=== PATIENT | female | born 1955 | race Caucasian/White ===

== ENCOUNTER → 2020-09-04 12:44 | Outpatient (BNVA) | payer MEDICARE, MEDICAID, SELFPAY | PROVIDERS: PCP Internal Medicine; Referring Provider Internal Medicine; Visit Provider Nurse Practitioner | DX: R10.13 Epigastric pain (principal); K21.9 Gastro-esophageal reflux disease without esophagitis | CPT/HCPCS: 99203; Q3014 ==

== ENCOUNTER 2020-09-17 16:46 | Outpatient (REF) | payer MEDICARE, MEDICAID, SELFPAY ==
--- NOTE | 2020-09-17 | MM_ITS ---
EXAMINATION: MM SCREENING DIGITAL BREAST TOMOSYNTHESIS, BILATERAL CLINICAL INFORMATION: Screening. Asymptomatic. The lifetime risk of breast cancer based on the Tyrer-Cuzick Model is 3%. COMPARISON: Mammography: 05/05/2014, 11/04/2013, 05/06/2013, 06/07/2012 TECHNIQUE: Digital breast tomosynthesis is performed in both the craniocaudal and mediolateral oblique views along with computer-aided detection (CAD). Synthesized 2D images are generated from the tomosynthesis. Additional right MLO view is provided. FINDINGS: There are scattered areas of fibroglandular density (ACR BI-RADS breast composition Category b). There are no significant masses, abnormal calcifications, or other abnormalities. Parenchymal pattern is similar to prior studies. There is no developing density. MM/MM tomosynthesis screening BI IMPRESSION: No significant changes from prior studies. ASSESSMENT: BI-RADS 1: Negative RECOMMENDATION: Routine annual mammography screening. This patient's information was entered into a reminder system with a target due date for their next mammogram.
== END 2020-09-17 16:47 | disposition home or self-care (01) ==
LOC: HO.MAMMO 16:46
PROVIDERS: PCP Internal Medicine; Visit Provider Internal Medicine
DX: Z12.31 Encounter for screening mammogram for malignant neoplasm of breast (principal)
CPT/HCPCS: 77063; 77067

== ENCOUNTER 2020-09-18 08:59 | Outpatient (REF) | payer MEDICARE, MEDICAID, SELFPAY ==
--- NOTE | 2020-09-18 | FL_ITS ---
EXAMINATION: FL SMALL BOWEL SERIES CLINICAL INFORMATION: Epigastric pain COMPARISON: None TECHNIQUE: Following a seam sewer image of the abdomen, contrast was administered orally, and interval abdominal radiographs were performed to assess for contrast progression through the small bowel. Following contrast transit through the small bowel and into the colon, the patient was placed on the fluoroscopy table, and multiple spot images were obtained. FINDINGS: Family Day Care Worker image of the abdomen demonstrates a normal bowel gas pattern. There is normal transit time of contrast material through the small bowel, with contrast present in the colon by 1 hour . Small bowel loops are of normal caliber throughout the abdomen and pelvis. The jejunal and ileal fold patterns are normal, without evidence of abnormal thickening. No fixed regions of luminal narrowing are seen to suggest stricturing. The terminal ileum demonstrates a normal appearance. There are degenerative changes of the lower lumbar spine and hip joints. 8 saved fluoroscopic images FL/FL small bowel follow through IMPRESSION: Normal small bowel series.
--- NOTE | 2020-09-18 09:04 | FL_ITS ---
EXAMINATION: XR FLUOROSCOPY UPPER GI WITH AIR CLINICAL INFORMATION: Epigastric pain COMPARISON: None TECHNIQUE: Upper GI was performed using thin and thick barium and effervescent granules. FINDINGS: There are tertiary contractions seen in the esophagus. There is a small sliding-type hiatal hernia. No gastroesophageal reflux is seen. The stomach and duodenum are normal-appearing. No fold thickening, mass, ulcer or stricture is seen. FLUOROSCOPY TIME: 1.3 minutes DOSE AREA PRODUCT: 12 kruger per centimeter squared. Total dose 48 mg. 48 saved fluoroscopic images. FL/FL upper GI w air IMPRESSION: Tertiary esophageal contractions. Small sliding-type hiatal hernia.
== END 2020-09-18 09:00 | disposition home or self-care (01) ==
LOC: HO.XRAY 08:59
PROVIDERS: PCP Internal Medicine; Visit Provider Nurse Practitioner
DX: R10.13 Epigastric pain (principal)
CPT/HCPCS: 74246; 74248; 74250

== ENCOUNTER → 2020-10-01 14:53 | Outpatient (BNVA) | payer MEDICARE, MEDICAID, SELFPAY | PROVIDERS: PCP Internal Medicine; Referring Provider Internal Medicine; Visit Provider Nurse Practitioner | DX: K21.9 Gastro-esophageal reflux disease without esophagitis (principal); R10.13 Epigastric pain; K29.50 Unspecified chronic gastritis without bleeding; Z79.899 Other long term (current) drug therapy | CPT/HCPCS: Q3014 ==

== ENCOUNTER 2020-12-13 09:50 | Outpatient (REF) | payer MEDICARE, MEDICAID, SELFPAY ==
--- NOTE | 2020-12-13 09:54 | US_ITS ---
EXAMINATION: US ABDOMEN COMPLETE CLINICAL INFORMATION: Epigastric pain. COMPARISON: Ultrasound abdomen 04/13/2009. TECHNIQUE: Real-time imaging of the abdominal viscera. FINDINGS: PANCREAS: Pancreatic head and body are unremarkable. The tail is obscured by gas. ABDOMINAL AORTA: The proximal, mid, and distal segments are normal in caliber. INFERIOR VENA CAVA: Visualized portions are normal. LIVER: The liver is normal in size. The liver contour is normal. There is diffuse increased liver parenchymal echogenicity, consistent with hepatic steatosis. Focal fatty sparing noted near the gallbladder fossa. No focal hepatic lesion. There is no intrahepatic biliary duct dilatation seen. GALLBLADDER: Normal. The gallbladder is physiologically distended without evidence of stones, sludge, polyps, wall thickening or pericholecystic fluid. COMMON BILE DUCT: Normal in caliber measuring 0.5 cm in diameter. RIGHT KIDNEY: Normal. No hydronephrosis. No renal calculi or focal parenchymal lesions. The kidney measures 10.1 cm in maximum dimension. LEFT KIDNEY: Normal. No hydronephrosis. No renal calculi or focal parenchymal lesions. The kidney measures 10.8 cm in maximum dimension. SPLEEN: Normal. The spleen measures 9.8 cm in maximum dimension. FREE FLUID: None. US/US abdomen complete IMPRESSION: Hepatic steatosis. Otherwise unremarkable abdominal ultrasound.
== END 2020-12-13 09:51 | disposition home or self-care (01) ==
LOC: HO.US 09:50
PROVIDERS: PCP Internal Medicine; Visit Provider Nurse Practitioner
DX: R10.13 Epigastric pain (principal)
CPT/HCPCS: 76700

== ENCOUNTER → 2020-12-18 14:12 | Outpatient (BNVA) | payer MEDICARE, MEDICAID, SELFPAY | PROVIDERS: PCP Internal Medicine; Visit Provider Nurse Practitioner ==

== ENCOUNTER → 2020-12-20 08:58 | Outpatient (BNVA) | payer MEDICARE, MEDICAID, SELFPAY | PROVIDERS: PCP Internal Medicine; Visit Provider Nurse Practitioner | DX: Z13.89 Encounter for screening for other disorder (principal) | CPT/HCPCS: Q3014 ==

== ENCOUNTER 2021-02-21 12:41 | Outpatient (REF) | payer MEDICARE, MEDICAID, SELFPAY ==
[2021-02-21 15:33] LABS: MANUAL DIFF FLAG NO
[2021-02-21 15:39] LABS: Basophils Percent Auto 0.3 % (0-2); Eosinophils Absolute Auto 0.1 X10*3/uL (0.0-0.4); Eosinophils Percent Auto 1.1 % (0-4); Hematocrit 40.9 % (37-47); Hemoglobin 13.3 g/dl (12.0-16.0); Imm Gran Abs Auto 0.01 X10*3/uL (0.00-0.03); Imm Gran Pct Auto 0.2 % (0.0-0.4); Lymphocytes Absolute Auto 2.2 X10*3/uL (1.2-4.9); Mean Corpuscular HGB Conc 32.5 g/dl (31.0-35.0); Mean Corpuscular Hemoglobin 28.5 pg (27.0-33.0); Mean Corpuscular Volume 87.6 fL (80-98); Mean Platelet Volume 10.6 fL (9.4-12.3); Monocytes Absolute Auto 0.4 X10*3/uL (0.1-1.2); Monocytes Percent Auto 5.7 % (2-11); Neutrophils Absolute Auto 3.8 X10*3/uL (2.0-8.3); Neutrophils Percent Auto 58.7 % (45-73); Platelet Count 254 X10*3/uL (160-400); Red Blood Count 4.67 X10*6/uL (4.20-5.50); Red Cell Distribution Width 13.4 % (11.0-16.0); White Blood Count 6.5 X10*3/uL (4.8-10.8)
[2021-02-21 16:00] LABS: C Reactive Protein 0.44 mg/dL (< or = 0.50)
[2021-02-21 16:14] LABS: Albumin Level 4.3 g/dL (3.5-5.0); Estimated Glomerular Filt Rate > 60; Phosphorus 3.6 mg/dL (2.7-4.5)
[2021-02-21 16:24] LABS: Vitamin D 25-OH Total 26.3 ng/mL (>30)
[2021-02-21 16:30] LABS: Calcium 10.8 mg/dL (8.4-10.2)
[2021-02-22 12:46] LABS: Calcium (PTHI) 10.7 mg/dL (8.6-10.4); PTHI 55 pg/mL (14-64)
== END 2021-02-21 12:42 | disposition home or self-care (01) ==
LOC: HO.LAB 12:41
PROVIDERS: Nurse Practitioner; PCP Internal Medicine; Visit Provider Internal Medicine
DX: E83.52 Hypercalcemia (principal); E21.3 Hyperparathyroidism, unspecified; E55.9 Vitamin D deficiency, unspecified; R10.13 Epigastric pain
CPT/HCPCS: 36415; 82040; 82306; 82310; 82565; 83970; 84100; 85025; 86140; 99202

== ENCOUNTER 2021-03-05 11:07 | Outpatient (REF) | payer MEDICARE, MEDICAID, SELFPAY ==
[2021-03-06 08:45] LABS: BV Int Neg Control Negative (Negative); BV Int Pos Control Positive (Positive)
== END 2021-03-05 11:08 | disposition home or self-care (01) ==
LOC: HO.LAB 11:07
PROVIDERS: PCP Internal Medicine; Visit Provider Advanced Practice Midwife
DX: N89.8 Other specified noninflammatory disorders of vagina (principal); R32 Unspecified urinary incontinence; N95.2 Postmenopausal atrophic vaginitis
CPT/HCPCS: 87480; 87510; 87660; 99212

== ENCOUNTER 2021-03-12 15:09 | Outpatient (REF) | payer MEDICARE, MEDICAID, SELFPAY | END 2021-03-12 15:10 | disposition home or self-care (01) | LOC: HO.LNP 15:09 | PROVIDERS: Visit Provider Nurse Practitioner | DX: R10.13 Epigastric pain (principal) | CPT/HCPCS: 87338 ==

== ENCOUNTER 2021-03-21 12:32 | Outpatient (REF) | payer MEDICARE, MEDICAID, SELFPAY ==
--- NOTE | ~2021-03-21 | MM_ITS ---
EXAMINATION: BONE DENSITOMETRY CLINICAL INDICATION: Hypercalcemia. COMPARISON: Baseline BD dated 11/04/2013. This is the patient's baseline examination for the forearm radius 33%. TECHNIQUE: Using a [employer] DXA System (software version: 13.1) manufactured by [employer], dual-energy x-ray absorptiometry was performed of the lumbar spine, left hip, and left forearm radius 33%. The images are of good technical quality. Summary results are attached. FINDINGS: AP SPINE L1-L4: Current: BMD 1.050 g/cm2, Z-score -0.1, T-score -1.1, osteopenia, 4.9% decrease from baseline (<5% change is not significant). Baseline: BMD 1.104 g/cm2. LEFT FEMUR, NECK: Current: BMD 0.793 g/cm2, Z-score -0.6, T-score -1.8, osteopenia. Baseline: BMD 0.868 g/cm2. LEFT FEMUR, TOTAL: Current: BMD 1.050 g/cm2, Z-score -0.1, T-score -1.1, osteopenia, 4.9% decrease from baseline (<5% change is not significant). Baseline: BMD 1.104 g/cm2. LEFT FOREARM RADIUS 33%: BMD 0.756 g/cm2, Z-score 0.2, T-score -1.4, osteopenia. IDENTIFIED RISK FACTORS: Hyperparathyroidism. Early menopause, secondary osteoporosis, hysterectomy, bilateral oophorectomy. HISTORY OF FRACTURE: None listed. MEDICATIONS: Vitamin D. MM/XR DEXA appendicular skeleton IMPRESSION: 1. DIAGNOSIS: Osteopenia based on the lowest T-score value of -1.8 in the femoral neck applying World Health Organization criteria. 2. 10-YEAR FRACTURE RISK PREDICTION, FRAX: Major osteoporotic fracture (clinical spine, forearm, hip or shoulder) 5.4%. Hip fracture 0.7%. 3. Treatment Recommendations: NOF guidelines recommend consideration for treatment in postmenopausal women and men age 50 and older presenting with the following: -A hip or vertebral (clinical or morphometric) fracture. -T-score less than or equal to -2.5 at the femoral neck or spine after appropriate evaluation to exclude secondary causes. -Low bone mass at the hip or spine and a 10-year fracture probability by FRAX of greater than or equal to 3% for hip fracture or greater than or equal to 20% for major osteoporotic fracture based on the [place] adapted WHO algorithm. 4. Other Recommendations: All treatment decisions require clinical judgment and consideration of individual patient factors, including patient preferences, comorbidities, previous drug use, risk factors not captured in the FRAX model (e.g. frailty, falls, vitamin D deficiency, increased bone turnover, interval significant decline in bone density) and possible under or overestimation of fracture risk by FRAX. Additional medical evaluation for secondary cause of low bone mineral density may be appropriate. FUTURE SCAN RECOMMENDATION: People with diagnosed cases of osteoporosis or at high risk for fracture should have regular bone mineral density tests. For patients eligible for Medicare, routine testing is allowed once every 2 years. The testing frequency can be increased to one year for patients who have rapidly progressing disease, those who are receiving or discontinuing medical therapy to restore bone mass, or have additional risk factors.
== END 2021-03-21 12:33 | disposition home or self-care (01) ==
LOC: HO.MAMMO 12:32
PROVIDERS: Visit Provider Internal Medicine
DX: Z13.820 Encounter for screening for osteoporosis (principal); M85.80 Other specified disorders of bone density and structure, unspecified site; E83.52 Hypercalcemia; Z78.0 Asymptomatic menopausal state; Z98.890 Other specified postprocedural states; Z79.899 Other long term (current) drug therapy
CPT/HCPCS: 77080; 77081

== ENCOUNTER → 2021-03-22 15:40 | Outpatient (BNVA) | payer MEDICARE, MEDICAID, SELFPAY | PROVIDERS: PCP Internal Medicine; Visit Provider Nurse Practitioner | DX: A04.8 Other specified bacterial intestinal infections (principal); K21.9 Gastro-esophageal reflux disease without esophagitis; R10.13 Epigastric pain; R32 Unspecified urinary incontinence; K29.50 Unspecified chronic gastritis without bleeding; N95.2 Postmenopausal atrophic vaginitis; K59.04 Chronic idiopathic constipation | CPT/HCPCS: 99212 ==

== ENCOUNTER → 2021-05-15 08:54 | Outpatient (BNVA) | payer MEDICARE, SELFPAY | PROVIDERS: Visit Provider Internal Medicine | DX: E21.3 Hyperparathyroidism, unspecified (principal); E55.9 Vitamin D deficiency, unspecified; E83.52 Hypercalcemia | CPT/HCPCS: Q3014 ==

== ENCOUNTER 2021-06-05 10:17 | Outpatient (REF) | payer MEDICARE, SELFPAY ==
--- NOTE | ~2021-06-05 | US_ITS ---
EXAMINATION: US THYROID CLINICAL INFORMATION: Hyperparathyroidism, unspecified COMPARISON: None TECHNIQUE: Linear transducer kruger-scale and color Doppler examination with attention to the region of the thyroid. FINDINGS: SIZE: Measurements of the thyroid lobes and nodules are given in sagittal, anteroposterior and transverse dimensions respectively. Right Thyroid Lobe: 5.1 x 1.9 x 1.6 cm, volume 8.1 mL. Parenchyma: The gland echotexture is heterogeneous. Thyroid vascularity is normal. Left Thyroid Lobe: 4.6 x 1.7 x 1.5 cm, volume 6.1 mL. Parenchyma: The gland echotexture is heterogeneous. Thyroid vascularity is normal. Isthmus: 0.2 cm in maximum AP dimension. Estimated total number of nodules greater than or equal to 1 cm: 1. Data Integrity Analyst nodules are described as follows: 1. Location: Right inferior. Size: 1.0 x 0.5 x 0.6 cm, volume 0.2 mL. Nodule characteristics: Composition: Solid (2). Echogenicity: Isoechoic (1). Shape: Not taller than wide (0). Margins: Smooth (0). Echogenic Foci: None (0). ACR TI-RADS total points: 3 ACR TI-RADS category: 3 2. Location: Right superior/mid. Size: 0.7 x 0.6 x 0.6 cm, volume 0.1 mL. Nodule characteristics: Composition: Solid (2). Echogenicity: Isoechoic (1). Shape: Not taller than wide (0). Margins: Smooth (0). Echogenic Foci: None (0). ACR TI-RADS total points: 3 ACR TI-RADS category: 3 There are multiple colloid cysts seen. The largest fecaloid cysts were measured on the exam and not dictated on the report. NODES: No lymphadenopathy is seen in the tissue surrounding the thyroid gland. US/US thyroid IMPRESSION: Subcentimeter solid thyroid nodules, nonsuspicious. Multiple colloid cysts seen bilaterally. The thyroid gland is heterogeneous and mildly enlarged. ACR TI-RADS RECOMMENDATION REFERENCE: Ultrasound-guided fine-needle aspiration, followup ultrasound, no further follow up. * TR1 (0 point) and TR 2 (2 points): No FNA or follow up * TR3 (3 points): FNA if more than or equal to 2.5 cm in maximum dimension, followup ultrasound in 1, 3 and 5 years if 1.5 to 2.4 cm in maximum dimension. * TR4 (4-6 points): FNA if more than or equal to 1.5 cm in maximum dimension, followup ultrasound in 1, 2, 3 and 5 years if 1 to 1.4 cm in maximum dimension. * TR5 (more than or equal to 7 points): FNA if more than or equal to 1 cm in maximum dimension, followup ultrasound every year for 5 years if 0.5 to 0.9 cm in maximum dimension. * TR3, TR4 or TR5 nodules that are below the size threshold for follow up receive no follow up.
== END 2021-06-05 10:18 | disposition home or self-care (01) ==
LOC: HO.US 10:17
PROVIDERS: PCP Internal Medicine; Visit Provider Internal Medicine
DX: E21.3 Hyperparathyroidism, unspecified (principal)
CPT/HCPCS: 76536

== ENCOUNTER 2021-08-08 10:03 | Outpatient (REF) | payer MEDICARE, SELFPAY ==
--- NOTE | 2021-08-08 10:31 | PM.OP ---
Brief Operative Note Date of Service: 08/08/21 Pre-op diagnosis: Multinodular Thyroid Procedure: The patient presented today for FNA biopsy of the thyroid. US was completed and this revealed a heterogenous appearing gland with multiple subcentimeter cysts. There was 1 right mid pole 1.1 cm spongiform nodule, but no nodules meeting indication for FNA biopsy. I discussed with the Patient that spongiform nodules carry a low risk of malignancy, and FNA biopsy is recommended only when these nodules grow to more than 2-2.5 cm in greatest dimension. Her nodule does not meet indication for FNA biopsy at this time. We will continue with yearly thyroid US surveillance to monitor for any growth or changes in the nodule that would warrant FNA biopsy. I advised her to notify me immediately of any swelling or growth in the thyroid, difficulty swallowing or changes in her voice. She states she will do so. Surgeon: Stormy Rosales, DO Was an Senior Windows Systems Engineer used for this Procedure?: No Estimated blood loss (mL): 0
== END 2021-08-08 10:04 | disposition home or self-care (01) ==
LOC: HO.US 10:03
PROVIDERS: PCP Internal Medicine; Visit Provider Internal Medicine
DX: E04.2 Nontoxic multinodular goiter (principal)
CPT/HCPCS: 76536

== ENCOUNTER → 2021-08-22 10:24 | Outpatient (BNVA) | payer MEDICARE, SELFPAY | PROVIDERS: PCP Internal Medicine; Visit Provider Internal Medicine | CPT/HCPCS: Q3014 ==

== ENCOUNTER 2021-08-26 11:25 | Outpatient (REF) | payer MEDICARE, SELFPAY ==
[2021-08-26 12:55] LABS: Alanine Aminotransferase 24 U/L (0-31); Albumin Level 4.2 g/dL (3.5-5.0); Alkaline Phosphatase 107 U/L (39-117); Anion Gap 11 (12-20); Aspartate Amino Transferase 21 U/L (5-31); Bilirubin Total 1.9 mg/dL (0.0-1.0); Blood Urea Nitrogen 10 mg/dL (9-16); Calcium 10.6 mg/dL (8.4-10.2); Carbon Dioxide 29 mmol/L (22-29); Chloride 107 mmol/L (96-108); Estimated Glomerular Filt Rate > 60; Glucose Random 113 mg/dL (60-115); Phosphorus 3.3 mg/dL (2.7-4.5); Potassium 4.5 mmol/L (3.3-5.1); Sodium 142 mmol/L (135-145)
[2021-08-26 13:14] LABS: Free T4 (Free Thyroxine) 0.83 ng/dL (0.71-1.85); Thyroid Stimulating Hormone 0.58 uIU/mL (0.32-4.0); Vitamin D 25-OH Total 25.1 ng/mL (>30)
[2021-08-27 16:05] LABS: Calcium (PTHI) 10.5 mg/dL (8.6-10.4); PTHI 70 pg/mL (14-64)
== END 2021-08-26 11:26 | disposition home or self-care (01) ==
LOC: HO.LAB 11:25
PROVIDERS: PCP Internal Medicine; Visit Provider Internal Medicine
DX: E55.9 Vitamin D deficiency, unspecified (principal); E04.2 Nontoxic multinodular goiter; E21.3 Hyperparathyroidism, unspecified
CPT/HCPCS: 36415; 80053; 82306; 83970; 84100; 84439; 84443

== ENCOUNTER 2021-08-29 | Outpatient (REF) | payer MEDICARE, SELFPAY ==
[2021-08-30 10:51] LABS: Total Volume 24 Hour Urine 1850 mL
[2021-08-30 11:57] LABS: Creatinine, 24Hr Urine 1.2 G/Day (1.0-2.0); Creatinine, mg/dL 62.48
[2021-09-01 17:27] LABS: Calcium, 24 Hr Urine 181 mg/24 h; Calcium/Creatinine Ratio 153 mg/g creat (30-275); Creatinine 24Hr Urine 1.18 g/24 h (0.50-2.15)
== END 2021-08-29 00:01 | disposition home or self-care (01) ==
LOC: HO.LNP
PROVIDERS: Visit Provider Internal Medicine
DX: E21.3 Hyperparathyroidism, unspecified (principal)
CPT/HCPCS: 82340; 82570

== ENCOUNTER → 2021-09-03 13:56 | Outpatient (BNVA) | payer MEDICARE, SELFPAY | PROVIDERS: PCP Internal Medicine; Referring Provider Internal Medicine; Visit Provider Nurse Practitioner | DX: K59.04 Chronic idiopathic constipation (principal); K21.9 Gastro-esophageal reflux disease without esophagitis; A04.8 Other specified bacterial intestinal infections; B37.0 Candidal stomatitis; B37.2 Candidiasis of skin and nail; R10.13 Epigastric pain | CPT/HCPCS: 99212 ==

== ENCOUNTER 2021-09-06 13:04 | Outpatient (REF) | payer MEDICARE, SELFPAY | END 2021-09-06 13:05 | disposition home or self-care (01) | LOC: HO.LNP 13:04 | PROVIDERS: Visit Provider Nurse Practitioner | DX: A04.8 Other specified bacterial intestinal infections (principal) | CPT/HCPCS: 87338 ==

== ENCOUNTER 2021-09-19 11:08 | Outpatient (REF) | payer MEDICARE, SELFPAY ==
--- NOTE | ~2021-09-19 | MM_ITS ---
EXAMINATION: MM SCREENING DIGITAL BREAST TOMOSYNTHESIS, BILATERAL CLINICAL INFORMATION: Screening. Asymptomatic. The lifetime risk of breast cancer based on the Tyrer-Cuzick Model is 2.7%. COMPARISON: Mammography: September 17, 2020 and studies dating back to February 15, 2010 TECHNIQUE: Digital breast tomosynthesis is performed in both the craniocaudal and mediolateral oblique views along with computer-aided detection (CAD). Synthesized 2D images are generated from the tomosynthesis. FINDINGS: There are scattered areas of fibroglandular density (ACR BI-RADS breast composition Category b). There are no significant masses, abnormal calcifications, or other abnormalities. MM/MM tomosynthesis screening BI IMPRESSION: There are no significant changes from prior study. ASSESSMENT: BI-RADS 1: Negative RECOMMENDATION: Routine annual mammography screening. This patient's information was entered into a reminder system with a target due date for their next mammogram.
== END 2021-09-19 11:09 | disposition home or self-care (01) ==
LOC: HO.MAMMO 11:08
PROVIDERS: Visit Provider Internal Medicine
DX: Z12.31 Encounter for screening mammogram for malignant neoplasm of breast (principal)
CPT/HCPCS: 77063; 77067

== ENCOUNTER → 2021-10-08 15:03 | Outpatient (BNVA) | payer MEDICARE, SELFPAY | PROVIDERS: PCP Internal Medicine; Referring Provider Internal Medicine; Visit Provider Nurse Practitioner | DX: K59.04 Chronic idiopathic constipation (principal); K21.9 Gastro-esophageal reflux disease without esophagitis; A04.8 Other specified bacterial intestinal infections; R10.13 Epigastric pain; B37.2 Candidiasis of skin and nail | CPT/HCPCS: 99202 ==

== ENCOUNTER → 2021-11-20 10:08 | Outpatient (BNVA) | payer MEDICARE, SELFPAY | PROVIDERS: PCP Internal Medicine; Visit Provider Internal Medicine | DX: Z13.89 Encounter for screening for other disorder (principal) | CPT/HCPCS: Q3014 ==

== ENCOUNTER → 2021-11-27 14:42 | Outpatient (REF) | payer MEDICARE, SELFPAY ==
--- NOTE | 2021-11-27 15:10 | ECG_ITS ---
Test Reason : chest pain Blood Pressure : / mmHG Vent. Rate : 072 BPM Atrial Rate : 072 BPM P-R Int : 136 ms QRS Dur : 096 ms QT Int : 414 ms P-R-T Axes : 011 011 016 degrees QTc Int : 453 ms Normal sinus rhythm Minimal voltage criteria for LVH, may be normal variant ( R in aVL ) Nonspecific T wave abnormality Abnormal ECG When compared with ECG of 03-APR-2020 01:40, No significant change was found Referred By: Sakshi Prakash Electronically Signed By:Dung Romero
[2021-11-27 15:36] LABS: Cholesterol 159 mg/dL; HDL Cholesterol 41 mg/dL; LDL Cholesterol Calculated 91 mg/dl; Triglycerides 138 mg/dL
== END ==
LOC: HO.CARD 14:42
PROVIDERS: PCP Internal Medicine; Visit Provider Internal Medicine
DX: R07.9 Chest pain, unspecified (principal); E78.5 Hyperlipidemia, unspecified
CPT/HCPCS: 36415; 80061; 93005

== ENCOUNTER → 2021-12-03 13:59 | Outpatient (BNVA) | payer MEDICARE, SELFPAY | PROVIDERS: PCP Internal Medicine; Referring Provider Internal Medicine; Visit Provider Nurse Practitioner | DX: K21.9 Gastro-esophageal reflux disease without esophagitis (principal); K59.04 Chronic idiopathic constipation; K64.9 Unspecified hemorrhoids; R10.13 Epigastric pain; A04.8 Other specified bacterial intestinal infections | CPT/HCPCS: 99212 ==

== ENCOUNTER 2021-12-11 14:23 | Outpatient (REF) | payer MEDICARE, SELFPAY | END 2021-12-11 14:24 | disposition home or self-care (01) | LOC: HO.LNP 14:23 | PROVIDERS: Visit Provider Nurse Practitioner | DX: A04.8 Other specified bacterial intestinal infections (principal) | CPT/HCPCS: 87338 ==

== ENCOUNTER 2021-12-12 11:21 | Outpatient (REF) | payer MEDICARE, SELFPAY ==
[2021-12-12 11:51] LABS: Total Volume 24 Hour Urine 925 mL
[2021-12-12 12:03] LABS: Creatinine, 24Hr Urine 1.3 G/Day (1.0-2.0); Creatinine, mg/dL 139.74
[2021-12-14 19:52] LABS: Calcium, 24 Hr Urine 117 mg/24 h; Calcium/Creatinine Ratio 97 mg/g creat (30-275)
== END 2021-12-12 11:22 | disposition home or self-care (01) ==
LOC: HO.LNP 11:21
PROVIDERS: Visit Provider Internal Medicine
DX: E21.3 Hyperparathyroidism, unspecified (principal)
CPT/HCPCS: 82340; 82570

== ENCOUNTER → 2022-01-06 11:13 | Outpatient (BNVA) | payer MEDICARE, SELFPAY | PROVIDERS: PCP Internal Medicine; Referring Provider Internal Medicine; Visit Provider Nurse Practitioner | DX: K21.9 Gastro-esophageal reflux disease without esophagitis (principal); K64.9 Unspecified hemorrhoids; K29.50 Unspecified chronic gastritis without bleeding; R10.13 Epigastric pain; A04.8 Other specified bacterial intestinal infections; B37.2 Candidiasis of skin and nail | CPT/HCPCS: 99212 ==

== ENCOUNTER 2022-02-11 14:29 | Outpatient (REF) | payer OTHER, SELFPAY ==
[2022-02-11 15:40] LABS: Thyroid Stimulating Hormone 0.86 uIU/mL (0.32-4.0)
== END 2022-02-11 14:30 | disposition home or self-care (01) ==
LOC: HO.LAB 14:29
PROVIDERS: PCP Internal Medicine; Visit Provider Internal Medicine
DX: E04.2 Nontoxic multinodular goiter (principal)
CPT/HCPCS: 36415; 84439; 84443

== ENCOUNTER 2022-02-21 12:39 | Outpatient (REF) | payer OTHER, SELFPAY ==
--- NOTE | ~2022-02-21 | US_ITS ---
EXAMINATION: US THYROID CLINICAL INFORMATION: Nontoxic multinodular goiter. COMPARISON: Thyroid ultrasound 06/05/2021. TECHNIQUE: Linear transducer grayscale and color Doppler examination with attention to the region of the thyroid. FINDINGS: SIZE: Measurements of the thyroid lobes and nodules are given in sagittal, anteroposterior and transverse dimensions respectively. Right Thyroid Lobe: 5.01 x 2.49 x 1.68 cm, volume 11.0 mL. Previously 5.1 x 1.9 x 1.6 cm, volume 8.1 mL. Parenchyma: The gland echotexture is heterogeneous. Thyroid vascularity is normal. Left Thyroid Lobe: 4.52 x 1.41 x 1.55 cm, volume 5.20 mL. Previously 4.6 x 1.7 x 1.5 cm, volume 6.1 mL. Parenchyma: The gland echotexture is heterogeneous. Thyroid vascularity is normal. Isthmus: 0.22 cm in maximum AP dimension. Previously 0.20 cm. Estimated total number of nodules greater than or equal to 1 cm: 0. Pyrometer Temperature Regulator nodules are described as follows: 1. Location: Right superior. Size: 0.74 x 0.66 x 0.64 cm, volume 0.16 mL. Previously: 0.74 x 0.61 x 0.60 cm, volume 0.14 mL. Nodule characteristics: Composition: Spongiform (0). Echogenicity: Anechoic (0). Shape: Not taller than wide (0). Margins: Smooth (0). Echogenic Foci: None (0). ACR TI-RADS total points: 0 Previous: 3 ACR TI-RADS category: 1 Previous: 3 Significant change in size (>/= 20% in 2 dimensions and minimal increase of 2 mm or 50% or greater increase in volume): Change in features: Change in ACR TI-RADS risk category: 2. Location: Right inferior. Size: 0.69 x 0.78 x 0.51 cm, volume 0.15 mL. Previously: 0.74 x 0.70 x 0.48 cm, volume 0.13 mL. Nodule characteristics: Composition: Cystic(0). ACR TI-RADS total points: 0 ACR TI-RADS category: 1 Significant change in size (>/= 20% in 2 dimensions and minimal increase of 2 mm or 50% or greater increase in volume): Change in features: Change in ACR TI-RADS risk category: Not applicable 3. Location: Right inferior. Size: 0.62 x 0.88 x 0.52 cm, volume 0.15 mL. Previously: 0.98 x 0.53 x 0.63 cm, volume 0.17 mL. Nodule characteristics: Composition: Spongiform (0). Echogenicity: Anechoic (0). Shape: Not taller than wide (0). Margins: Smooth (0). Echogenic Foci: None (0). ACR TI-RADS total points: 0 Previous: 3 ACR TI-RADS category: 1 Previous: 3 Significant change in size (>/= 20% in 2 dimensions and minimal increase of 2 mm or 50% or greater increase in volume): Change in features: Change in ACR TI-RADS risk category: 4. Location: Left mid. Size: 0.77 x 0.61 x 0.57 cm, volume 0.14 mL. Previously: 0.77 x 0.41 x 0.81 cm, volume 0.14 mL. Nodule characteristics: Composition: Spongiform (0). Echogenicity: Anechoic (0). Shape: Not taller than wide (0). Margins: Smooth (0). Echogenic Foci: None (0). ACR TI-RADS total points: 0 ACR TI-RADS category: 1 Significant change in size (>/= 20% in 2 dimensions and minimal increase of 2 mm or 50% or greater increase in volume): Change in features: Change in ACR TI-RADS risk category: Not applicable 5. Location: Left inferior. Size: 0.92 x 0.53 x 0.98 cm, volume 0.25 mL. Previously: 1.0 x 0.45 x 0.90 cm, volume 0.22 mL. Nodule characteristics: Composition: Cystic(0). ACR TI-RADS total points: 0 ACR TI-RADS category: 1 Significant change in size (>/= 20% in 2 dimensions and minimal increase of 2 mm or 50% or greater increase in volume): Change in features: Change in ACR TI-RADS risk category: Not applicable NODES: No lymphadenopathy is seen in the tissue surrounding the thyroid gland. US/US thyroid IMPRESSION: Multiple bilateral subcentimeter thyroid nodules. The sonographic morphology is consistent with ACR TI-RADS Category 1. Based on the size criteria, no more sonographic follow-up is indicated. ACR TI-RADS RECOMMENDATION REFERENCE: Ultrasound-guided fine-needle aspiration, followup ultrasound, no further follow up. * TR1 (0 point) and TR 2 (2 points): No FNA or follow up * TR3 (3 points): FNA if more than or equal to 2.5 cm in maximum dimension, followup ultrasound in 1, 3 and 5 years if 1.5 to 2.4 cm in maximum dimension. * TR4 (4-6 points): FNA if more than or equal to 1.5 cm in maximum dimension, followup ultrasound in 1, 2, 3 and 5 years if 1 to 1.4 cm in maximum dimension. * TR5 (more than or equal to 7 points): FNA if more than or equal to 1 cm in maximum dimension, followup ultrasound every year for 5 years if 0.5 to 0.9 cm in maximum dimension. * TR3, TR4 or TR5 nodules that are below the size threshold for follow up receive no follow up.
== END 2022-02-21 12:40 | disposition home or self-care (01) ==
LOC: HO.HMGCX 12:39
PROVIDERS: PCP Internal Medicine; Visit Provider Internal Medicine
DX: E04.2 Nontoxic multinodular goiter (principal)
CPT/HCPCS: 76536

== ENCOUNTER → 2022-03-20 11:22 | Outpatient (BNVA) | payer OTHER, SELFPAY | PROVIDERS: PCP Internal Medicine; Visit Provider Internal Medicine | DX: E21.3 Hyperparathyroidism, unspecified (principal); E55.9 Vitamin D deficiency, unspecified; E04.2 Nontoxic multinodular goiter | CPT/HCPCS: Q3014 ==

== ENCOUNTER 2022-03-25 11:01 | Outpatient (REF) | payer OTHER, SELFPAY ==
[2022-03-25 12:33] LABS: Vitamin D 25-OH Total 20.2 ng/mL (>30)
[2022-03-25 12:44] LABS: Alanine Aminotransferase 34 U/L (0-31); Albumin Level 4.1 g/dL (3.5-5.0); Alkaline Phosphatase 96 U/L (39-117); Anion Gap 8 (12-20); Aspartate Amino Transferase 25 U/L (5-31); Bilirubin Total 1.5 mg/dL (0.0-1.0); Blood Urea Nitrogen 13 mg/dL (9-16); Calcium 10.7 mg/dL (8.4-10.2); Carbon Dioxide 28 mmol/L (22-29); Chloride 109 mmol/L (96-108); Estimated Glomerular Filt Rate > 60; Glucose Random 131 mg/dL (60-115); Phosphorus 2.7 mg/dL (2.7-4.5); Potassium 4.5 mmol/L (3.3-5.1); Sodium 140 mmol/L (135-145)
[2022-03-26 17:45] LABS: Calcium (PTHI) 10.5 mg/dL (8.6-10.4); PTHI 64 pg/mL (16-77)
== END 2022-03-25 11:02 | disposition home or self-care (01) ==
LOC: HO.LAB 11:01
PROVIDERS: PCP Internal Medicine; Visit Provider Internal Medicine
DX: E83.52 Hypercalcemia (principal)
CPT/HCPCS: 36415; 80053; 82306; 83970; 84100

== ENCOUNTER → 2022-05-14 11:12 | Outpatient (BNVA) | payer OTHER, SELFPAY | PROVIDERS: PCP Internal Medicine; Visit Provider Internal Medicine | DX: E21.3 Hyperparathyroidism, unspecified (principal); E55.9 Vitamin D deficiency, unspecified; E04.2 Nontoxic multinodular goiter | CPT/HCPCS: Q3014 ==

== ENCOUNTER 2022-07-22 16:07 | Outpatient (REF) | payer OTHER, SELFPAY ==
--- NOTE | ~2022-07-22 | XR_ITS ---
EXAMINATION: XR ABDOMEN KUB CLINICAL INDICATION: Calculus of kidney. COMPARISON: None. TECHNIQUE: AP view of the abdomen. FINDINGS: There is scattered stool seen throughout the colon without distention. Otherwise the bowel gas pattern is normal with no evidence of ileus or obstruction. There is a 3 mm radiopaque calculi or phlebolith in the left pelvis. Few phleboliths are seen in the right pelvis. The bones are unremarkable. XR/XR KUB IMPRESSION: Mild constipation. 3 mm radiopaque density left pelvis adjacent to the ischium, question stone versus phlebolith.
== END 2022-07-22 16:08 | disposition home or self-care (01) ==
LOC: HO.XRAY 16:07
PROVIDERS: PCP Internal Medicine; Visit Provider Internal Medicine
DX: N20.0 Calculus of kidney (principal)
CPT/HCPCS: 74018

== ENCOUNTER → 2022-07-23 12:30 | Outpatient (REF) | payer OTHER, SELFPAY ==
--- NOTE | 2022-07-23 12:40 | ECG_ITS ---
Test Reason : cp Blood Pressure : / mmHG Vent. Rate : 074 BPM Atrial Rate : 074 BPM P-R Int : 138 ms QRS Dur : 092 ms QT Int : 406 ms P-R-T Axes : 038 021 033 degrees QTc Int : 450 ms Normal sinus rhythm ST & T wave abnormality, consider anterior ischemia Abnormal ECG When compared with ECG of 27-NOV-2021 15:15, Inverted T waves have replaced nonspecific T wave abnormality in Anterior leads Clinical Correlation Advised Referred By: Sakshi Prakash Electronically Signed By:SALLIE HORTON
== END ==
LOC: HO.CARD 12:30
PROVIDERS: PCP Internal Medicine; Visit Provider Internal Medicine
DX: R07.9 Chest pain, unspecified (principal)
CPT/HCPCS: 93005

== ENCOUNTER → 2022-08-11 08:40 | Outpatient (REF) | payer OTHER, SELFPAY | LOC: HO.CARD 08:40 | PROVIDERS: PCP Internal Medicine; Visit Provider Internal Medicine | DX: Z13.89 Encounter for screening for other disorder (principal) ==

== ENCOUNTER 2022-09-26 15:13 | Outpatient (REF) | payer OTHER, SELFPAY ==
--- NOTE | ~2022-09-26 | XR_ITS ---
EXAMINATION: XR RIBS, RIGHT CLINICAL INFORMATION: Pain COMPARISON: Previous chest x-ray January 2009 TECHNIQUE: 3 views of the right ribs and one view of the chest were obtained. FINDINGS: Lungs are clear. No consolidation, pneumothorax, or pleural effusion. The cardiomediastinal silhouette and pulmonary vasculature are normal. Osseous structures are unremarkable. Ribs are intact. No fractures are identified. XR/XR ribs RT min 3V w CXR1V IMPRESSION: Unremarkable examination.
[2022-09-26 15:33] LABS: MANUAL DIFF FLAG NO
[2022-09-26 16:49] LABS: Basophils Percent Auto 0.5 % (0-2); Eosinophils Percent Auto 0.6 % (0-4); Hematocrit 44.5 % (37.0-47.0); Hemoglobin 14.6 g/dl (12.0-16.0); Imm Gran Abs Auto 0.01 X10*3/uL (0.00-0.03); Imm Gran Pct Auto 0.2 % (0.0-0.4); Lymphocytes Absolute Auto 2.3 X10*3/uL (1.2-4.9); Lymphocytes Percent Auto 37.7 % (20-40); Mean Corpuscular HGB Conc 32.8 g/dl (31.0-35.0); Mean Corpuscular Hemoglobin 28.2 pg (27.0-33.0); Mean Corpuscular Volume 86.1 fL (80.0-98.0); Mean Platelet Volume 10.7 fL (9.4-12.3); Monocytes Absolute Auto 0.3 X10*3/uL (0.1-1.2); Monocytes Percent Auto 5.3 % (2-11); Neutrophils Absolute Auto 3.4 x10*3/uL (2.0-8.3); Neutrophils Percent Auto 55.7 % (45-73); Platelet Count 258 X10*3/uL (160-400); Red Blood Count 5.17 X10*6/uL (4.20-5.50); Red Cell Distribution Width 13.7 % (11.0-16.0); White Blood Count 6.2 X10*3/uL (4.8-10.8)
[2022-09-26 18:02] LABS: Alanine Aminotransferase 43 U/L (0-31); Albumin Level 4.5 g/dL (3.5-5.0); Alkaline Phosphatase 117 U/L (39-117); Anion Gap 14 (12-20); Aspartate Amino Transferase 31 U/L (5-31); Bilirubin Total 1.3 mg/dL (0.0-1.0); Blood Urea Nitrogen 12 mg/dL (9-16); Carbon Dioxide 28 mmol/L (22-29); Chloride 105 mmol/L (96-108); Estimated Glomerular Filt Rate > 60; Glucose Random 93 mg/dL (60-115); Potassium 4.8 mmol/L (3.3-5.1); Sodium 142 mmol/L (135-145); Total Protein 7.5 g/dL (6.5-8.0)
[2022-09-26 18:06] LABS: Appearance Urine Clear; Color Urine Yellow; Glucose Urine UA Negative (Negative); Leukocyte Esterase Urine Negative (Negative); Nitrite Urine Negative (Negative); UMIC TRIGGER UACC YES; Urine Blood Trace (Negative); Urine Ketones Negative (Negative); Urine Protein Negative (Neg-Trace)
[2022-09-26 18:57] LABS: Bacteria Urine None Seen (None Seen); Hyaline Casts Urine 0-2 /LPF (0-2); RBC Urine 0-2 /HPF (0-2); WBC Urine 0-5 /HPF (0-5)
== END 2022-09-26 15:14 | disposition home or self-care (01) ==
LOC: HO.XRAY 15:13
PROVIDERS: PCP Internal Medicine; Visit Provider Nurse Practitioner Family
DX: M54.9 Dorsalgia, unspecified (principal)
CPT/HCPCS: 36415; 71101; 80053; 81001; 85025

== ENCOUNTER 2022-09-29 08:47 | Outpatient (REF) | payer OTHER, SELFPAY ==
--- NOTE | ~2022-09-29 | MM_ITS ---
EXAMINATION: MM SCREENING DIGITAL BREAST TOMOSYNTHESIS, BILATERAL CLINICAL INFORMATION: Screening. Asymptomatic. The lifetime risk of breast cancer based on the Tyrer-Cuzick Model is 3%. COMPARISON: Mammography: 09/19/2021, 09/17/2020, 05/05/2014 TECHNIQUE: Digital breast tomosynthesis is performed in both the craniocaudal and mediolateral oblique views along with computer-aided detection (CAD). Synthesized 2D images are generated from the tomosynthesis. FINDINGS: There are scattered areas of fibroglandular density (ACR BI-RADS breast composition Category b). There are no significant masses, abnormal calcifications, or other abnormalities. Parenchymal pattern is similar to prior studies. No developing density or architectural abnormality. No significant changes. MM/MM tomosynthesis screening BI IMPRESSION: No mammographic evidence of malignancy. ASSESSMENT: BI-RADS 1: Negative RECOMMENDATION: Routine annual mammography screening. This patient's information was entered into a reminder system with a target due date for their next mammogram.
== END 2022-09-29 08:48 | disposition home or self-care (01) ==
LOC: HO.MAMMO 08:47
PROVIDERS: Visit Provider Internal Medicine
DX: Z12.31 Encounter for screening mammogram for malignant neoplasm of breast (principal)
CPT/HCPCS: 77063; 77067

== ENCOUNTER → 2022-10-15 12:33 | Outpatient (BNVA) | payer OTHER, SELFPAY | PROVIDERS: PCP Internal Medicine; Referring Provider Internal Medicine; Visit Provider Internal Medicine Cardiovascular Disease | DX: I20.0 Unstable angina (principal) | CPT/HCPCS: 93005; 99202 ==

== ENCOUNTER → 2022-11-04 13:17 | Outpatient (BNVA) | payer OTHER, SELFPAY | PROVIDERS: PCP Internal Medicine; Visit Provider Nurse Practitioner Family | DX: R07.9 Chest pain, unspecified (principal); I25.10 Atherosclerotic heart disease of native coronary artery without angina pectoris; R94.31 Abnormal electrocardiogram [ECG] [EKG]; Z79.899 Other long term (current) drug therapy; Z98.890 Other specified postprocedural states | CPT/HCPCS: 99212 ==

== ENCOUNTER 2022-11-11 13:59 | Outpatient (REF) | payer OTHER, SELFPAY ==
[2022-11-11 15:53] LABS: Alanine Aminotransferase 43 U/L (0-31); Albumin Level 4.4 g/dL (3.5-5.0); Alkaline Phosphatase 111 U/L (39-117); Anion Gap 9 (12-20); Aspartate Amino Transferase 33 U/L (5-31); Bilirubin Total 1.6 mg/dL (0.0-1.0); Blood Urea Nitrogen 11 mg/dL (9-16); Calcium 11.1 mg/dL (8.4-10.2); Carbon Dioxide 29 mmol/L (22-29); Chloride 106 mmol/L (96-108); Cholesterol 213 mg/dL; Estimated Glomerular Filt Rate > 60; Glucose Random 138 mg/dL (60-115); HDL Cholesterol 43 mg/dL; LDL Cholesterol Calculated 138 mg/dl; Phosphorus 3.1 mg/dL (2.7-4.5); Potassium 4.1 mmol/L (3.3-5.1); Sodium 140 mmol/L (135-145); Total Protein 7.4 g/dL (6.5-8.0); Triglycerides 164 mg/dL
[2022-11-11 16:06] LABS: Appearance Urine Cloudy; Color Urine Yellow; Glucose Urine UA Negative (Negative); Leukocyte Esterase Urine Negative (Negative); Nitrite Urine Negative (Negative); PH 5.5 (5.0-9.0); Specific Gravity - Urine 1.025 (1.005-1.025); UMIC TRIGGER UACC YES; Urine Blood Trace (Negative); Urine Ketones Negative (Negative); Urine Protein Negative (Neg-Trace)
[2022-11-11 16:09] LABS: Free T4 (Free Thyroxine) 0.83 ng/dL (0.71-1.85); Vitamin D 25-OH Total 18.3 ng/mL (>30)
[2022-11-11 16:13] LABS: Bacteria Urine None Seen (None Seen); Hyaline Casts Urine 0-2 /LPF (0-2); RBC Urine 0-2 /HPF (0-2); WBC Urine 0-5 /HPF (0-5)
[2022-11-12 16:14] LABS: Calcium (PTHI) 11.2 mg/dL (8.6-10.4); PTHI 58 pg/mL (16-77)
== END 2022-11-11 14:00 | disposition home or self-care (01) ==
LOC: HO.LAB 13:59
PROVIDERS: Nurse Practitioner Family; PCP Internal Medicine; Visit Provider Internal Medicine
DX: E78.5 Hyperlipidemia, unspecified (principal); E55.9 Vitamin D deficiency, unspecified; E04.2 Nontoxic multinodular goiter; E21.3 Hyperparathyroidism, unspecified; R31.9 Hematuria, unspecified
CPT/HCPCS: 36415; 80053; 80061; 81001; 82306; 83970; 84100; 84439; 84443

== ENCOUNTER → 2022-11-12 14:02 | Outpatient (BNVA) | payer OTHER, SELFPAY | PROVIDERS: PCP Internal Medicine; Visit Provider Internal Medicine | DX: E21.3 Hyperparathyroidism, unspecified (principal); E55.9 Vitamin D deficiency, unspecified; E04.2 Nontoxic multinodular goiter; Z79.899 Other long term (current) drug therapy | CPT/HCPCS: 99212 ==

== ENCOUNTER 2022-11-13 14:30 | Outpatient (REF) | payer OTHER, SELFPAY ==
--- NOTE | ~2022-11-13 | US_ITS ---
EXAMINATION: US RETROPERITONEAL LIMITED (RENAL ONLY) CLINICAL INFORMATION: Calculus of kidney. COMPARISON: X-ray KUB 07/22/2022. Ultrasound abdomen complete 12/13/2020. CT abdomen 12/08/2007. TECHNIQUE: Real-time imaging of the kidneys. FINDINGS: RIGHT KIDNEY: 11.2 x 4.3 x 4.9 cm (SAG x AP x TRV). The kidney is normal in size, contour, and echogenicity. Renal cortical thickness is normal. No calculi or focal parenchymal lesions. No hydronephrosis. LEFT KIDNEY: 10.0 x 5.2 x 5.0 cm (SAG x AP x TRV). The kidney is normal in size, contour, and echogenicity. Renal cortical thickness is normal. No calculi or focal parenchymal lesions. No hydronephrosis. Well-circumscribed 5 mm echogenic lesion in the cortex of the upper pole the left kidney. No associated shadowing. US/US renal BI IMPRESSION: 5 mm echogenic lesion in the cortex of the upper pole the left kidney. There is no shadowing to suggest this represents a calculus. An angiomyolipoma could give this appearance although none was seen on the prior CT scan..
== END 2022-11-13 14:31 | disposition home or self-care (01) ==
LOC: HO.US 14:30
PROVIDERS: PCP Internal Medicine; Visit Provider Internal Medicine
DX: N20.0 Calculus of kidney (principal)
CPT/HCPCS: 76775

== ENCOUNTER → 2022-12-17 13:23 | Outpatient (BNVA) | payer OTHER, SELFPAY | PROVIDERS: PCP Internal Medicine; Referring Provider Internal Medicine; Visit Provider Internal Medicine Cardiovascular Disease | DX: I25.10 Atherosclerotic heart disease of native coronary artery without angina pectoris (principal); E78.00 Pure hypercholesterolemia, unspecified | CPT/HCPCS: 93005; 99212 ==

== ENCOUNTER 2022-12-22 12:39 | Outpatient (REF) | payer OTHER, SELFPAY ==
--- NOTE | ~2022-12-22 | US_ITS ---
EXAMINATION: US THYROID CLINICAL INFORMATION: Nontoxic multinodular goiter. COMPARISON: Ultrasound thyroid 02/21/2022 and 06/05/2021. TECHNIQUE: Linear transducer grayscale and color Doppler examination with attention to the region of the thyroid. FINDINGS: SIZE: Measurements of the thyroid lobes and nodules are given in sagittal, anteroposterior and transverse dimensions respectively. Right Thyroid Lobe: 4.5 x 1.9 x 1.6 cm, volume 7.2 mL. Previously 5.01 x 2.49 x 1.68 cm, volume 11.0 mL. Parenchyma: The gland echotexture is heterogeneous. Thyroid vascularity is normal. Left Thyroid Lobe: 4.0 x 1.6 x 1.6 cm, volume 5.4 mL. Previously 4.5 x 1.4 x 1.5 cm, volume 4.9 mL. Parenchyma: The gland echotexture is heterogeneous. Thyroid vascularity is normal. Isthmus: 0.3 cm in maximum AP dimension. Previously 0.20 cm. Estimated total number of nodules greater than or equal to 1 cm: 0. 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 Location: Right superior mid. Size: 0.8 x 0.6 x 0.6 cm, volume of 0.2 mL. Previously: 0.74 x 0.66 x 0.64 cm, volume 0.16 mL. Nodule characteristics: Composition: Solid (2). Echogenicity: Hypoechoic (2). Shape: Not taller than wide (0). Margins: Smooth (0). Echogenic Foci: None (0). ACR TI-RADS total points: 4 Previous: 0 ACR TI-RADS category: 4 Previous: 1 Significant change in size (>/= 20% in 2 dimensions and minimal increase of 2 mm or 50% or greater increase in volume): No Change in features: No Change in ACR TI-RADS risk category: No 2. Location: Right inferior. Size: 0.7 x 0.7 x 0.6 cm, volume 0.2 mL. Previously: 0.62 x 0.88 x 0.52 cm, volume 0.1 mL. Nodule characteristics: Composition: Solid (2). Echogenicity: Hypoechoic (2). Shape: Taller than wide (3). Margins: Ill-defined (0). Echogenic Foci: None (0). ACR TI-RADS total points: 7 Previous: 0 ACR TI-RADS category: 5 Previous: 1 Significant change in size (>/= 20% in 2 dimensions and minimal increase of 2 mm or 50% or greater increase in volume): Yes Change in features: No Change in ACR TI-RADS risk category: No NODES: No lymphadenopathy is seen in the tissue surrounding the thyroid gland. US/US thyroid IMPRESSION: 1. Right thyroid lobe nodules are seen, as detailed. 2. There is heterogeneous thyroid echotexture, which can be associated with thyroiditis. ACR TI-RADS RECOMMENDATION REFERENCE: Ultrasound-guided fine-needle aspiration, followup ultrasound, no further follow up. * TR1 (0 point) and TR2 (2 points): No FNA or follow up. * TR3 (3 points): FNA if more than or equal to 2.5 cm in maximum dimension, followup ultrasound in 1, 3 and 5 years if 1.5 to 2.4 cm in maximum dimension. * TR4 (4-6 points): FNA if more than or equal to 1.5 cm in maximum dimension, followup ultrasound in 1, 2, 3 and 5 years if 1 to 1.4 cm in maximum dimension. * TR5 (more than or equal to 7 points): FNA if more than or equal to 1 cm in maximum dimension, followup ultrasound every year for 5 years if 0.5 to 0.9 cm in maximum dimension. * TR3, TR4 or TR5 nodules that are below the size threshold for followup receive no follow up.
== END 2022-12-22 12:40 | disposition home or self-care (01) ==
LOC: HO.US 12:39
PROVIDERS: Visit Provider Internal Medicine
DX: E04.2 Nontoxic multinodular goiter (principal)
CPT/HCPCS: 76536

== ENCOUNTER 2023-02-26 17:10 | Emergency (ER) | payer OTHER, SELFPAY ==
--- NOTE | ~2023-02-26 | CT_ITS ---
EXAMINATION: CT ABDOMEN AND PELVIS WITH CONTRAST CLINICAL INFORMATION: Right upper quadrant pain COMPARISON: None available. TECHNIQUE: Multidetector volumetric images were obtained from the superior aspect of the liver through the pubic symphysis following administration 85 mL of Omnipaque 350 intravenous contrast. Sagittal and coronal reformatted images were obtained on the technologist's workstation. Oral contrast: No This CT examination was performed using dose optimization techniques as appropriate, variously including the following: *Automated exposure control *Adjustment of mA and/or kV according to patient size (this includes techniques or standardized protocols for targeted exams where dose is matched to indication/reason for exam; i.e. extremities or head) *Use of iterative reconstruction technique DLP: 1087 mGy-cm FINDINGS: LUNG BASES: Mild atelectatic changes in both lung bases. The heart size is normal. No pericardial effusion seen. LIVER, GALLBLADDER, AND BILIARY TREE: The liver is normal in size, shape, and diffuse hypoattenuation attenuation. No focal hepatic lesion or biliary ductal dilatation is present. The gallbladder is unremarkable with no evidence of radiopaque gallstones, gallbladder wall thickening, or obvious pericholecystic inflammatory changes. PANCREAS: Unremarkable. SPLEEN: The spleen is normal size and density. Punctate calcifications are visualized. ADRENAL GLANDS: Unremarkable. KIDNEYS AND URETERS: The kidneys are normal in size, shape, and attenuation. No hydronephrosis, hydroureter, or calculi seen. No perinephric stranding. There is a 3 mm hypodensity in midpole left kidney. BLADDER: Unremarkable. GASTROINTESTINAL TRACT: There is scattered stool and gas seen throughout the colon without significant distention. The small bowel loops are normal caliber. Appendix is normal caliber. ABDOMINAL WALL: No significant hernia is appreciated. LYMPH NODES: Normal. VASCULAR: Unremarkable. PELVIC VISCERA: There is no free air or free fluid seen. There is a soft tissue density seen in anterior perineum region likely low-lying vagina and cervix. The uterus is surgically absent.. There is no abscess or fistula. OSSEOUS STRUCTURES: No aggressive lytic or sclerotic process seen. There is mild degenerative disc changes with vacuum disc L5-S1 disc level. There is a sclerotic density along the right lateral sacrum question bone island on axial image 61/3 CT/CT abdomen pelvis w IV con IMPRESSION: No acute process seen in the abdomen especially along the right upper quadrant. Normal gallbladder and appendix. Nonspecific thickening of anterior perineum likely low-lying vagina and cervix. Fleischner guidelines were followed.
--- NOTE | ~2023-02-26 | US_ITS ---
EXAMINATION: US ABDOMEN LIMITED CLINICAL INFORMATION: Right upper quadrant and flank pain. COMPARISON: None available. TECHNIQUE: Real-time imaging of the right upper quadrant abdominal viscera, limited to evaluate the gallbladder and kidney per request. FINDINGS: LIVER: The liver is only partially imaged, however appears mildly echogenic with focal fatty sparing along the gallbladder fossa suggestive of hepatic steatosis. GALLBLADDER: Normal. The gallbladder is physiologically distended without evidence of stones, sludge, polyps, wall thickening or pericholecystic fluid. COMMON BILE DUCT: Normal in caliber measuring 0.5 cm in diameter. RIGHT KIDNEY: Few punctate echogenic foci in the right mid pole without twinkle artifact or shadowing may reflect vascular reflectors. No definite renal calculi, however a CT stone protocol could be confirmatory. No hydronephrosis. No focal parenchymal lesions. The kidney measures 9.5 cm in maximum dimension. US/US abdomen limited IMPRESSION: * Few punctate echogenic foci in the right mid pole without twinkle artifact or shadowing may reflect vascular reflectors. No definite renal calculi, however a CT stone protocol could be confirmatory. * Though the liver is only partially imaged there appears to be mild hepatic steatosis.
[2023-02-26 17:12] VITALS: BP 150/77; PULSE 76; RESP 18; TEMP 36.1; O2SAT 99; BMI 34.7
--- NOTE | 2023-02-26 17:12 | ED_ITS ---
HPI - Back Pain/Injury General Chief Complaint: Abdominal Pain Stated Complaint: mid back pain Time Seen by Provider: 02/26/23 17:33 Related Data Allergies Allergy/AdvReac Type Severity Reaction Status Date / Time No Known Allergies Allergy Verified 02/26/23 17:12 [facility] Social History Social History Use of substances other than those prescribed or required for medical reasons: No Advance Directives: No Advance Directives Information Provided: Yes Physical Exam Vital Signs: Vital Signs: Last Vital Signs Temp 98.1 F 02/26/23 21:26 Pulse 77 02/26/23 21:26 Resp 16 02/26/23 21:26 BP 156/92 H 02/26/23 21:26 Pulse Ox 97 02/26/23 21:26 O2 Del Method Room Air 02/26/23 21:26 BMI result Body Mass Index 34.7 Course Course Course Narrative: RME: 67yo F w/no sig PMHx c/o R mid back pain x awhile worsening over the past 2 days. Sent in from [facility] for x-ray to eval gallbladder. Denies N/V/D, hematuria. Abd soft with RUQ ttp, no CVAT Labs, UA, US ordered Full HPI, ROS and PE to be performed by primary ED provider. Medications Administered Discontinued Medications Generic Name Dose Route Start Last Admin Trade Name Freq PRN Reason Stop Dose Admin Iohexol 100 ml 02/26/23 19:55 02/26/23 19:56 Iohexol 350 Mg/Ml 100 Ml Infus..Btl IV 02/26/23 19:56 85 ml ONCE ONE Administration Medical Decision Making Lab Data 02/26/23 18:18 02/26/23 18:34 Labs: Lab Results 02/26/23 02/26/23 02/26/23 Range/Units 18:18 18:18 18:34 WBC 5.5 (4.8-10.8) X10*3/uL RBC 5.18 (4.20-5.50) X10*6/uL Hgb 14.7 (12.0-16.0) g/dl Hct 44.7 (37.0-47.0) % MCV 86.3 (80.0-98.0) fL MCH 28.4 (27.0-33.0) pg MCHC 32.9 (31.0-35.0) g/dl RDW 13.5 (11.0-16.0) % Plt Count 210 (160-400) X10*3/uL MPV 10.4 (9.4-12.3) fL Immature Gran % (Auto) 0.5 H (0.0-0.4) % Neut % (Auto) 69.7 (45-73) % Lymph % (Auto) 22.2 (20-40) % [place] % (Auto) 6.6 (2-11) % Eos % (Auto) 0.5 (0-4) % Baso % (Auto) 0.5 (0-2) % Lymph # (Auto) 1.2 (1.2-4.9) X10*3/uL [place] # (Auto) 0.4 (0.1-1.2) X10*3/uL Eos # (Auto) 0.0 (0.0-0.4) X10*3/uL Baso # (Auto) 0.0 (0.0-0.2) X10*3/uL Abs Immat Gran (auto) 0.03 (0.00-0.03) X10*3/uL Absolute Neuts (auto) 3.8 (2.0-8.3) x10*3/uL Absolute Nucleated RBC 0.000 (0.0-0.012) X10*3/uL Nucleated RBC % (auto) 0.0 (0.0-0.2) /100WBC Sodium 141 (135-145) mmol/L Potassium 4.3 (3.3-5.1) mmol/L Chloride 110 H (96-108) mmol/L Carbon Dioxide 23 (22-29) mmol/L Anion Gap 12 (12-20) BUN 9 (9-16) mg/dL Creatinine 0.78 (0.5-1.4) mg/dL Estim Creat Clear Calc 66.6 Estimated GFR > 60 Random Glucose 94 (60-115) mg/dL Calcium 9.8 (8.4-10.2) mg/dL Magnesium 2.0 (1.6-2.6) mg/dL Total Bilirubin 1.8 H (0.0-1.0) mg/dL Direct Bilirubin 0.4 (0.0-0.5) mg/dL AST 29 (5-31) U/L ALT 33 H (0-31) U/L Alkaline Phosphatase 108 (39-117) U/L Total Protein 6.7 (6.5-8.0) g/dL Albumin 3.9 (3.5-5.0) g/dL Lipase 13 (8-78) U/L Urine Color Yellow Urine Appearance Clear Urine pH 6.5 (5.0-9.0) Ur Specific [place] 1.020 (1.005-1.025) Urine Protein Negative (Neg-Trace) mg/dL Urine Glucose (UA) Negative (Negative) mg/dL Urine Ketones Negative (Negative) mg/dL Urine Blood Small (1+) H (Negative) Urine Nitrite Negative (Negative) Ur Leukocyte Esterase Negative (Negative) Urine RBC 3-5 H (0-2) /HPF Urine WBC 0-5 (0-5) /HPF Ur Squamous Epith Cells 0-2 (0-2) /HPF Urine Bacteria None Seen (None Seen) Hyaline Casts 0-2 (0-2) /LPF Discharge Plan Discharge Clinical Impression: Abdominal pain Patient Disposition: Home, Self-Care Instructions: Abdominal Pain (ED) Referrals: Sakshi Nickerson MD [Primary Care Provider] - 02/27/23 Interventions: ED Discharge Assessment Last Done: 02/26/23 21:35 Discharge Date/Time: 02/26/23 21:35 Print Language: Mohawk
[2023-02-26 18:08] VITALS: BP 139/75; PULSE 77; RESP 16; TEMP 36.8; O2SAT 97
--- NOTE | 2023-02-26 18:13 | ED.ABDPAIN ---
HPI - Abdominal Pain General Chief Complaint: Abdominal Pain Stated Complaint: mid back pain Time Seen by Provider: 02/26/23 17:33 History of Present Illness HPI narrative: 67-year-old female presents today with having abdominal pain. The pain is been ongoing for the last 2 days. On and off for the last 6 months. It goes from the right upper quadrant to the right flank area. There is no change with food. There is no change with defecation. No change with urination. No fever no chills. No history of abdominal surgery. No chest pain or shortness of breath no diaphoresis no coughing or congestion or upper respiratory symptoms. Patient is from home. No history of abdominal surgery in the past. Related Data Allergies Allergy/AdvReac Type Severity Reaction Status Date / Time No Known Allergies Allergy Verified 02/26/23 17:12 Review of Systems Review of Systems Positive right upper quadrant pain Yes all other systems are reviewed and are negative [facility] Past Medical History Attestation statement: The following information was validated with the patient. Social History Social History Use of substances other than those prescribed or required for medical reasons: No Advance Directives: No Advance Directives Information Provided: Yes Physical Exam ED Vital Signs: Vital Signs - 24 hr 02/26/23 17:12 02/26/23 18:08 02/26/23 20:00 Temperature 96.9 F 98.2 F 98.0 F Pulse Rate 76 77 82 Respiratory Rate 18 16 16 Blood Pressure 150/77 H 139/75 161/83 H Pulse Oximetry 99 97 98 Oxygen Delivery Method Room Air Room Air Room Air BMI result Body Mass Index 34.7 Appearance: Alert. Oriented X3. No acute distress. Eyes: Pupils equal, round and reactive to light. ENT: Pharynx normal. Neck: Normal inspection. Neck supple. No lymph nodes noted. No crepitus CVS: Normal heart rate and rhythm. Pulses normal. Normal S1 and S2 Respiratory: No respiratory distress. Breath sounds normal. No Wheezing. No rales Abdomen: Soft and nontender. No rigidity. No distention. good BS x4 Skin: Skin warm and dry. Normal skin color. Normal skin turgor. Extremities: No lower extremity edema. Neurovascular intact to all extremities. No Lacerations. No Rash Neuro: Oriented X 3. No motor deficit. No sensory deficit. Moving all extermities. No slurred speech Medical Decision Making Medical Decision Making [facility] Narrative: Patient's ultrasound of the abdomen showed a distended gallbladder but no gallbladder wall thickening no gallstones no pericholecystic fluid not consistent with cholecystitis. Patient has kidney stone in the kidney but there is no ureteral stone noted. LFTs are normal. Lipase normal no evidence for pancreatic or biliary disease. CT scan of the abdomen pelvis showed no acute evidence of appendicitis no acute evidence of pancreatitis no acute evidence of obstruction abscess perforation. Patient's urine is negative for any acute evidence of infection. No evidence for pyelonephritis. CT scan showed no evidence of ureteral stone. She is in stable condition. Will discharge home. Differential Diagnosis Differential Diagnoses: The differential diagnosis associated with the presentation includes Lab Data [facility] Lab Attestation statement: I reviewed the patient's lab results. 02/26/23 18:18 02/26/23 18:34 Labs: Lab Results 02/26/23 02/26/23 02/26/23 Range/Units 18:18 18:18 18:34 WBC 5.5 (4.8-10.8) X10*3/uL RBC 5.18 (4.20-5.50) X10*6/uL Hgb 14.7 (12.0-16.0) g/dl Hct 44.7 (37.0-47.0) % MCV 86.3 (80.0-98.0) fL MCH 28.4 (27.0-33.0) pg MCHC 32.9 (31.0-35.0) g/dl RDW 13.5 (11.0-16.0) % Plt Count 210 (160-400) X10*3/uL MPV 10.4 (9.4-12.3) fL Immature Gran % (Auto) 0.5 H (0.0-0.4) % Neut % (Auto) 69.7 (45-73) % Lymph % (Auto) 22.2 (20-40) % [place] % (Auto) 6.6 (2-11) % Eos % (Auto) 0.5 (0-4) % Baso % (Auto) 0.5 (0-2) % Lymph # (Auto) 1.2 (1.2-4.9) X10*3/uL [place] # (Auto) 0.4 (0.1-1.2) X10*3/uL Eos # (Auto) 0.0 (0.0-0.4) X10*3/uL Baso # (Auto) 0.0 (0.0-0.2) X10*3/uL Abs Immat Gran (auto) 0.03 (0.00-0.03) X10*3/uL Absolute Neuts (auto) 3.8 (2.0-8.3) x10*3/uL Absolute Nucleated RBC 0.000 (0.0-0.012) X10*3/uL Nucleated RBC % (auto) 0.0 (0.0-0.2) /100WBC Sodium 141 (135-145) mmol/L Potassium 4.3 (3.3-5.1) mmol/L Chloride 110 H (96-108) mmol/L Carbon Dioxide 23 (22-29) mmol/L Anion Gap 12 (12-20) BUN 9 (9-16) mg/dL Creatinine 0.78 (0.5-1.4) mg/dL Estim Creat Clear Calc 66.6 Estimated GFR > 60 Random Glucose 94 (60-115) mg/dL Calcium 9.8 (8.4-10.2) mg/dL Magnesium 2.0 (1.6-2.6) mg/dL Total Bilirubin 1.8 H (0.0-1.0) mg/dL Direct Bilirubin 0.4 (0.0-0.5) mg/dL AST 29 (5-31) U/L ALT 33 H (0-31) U/L Alkaline Phosphatase 108 (39-117) U/L Total Protein 6.7 (6.5-8.0) g/dL Albumin 3.9 (3.5-5.0) g/dL Lipase 13 (8-78) U/L Urine Color Yellow Urine Appearance Clear Urine pH 6.5 (5.0-9.0) Ur Specific [place] 1.020 (1.005-1.025) Urine Protein Negative (Neg-Trace) mg/dL Urine Glucose (UA) Negative (Negative) mg/dL Urine Ketones Negative (Negative) mg/dL Urine Blood Small (1+) H (Negative) Urine Nitrite Negative (Negative) Ur Leukocyte Esterase Negative (Negative) Urine RBC 3-5 H (0-2) /HPF Urine WBC 0-5 (0-5) /HPF Ur Squamous Epith Cells 0-2 (0-2) /HPF Urine Bacteria None Seen (None Seen) Hyaline Casts 0-2 (0-2) /LPF Radiology Impression Discussion of test interpretation with radiology: I have reviewed the radiologist's reading. Radiologist Impression: Ultrasound and CT scan report was reviewed. Independent Historian Additional history obtained from patient's family External Record Review External record reviewed: Inpatient record Medications Administered Discontinued Medications Generic Name Dose Route Start Last Admin Trade Name Freq PRN Reason Stop Dose Admin Iohexol 100 ml 02/26/23 19:55 02/26/23 19:56 Iohexol 350 Mg/Ml 100 Ml Infus..Btl IV 02/26/23 19:56 85 ml ONCE ONE Administration Discharge Plan Discharge Clinical Impression: Abdominal pain Patient Disposition: Home, Self-Care Instructions: Abdominal Pain (ED) Referrals: Sakshi Nickerson MD [Primary Care Provider] - 02/27/23 Print Language: American
[2023-02-26 18:23] LABS: MANUAL DIFF FLAG NO
[2023-02-26 18:24] LABS: Appearance Urine Clear; Color Urine Yellow; Glucose Urine UA Negative (Negative); Leukocyte Esterase Urine Negative (Negative); Nitrite Urine Negative (Negative); PH 6.5 (5.0-9.0); UMIC TRIGGER UACC YES; Urine Blood Small (1+) (Negative); Urine Ketones Negative (Negative); Urine Protein Negative (Neg-Trace)
--- NOTE | 2023-02-26 18:28 | PC.NURSE ---
Alert and oriented, resp even and unlabored. Complaining of abd/back pain x6 months worsening over the past 2 days. IV established, labs drawn and sent. [place] speaking only, family at bedside. Call williamson within reach.
[2023-02-26 18:40] LABS: Basophils Percent Auto 0.5 % (0-2); Eosinophils Percent Auto 0.5 % (0-4); Hematocrit 44.7 % (37.0-47.0); Hemoglobin 14.7 g/dl (12.0-16.0); Imm Gran Abs Auto 0.03 X10*3/uL (0.00-0.03); Imm Gran Pct Auto 0.5 % (0.0-0.4); Lymphocytes Absolute Auto 1.2 X10*3/uL (1.2-4.9); Lymphocytes Percent Auto 22.2 % (20-40); Mean Corpuscular HGB Conc 32.9 g/dl (31.0-35.0); Mean Corpuscular Hemoglobin 28.4 pg (27.0-33.0); Mean Corpuscular Volume 86.3 fL (80.0-98.0); Mean Platelet Volume 10.4 fL (9.4-12.3); Monocytes Absolute Auto 0.4 X10*3/uL (0.1-1.2); Monocytes Percent Auto 6.6 % (2-11); Neutrophils Absolute Auto 3.8 x10*3/uL (2.0-8.3); Neutrophils Percent Auto 69.7 % (45-73); Platelet Count 210 X10*3/uL (160-400); Red Blood Count 5.18 X10*6/uL (4.20-5.50); Red Cell Distribution Width 13.5 % (11.0-16.0); White Blood Count 5.5 X10*3/uL (4.8-10.8)
[2023-02-26 18:54] LABS: Bacteria Urine None Seen (None Seen); Hyaline Casts Urine 0-2 /LPF (0-2); Squamous Epithelial Cell Urine 0-2 /HPF (0-2); WBC Urine 0-5 /HPF (0-5)
[2023-02-26 18:58] LABS: Alanine Aminotransferase 33 U/L (0-31); Albumin Level 3.9 g/dL (3.5-5.0); Alkaline Phosphatase 108 U/L (39-117); Anion Gap 12 (12-20); Aspartate Amino Transferase 29 U/L (5-31); Bilirubin Direct 0.4 mg/dL (0.0-0.5); Bilirubin Total 1.8 mg/dL (0.0-1.0); Blood Urea Nitrogen 9 mg/dL (9-16); Calcium 9.8 mg/dL (8.4-10.2); Carbon Dioxide 23 mmol/L (22-29); Chloride 110 mmol/L (96-108); Creatinine Clr Calc Pharmacy 66.6; Estimated Glomerular Filt Rate > 60; Glucose Random 94 mg/dL (60-115); Lipase 13 U/L (8-78); Potassium 4.3 mmol/L (3.3-5.1); Sodium 141 mmol/L (135-145); Total Protein 6.7 g/dL (6.5-8.0)
[2023-02-26] MEDS: iohexoL 350 MG/ML 100 ML INFUS..BTL IV (19:56)
[2023-02-26 20:00] VITALS: BP 161/83; PULSE 82; RESP 16; TEMP 36.7; O2SAT 98
[2023-02-26 21:26] VITALS: BP 156/92; PULSE 77; RESP 16; TEMP 36.7; O2SAT 97
== END 2023-02-26 21:35 | disposition home or self-care (01) ==
PROVIDERS: Physician Assistant; Emergency Provider Emergency Medicine Emergency Medical Services; PCP Internal Medicine
DX: R10.11 Right upper quadrant pain (principal); R10.9 Unspecified abdominal pain
CPT/HCPCS: 36415; 74177; 76705; 80048; 80076; 81001; 83690; 83735; 85025; 99284; Q9967

== ENCOUNTER 2023-03-11 16:43 | Outpatient (REF) | payer OTHER, SELFPAY | END 2023-03-11 16:44 | disposition home or self-care (01) | LOC: HO.LAB 16:43 | PROVIDERS: Visit Provider Nurse Practitioner Family | DX: M54.9 Dorsalgia, unspecified (principal) | CPT/HCPCS: 87086 ==

== ENCOUNTER 2023-03-16 11:52 | Outpatient (REF) | payer OTHER, SELFPAY ==
[2023-03-16 13:32] LABS: Alanine Aminotransferase 27 U/L (0-31); Albumin Level 4.2 g/dL (3.5-5.0); Alkaline Phosphatase 115 U/L (39-117); Anion Gap 9 (12-20); Aspartate Amino Transferase 24 U/L (5-31); Bilirubin Total 2.2 mg/dL (0.0-1.0); Blood Urea Nitrogen 10 mg/dL (9-16); Calcium 10.6 mg/dL (8.4-10.2); Carbon Dioxide 29 mmol/L (22-29); Chloride 109 mmol/L (96-108); Estimated Glomerular Filt Rate > 60; Glucose Random 130 mg/dL (60-115); Potassium 4.4 mmol/L (3.3-5.1); Sodium 143 mmol/L (135-145); Total Protein 6.8 g/dL (6.5-8.0)
[2023-03-16 13:36] LABS: Free T4 (Free Thyroxine) 0.85 ng/dL (0.71-1.85)
[2023-03-19 17:03] LABS: Calcium (PTHI) 10.7 mg/dL (8.6-10.4); PTHI 60 pg/mL (16-77)
== END 2023-03-16 11:53 | disposition home or self-care (01) ==
LOC: HO.LAB 11:52
PROVIDERS: PCP Internal Medicine; Visit Provider Internal Medicine
DX: E21.3 Hyperparathyroidism, unspecified (principal); E55.9 Vitamin D deficiency, unspecified; E04.2 Nontoxic multinodular goiter
CPT/HCPCS: 36415; 80053; 82306; 83970; 84100; 84439; 84443

== ENCOUNTER → 2023-03-18 14:20 | Outpatient (BNVA) | payer OTHER, SELFPAY | PROVIDERS: PCP Internal Medicine; Visit Provider Internal Medicine | DX: E21.3 Hyperparathyroidism, unspecified (principal); E55.9 Vitamin D deficiency, unspecified; E04.2 Nontoxic multinodular goiter | CPT/HCPCS: 99212 ==

== ENCOUNTER 2023-03-23 11:25 | Outpatient (REF) | payer OTHER, SELFPAY ==
--- NOTE | ~2023-03-23 | US_ITS ---
EXAMINATION: US ABDOMEN LIMITED CLINICAL INFORMATION: Right upper quadrant pain. COMPARISON: Ultrasound abdomen limited 02/26/2023. CT abdomen and pelvis with contrast 02/26/2023. Ultrasound retroperitoneal limited (renal only) 11/13/2022. X-ray abdomen KUB 07/22/2022. TECHNIQUE: Real-time imaging of the right upper quadrant abdominal viscera. FINDINGS: PANCREAS: Normal. LIVER: The liver is normal in size. The liver contour is normal. Liver echogenicity is increased diffusely. Some areas of decreased echogenicity particularly adjacent to the gallbladder are nonspecific but most suggestive of regions of focal fatty sparing. A 5 mm simple appearing cyst is noted within the right hepatic lobe. There is no intrahepatic biliary duct dilatation seen. GALLBLADDER: Normal. The gallbladder is physiologically distended without evidence of stones, sludge, polyps, wall thickening or pericholecystic fluid. Negative sonographic Savage's sign. COMMON BILE DUCT: Normal in caliber measuring 0.4 cm in diameter. RIGHT KIDNEY: The kidney measures 10.6 cm in maximum dimension. Several echogenic nonshadowing foci are noted within the right kidney, nonspecific. No hydronephrosis. FREE FLUID: None. US/US abdomen limited IMPRESSION: 1. Diffusely increased liver echogenicity. This is a nonspecific finding but most suggestive of hepatic steatosis. Correlation with liver enzymes recommended. 2. Several echogenic nonshadowing foci are noted within the right kidney. This is a nonspecific finding but may represent small nonobstructing calculi versus vascular reflections. There is no hydronephrosis of the right kidney.
[2023-03-23 12:39] LABS: Alanine Aminotransferase 26 U/L (0-31); Albumin Level 4.3 g/dL (3.5-5.0); Alkaline Phosphatase 122 U/L (39-117); Anion Gap 10 (12-20); Aspartate Amino Transferase 23 U/L (5-31); Bilirubin Total 1.9 mg/dL (0.0-1.0); Blood Urea Nitrogen 15 mg/dL (9-16); Calcium 10.6 mg/dL (8.4-10.2); Carbon Dioxide 30 mmol/L (22-29); Chloride 106 mmol/L (96-108); Cholesterol 121 mg/dL; Estimated Glomerular Filt Rate > 60; Glucose Fasting 135 mg/dL (60-99); HDL Cholesterol 42 mg/dL; LDL Cholesterol Calculated 65 mg/dl; Potassium 4.8 mmol/L (3.3-5.1); Sodium 141 mmol/L (135-145); Total Protein 7.1 g/dL (6.5-8.0); Triglycerides 72 mg/dL
[2023-03-23 12:55] LABS: Thyroid Stimulating Hormone 0.72 uIU/mL (0.32-4.0); Vitamin D 25-OH Total 30.3 ng/mL (>30)
== END 2023-03-23 11:26 | disposition home or self-care (01) ==
LOC: HO.US 11:25
PROVIDERS: Absent Provider Internal Medicine; PCP Nurse Practitioner Family; Visit Provider Nurse Practitioner Family
DX: E55.9 Vitamin D deficiency, unspecified (principal); I25.10 Atherosclerotic heart disease of native coronary artery without angina pectoris; E04.2 Nontoxic multinodular goiter; E78.5 Hyperlipidemia, unspecified; R10.11 Right upper quadrant pain
CPT/HCPCS: 36415; 76705; 80053; 80061; 82306; 84443

== ENCOUNTER 2023-03-30 10:48 | Outpatient (REF) | payer OTHER, SELFPAY ==
--- NOTE | ~2023-03-30 | MM_ITS ---
EXAMINATION: BONE DENSITOMETRY CLINICAL INDICATION: Hyperparathyroidism, unspecified. COMPARISON: Previous BD dated 03/21/2021 and baseline BD dated 11/04/2013, spine and left hip; 03/21/2021, left forearm radius 33%. TECHNIQUE: Using a [employer] DXA System (software version: 13.1) manufactured by [employer], dual-energy x-ray absorptiometry was performed of the lumbar spine, left hip and left forearm radius 33%. The images are of good technical quality. Summary results are attached. FINDINGS: AP SPINE L2-L4 (excluding L1): The data of L1-L4 has been changed to exclude the L1 vertebral body, because degenerative changes at these levels may cause overestimation of lumbar spine density. Current: BMD 1.020 g/cm2, Z-score -0.4, T-score -1.5, osteopenia, 1.8% decrease from previous, 5.4% decrease from baseline (<5% change is not significant). Prior: BMD 1.039 g/cm2. Baseline: BMD 1.078 g/cm2. LEFT FEMUR, NECK: Current: BMD 0.826 g/cm2, Z-score -0.2, T-score -1.5, osteopenia. Prior: BMD 0.793 g/cm2. Baseline: BMD 0.868 g/cm2. LEFT FEMUR, TOTAL: Current: BMD 0.818 g/cm2, Z-score -0.5, T-score -1.5, osteopenia, 0.5% increase from previous, 5.4% decrease from baseline (<5% change is not significant). Prior: BMD 0.814 g/cm2. Baseline: BMD 0.865 g/cm2. LEFT FOREARM RADIUS 33%: BMD 0.711 g/cm2, Z-score -0.1, T-score -1.9, osteopenia, 6.0% decrease from baseline (<5% change is not significant). Prior and Baseline for Forearm (03/21/2021): BMD 0.756 g/cm2. IDENTIFIED RISK FACTORS: Early menopause, secondary osteoporosis, hysterectomy, bilateral oophorectomy, hyperparathyroidism. HISTORY OF FRACTURE: None listed. MEDICATIONS: Vitamin D. MM/XR DEXA appendicular skeleton IMPRESSION: 1. DIAGNOSIS: Osteopenia based on the lowest T-score value of -1.9 in the forearm radius 33% applying World Health Organization criteria. 2. 10-YEAR FRACTURE RISK PREDICTION, FRAX: Major osteoporotic fracture (clinical spine, forearm, hip or shoulder) 5.2%. Hip fracture 0.7%. 3. Treatment Recommendations: NOF guidelines recommend consideration for treatment in postmenopausal women and men age 50 and older presenting with the following: -A hip or vertebral (clinical or morphometric) fracture. -T-score less than or equal to -2.5 at the femoral neck or spine after appropriate evaluation to exclude secondary causes. -Low bone mass at the hip or spine and a 10-year fracture probability by FRAX of greater than or equal to 3% for hip fracture or greater than or equal to 20% for major osteoporotic fracture based on the [place] adapted WHO algorithm. 4. Other Recommendations: All treatment decisions require clinical judgment and consideration of individual patient factors, including patient preferences, comorbidities, previous drug use, risk factors not captured in the FRAX model (e.g. frailty, falls, vitamin D deficiency, increased bone turnover, interval significant decline in bone density) and possible under or overestimation of fracture risk by FRAX. Additional medical evaluation for secondary cause of low bone mineral density may be appropriate. FUTURE SCAN RECOMMENDATION: People with diagnosed cases of osteoporosis or at high risk for fracture should have regular bone mineral density tests. For patients eligible for Medicare, routine testing is allowed once every 2 years. The testing frequency can be increased to one year for patients who have rapidly progressing disease, those who are receiving or discontinuing medical therapy to restore bone mass, or have additional risk factors.
== END 2023-03-30 10:49 | disposition home or self-care (01) ==
LOC: HO.MAMMO 10:48
PROVIDERS: Visit Provider Internal Medicine
DX: Z13.820 Encounter for screening for osteoporosis (principal); Z78.0 Asymptomatic menopausal state; E21.3 Hyperparathyroidism, unspecified
CPT/HCPCS: 77081

== ENCOUNTER 2023-04-29 13:21 | Outpatient (REF) | payer OTHER, SELFPAY ==
[2023-04-29 16:15] LABS: Alanine Aminotransferase 30 U/L (0-31); Albumin Level 4.4 g/dL (3.5-5.0); Alkaline Phosphatase 132 U/L (39-117); Anion Gap 14 (12-20); Aspartate Amino Transferase 24 U/L (5-31); Blood Urea Nitrogen 9 mg/dL (9-16); Calcium 11.4 mg/dL (8.4-10.2); Carbon Dioxide 28 mmol/L (22-29); Chloride 107 mmol/L (96-108); Estimated Glomerular Filt Rate > 60; Glucose Random 87 mg/dL (60-115); Phosphorus 3.4 mg/dL (2.7-4.5); Potassium 4.7 mmol/L (3.3-5.1); Sodium 144 mmol/L (135-145); Total Protein 7.8 g/dL (6.5-8.0)
[2023-04-29 16:33] LABS: D Dimer High Sensitivity < 150 NG/ML
[2023-04-29 16:34] LABS: Vitamin D 25-OH Total 33.6 ng/mL (>30)
[2023-05-04 14:32] LABS: Calcium (PTHI) 10.9 mg/dL (8.6-10.4); PTHI 73 pg/mL (16-77)
== END 2023-04-29 13:22 | disposition home or self-care (01) ==
LOC: HO.LAB 13:21
PROVIDERS: Internal Medicine; PCP Internal Medicine; Referring Provider Internal Medicine; Visit Provider Internal Medicine Cardiovascular Disease
DX: R07.9 Chest pain, unspecified (principal); E21.3 Hyperparathyroidism, unspecified; E55.9 Vitamin D deficiency, unspecified; E78.00 Pure hypercholesterolemia, unspecified; Z79.899 Other long term (current) drug therapy
CPT/HCPCS: 36415; 80053; 82306; 83970; 84100; 85379; 93005; 99212

== ENCOUNTER 2023-05-01 09:20 | Outpatient (AMB) | payer OTHER, SELFPAY ==
--- NOTE | 2023-05-01 09:24 | A.OFFVIS_ITS ---
Intake Intake Visit Reasons: polyuria Intake Note: * NEW Patient presents today to established treatment for Polyuria. * Meds- None * Allergies to Antibiotic- None * Blood Thinner- Aspirin * PVR- 0ml Core Shaper Required: Yes Core Shaper Language: Tongan Accompanied by: Self / Same As Patient Allergies No Known Allergies Allergy (Mild, Verified 05/18/23 09:07) N/A Medication List - Last Reconciled 05/01/23 by Tj Salazar MD acetaminophen ER (Arthritis Pain Reliever) 1,300 mg PO Q8H alcohol swabs (Alcohol Prep Pads) pad topical DAILY amlodipine 5 mg PO DAILY aspirin 81 mg PO DAILY atorvastatin 80 mg PO BEDTIME blood sugar diagnostic (FreeStyle Test strips) As directed cholecalciferol (vitamin D3) (Vitamin D3) 50 mcg PO DAILY lancets (FreeStyle Lancets) As directed lidocaine 4% (Aspercreme (lidocaine)) 1 patch topical DAILY PRN meloxicam 15 mg PO DAILY solifenacin (Vesicare) 10 mg PO DAILY sucralfate (Carafate) 1 g PO BID 30 days HPI HPI Comments History of Present Illness Details Aysha is a 67-year-old female who presents to the office as a new patient evaluation for polyuria. 05/01/23-- The patient is a Tongan speaking female who is here with a friend for support. Certified subcontract manager was present during the visit. The patient complains of urinary incontinence associated with urgency she states that she had two procedures to help with urinary incontinence she states that both the procedures she was told they were using mesh to support her bladder, one procedure was 15 years ago and the other one was about 5 years ago in [place] She also has history of hysterectomy The patient states she was on bladder medication in the past but has been off of bladder medication for few years. Past medical history significant for coronary artery disease I have review recent imaging including CTAP: urinary tract is within normal limits, I have discussed further evaluation with with cystoscopy Evaluation today: Blood: 25 Seven/uL, leukocytes: negative. Bladder scan PVR: 0 mL. CTAP results reviewed--02/26/23-- No renal calculi visualized. Bladder: WNL. 3 mm hypodensity in midpole left kidney. Plan: Vesicare 10 mg QD was ordered. Urine for cytology was ordered. Cystoscopy discussed to be scheduled. PFSH Medical History Chest pain Costovertebral angle tenderness Dyslipidemia Hospital discharge follow-up Hypercalcemia Hyperparathyroidism Mild recurrent major depression Multinodular thyroid Muscular aches Vitamin D deficiency Surgical History History of cardiac catheterization History of hysterectomy Hx of colonoscopy Hx of endoscopy Family History Father Prostate cancer Mother HTN (hypertension) Asthma Heart disease Son Stomach cancer Social History Household Members: Spouse Housing: House Alcohol intake: never Patient Tobacco Use Status: Never used Tobacco e-Cigarette/Vaping Use: Never Used Second Hand Smoke Exposure: No service: No Current occupational status: disabled Cognitive needs: No Hearing needs: No Vision needs: No Female Reproductive History Menstrual Age of Menarche: 9 Review of Systems Const All systems reviewed & are unremarkable except as noted in HPI and below Reports no additional complaints Eyes Reports no additional complaints ENT Reports no additional complaints Card Denies dyspnea Resp Denies cough and Denies dyspnea GI Reports no additional complaints Reports no additional complaints Musc Reports no additional complaints Skin/Breast Denies rash and Denies unusual bruising Neuro Reports no additional complaints Psych Reports no additional complaints Endo Reports no additional complaints Mickey/Lymph Reports no additional complaints Aller/Immun Reports no additional complaints Physical Exam Const General: cooperative, healthy appearing and no acute distress Orientation/consciousness: patient oriented x3 HEENT Head: Yes normal to inspection, Yes normocephalic and Yes atraumatic Eyes Conjunctivae: conjunctivae normal Neck Neck: Yes normal visual inspection and Yes trachea midline Chest Chest palpation & inspection: normal inspection of the chest Resp Effort & Inspection: normal respiratory effort Cardio Rate: regular rate GI Inspection: Yes normal to inspection Skin General skin exam: no rashes or lesions noted Neuro General: patient oriented x3 Extrem General: No edema Psych Appearance: grossly normal Results AMB Urinalysis, Automated UA Leukoctes 0 [place]/uL Last Edit by TIFFANIE Scales on 05/01/23 09:55 UA Nitrite Negative Last Edit by TIFFANIE Scales on 05/01/23 09:55 UA Urobilinogen 0.2 mg/dL Last Edit by TIFFANIE Scales on 05/01/23 09:5 5 UA Protein 0 mg/dL Last Edit by TIFFANIE Scales on 05/01/23 09:55 UA pH 6.0 Last Edit by TIFFANIE Scales on 05/01/23 09:55 UA Blood 25 Seven/uL Last Edit by TIFFANIE Scales on 05/01/23 09:55 1+ Sofy Esquivel 05/01/23 09:55 UA Specific [place] 1.030 Last Edit by TIFFANIE Scales on 05/01/23 09: 55 UA Ketone Negative Last Edit by TIFFANIE Scales on 05/01/23 09:55 UA Bilirubin 0 mg/dL Last Edit by TIFFANIE Scales on 05/01/23 09:55 UA Glucose 0 mg/dL Last Edit by TIFFANIE Scales on 05/01/23 09:55 Results Reviewed Results Reviewed: Laboratory Last Values Urine pH (Auto) 6.0 05/01/23 09:49 Specific [place] (Auto) 1.030 05/01/23 09:49 Urine Protein (Auto) 0 mg/dL 05/01/23 09:49 Glucose (UA)(Auto) 0 mg/dL 05/01/23 09:49 Urine Ketones (Auto) Negative 05/01/23 09:49 Urine Blood (Auto) 25 Seven/uL 05/01/23 09:49 Urine Nitrite (Auto) Negative 05/01/23 09:49 Urine Bilirubin (Auto) 0 mg/dL 05/01/23 09:49 Urine Urobilinogen (Auto) 0.2 mg/dL 05/01/23 09:49 Leukocyte Esterase (Auto) 0 [place]/uL 05/01/23 09:49 Date of Service: 02/26/23 EXAMINATION: CT ABDOMEN AND PELVIS WITH CONTRAST? CLINICAL INFORMATION: Right upper quadrant pain? COMPARISON: None available. ? TECHNIQUE: Multidetector volumetric images were obtained from the superior aspect of the liver through the pubic symphysis following administration 85 mL of Omnipaque 350 intravenous contrast. Sagittal and coronal reformatted images were obtained on the technologist's workstation.? Oral contrast: No This CT examination was performed using dose optimization techniques as appropriate, variously including the following: *Automated exposure control *Adjustment of mA and/or kV according to patient size (this includes techniques or standardized protocols for targeted exams where dose is matched to indication/reason for exam; i.e. extremities or head) *Use of iterative reconstruction technique DLP: 1087 mGy-cm FINDINGS: LUNG BASES: Mild atelectatic changes in both lung bases. The heart size is normal. No pericardial effusion seen.? LIVER, GALLBLADDER, AND BILIARY TREE: The liver is normal in size, shape, and diffuse hypoattenuation attenuation. No focal hepatic lesion or biliary ductal dilatation is present. The gallbladder is unremarkable with no evidence of radiopaque gallstones, gallbladder wall thickening, or obvious pericholecystic inflammatory changes.? PANCREAS: Unremarkable.? SPLEEN: The spleen is normal size and density. Punctate calcifications are visualized.? ADRENAL GLANDS: Unremarkable.? KIDNEYS AND URETERS: The kidneys are normal in size, shape, and attenuation. No hydronephrosis, hydroureter, or calculi seen. No perinephric stranding. There is a 3 mm hypodensity in midpole left kidney. BLADDER: Unremarkable.? GASTROINTESTINAL TRACT: There is scattered stool and gas seen throughout the colon without significant distention. The small bowel loops are normal caliber. Appendix is normal caliber.? ABDOMINAL WALL: No significant hernia is appreciated.? LYMPH NODES: Normal. VASCULAR: Unremarkable. PELVIC VISCERA: There is no free air or free fluid seen. There is a soft tissue density seen in anterior perineum region likely low-lying vagina and cervix. The uterus is surgically absent.. There is no abscess or fistula. OSSEOUS STRUCTURES: No aggressive lytic or sclerotic process seen. There is mild degenerative disc changes with vacuum disc L5-S1 disc level. There is a sclerotic density along the right lateral sacrum question bone island on axial image 61/3 IMPRESSION: No acute process seen in the abdomen especially along the right upper quadrant. ? Normal gallbladder and appendix. ? Nonspecific thickening of anterior perineum likely low-lying vagina and cervix. Assessment & Plan Assessment & Plan (1) Microscopic hematuria: Code(s): R31.29 - Other microscopic hematuria (2) Urge incontinence: Code(s): N39.41 - Urge incontinence (3) Urinary urgency: Code(s): R39.15 - Urgency of urination (4) OAB (overactive bladder): Code(s): N32.81 - Overactive bladder Plan Vesicare 10 mg QD was ordered. Urine for cytology was ordered. Cystoscopy discussed to be scheduled. Orders: Orders AMB Urinalysis Automated 05/01/23 Z13.9 - Encounter for screening, unspecified AMB Post Void Residual by ultrasound 05/01/23 N39.8 - Other specified disorders of urinary system Medications: New solifenacin (Vesicare) 10 mg PO DAILY 90 tabs 1RF Patient Instructions: The patient had an opportunity to ask questions regarding treatment plan. All questions were answered. Imaging, Laboratory studies and physical exam results were discussed and reviewed in detail. No major barriers to understanding were identified. The patient expressed understanding and agreement with the above treatment plan. The patient is aware they should contact our office by phone for worsening of their current condition or the appearance of new symptoms. Compliance is encoura ged with any medications and followup testing that is ordered. It is a privilege to be allowed the opportunity to participate in the urologic care of your patient. If you have any questions or concerns regarding treatment for the above conditions please do not hesitate to contact me. The office telephone contact is [phone]. This note is constructed in part using voice recognition software. While every effort has been made to ensure accuracy steam fitter supervisor errors may have been included. Yours sincerely, Tj Salazar MD Coding Level of Care Code New Pt Level 4 (19003) Diagnoses Microscopic hematuria R31.29 Urge incontinence N39.41 Urinary urgency R39.15 OAB (overactive bladder) N32.81
== END 2023-05-01 10:32 | disposition home or self-care (01) ==
LOC: HO.HUSH 09:20
PROVIDERS: PCP Internal Medicine; Visit Provider Urology
DX: R31.29 Other microscopic hematuria (principal); N39.41 Urge incontinence; N32.81 Overactive bladder
CPT/HCPCS: 99204

== ENCOUNTER → 2023-05-01 09:20 | Outpatient (BNVA) | payer OTHER, SELFPAY | PROVIDERS: PCP Internal Medicine; Visit Provider Urology | DX: N39.41 Urge incontinence (principal); R31.29 Other microscopic hematuria; N32.81 Overactive bladder | CPT/HCPCS: 99202 ==

== ENCOUNTER 2023-05-18 08:50 | Outpatient (AMB) | payer OTHER, SELFPAY ==
--- NOTE | 2023-05-18 08:51 | MHC.OFFVIS ---
Intake Intake Visit Reasons: F/U Hyperparathyroidism Allergies No Known Allergies Allergy (Mild, Verified 05/18/23 09:07) N/A Medication List - Last Reconciled 05/18/23 by Stormy Rosales, acetaminophen ER (Arthritis Pain Reliever) 1,300 mg PO Q8H alcohol swabs (Alcohol Prep Pads) pad topical DAILY amlodipine 5 mg PO DAILY aspirin 81 mg PO DAILY atorvastatin 80 mg PO BEDTIME blood sugar diagnostic (FreeStyle Test strips) As directed cholecalciferol (vitamin D3) (Vitamin D3) 50 mcg PO DAILY lancets (FreeStyle Lancets) As directed lidocaine 4% (Aspercreme (lidocaine)) 1 patch topical DAILY PRN meloxicam 15 mg PO DAILY solifenacin (Vesicare) 10 mg PO DAILY sucralfate (Carafate) 1 g PO BID 30 days HPI HPI Comments History of Present Illness Details 67 YO F with PMHx Hypercalcemia who is seen in F/U for Hyperparathyroidism. First noted to have high calcium in 2008. She did have evidence of primary hyperparathyroidism then with elevated PTH in the setting of elevated Calcium. Had labs checked 01/11/2021 which revealed a Calcium of 11.0, Albumin 4.5, Vitamin D 28, Creatinine 0.78. No PTH was checked. She was subsequently referred to Endocrinology. We repeated labs 03/21/2021 with Calcium 10.7, Albumin 4.3, PTH 55, and Vitamin D 26.3, consistent with hyperparathyroidism vs H. 24 hour urine studies revealed urinary calcium WNL, but Vitamin D was low at this time. DEXA revealed osteopenia at all sites. US of the neck revealed a 1.0 cm thyroid nodule. She was scheduled for FNA biopsy of this with me 08/08/2021, but US I repeated at that time revealed this nodule to be spongiform, so no FNA biopsy was completed. She had imaging of the kidneys completed 12/13/2020 which revealed no evidence of nephrolithiasis. She was previously using Calcium Carbonate 200 mg PO TID, but stopped this as of Dec 2020. She remains on Vitamin D currently. Most recent labs again are consistent with hyperparathyroidism. She does complain of abdominal pain that is constant and daily. She denies using HCTZ. DEXA: 03/30/2023 FINDINGS: AP SPINE L2-L4 (excluding L1): The data of L1-L4 has been changed to exclude the L1 vertebral body, because degenerative changes at these levels may cause overestimation of lumbar spine density. Current: BMD 1.020 g/cm2, Z-score -0.4, T-score -1.5, osteopenia, 1.8% decrease from previous, 5.4% decrease from baseline (<5% change is not significant). Prior: BMD 1.039 g/cm2. Baseline: BMD 1.078 g/cm2. LEFT FEMUR, NECK: Current: BMD 0.826 g/cm2, Z-score -0.2, T-score -1.5, osteopenia. Prior: BMD 0.793 g/cm2. Baseline: BMD 0.868 g/cm2. LEFT FEMUR, TOTAL: Current: BMD 0.818 g/cm2, Z-score -0.5, T-score -1.5, osteopenia, 0.5% increase from previous, 5.4% decrease from baseline (<5% change is not significant). Prior: BMD 0.814 g/cm2. Baseline: BMD 0.865 g/cm2. LEFT FOREARM RADIUS 33%: BMD 0.711 g/cm2, Z-score -0.1, T-score -1.9, osteopenia, 6.0% decrease from baseline (<5% change is not significant). Prior and Baseline for Forearm (03/21/2021): BMD 0.756 g/cm2. US Thyroid: 12/22/2022 Right Thyroid Lobe: 4.5 x 1.9 x 1.6 cm, volume 7.2 mL. Previously 5.01 x 2.49 x 1.68 cm, volume 11.0 mL. Parenchyma: The gland echotexture is heterogeneous. Thyroid vascularity is normal. Left Thyroid Lobe: 4.0 x 1.6 x 1.6 cm, volume 5.4 mL. Previously 4.5 x 1.4 x 1.5 cm, volume 4.9 mL. Parenchyma: The gland echotexture is heterogeneous. Thyroid vascularity is normal. Isthmus: 0.3 cm in maximum AP dimension. Previously 0.20 cm. Estimated total number of nodules greater than or equal to 1 cm: 0. Benchroom Shop Optician nodules are described as follows: 1.? Location: Right superior mid. ?? ? Size: 0.8 x 0.6 x 0.6 cm, volume of 0.2 mL. ?? ? Previously: 0.74 x 0.66 x 0.64 cm, volume 0.16 mL. ?? ? Nodule characteristics: ?? ? Composition: Solid (2). ?? ? Echogenicity: Hypoechoic (2). ?? ? Shape: Not taller than wide (0). ?? ? Margins: Smooth (0). ?? ? Echogenic Foci: None (0). ? ACR TI-RADS total points: 4 Previous: 0 ?? ? ACR TI-RADS category: 4 Previous: 1 ? Significant change in size (>/= 20% in 2 dimensions and minimal increase of 2 mm or 50% or greater increase in volume): No ?? ? Change in features: No ?? ? Change in ACR TI-RADS risk category: No 2.? Location: Right inferior. ?? ? Size: 0.7 x 0.7 x 0.6 cm, volume 0.2 mL. ?? ? Previously: 0.62 x 0.88 x 0.52 cm, volume 0.1 mL. ?? ? Nodule characteristics: ?? ? Composition: Solid (2). ?? ? Echogenicity: Hypoechoic (2). ?? ? Shape: Taller than wide (3). ?? ? Margins: Ill-defined (0). ?? ? Echogenic Foci: None (0).? ACR TI-RADS total points: 7 Previous: 0 ?? ? ACR TI-RADS category: 5 Previous: 1 ? Significant change in size (>/= 20% in 2 dimensions and minimal increase of 2 mm or 50% or greater increase in volume): Yes ?? ? Change in features: No ?? ? Change in ACR TI-RADS risk category: No NODES: No lymphadenopathy is seen in the tissue surrounding the thyroid gland. Labs: Laboratory Tests 04/29/23 04/29/23 14:03 14:03 Creatinine 0.75 Estimated GFR > 60 25-OH Vitamin D To jose 33.6 PTH Intact 73 Calcium (PTH Intac t) 10.9 H PFSH Medical History Chest pain Costovertebral angle tenderness Dyslipidemia Hospital discharge follow-up Hypercalcemia Hyperparathyroidism Mild recurrent major depression Multinodular thyroid Muscular aches Vitamin D deficiency Surgical History History of cardiac catheterization History of hysterectomy Hx of colonoscopy Hx of endoscopy Family History Father Prostate cancer Mother HTN (hypertension) Asthma Heart disease Son Stomach cancer Social History Household Members: Spouse Housing: House Alcohol intake: never Patient Tobacco Use Status: Never used Tobacco e-Cigarette/Vaping Use: Never Used Second Hand Smoke Exposure: No service: No Current occupational status: disabled Cognitive needs: No Hearing needs: No Vision needs: No Female Reproductive History Menstrual Age of Menarche: 9 Assessment & Plan Assessment & Plan (1) Hyperparathyroidism: Code(s): E21.3 - Hyperparathyroidism, unspecified Plan: Patient with biochemical evidence of hyperparathyroidism in 2009. Labs repeated are consistent with hyperparathyroidism. Her DEXA reveals osteopenia at all sites, with significant decline in the distal forearm. She is symptomatic with daily abdominal pain. She reports she has undergone an extensive workup including imaging which was WNL. I will refer her to Tania Fernández to discuss a surgical parathyroidectomy at this time. All of her questions were answered today. She is in agreement with this plan of care. I spent 20 minutes in reviewing the record, seeing the patient and documenting in the medical record, including 5 minutes on the phone with the Patient. (2) Vitamin D deficiency: Code(s): E55.9 - Vitamin D deficiency, unspecified Plan: Vitamin D at goal, no changes. (3) Multinodular thyroid: Code(s): E04.2 - Nontoxic multinodular goiter Plan: Patient with a NTMNG. She has a heterogenous gland with only 1 nodule within the RMP. This is spongiform and does not meet indication for FNA biopsy. No significant changes and no nodules meeting indication for FNA biopsy at this time. Will repeat her US for surveillance in 1 years time. She will be due 12/2023. Orders: Referrals General Surgery Referral E21.3 - Hyperparathyroidism, unspecified Telehealth Telehealth Location of provider rendering services: practice address Location of patient: address on file Patient Identification confirmed using: Name, : Yes Telehealth method: voice only Patient verbally consented to treatment: Yes Patient verbally consented to billing insurance company: Yes Patient informed of any privacy concerns related to visit: Yes Coding Level of Care Code Tele Est Pt Level 3 (33962) Diagnoses Hyperparathyroidism E21.3 Vitamin D deficiency E55.9 Multinodular thyroid E04.2
== END 2023-05-18 10:12 | disposition home or self-care (01) ==
LOC: HO.ENCR 08:50
PROVIDERS: PCP Internal Medicine; Visit Provider Internal Medicine
DX: E21.3 Hyperparathyroidism, unspecified (principal); E55.9 Vitamin D deficiency, unspecified; E04.2 Nontoxic multinodular goiter
CPT/HCPCS: 99443

== ENCOUNTER → 2023-05-18 08:50 | Outpatient (BNVA) | payer OTHER, SELFPAY | PROVIDERS: PCP Internal Medicine; Visit Provider Internal Medicine ==

== ENCOUNTER → 2023-08-31 13:50 | Outpatient (BNVA) | payer OTHER, SELFPAY | PROVIDERS: PCP Internal Medicine; Visit Provider Advanced Practice Midwife ==

== ENCOUNTER 2023-09-14 10:10 | Outpatient (REF) | payer OTHER, SELFPAY ==
[2023-09-14 11:23] LABS: Alanine Aminotransferase 35 U/L (0-31); Albumin Level 4.1 g/dL (3.5-5.0); Alkaline Phosphatase 121 U/L (39-117); Anion Gap 10 (12-20); Aspartate Amino Transferase 29 U/L (5-31); Bilirubin Total 1.7 mg/dL (0.0-1.0); Blood Urea Nitrogen 9 mg/dL (9-16); Calcium 10.5 mg/dL (8.4-10.2); Carbon Dioxide 28 mmol/L (22-29); Chloride 107 mmol/L (96-108); Cholesterol 177 mg/dL (<200); Estimated Glomerular Filt Rate > 60; Glucose Fasting 138 mg/dL (60-99); HDL Cholesterol 37 mg/dL (>40); LDL Cholesterol Calculated 115 mg/dL (<100); Potassium 4.2 mmol/L (3.3-5.1); Sodium 141 mmol/L (135-145); Total Protein 7.2 g/dL (6.5-8.0); Triglycerides 125 mg/dL (<150)
== END 2023-09-14 10:11 | disposition home or self-care (01) ==
LOC: HO.LAB 10:10
PROVIDERS: PCP Internal Medicine; Visit Provider Internal Medicine
DX: I10 Essential (primary) hypertension (principal); E78.5 Hyperlipidemia, unspecified; I20.0 Unstable angina
CPT/HCPCS: 36415; 80053; 80061

== ENCOUNTER 2023-09-24 14:51 | Outpatient (AMB) | payer OTHER, SELFPAY ==
[2023-09-24 15:08] VITALS: BP 130/82; PULSE 68; O2SAT 99; BMI 35.9
--- NOTE | 2023-09-24 15:08 | MHC.PC.OV ---
Vital Signs 09/24/23 15:08 Height 5 ft 1 in Weight 190 lb 0.4 oz BMI 35.9 BP 130/82 Blood Pressure Location Lt brachial Position Sitting Pulse 68 Pulse Source Pulse Oximeter Pulse Oximetry (%) 99 Oxygen Delivery Method Room Air Intake Visit Reasons: Physical exam Intake Note: Patient is here today for a physical. Auditing Clerk Required: Yes Auditing Clerk Language: Italian Allergies No Known Allergies Allergy (Mild, Verified 09/24/23 15:14) N/A Medication List - Last Reconciled 09/24/23 by LUIS Mix acetaminophen ER (Arthritis Pain Reliever) 1,300 mg PO Q8H alcohol swabs (Alcohol Prep Pads) pad topical DAILY amlodipine 5 mg PO DAILY aspirin 81 mg PO DAILY atorvastatin 80 mg PO BEDTIME blood sugar diagnostic (FreeStyle Test strips) As directed cholecalciferol (vitamin D3) (Vitamin D3) 50 mcg PO DAILY lancets (FreeStyle Lancets) As directed lidocaine 4% (Aspercreme (lidocaine)) 1 patch topical DAILY PRN meloxicam 15 mg PO DAILY solifenacin (Vesicare) 10 mg PO DAILY sucralfate (Carafate) 1 g PO BID 30 days Tobacco use date assessed: 09/24/23 Fall risk assessment: No Falls in past year Last assessed Fall Risk: 09/24/23 Dental Screening Dental Screen Date: 09/24/23 Did you have a dental visit in the last 12 months?: Yes Did you have a dental problem in the last 6 months where you did not have access to dental care?: No Was dental information given to patient?: Patient has dentist HPI Physical exam HPI Details Patient is a 68-year-old female who presents today for physical exam. Patient of Dr. Mittal. Medical history significant for high cholesterol, urinary incontinence, hypertension, GERD, hyperparathyroidism-patient reports plan for surgery-she is followed by [facility] surgery-also she is seeing endocrinology, depression, CAD-followed by [facility], impaired glucose tolerance, constipation. Patient has an upcoming mammogram 09/2023. Bone density screen 03/2023 with osteopenia. Patient reports history of pneumonia vaccine after age 65. Up-to-date with eye exam. Today we discussed patient's need for colon cancer screening and A1c. In addition, patient reports intermittent abdominal bloating and left lower quadrant and right lower quadrant intermittent pains with bowel movement for the past 2 months. Reports intermittent diarrhea/constipation. Reports normal bowel movement this morning. Reports abdominal bloating in the office. No fever or chills. Reports normal bowel this morning. Patient declined drier tender. [facility]LY [facility] Medical History Muscular aches Hospital discharge follow-up Costovertebral angle tenderness Dyslipidemia Mild recurrent major depression Chest pain Multinodular thyroid Hyperparathyroidism Vitamin D deficiency Hypercalcemia Surgical History History of cardiac catheterization Hx of colonoscopy History of hysterectomy Hx of endoscopy Family History Father Prostate cancer Mother HTN (hypertension) Asthma Heart disease Son Stomach cancer Social History Household Members: Spouse Housing: House Alcohol intake: never Patient Tobacco Use Status: Never used Tobacco e-Cigarette/Vaping Use: Never Used Second Hand Smoke Exposure: No service: No Current occupational status: disabled Cognitive needs: No Hearing needs: No Vision needs: No Female Reproductive History Menstrual Age of Menarche: 9 Questionnaire PHQ-9 Over the last 2 weeks, how often have you been bothered by any of the following problems? 1. Little interest or pleasure in doing things: more than half the days 2. Feeling down, depressed, or hopeless: more than half the days 3. Trouble falling or staying asleep, or sleeping too much: not at all 4. Feeling tired or having little energy: not at all 5. Poor appetite or overeating: not at all 6. Feeling bad about yourself - or that you are a failure or have let yourself or your family down: not at all 7. Trouble concentrating on things, such as reading the newspaper or watching television: not at all 8. Moving or speaking so slowly that other people could have noticed. Or the opposite - being so fidgety or restless that you have been moving around a lot more than usual: not at all 9. Thoughts that you would be better off or of hurting yourself in some way: not at all Total score: 4 Depression Screening Interpretation: Negative Depression Screening Done: Yes [id number] - PHQ-9 Billing: Yes Source: Developed by Drs. Dalton Abraham, Austin Castaneda and colleagues, with an educational ethan from [facility]. Thrive Questionnaire Date Thrive assessed: 12/01/22 I am a: Patient What is your living situation today?: I have a steady place to live Within the past 12 months, did the food you bought not last and you didn't have the money to get more?: Never true Within the past 12 months, did you worry whether your food would run out before you got money to buy more?: Never true Do you have trouble paying for medicines?: No Do you have trouble getting transportation to medical appointments?: No Do you have trouble paying your heating and electricity bill?: No Do you have trouble taking care of your child, family member or friend?: No Do you have trouble with day-to-day activities such as bathing, preparing meals, shopping, managing finances, etc.?: No Are you currently unemployed and looking for a job?: No Are you interested in more education?: No Currently or been in a relationship where the following occur: no concerns reported AUDIT C Alcohol Use Questionnaire (AUDIT-C) 1. How often do you have a drink containing alcohol?: Never Total Score: 0 Score Reviewed/Action Taken: No NEGIN-7 AMB Questionnaire NEGIN-7 Date NEGIN - 7 assessed: 09/24/23 Feeling nervous, anxious, or on edge: 2 = More than half the days Not being able to stop or control worryin = More than half the days Worrying too much about different things: 0 = Not at all Trouble relaxin = Not at all Being so restless that it is hard to sit still: 0 = Not at all Becoming easily annoyed or irritable: 0 = Not at all Feeling afraid as if something awful might happen: 0 = Not at all Total NEGIN-7 score (0-4 normal; 5-9 mild; 10-14 moderate; 15-21 severe): 4 Source: Developed by Drs. Dalton Abraham, Austin Castaneda and colleagues, with an educational ethan from [facility]. NEGIN-7 Assessment Billing NEGIN-7 Assessment Tool: NEGIN-7 Assessment 42980 Review of Systems Const Denies body aches, Denies chills, Denies fever(s) and Denies headache(s) ENT Denies dizziness, Denies otalgia, Denies headache(s), Denies nasal discharge, Denies sinus pain and Denies sore throat Card Denies chest pain, Denies edema, Denies lightheadedness and Denies dyspnea Resp Denies cough, Denies dyspnea and Denies wheezing GI Reports abdominal pain, Reports constipation, Reports diarrhea, Denies nausea and Denies vomiting Denies dysuria Musc Denies myalgias Skin/Breast Denies rash Neuro Denies dizziness and Denies headache(s) Aller/Immun Denies wheezing Physical exam (Primary Care) Vital Signs: Last Vital Signs Pulse 68 09/24/23 15:08 BP 130/82 09/24/23 15:08 Pulse Ox 99 09/24/23 15:08 Oxygen Delivery Method Room Air 09/24/23 15:08 BMI result Body Mass Index 35.9 Tobacco/Smoking Status: Tobacco use Status Tobacco use date assessed 09/24/23 09/24/23 15:13 Patient Tobacco Use Status Never used Tobacco 09/24/23 15:13 e-Cigarette/Vaping Use Never Used 09/24/23 15:13 PHQ-9: PHQ-9 Score PHQ-9: Total score 4 09/24/23 15:13 Depression Screening Interpretation: Negative Thrive Assessment: Date of Thrive Assessment Date Thrive assessed 12/01/22 09/24/23 15:13 Currently or been in a relationship where the following occur: no concerns reported Const General: cooperative and no acute distress Orientation/consciousness: patient oriented x3 HENMT Head: Yes normocephalic and Yes atraumatic Ears: TM's normal bilaterally Face and sinus: Yes sinuses nontender Mouth: oropharynx normal and moist mucous membranes Throat: Yes posterior oropharynx normal Eyes General: appearance normal, both eyes and all related structures Pupils: Equal, round and reactive pupils present EOM: EOMs intact bilaterally Neck Neck: Yes normal visual inspection, Yes full ROM and Yes no lymphadenopathy Thyroid: Thyroid normal Resp Effort & Inspection: normal respiratory effort and able to speak in complete sentences Auscultation: clear to auscultation bilaterally, no crackles, no rales, no rhonchi and no wheezes Cardio Rate: regular rate Rhythm: regular rhythm Heart sounds: S1 normal heart sound present, S2 normal heart sound present and no murmurs GI Palpation (GI): Soft to palpation, not firm, Tenderness to palpation present (GI) (Mild) in the LLQ and in the RLQ; with no rebound tenderness, no guarding, not rigid and no hepatosplenomegaly Auscultation: normal bowel sounds General: No CVA tenderness Back/Spine/Pelvis Back: No CVA tenderness Skin General skin exam: no rashes or lesions noted Neuro General: patient oriented x3 Cranial nerves: Yes Equal, round and reactive pupils present Gait exam (Neuro): Normal gait present Extrem General: Yes full ROM and No edema Assessment and Plan Assessment & Plan (1) Abdominal bloating: Code(s): R14.0 - Abdominal distension (gaseous) Plan: Start simethicone t.i.d. p.r.n. Notify provider if no improvement or if worsening symptoms ED (2) Screening for colon cancer: Code(s): Z12.11 - Encounter for screening for malignant neoplasm of colon (3) Impaired glucose tolerance: Code(s): R73.02 - Impaired glucose tolerance (oral) Plan: A1c ordered (4) Pure hypercholesterolemia: Code(s): E78.00 - Pure hypercholesterolemia, unspecified Plan: Continue atorvastatin Low-cholesterol diet (5) CAD (coronary artery disease): Code(s): I25.10 - Atherosclerotic heart disease of [place] coronary artery without angina pectoris Plan: Continue to follow-up with [facility] (6) Chronic idiopathic constipation: Code(s): K59.04 - Chronic idiopathic constipation Plan: Increase dietary fiber and fluid consumption Start Colace daily p.r.n. (7) GERD (gastroesophageal reflux disease): Code(s): K21.9 - Gastro-esophageal reflux disease without esophagitis Plan: Avoid GERD trigger foods Do not lay down 2-3 hours after evening meal Continue carafate (8) HTN (hypertension), benign: Code(s): I10 - Essential (primary) hypertension Plan: Continue current treatment Local sodium diet and weight loss (9) Adult general medical exam: Code(s): Z00.00 - Encounter for general adult medical examination without abnormal findings Orders: Orders Hemoglobin A1c Today R73.02 - Impaired glucose tolerance (oral) Referrals Gastroenterology Referral Z12.11 - Encounter for screening for malignant neoplasm of colon Medications: New simethicone (Gas Relief (simethicone)) 80 mg PO TID-QID PRN 20 tabs 0RF abdominal distention R14.0 - Abdominal distension (gaseous) docusate sodium (Colace) 100 mg PO DAILY PRN 30 caps 0RF constipation K59.04 - Chronic idiopathic constipation Coding Level of Care Code Est Pt Prev Care >65y(74276) Diagnoses Abdominal bloating R14.0 Screening for colon cancer Z12.11 Impaired glucose tolerance R73.02 Pure hypercholesterolemia E78.00 CAD (coronary artery disease) I25.10 Chronic idiopathic constipation K59.04 GERD (gastroesophageal reflux disease) K21.9 HTN (hypertension), benign I10 Adult general medical exam Z00.00 Additional Codes NEGIN-7 Assessment Billing - NEGIN-7 Assessment Tool: NEGIN-7 Assessment 20007 ([id number])
== END 2023-09-24 15:39 | disposition home or self-care (01) ==
PROVIDERS: PCP Internal Medicine; Visit Provider Nurse Practitioner Family
DX: R14.0 Abdominal distension (gaseous) (principal); Z12.11 Encounter for screening for malignant neoplasm of colon; R73.02 Impaired glucose tolerance (oral); E78.00 Pure hypercholesterolemia, unspecified; I25.10 Atherosclerotic heart disease of native coronary artery without angina pectoris; K59.04 Chronic idiopathic constipation; K21.9 Gastro-esophageal reflux disease without esophagitis; I10 Essential (primary) hypertension; Z00.00 Encounter for general adult medical examination without abnormal findings
CPT/HCPCS: 99397

== ENCOUNTER 2023-10-05 08:16 | Outpatient (REF) | payer OTHER, SELFPAY ==
--- NOTE | ~2023-10-05 | MM_ITS ---
EXAMINATION: MM SCREENING DIGITAL BREAST TOMOSYNTHESIS, BILATERAL CLINICAL INFORMATION: Screening. Asymptomatic. COMPARISON: Mammography: This study is compared with prior exams dating back to 2013. TECHNIQUE: Digital breast tomosynthesis is performed in both the craniocaudal and mediolateral oblique views along with computer-aided detection (CAD). Synthesized 2D images are generated from the tomosynthesis. FINDINGS: There are scattered areas of fibroglandular density (ACR BI-RADS breast composition Category b). There are no significant masses, abnormal calcifications, or other abnormalities. MM/MM tomosynthesis screening BI IMPRESSION: No mammographic evidence of malignancy. ASSESSMENT: BI-RADS BI-RADS 1 - Negative RECOMMENDATION: Routine annual mammography screening. 1 year F/U This examination should not preclude the clinical evaluation of a suspicious palpable abnormality. This patient's information was entered into a reminder system with a target due date for their next mammogram.
== END 2023-10-05 08:17 | disposition home or self-care (01) ==
LOC: HO.MAMMO 08:16
PROVIDERS: PCP Internal Medicine; Visit Provider Internal Medicine
DX: Z12.31 Encounter for screening mammogram for malignant neoplasm of breast (principal)
CPT/HCPCS: 77063; 77067

== ENCOUNTER → 2023-10-05 09:00 | Outpatient (BNV) | payer OTHER, SELFPAY | PROVIDERS: PCP Internal Medicine; Visit Provider Radiology Diagnostic Radiology | DX: Z12.31 Encounter for screening mammogram for malignant neoplasm of breast (principal) | CPT/HCPCS: 77063; 77067 ==

== ENCOUNTER 2023-10-21 15:04 | Emergency (ER) | payer OTHER, SELFPAY ==
--- NOTE | ~2023-10-21 | CT_ITS ---
EXAMINATION: CT ABDOMEN AND PELVIS WITHOUT CONTRAST CLINICAL INFORMATION: Left lower quadrant pain COMPARISON: The abdomen from 02/26/2023, ultrasound abdomen from 03/23/2023 TECHNIQUE: Multidetector volumetric imaging was performed from the superior aspect of the liver through the pubic symphysis. Sagittal and coronal reformatted images were obtained on the technologist's workstation. This CT examination was performed using dose optimization techniques as appropriate, variously including the following: *Automated exposure control *Adjustment of mA and/or kV according to patient size (this includes techniques or standardized protocols for targeted exams where dose is matched to indication/reason for exam; i.e. extremities or head) *Use of iterative reconstruction technique DLP: 730 mGy-cm FINDINGS: LUNG BASES: The liver. Calcification/radiodensities along the left major fissure with regions of nodular laterally, stable. Calcified granuloma left lung base. Bibasilar atelectasis. No pneumothorax. No large pleural effusion. LIVER, GALLBLADDER, AND BILIARY TREE: The liver is mildly enlarged. No focal hepatic lesion or biliary ductal dilatation is present. The gallbladder is unremarkable with no evidence of radiopaque gallstones, gallbladder wall thickening, or obvious pericholecystic inflammatory changes. PANCREAS: Mild fatty infiltration of the pancreas. SPLEEN: Multiple calcifications noted in the spleen potentially representing calcified granuloma. ADRENAL GLANDS: Unremarkable. KIDNEYS AND URETERS: Punctate nonobstructive calculi in the bilateral kidney without hydronephrosis. Subcentimeter hypodense foci of the left kidney too small to characterize though statistically representing cysts. BLADDER: Unremarkable. GASTROINTESTINAL TRACT: Colonic diverticulosis without acute diverticulitis. Small hiatal hernia. The small and large bowel are unremarkable. The appendix is unremarkable. ABDOMINAL WALL: Fat filled umbilical hernia. LYMPH NODES: Normal. VASCULAR: Unremarkable. PELVIC VISCERA: Uterus appears surgically absent. OSSEOUS STRUCTURES: Multilevel degenerative changes of the thoracolumbar and lumbosacral spine. CT/CT abdomen pelvis wo IV con IMPRESSION: 1. No acute process of the abdomen or pelvis identified. 2. Punctate nonobstructive calculi in the bilateral kidney without hydronephrosis. 3. Subcentimeter hypodense foci of the left kidney too small to characterize though statistically representing cysts. 4. Colonic diverticulosis without acute diverticulitis. 5. Small hiatal hernia. 6. Fat filled umbilical hernia.
--- NOTE | 2023-10-21 15:58 | ED.ABDPAIN ---
HPI - Abdominal Pain General Chief Complaint: Abdominal Pain Stated Complaint: abd pain, tenderness Time Seen by Provider: 10/21/23 18:46 Source: patient Mode of arrival: ambulatory Limitations: no limitations History of Present Illness HPI narrative: Patient complaining of pain mostly in left lower abdomen for last 3 weeks with history of same in the past had CT scan done in 03/01 was negative now for last 3 weeks pain is getting worse with nausea vomited few times feels bloated no fever no chills no constipation or diarrhea Related Data Home Medications Medication Instructions Recorded Confirmed blood sugar diagnostic (FreeStyle #10 ea 03/05/21 09/24/23 Test strips) alcohol swabs (Alcohol Prep Pads) pad topical DAILY 05/15/21 09/24/23 lancets 28 gauge (FreeStyle #100 ea 11/20/21 09/24/23 Lancets) acetaminophen 650 mg 1,300 mg PO Q8H 10/22/22 09/24/23 tablet,extended release (Arthritis Pain Reliever) aspirin 81 mg tablet,delayed 81 mg PO DAILY 03/18/23 09/24/23 release cholecalciferol (vitamin D3) 50 50 mcg PO DAILY 03/18/23 09/24/23 mcg (2,000 unit) capsule (Vitamin D3) Previous Rx's Medication Instructions Recorded meloxicam 15 mg tablet 15 mg PO DAILY #14 tabs 01/14/23 lidocaine 4 % topical patch 1 patch topical DAILY PRN pain #30 03/11/23 (Aspercreme (lidocaine)) ea solifenacin 10 mg tablet (Vesicare) 10 mg PO DAILY #90 tabs 05/01/23 atorvastatin 80 mg tablet 80 mg PO BEDTIME #90 tabs 09/01/23 docusate sodium 100 mg capsule 100 mg PO DAILY PRN constipation 09/24/23 (Colace) #30 caps simethicone 80 mg chewable tablet 80 mg PO TID-QID PRN abdominal 09/24/23 (Gas Relief (simethicone)) distention #20 tabs sucralfate 1 gram tablet (Carafate) 1 g PO BID 30 days #60 tabs 09/29/23 amlodipine 5 mg tablet 5 mg PO DAILY #90 tabs 10/21/23 dicyclomine 20 mg tablet 20 mg PO TID PRN abdominal pain 12/13/23 #20 tabs Allergies Allergy/AdvReac Type Severity Reaction Status Date / Time No Known Allergies Allergy Mild N/A Verified 10/21/23 15:58 Review of Systems Review of Systems Yes all other systems are reviewed and are negative [facility] Past Medical History Medical History Muscular aches Hospital discharge follow-up Costovertebral angle tenderness Dyslipidemia Mild recurrent major depression Chest pain Multinodular thyroid Hyperparathyroidism Vitamin D deficiency Hypercalcemia Surgical History History of cardiac catheterization Hx of colonoscopy History of hysterectomy Hx of endoscopy Family History Family History Father Prostate cancer Mother HTN (hypertension) Asthma Heart disease Son Stomach cancer Social History Social History Household Members: Spouse Housing: House Alcohol intake: never Patient Tobacco Use Status: Never used Tobacco e-Cigarette/Vaping Use: Never Used Second Hand Smoke Exposure: No Advance Directives: No Advance Directives Information Provided: No service: No Current occupational status: disabled Cognitive needs: No Hearing needs: No Vision needs: No Physical Exam ED Vital Signs: Vital Signs - 24 hr 10/21/23 15:59 10/21/23 19:17 Temperature 97.9 F 98.1 F Pulse Rate 78 81 Respiratory Rate 18 16 Blood Pressure 156/81 H 152/83 H Pulse Oximetry 98 97 Oxygen Delivery Method Room Air Room Air BMI result Body Mass Index 36.6 Appearance: Alert. Oriented X3. No acute distress. Eyes: PERRLA, No Nystagmus ENT: Pharynx normal. Oral Mucosa moist Neck: Normal inspection. Neck supple. CVS: Normal heart rate and rhythm. Pulses normal. Respiratory: No respiratory distress. Equal air entry bilateral, no wheezing/rales/rhonchi Abdomen: Soft , dependence left lower quadrant Bowel sounds are present, no mass palpable, no CVA tenderness Skin: Skin warm and dry. Normal skin color. Normal skin turgor. Extremities: No lower extremity edema. No calf tenderness Neuro: Oriented X 3. No motor deficit. No sensory deficit.No cerebellar signs , cranial nerves II-XII intact Course Course Course Narrative: RME: 68 yo female with a past medical history hyperparathyroid, HLD c/o acute on chronic diffuse abdominal pain worsening over the past 3 weeks w/ feeling bloated . denies N/V/D. sent in from ABdomen soft diffusely ttp, no rebound or guarding Labs, UA ordered Full HPI, ROS and PE to be performed by primary ED provider. Medical Decision Making Medical Decision Making [facility] Narrative: Patient nonspecific lower abdominal pain workup showed diverticulosis labs are stable discharge patient home advised to avoid constipation Differential Diagnosis Differential Diagnoses: The differential diagnosis associated with the presentation includes Diverticulitis/diverticulosis/constipation/hernia/UTI Lab Data [facility] Lab Attestation statement: I reviewed the patient's lab results. 10/21/23 16:37 10/21/23 16:37 Labs: Lab Results 10/21/23 Range/Units 16:37 WBC 7.7 (4.8-10.8) X10*3/uL RBC 5.02 (4.20-5.50) X10*6/uL Hgb 14.3 (12.0-16.0) g/dl Hct 42.7 (37.0-47.0) % MCV 85.1 (80.0-98.0) fL MCH 28.5 (27.0-33.0) pg MCHC 33.5 (31.0-35.0) g/dl RDW 13.6 (11.0-16.0) % Plt Count 216 (160-400) X10*3/uL MPV 9.9 (9.4-12.3) fL Immature Gran % (Auto) 0.3 (0.0-0.4) % Neut % (Auto) 63.7 (45-73) % Lymph % (Auto) 29.4 (20-40) % Bibb % (Auto) 5.4 (2-11) % Eos % (Auto) 0.9 (0-4) % Baso % (Auto) 0.3 (0-2) % Lymph # (Auto) 2.3 (1.2-4.9) X10*3/uL Bibb # (Auto) 0.4 (0.1-1.2) X10*3/uL Eos # (Auto) 0.1 (0.0-0.4) X10*3/uL Baso # (Auto) 0.0 (0.0-0.2) X10*3/uL Abs Immat Gran (auto) 0.02 (0.00-0.03) X10*3/uL Absolute Neuts (auto) 4.9 (2.0-8.3) x10*3/uL Absolute Nucleated RBC 0.000 (0.0-0.012) X10*3/uL Nucleated RBC % (auto) 0.0 (0.0-0.2) /100WBC Sodium 143 (135-145) mmol/L Potassium 4.5 (3.3-5.1) mmol/L Chloride 108 (96-108) mmol/L Carbon Dioxide 27 (22-29) mmol/L Anion Gap 13 (12-20) BUN 11 (9-16) mg/dL Creatinine 0.77 (0.5-1.4) mg/dL Estim Creat Clear Calc 65.7 Estimated GFR > 60 Random Glucose 104 (60-115) mg/dL Calcium 11.1 H (8.4-10.2) mg/dL Magnesium 2.5 (1.6-2.6) mg/dL Total Bilirubin 1.3 H (0.0-1.0) mg/dL Direct Bilirubin 0.4 (0.0-0.5) mg/dL AST 26 (5-31) U/L ALT 28 (0-31) U/L Alkaline Phosphatase 120 H (39-117) U/L Total Protein 7.7 (6.5-8.0) g/dL Albumin 4.4 (3.5-5.0) g/dL Lipase 15 (8-78) U/L Urine Color Yellow Urine Appearance Clear Urine pH 6.0 (5.0-9.0) Ur Specific Buena <= 1.005 (1.005-1.025) Urine Protein Negative (Neg-Trace) mg/dL Urine Glucose (UA) Negative (Negative) mg/dL Urine Ketones Negative (Negative) mg/dL Urine Blood Trace H (Negative) Urine Nitrite Negative (Negative) Ur Leukocyte Esterase Negative (Negative) Urine RBC 0-2 (0-2) /HPF Urine WBC 0-5 (0-5) /HPF Ur Squamous Epith Cells 0-2 (0-2) /HPF Urine Bacteria None Seen (None Seen) Hyaline Casts 0-2 (0-2) /LPF Independent Interpretation I performed an independent interpretation of an: CT Scan Radiology Impression Discussion of test interpretation with radiology: I have reviewed the radiologist's reading. Medications Administered Discontinued Medications Generic Name Dose Route Start Last Admin Trade Name Freq PRN Reason Stop Dose Admin Dicyclomine HCl 20 mg 10/21/23 19:00 10/21/23 19:30 Dicyclomine Hcl 10 Mg Capsule PO 10/21/23 19:01 20 mg ONCE ONE Administration Discharge Plan Discharge Clinical Impression: Diverticulosis Patient Disposition: Home, Self-Care Instructions: Diverticulosis (ED) Additional Instructions: Cause of your pain is not very clear yet of diverticulosis but no infection Avoid constipation Pain medication as prescribed Follow with PCP Prescriptions: New dicyclomine 20 mg tablet 20 mg PO TID PRN (Reason: abdominal pain) Qty: 20 0RF No Action atorvastatin 80 mg tablet 80 mg PO BEDTIME Qty: 90 3RF sucralfate [Carafate] 1 gram tablet 1 g PO BID 30 Days Qty: 60 1RF amlodipine 5 mg tablet 5 mg PO DAILY Qty: 90 1RF acetaminophen [Arthritis Pain Reliever] 650 mg tablet extended release 1,300 mg PO Q8H meloxicam 15 mg tablet 15 mg PO DAILY Qty: 14 0RF lidocaine [Aspercreme (lidocaine)] 4 % adhesive patch,medicated 1 patch topical DAILY PRN (Reason: pain) Qty: 30 0RF docusate sodium [Colace] 100 mg capsule 100 mg PO DAILY PRN (Reason: constipation) Qty: 30 0RF simethicone [Gas Relief (simethicone)] 80 mg tablet,chewable 80 mg PO TID-QID PRN (Reason: abdominal distention) Qty: 20 0RF alcohol swabs [Alcohol Prep Pads] Pads, Medicated topical DAILY (DME) FreeStyle Test Strip See Rx Instructions .ROUTE .MEDSUPPLY Qty: 10 Rx Instructions: As directed (DME) lancets [FreeStyle Lancets] 28 gauge misc See Rx Instructions topical BID Qty: 100 Rx Instructions: As directed cholecalciferol (vitamin D3) [Vitamin D3] 50 mcg (2,000 unit) capsule 50 mcg PO DAILY aspirin 81 mg tablet,delayed release (DR/EC) 81 mg PO DAILY solifenacin [Vesicare] 10 mg tablet 10 mg PO DAILY Qty: 90 1RF
[2023-10-21 15:59] VITALS: BP 156/81; PULSE 78; RESP 18; TEMP 36.6; O2SAT 98; BMI 36.6
[2023-10-21 16:42] LABS: MANUAL DIFF FLAG NO
[2023-10-21 16:45] LABS: Appearance Urine Clear; Basophils Percent Auto 0.3 % (0-2); Color Urine Yellow; Eosinophils Absolute Auto 0.1 X10*3/uL (0.0-0.4); Eosinophils Percent Auto 0.9 % (0-4); Glucose Urine UA Negative (Negative); Hematocrit 42.7 % (37.0-47.0); Hemoglobin 14.3 g/dl (12.0-16.0); Imm Gran Abs Auto 0.02 X10*3/uL (0.00-0.03); Imm Gran Pct Auto 0.3 % (0.0-0.4); Leukocyte Esterase Urine Negative (Negative); Lymphocytes Absolute Auto 2.3 X10*3/uL (1.2-4.9); Lymphocytes Percent Auto 29.4 % (20-40); Mean Corpuscular HGB Conc 33.5 g/dl (31.0-35.0); Mean Corpuscular Hemoglobin 28.5 pg (27.0-33.0); Mean Corpuscular Volume 85.1 fL (80.0-98.0); Mean Platelet Volume 9.9 fL (9.4-12.3); Monocytes Absolute Auto 0.4 X10*3/uL (0.1-1.2); Monocytes Percent Auto 5.4 % (2-11); Neutrophils Absolute Auto 4.9 x10*3/uL (2.0-8.3); Neutrophils Percent Auto 63.7 % (45-73); Nitrite Urine Negative (Negative); Platelet Count 216 X10*3/uL (160-400); Red Blood Count 5.02 X10*6/uL (4.20-5.50); Red Cell Distribution Width 13.6 % (11.0-16.0); Specific Gravity - Urine <= 1.005 (1.005-1.025); UMIC TRIGGER UACC YES; Urine Blood Trace (Negative); Urine Ketones Negative (Negative); Urine Protein Negative (Neg-Trace); White Blood Count 7.7 X10*3/uL (4.8-10.8)
[2023-10-21 17:01] LABS: Alanine Aminotransferase 28 U/L (0-31); Albumin Level 4.4 g/dL (3.5-5.0); Alkaline Phosphatase 120 U/L (39-117); Anion Gap 13 (12-20); Aspartate Amino Transferase 26 U/L (5-31); Bilirubin Direct 0.4 mg/dL (0.0-0.5); Bilirubin Total 1.3 mg/dL (0.0-1.0); Blood Urea Nitrogen 11 mg/dL (9-16); Calcium 11.1 mg/dL (8.4-10.2); Carbon Dioxide 27 mmol/L (22-29); Chloride 108 mmol/L (96-108); Creatinine Clr Calc Pharmacy 65.7; Estimated Glomerular Filt Rate > 60; Glucose Random 104 mg/dL (60-115); Lipase 15 U/L (8-78); Magnesium 2.5 mg/dL (1.6-2.6); Potassium 4.5 mmol/L (3.3-5.1); Sodium 143 mmol/L (135-145); Total Protein 7.7 g/dL (6.5-8.0)
[2023-10-21 17:39] LABS: Bacteria Urine None Seen (None Seen); Hyaline Casts Urine 0-2 /LPF (0-2); RBC Urine 0-2 /HPF (0-2); Squamous Epithelial Cell Urine 0-2 /HPF (0-2); WBC Urine 0-5 /HPF (0-5)
[2023-10-21 19:17] VITALS: BP 152/83; PULSE 81; RESP 16; TEMP 36.7; O2SAT 97
[2023-10-21] MEDS: Dicyclomine HCl 10 MG CAPSULE 20 MG PO (19:30)
--- NOTE | 2023-10-21 21:21 | PC.NURSE ---
RB Linda discharge pt, pt verbalized understanding.
== END 2023-10-21 21:22 | disposition home or self-care (01) ==
PROVIDERS: Physician Assistant; Emergency Provider Internal Medicine; PCP Internal Medicine
DX: K57.30 Diverticulosis of large intestine without perforation or abscess without bleeding (principal); R10.32 Left lower quadrant pain; I10 Essential (primary) hypertension; E78.00 Pure hypercholesterolemia, unspecified; Z79.899 Other long term (current) drug therapy; Z79.02 Long term (current) use of antithrombotics/antiplatelets
CPT/HCPCS: 36415; 74176; 80048; 80076; 81001; 81003; 83690; 83735; 85025; 99284

== ENCOUNTER 2023-10-26 10:30 | Outpatient (AMB) | payer OTHER, SELFPAY ==
[2023-10-26 10:37] VITALS: BP 120/70; PULSE 95; BMI 35.2
--- NOTE | 2023-10-26 10:37 | A.OFFVIS_ITS ---
Intake Vital Signs 10/26/23 10:37 Height 5 ft 1 in Weight 186 lb 1.122 oz BMI 35.2 BP 120/70 Blood Pressure Location Lt brachial Position Sitting Pulse 95 Pulse Source Pulse Oximeter Intake Visit Reasons: 6mth f/up Intake Note: 6 mnth f/up pt its doing ok,she sometime feel like a sharp pain on her chest. Hog Counter Required: Yes Hog Counter Name: /cyracom Accompanied by: Self / Same As Patient Allergies No Known Allergies Allergy (Mild, Verified 10/21/23 15:58) N/A Medication List - Last Reconciled 10/26/23 by Dung Romero MD acetaminophen ER (Arthritis Pain Reliever) 1,300 mg PO Q8H alcohol swabs (Alcohol Prep Pads) pad topical DAILY amlodipine 5 mg PO DAILY atorvastatin 80 mg PO BEDTIME blood sugar diagnostic (FreeStyle Test strips) As directed dicyclomine 20 mg PO TID PRN docusate sodium (Colace) 100 mg PO DAILY PRN lancets (FreeStyle Lancets) As directed lidocaine 4% (Aspercreme (lidocaine)) 1 patch topical DAILY PRN simethicone (Gas Relief (simethicone)) 80 mg PO TID-QID PRN HPI HPI Comments History of Present Illness Details Pleasant 68-year-old female who is here for follow-up. She was seen in the clinic previously for chest pain and precordial T-wave inversions. She was admitted to the hospital underwent diagnostic angiography which did not show any significant coronary artery disease. She is complaining of burning sensation in her stomach and acid reflux. She also has fatty liver. She is following with GI. On follow-up today she is complaining of sharp left-sided chest pains which has been happening over the last week or so. She describes a sharp sensation on the left side of the chest which happens randomly. This is not pleuritic in nature and not reproducible. She gets some pain by moving her left arm and torso but this is not consistent. She is saying she had some pain before she came to the office but currently is pain-free. 10/26/2023: She returns for follow-up. She often on is getting sharp stabbing sensation in the chest. We have check D-dimer in the past which was normal. I have advised her this this is musculoskeletal pain. No shortness of breath or other complaints. Blood pressure control is good. [facility]LY [facility], [facility] Medical History Muscular aches Hospital discharge follow-up Costovertebral angle tenderness Dyslipidemia Mild recurrent major depression Chest pain Multinodular thyroid Hyperparathyroidism Vitamin D deficiency Hypercalcemia Surgical History History of cardiac catheterization Hx of colonoscopy History of hysterectomy Hx of endoscopy Family History Father Prostate cancer Mother HTN (hypertension) Asthma Heart disease Son Stomach cancer Social History Household Members: Spouse Housing: House Alcohol intake: never Patient Tobacco Use Status: Never used Tobacco e-Cigarette/Vaping Use: Never Used Second Hand Smoke Exposure: No service: No Current occupational status: disabled Cognitive needs: No Hearing needs: No Vision needs: No Female Reproductive History Menstrual Age of Menarche: 9 Review of Systems Const Reports chills, Reports fatigue, Reports fever(s), Reports frequent falls, Reports weakness, Reports weight gain and Reports weight loss ENT Reports dizziness Card Reports chest pain, Reports leg edema, Reports lightheadedness, Reports palpitations, Reports dyspnea and Reports dyspnea on exertion Resp Reports cough, Reports dyspnea and Reports dyspnea on exertion GI Reports hematochezia Musc Reports abnormal gait, Reports muscle weakness, Reports numbness, Reports radiating pain into limb and Reports tingling Neuro Reports abnormal gait, Reports dizziness, Reports frequent falls, Reports numbness, Reports tingling and Reports weakness Endo Reports fatigue and Reports palpitations Physical Exam Vital Signs: Last Vital Signs Pulse 95 10/26/23 10:37 BP 120/70 10/26/23 10:37 BMI result Body Mass Index 35.2 GENERAL APPEARANCE: in no acute distress, pleasant. NECK: no carotid bruit, no jugular venous distention. SKIN: no suspicious lesions, warm and dry. HEART: no murmurs, regular rate and rhythm. LUNGS: clear to auscultation bilaterally. ABDOMEN: soft, nontender. EXTREMITIES: no edema. PERIPHERAL PULSES: equal. NEUROLOGIC: No gross deficits, AAO X 3 Assessment & Plan Assessment & Plan (1) HTN (hypertension), benign: Code(s): I10 - Essential (primary) hypertension (2) Chest pain: Code(s): R07.9 - Chest pain, unspecified Plan Pleasant 68-year-old female who is here for follow-up. She previously had cardiac catheterization which did not reveal any coronary disease. She was complaining of sharp pains after that and had D-dimer performed which was normal. I have reassured her that his chest pain is likely musculoskeletal in origin and should be treated like that. Blood pressure control is good. Overall clinically stable and will see us back in 6 months. Thank you for allowing me to participate in the care of your patient. Please feel free to contact me if you have any questions. Coding Level of Care Code Est Pt Level 3 (93386) Diagnoses HTN (hypertension), benign I10 Chest pain R07.9
== END 2023-10-26 11:00 | disposition home or self-care (01) ==
PROVIDERS: PCP Internal Medicine; Visit Provider Internal Medicine Cardiovascular Disease
DX: I10 Essential (primary) hypertension (principal); R07.9 Chest pain, unspecified
CPT/HCPCS: 99213

== ENCOUNTER → 2023-10-26 10:30 | Outpatient (BNVA) | payer OTHER, SELFPAY | PROVIDERS: PCP Internal Medicine; Visit Provider Internal Medicine Cardiovascular Disease | DX: I10 Essential (primary) hypertension (principal); R07.9 Chest pain, unspecified | CPT/HCPCS: 99212 ==

== ENCOUNTER 2024-02-29 13:34 | Outpatient (AMB) | payer OTHER, SELFPAY ==
[2024-02-29 13:40] VITALS: BP 130/80; PULSE 74; BMI 35.4
--- NOTE | 2024-02-29 13:40 | MHC.OFFVIS ---
Vital Signs 02/29/24 13:40 Height 5 ft 1 in Weight 187 lb 2.759 oz BMI 35.4 BP 130/80 Blood Pressure Location Lt brachial Position Sitting Pulse 74 Pulse Source Pulse Oximeter Intake Visit Reasons: 6wk post op f/u-confirmed Intake Note: Patient presents today for 6 week post op follow. Patient had Subtotal Parathyroidectomy with Dr. Fernández on 01/11/2024. 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 Patient is status post parathyroidectomy with removal of 3 parathyroid glands First noted to have high calcium in 2008. She did have evidence of primary hyperparathyroidism then with elevated PTH in the setting of elevated Calcium. Had labs checked 01/11/2021 which revealed a Calcium of 11.0, Albumin 4.5, Vitamin D 28, Creatinine 0.78. No PTH was checked. She was subsequently referred to Endocrinology. We repeated labs 03/21/2021 with Calcium 10.7, Albumin 4.3, PTH 55, and Vitamin D 26.3, consistent with hyperparathyroidism vs [facility]. 24 hour urine studies revealed urinary calcium WNL, but Vitamin D was low at this time. DEXA revealed osteopenia at all sites. US of the neck revealed a 1.0 cm thyroid nodule. She was scheduled for FNA biopsy of this with me 08/08/2021, but US I repeated at that time revealed this nodule to be spongiform, so no FNA biopsy was completed. She had imaging of the kidneys completed 12/13/2020 which revealed no evidence of nephrolithiasis. She was previously using Calcium Carbonate 200 mg PO TID, but stopped this as of Dec 2020. She remains on Vitamin D currently. Most recent labs again are consistent with hyperparathyroidism. She does complain of abdominal pain that is constant and daily. She denies using HCTZ. DEXA: 03/30/2023 FINDINGS: AP SPINE L2-L4 (excluding L1): The data of L1-L4 has been changed to exclude the L1 vertebral body, because degenerative changes at these levels may cause overestimation of lumbar spine density. Current: BMD 1.020 g/cm2, Z-score -0.4, T-score -1.5, osteopenia, 1.8% decrease from previous, 5.4% decrease from baseline (<5% change is not significant). Prior: BMD 1.039 g/cm2. Baseline: BMD 1.078 g/cm2. LEFT FEMUR, NECK: Current: BMD 0.826 g/cm2, Z-score -0.2, T-score -1.5, osteopenia. Prior: BMD 0.793 g/cm2. Baseline: BMD 0.868 g/cm2. LEFT FEMUR, TOTAL: Current: BMD 0.818 g/cm2, Z-score -0.5, T-score -1.5, osteopenia, 0.5% increase from previous, 5.4% decrease from baseline (<5% change is not significant). Prior: BMD 0.814 g/cm2. Baseline: BMD 0.865 g/cm2. LEFT FOREARM RADIUS 33%: BMD 0.711 g/cm2, Z-score -0.1, T-score -1.9, osteopenia, 6.0% decrease from baseline (<5% change is not significant). Prior and Baseline for Forearm (03/21/2021): BMD 0.756 g/cm2. US Thyroid: 12/22/2022 Right Thyroid Lobe: 4.5 x 1.9 x 1.6 cm, volume 7.2 mL. Previously 5.01 x 2.49 x 1.68 cm, volume 11.0 mL. Parenchyma: The gland echotexture is heterogeneous. Thyroid vascularity is normal. Left Thyroid Lobe: 4.0 x 1.6 x 1.6 cm, volume 5.4 mL. Previously 4.5 x 1.4 x 1.5 cm, volume 4.9 mL. Parenchyma: The gland echotexture is heterogeneous. Thyroid vascularity is normal. Isthmus: 0.3 cm in maximum AP dimension. Previously 0.20 cm. Estimated total number of nodules greater than or equal to 1 cm: 0. Phthalic Acid Purifier nodules are described as follows: 1.? Location: Right superior mid. ?? ? Size: 0.8 x 0.6 x 0.6 cm, volume of 0.2 mL. ?? ? Previously: 0.74 x 0.66 x 0.64 cm, volume 0.16 mL. ?? ? Nodule characteristics: ?? ? Composition: Solid (2). ?? ? Echogenicity: Hypoechoic (2). ?? ? Shape: Not taller than wide (0). ?? ? Margins: Smooth (0). ?? ? Echogenic Foci: None (0). ? ACR TI-RADS total points: 4 Previous: 0 ?? ? ACR TI-RADS category: 4 Previous: 1 ? Significant change in size (>/= 20% in 2 dimensions and minimal increase of 2 mm or 50% or greater increase in volume): No ?? ? Change in features: No ?? ? Change in ACR TI-RADS risk category: No 2.? Location: Right inferior. ?? ? Size: 0.7 x 0.7 x 0.6 cm, volume 0.2 mL. ?? ? Previously: 0.62 x 0.88 x 0.52 cm, volume 0.1 mL. ?? ? Nodule characteristics: ?? ? Composition: Solid (2). ?? ? Echogenicity: Hypoechoic (2). ?? ? Shape: Taller than wide (3). ?? ? Margins: Ill-defined (0). ?? ? Echogenic Foci: None (0).? ACR TI-RADS total points: 7 Previous: 0 ?? ? ACR TI-RADS category: 5 Previous: 1 ? Significant change in size (>/= 20% in 2 dimensions and minimal increase of 2 mm or 50% or greater increase in volume): Yes ?? ? Change in features: No ?? ? Change in ACR TI-RADS risk category: No NODES: No lymphadenopathy is seen in the tissue surrounding the thyroid gland. Labs: Laboratory Tests 04/29/23 04/29/23 14:03 14:03 Creatinine 0.75 Estimated GFR > 60 25-OH Vitamin D Total 33.6 PTH Intact 73 Calcium (PTH Intact) 10.9 H [facility] Medical History (Updated 10/22/23 @ 00:02 by Siva Eisenberg) Muscular aches Hospital discharge follow-up Costovertebral angle tenderness Dyslipidemia Mild recurrent major depression Chest pain Multinodular thyroid Hyperparathyroidism Vitamin D deficiency Hypercalcemia Surgical History (Updated 01/15/24 @ 10:11 by TIFFANIE Godinez) History of subtotal thyroidectomy History of cardiac catheterization Hx of colonoscopy History of hysterectomy Hx of endoscopy Family History Father Prostate cancer Mother HTN (hypertension) Asthma Heart disease Son Stomach cancer Social History Household Members: Spouse Housing: House Alcohol intake: never Patient Tobacco Use Status: Never used Tobacco e-Cigarette/Vaping Use: Never Used Second Hand Smoke Exposure: No service: No Current occupational status: disabled Cognitive needs: No Hearing needs: No Vision needs: No Female Reproductive History Menstrual Age of Menarche: 9 Assessment & Plan Assessment & Plan (1) Hyperparathyroidism: Code(s): E21.3 - Hyperparathyroidism, unspecified Category: Medical Plan: 68-year-old female with a history of primary hyperparathyroidism status post parathyroidectomy removal of 3 parathyroid glands and normalization of calcium. At this point, patient returned to the care of her primary care provider and returned back to endocrinology as needed
== END 2024-02-29 13:55 | disposition home or self-care (01) ==
LOC: HO.ENCR 13:39
PROVIDERS: PCP Internal Medicine; Visit Provider Internal Medicine Endocrinology, Diabetes & Metabolism
DX: E21.3 Hyperparathyroidism, unspecified (principal)
CPT/HCPCS: 99213

== ENCOUNTER → 2024-02-29 13:39 | Outpatient (BNVA) | payer OTHER, SELFPAY | PROVIDERS: PCP Internal Medicine; Visit Provider Internal Medicine Endocrinology, Diabetes & Metabolism | DX: E21.3 Hyperparathyroidism, unspecified (principal) | CPT/HCPCS: 99212 ==

== ENCOUNTER 2024-03-28 12:56 | Outpatient (AMB) | payer OTHER, SELFPAY ==
--- NOTE | 2024-03-28 13:03 | MHC.PC.OV ---
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 Core Drilling Required: No Accompanied by: Daughter Allergies No Known Allergies Allergy (Mild, Verified 03/28/24 13:14) N/A Medication List - Last Reconciled 03/28/24 by Sakshi Prakash MD acetaminophen ER (Arthritis Pain Reliever) 1,300 mg PO Q8H alcohol swabs (Alcohol Prep Pads) pad topical DAILY amlodipine 5 mg PO DAILY atorvastatin 80 mg PO BEDTIME blood sugar diagnostic (FreeStyle Test strips) As directed cholecalciferol (vitamin D3) 50 mcg PO DAILY dicyclomine 20 mg PO TID PRN docusate sodium (Colace) 100 mg PO DAILY PRN lancets (FreeStyle Lancets) As directed lidocaine 4% (Aspercreme (lidocaine)) 1 patch topical DAILY PRN simethicone (Gas Relief (simethicone)) 80 mg PO TID-QID PRN Tobacco use date assessed: 03/28/24 Fall risk assessment: No Falls in past year Last assessed Fall Risk: 03/28/24 Dental Screening Dental Screen Date: 03/28/24 Did you have a dental visit in the last 12 months?: Yes Did you have a dental problem in the last 6 months where you did not have access to dental care?: No Was dental information given to patient?: Patient has dentist HPI HPI Comments History of Present Illness Details This is a 68-year-old female with mild major depression in remission, GERD, chronic idiopathic constipation, hypertension and dyslipidemia that comes today complaining of muscle aches and numbness in the lateral right thigh most likely due to meralgia paresthetica. Advise of not using a tight belt and decreasing weight was giving for her meralgia paresthetica. Depression is in remission and no need for medications. GERD stable with PPIs. Constipation well controlled with docusate as needed. On statins for dyslipidemia. Blood pressure stable with medication. Also has diffuse muscle aches. [facility] Medical History (Updated 03/28/24 @ 13:25 by Sakshi Prakash MD) Muscular aches Hospital discharge follow-up Costovertebral angle tenderness Dyslipidemia Mild recurrent major depression Chest pain Multinodular thyroid Hyperparathyroidism Vitamin D deficiency Hypercalcemia Surgical History (Updated 03/28/24 @ 13:19 by Sakshi Prakash MD) History of parathyroidectomy History of cardiac catheterization Hx of colonoscopy History of hysterectomy Hx of endoscopy Family History Father Prostate cancer Mother HTN (hypertension) Asthma Heart disease Son Stomach cancer Social History (Updated 03/28/24 @ 13:18 by Sakshi Prakash MD) Household Members: Spouse Housing: House Alcohol intake: never Patient Tobacco Use Status: Former Tobacco user e-Cigarette/Vaping Use: Never Used Second Hand Smoke Exposure: No service: No Current occupational status: disabled Cognitive needs: No Hearing needs: No Vision needs: No Female Reproductive History Menstrual Age of Menarche: 9 Questionnaire PHQ-9 Over the last 2 weeks, how often have you been bothered by any of the following problems? 1. Little interest or pleasure in doing things: not at all 2. Feeling down, depressed, or hopeless: several days 3. Trouble falling or staying asleep, or sleeping too much: not at all 4. Feeling tired or having little energy: not at all 5. Poor appetite or overeating: not at all 6. Feeling bad about yourself - or that you are a failure or have let yourself or your family down: not at all 7. Trouble concentrating on things, such as reading the newspaper or watching television: not at all 8. Moving or speaking so slowly that other people could have noticed. Or the opposite - being so fidgety or restless that you have been moving around a lot more than usual: not at all 9. Thoughts that you would be better off or of hurting yourself in some way: not at all Total score: 1 Depression Screening Interpretation: Negative Depression Screening Done: Yes 88995 - PHQ-9 Billing: Yes Source: Developed by Drs. Dalton Abraham, Orquidea Tobias, Austin Yanez and colleagues, with an educational ethan from [employer]. Thrive Questionnaire Date Thrive assessed: 03/28/24 I am a: Patient What is your living situation today?: I have a steady place to live Within the past 12 months, did the food you bought not last and you didn't have the money to get more?: Never true Within the past 12 months, did you worry whether your food would run out before you got money to buy more?: Never true Do you have trouble paying for medicines?: No Do you have trouble getting transportation to medical appointments?: No Do you have trouble paying your heating and electricity bill?: No Do you have trouble taking care of your child, family member or friend?: No Do you have trouble with day-to-day activities such as bathing, preparing meals, shopping, managing finances, etc.?: No Are you currently unemployed and looking for a job?: No Are you interested in more education?: No Please select the resources that you would like help with: None Currently or been in a relationship where the following occur: no concerns reported THRIVE Score: 0 AUDIT C Alcohol Use Questionnaire (AUDIT-C) 1. How often do you have a drink containing alcohol?: Never Total Score: 0 NEGIN-7 AMB Questionnaire NEGIN-7 Date NEGIN - 7 assessed: 03/28/24 Feeling nervous, anxious, or on edge: 1 = Several days Not being able to stop or control worryin = Not at all Worrying too much about different things: 0 = Not at all Trouble relaxin = Not at all Being so restless that it is hard to sit still: 0 = Not at all Becoming easily annoyed or irritable: 0 = Not at all Feeling afraid as if something awful might happen: 0 = Not at all Total NEGIN-7 score (0-4 normal; 5-9 mild; 10-14 moderate; 15-21 severe): 1 Source: Developed by Drs. Dalton Abraham, Orquidea Tobias, Austin Yanez and colleagues, with an educational ethan from [employer]. NEGIN-7 Assessment Billing NEGIN-7 Assessment Tool: NEGIN-7 Assessment 85158 Review of Systems Const All systems reviewed & are unremarkable except as noted in HPI and below Eyes Reports no additional complaints, Denies change in vision and Denies other visual disturbances Card Denies chest pain at rest, Denies chest pain with activity, Denies edema, Denies irregular heart rhythm, Denies claudication, Denies dyspnea, Denies dyspnea on exertion, Denies orthopnea, Denies paroxysmal nocturnal dyspnea and Denies slow heart rate Resp Denies cough, Denies dyspnea and Denies dyspnea on exertion Physical exam (Primary Care) Vital Signs: Last Vital Signs BP 132/80 03/28/24 13:05 BMI result Body Mass Index 35.5 Tobacco/Smoking Status: Tobacco use Status Tobacco use date assessed 03/28/24 03/28/24 13:12 Patient Tobacco Use Status Never used Tobacco 03/28/24 13:12 e-Cigarette/Vaping Use Never Used 03/28/24 13:12 PHQ-9: PHQ-9 Score PHQ-9: Total score 1 03/28/24 13:12 Depression Screening Interpretation: Negative Thrive Assessment: Date of Thrive Assessment Date Thrive assessed 03/28/24 03/28/24 13:12 Currently or been in a relationship where the following occur: no concerns reported Resp Effort & Inspection: normal respiratory effort Auscultation: clear to auscultation bilaterally Cardio Jugular venous distension: no JVD Rate: regular rate Rhythm: regular rhythm Heart sounds: S1 normal heart sound present and S2 normal heart sound present Extrem General: Yes full ROM Assessment and Plan Assessment & Plan (1) HTN (hypertension), benign: Code(s): I10 - Essential (primary) hypertension Plan: Continue amlodipine. Blood pressure goal is equal or less than 130/80. (2) GERD (gastroesophageal reflux disease): Code(s): K21.9 - Gastro-esophageal reflux disease without esophagitis Plan: Continue PPIs. (3) Mild recurrent major depression: Code(s): F33.0 - Major depressive disorder, recurrent, mild Plan: In remission. (4) Dyslipidemia: Code(s): E78.5 - Hyperlipidemia, unspecified Plan: Continue statins. (5) Chronic idiopathic constipation: Code(s): K59.04 - Chronic idiopathic constipation Plan: Continue docusate as needed. Orders: Orders Magnesium Today R25.2 - Cramp and spasm Vitamin D 25-OH Total Today E55.9 - Vitamin D deficiency, unspecified Comprehensive [place]. Panel Fast Today R25.2 - Cramp and spasm Coding Level of Care Code Est Pt Level 4 (55918) Diagnoses HTN (hypertension), benign I10 GERD (gastroesophageal reflux disease) K21.9 Mild recurrent major depression F33.0 Dyslipidemia E78.5 Chronic idiopathic constipation K59.04 Additional Codes NEGIN-7 Assessment Billing - NEGIN-7 Assessment Tool: NEGIN-7 Assessment 03302 ([id number]) Time Spent (min) 22
[2024-03-28 13:05] VITALS: BP 132/80; BMI 35.5
== END 2024-03-28 13:25 | disposition home or self-care (01) ==
PROVIDERS: PCP Internal Medicine; Visit Provider Internal Medicine
DX: I10 Essential (primary) hypertension (principal); K21.9 Gastro-esophageal reflux disease without esophagitis; E78.5 Hyperlipidemia, unspecified; K59.04 Chronic idiopathic constipation
CPT/HCPCS: 99214

== ENCOUNTER 2024-03-28 13:31 | Outpatient (REF) | payer OTHER, SELFPAY ==
[2024-03-28 15:08] LABS: Alanine Aminotransferase 28 U/L (0-31); Albumin Level 4.2 g/dL (3.5-5.0); Alkaline Phosphatase 115 U/L (39-117); Anion Gap 12 (12-20); Aspartate Amino Transferase 26 U/L (5-31); Bilirubin Total 1.7 mg/dL (0.0-1.0); Blood Urea Nitrogen 12 mg/dL (9-16); Carbon Dioxide 28 mmol/L (22-29); Chloride 105 mmol/L (96-108); Estimated Glomerular Filt Rate > 60; Glucose Fasting 88 mg/dL (60-99); Magnesium 2.4 mg/dL (1.6-2.6); Potassium 4.2 mmol/L (3.3-5.1); Sodium 141 mmol/L (135-145); Total Protein 7.4 g/dL (6.5-8.0)
[2024-03-28 15:25] LABS: Vitamin D 25-OH Total 44.9 ng/mL (>30)
== END 2024-03-28 13:32 | disposition home or self-care (01) ==
LOC: HO.LAB 13:31
PROVIDERS: PCP Internal Medicine; Visit Provider Internal Medicine
DX: E55.9 Vitamin D deficiency, unspecified (principal); R73.02 Impaired glucose tolerance (oral); R25.2 Cramp and spasm
CPT/HCPCS: 36415; 80053; 82306; 83735

== ENCOUNTER 2024-04-20 13:25 | Outpatient (AMB) | payer OTHER, SELFPAY ==
[2024-04-20 13:52] VITALS: BP 124/64; PULSE 78; BMI 35.5
--- NOTE | 2024-04-20 13:52 | A.OFFVIS_ITS ---
Vital Signs 04/20/24 13:52 Height 5 ft 1 in Weight 187 lb 13.341 oz BMI 35.5 BP 124/64 Blood Pressure Location Lt brachial Position Sitting Pulse 78 Pulse Source Monitor Intake Visit Reasons: 6 month follow up Intake Note: pt state that a couple of weeks ago she was having chest pain that would stay for 5 mins then it would go away, this morning she felt pain then like a burning sensation. Artificial Stone Setter Required: Yes Artificial Stone Setter Name: emmanuel/ daughter Accompanied by: Daughter Allergies No Known Allergies Allergy (Mild, Verified 03/28/24 13:14) N/A Medication List - Last Reconciled 04/20/24 by Dung Romero MD acetaminophen ER (Arthritis Pain Reliever) 1,300 mg PO Q8H alcohol swabs (Alcohol Prep Pads) pad topical DAILY amlodipine 5 mg PO DAILY atorvastatin 80 mg PO BEDTIME blood sugar diagnostic (FreeStyle Test strips) As directed cholecalciferol (vitamin D3) 50 mcg PO DAILY dicyclomine 20 mg PO TID PRN docusate sodium (Colace) 100 mg PO DAILY PRN lancets (FreeStyle Lancets) As directed lidocaine 4% (Aspercreme (lidocaine)) 1 patch topical DAILY PRN simethicone (Gas Relief (simethicone)) 80 mg PO TID-QID PRN HPI Comments Details: Pleasant 68-year-old female who is here for follow-up. She was seen in the clinic previously for chest pain and precordial T-wave inversions. She was admitted to the hospital underwent diagnostic angiography which did not show any significant coronary artery disease. She is complaining of burning sensation in her stomach and acid reflux. She also has fatty liver. She is following with GI. On follow-up today she is complaining of sharp left-sided chest pains which has been happening over the last week or so. She describes a sharp sensation on the left side of the chest which happens randomly. This is not pleuritic in nature and not reproducible. She gets some pain by moving her left arm and torso but this is not consistent. She is saying she had some pain before she came to the office but currently is pain-free. 10/26/2023: She returns for follow-up. She often on is getting sharp stabbing sensation in the chest. We have check D-dimer in the past which was normal. I have advised her this this is musculoskeletal pain. No shortness of breath or other complaints. Blood pressure control is good. 04/20/24: She returns for follow-up. She is complaining of burning chest discomfort as well as pressure. This happens at rest and with activity. No clear relationship to food intake. She has not on a PPI. No clear exertional symptoms. [facility] Medical History (Updated 04/20/24 @ 14:50 by Dung Romero MD) Muscular aches Hospital discharge follow-up Costovertebral angle tenderness Dyslipidemia Mild recurrent major depression Chest pain Multinodular thyroid Hyperparathyroidism Vitamin D deficiency Hypercalcemia Surgical History History of parathyroidectomy History of cardiac catheterization Hx of colonoscopy History of hysterectomy Hx of endoscopy Family History Father Prostate cancer Mother HTN (hypertension) Asthma Heart disease Son Stomach cancer Social History Household Members: Spouse Housing: House Alcohol intake: never Patient Tobacco Use Status: Former Tobacco user e-Cigarette/Vaping Use: Never Used Second Hand Smoke Exposure: No service: No Current occupational status: disabled Cognitive needs: No Hearing needs: No Vision needs: No Female Reproductive History Menstrual Age of Menarche: 9 Review of Systems Const Denies chills, Denies fatigue, Denies fever(s), Denies frequent falls, Denies weakness, Denies weight gain and Denies weight loss ENT Denies dizziness Card Denies chest pain, Denies leg edema, Denies lightheadedness, Denies palpitations, Denies dyspnea and Denies dyspnea on exertion Resp Denies cough, Denies dyspnea and Denies dyspnea on exertion GI Denies hematochezia Musc Denies abnormal gait, Denies muscle weakness, Denies numbness, Denies radiating pain into limb and Denies tingling Neuro Denies abnormal gait, Denies dizziness, Denies frequent falls, Denies numbness, Denies tingling and Denies weakness Endo Denies fatigue and Denies palpitations Physical Exam Vital Signs: Last Vital Signs Pulse 78 04/20/24 13:52 BP 124/64 04/20/24 13:52 BMI result Body Mass Index 35.5 GENERAL APPEARANCE: in no acute distress, pleasant. NECK: no carotid bruit, no jugular venous distention. SKIN: no suspicious lesions, warm and dry. HEART: no murmurs, regular rate and rhythm. LUNGS: clear to auscultation bilaterally. ABDOMEN: soft, nontender. EXTREMITIES: no edema. PERIPHERAL PULSES: equal. NEUROLOGIC: No gross deficits, AAO X 3 Office Procedures EKG Details: NSR 78/min, normal axis, nonspecific ST-T changes, QTc 471 msec. [id number], Complete Assessment & Plan Assessment & Plan (1) HTN (hypertension), benign: Code(s): I10 - Essential (primary) hypertension Category: Medical (2) Chest pain: Code(s): R07.9 - Chest pain, unspecified Category: Medical Plan Pleasant 68 year female who is here for follow-up. Blood pressure is well controlled. She has chronic nonspecific precordial T-wave inversions. She underwent cardiac catheterization which did not show any coronary disease. She is complaining of some burning chest discomfort as well as pressure-like feeling. Symptoms are likely GI related. I am starting her on PPI. I have discussed with her to see Gastroenterology and she is interested and I am referring her to GI. Thank you for allowing me to participate in the care of your patient. Please feel free to contact me if you have any questions. Orders: Referrals Gastroenterology Referral K21.9 - Gastro-esophageal reflux disease without esophagitis Medications: New omeprazole 40 mg PO DAILY 90 caps 3RF K21.9 - Gastro-esophageal reflux disease without esophagitis Coding Level of Care Code Est Pt Level 4 (05098) Diagnoses HTN (hypertension), benign I10 Chest pain R07.9 CPT Codes EKG - CPT: 94020-[id number], Complete ([id number])
== END 2024-04-20 14:25 | disposition home or self-care (01) ==
PROVIDERS: PCP Internal Medicine; Visit Provider Internal Medicine Cardiovascular Disease
DX: I10 Essential (primary) hypertension (principal); R07.9 Chest pain, unspecified
CPT/HCPCS: 93010; 99214

== ENCOUNTER → 2024-04-20 13:25 | Outpatient (BNVA) | payer OTHER, SELFPAY | PROVIDERS: PCP Internal Medicine; Visit Provider Internal Medicine Cardiovascular Disease | DX: R07.9 Chest pain, unspecified (principal); I10 Essential (primary) hypertension | CPT/HCPCS: 93005; 99212 ==

== ENCOUNTER 2024-05-05 13:41 | Outpatient (AMB) | payer OTHER, SELFPAY ==
--- NOTE | 2024-05-05 13:45 | MHC.OFFVIS ---
Vital Signs 05/05/24 13:56 Height 5 ft 1 in Weight 188 lb 11.451 oz BMI 35.7 BP 136/74 Blood Pressure Location Rt brachial Position Sitting Pulse 75 Intake Visit Reasons: follow up GERD Intake Note: Aysha returns to in office visit today in follow up of GERD. CC: Patient c/o epigastric abdominal pain after eating and abdominal bloating. She also reports occasional nausea, constipation, and acid reflux. Patient states that she also have bilateral upper quadrants pain and was told she has a fatty liver. Patient states that she does not like to take the Omeprazole. Embedded Software Architect Required: Yes Embedded Software Architect Name: Daughter Accompanied by: Daughter Allergies No Known Allergies Allergy (Mild, Verified 05/05/24 13:57) N/A HPI HPI follow up GERD: Details: Assessment & Plan (1) H. pylori infection: Comment: 03/2021 treated with quadruple therapy, 11/2020 failed Levaquin/amoxicillin Code(s): A04.8 - Other specified bacterial intestinal infections Plan: [place] #Female family member translating per pt request. I explain the results, and despite being treated with leva and amox, she still is hp positive. Fortunately, she is only feeling some bloating after eating. She had trouble with itching in the genital and pannus area, after the last round of antibiotics, next time we will pre treat with flucanazole. I explained that H pylori can be difficult to cure and I am glad she is feeling better for the moment but most likely it will rebound at some point and produce more severe symptoms. Of course if she wishes to wait and have her body recover from the antibiotics this is perfectly acceptable. She does admit that when she gets the bloating she will still have the pain that seems to be mostly to the right side and wraps around to her back. I explained that this most likely is the H pylori stool being active. Once I explained to her that I can pre treat her for the Greg/itching she decides she will go ahead with another round of treatment. I will treat her with amoxicillin and rifabutin next. She has got some intermittent episodes of diarrhea which could be from the bleeding her microbiome so also prescribed the Pepto-Bismol choose and I explained to her that this helps kill the bacteria as well as help so control the diarrhea. At this point I will see her again in 6 weeks which will give her time to complete the regimen and enough time after she completes it to consider we testing. (2) GERD (gastroesophageal reflux disease): Code(s): K21.9 - Gastro-esophageal reflux disease without esophagitis (3) Epigastric pain: Comment: Negative small-bowel follow-through 08/2020 and negative EGD at [facility] Code(s): R10.13 - Epigastric pain (4) Hemorrhoids: Code(s): K64.9 - Unspecified hemorrhoids (5) Chronic gastritis: Code(s): K29.50 - Unspecified chronic gastritis without bleeding (6) Candidal skin infection: Code(s): B37.2 - Candidiasis of skin and nail Medications: New rifabutin 300 mg (2 x 150 mg) PO DAILY 14 days 28 caps 0RF A04.8 - Other specified bacterial intestinal infections amoxicillin 1,000 mg (2 x 500 mg) PO Q12H 14 days 56 caps 0RF bismuth subsalicylate (Bismuth) 2 tabs PO QID 14 days 112 tabs 0RF A04.8 - Other specified bacterial intestinal infections fluconazole (Diflucan) 200 mg PO ONCE 1 tab 1RF B37.2 - Candidiasis of skin and nail Refilled omeprazole 20 mg PO BID 180 caps 1RF A04.8 - Other specified bacterial intestinal infections, K29.50 - Unspecified chronic gastritis without bleeding Patient Instructions: Aysha Lloyd Jiménez infecci?n por H. pylori parece ser bastante resistente a los antibi?ticos, lo que significa que es dif?cil de eliminar. Lo volver? a tratar con un nuevo antibi?sujatha llamado rifabutina, que son 2 pastillas que se angelo elle vez al d?a. Seguiremos tambi?n con la amoxicilina. Tambi?n aseg?rese de tan el omeprazol dos veces al d?a, elle vez por la ma?jevon y elle vez antes de la sam, as? kailee las tabletas masticables plunkett 4 veces al d?a. Ambos ayudar?n con cualquier diarrea. Tambi?n elgin fluconazol para el picor, t?shantel elle vez y si vuelve el picor lo puedes reponer. Ll?zain si no recibe alguno de los medicamentos y quiero verlo en 6 semanas. TODAY'S VISIT [place] #Female family member translating per pt request. Pt has been lost to follow up since 2021. She stopped the rif/amox therapy about 5 days in r/t vaginal greg. Rx 14 days diflucan and STOP ATORVASTATIN. She dislikes taking o2o so will switch to pepcid - she fears because her son of ca and was on this. She c/o my liver gets swollen but her liver SÁNCHEZ is not advanced enough for this to be the cause - likely colon gas trapping - rx simethicone. ROV 6 weeks. PFSH Medical History Muscular aches Hospital discharge follow-up Costovertebral angle tenderness Dyslipidemia Mild recurrent major depression Chest pain Multinodular thyroid Hyperparathyroidism Vitamin D deficiency Hypercalcemia Surgical History History of parathyroidectomy History of cardiac catheterization Hx of colonoscopy History of hysterectomy Hx of endoscopy Family History Father Prostate cancer Mother HTN (hypertension) Asthma Heart disease Son Stomach cancer Social History Household Members: Spouse Housing: House Alcohol intake: never Patient Tobacco Use Status: Former Tobacco user e-Cigarette/Vaping Use: Never Used Second Hand Smoke Exposure: No service: No Current occupational status: disabled Cognitive needs: No Hearing needs: No Vision needs: No Female Reproductive History Menstrual Age of Menarche: 9 Review of Systems Const Denies fatigue, Denies fever(s), Denies night sweats, Denies poor appetite and Denies weight loss ENT Reports Normal hearing present, Denies dental pain, Denies dysphagia, Denies hearing loss, Denies mouth pain, Denies odynophagia, Denies throat swelling, Denies tongue swelling and Reports other (Dentition adequate) Card Reports no additional complaints Resp Reports no additional complaints GI Details: Reports abdominal pain, Denies melena, Reports bloating, Denies hematochezia, Denies constipation, Denies GI cramping, Denies dysphagia, Denies excessive flatus, Denies early satiety, Reports heartburn, Denies diarrhea, Denies nausea, Denies odynophagia, Denies vomiting and Denies hematemesis Skin/Breast Denies pruritus, Denies lesions, Denies rash and Denies jaundice Neuro Reports Normal hearing present and Denies Abnormal speech present Endo Denies fatigue Aller/Immun Denies throat swelling and Denies tongue swelling Physical Exam Vital Signs: Last Vital Signs Pulse 75 05/05/24 13:56 BP 136/74 05/05/24 13:56 BMI result Body Mass Index 35.7 Const General: cooperative, no acute distress, well developed and well groomed Nutritional Appearance: well nourished and obese Orientation/consciousness: oriented to person, oriented to place and oriented to time Limitations: language barrier HEENT Head: Yes normocephalic and Yes atraumatic Eyes General: appearance normal, both eyes and all related structures Pupils: Equal, round and reactive pupils present Neck Neck: Yes normal visual inspection and Yes no lymphadenopathy Thyroid: Thyroid normal Resp Effort & Inspection: normal respiratory effort and able to speak in complete sentences Auscultation: clear to auscultation bilaterally Cardio Rate: regular rate Rhythm: regular rhythm Heart sounds: Normal, physiologic split S2 sound present Peripheral pulses: radial pulses present and posterior tibial pulses present GI Inspection: No distended, Yes Abdominal panniculus present and Yes obesity Palpation (GI): Soft to palpation, nontender, no guarding, not rigid and No hepatosplenomegaly present Percussion: Yes normal to percussion Auscultation: normal bowel sounds Rectal Exam - Female: deferred Skin General skin exam: no rashes or lesions noted, turgor normal, skin not dry, no jaundice, No spider nevi and no striae Rashes: no rashes Nails: normal Neuro General: oriented to person, oriented to place and oriented to time Cranial nerves: Yes Equal, round and reactive pupils present and Yes Normal hearing present Speech: No Abnormal speech present Extrem General: Yes normal to inspection, No clubbing, No cyanosis and No edema Psych Appearance: grossly normal and well kempt Mental Status: mental status grossly normal Speech and movement: Normal speech and movement present Affect: normal affect Attitude: cooperative Thought process: Normal thought process present and not confabulating Thought content: Normal thought content present Insight: Limited insight present (Psych) Judgement: Limited judgement present (Psych) Assessment & Plan Assessment & Plan (1) H. pylori infection: Comment: 03/2021 treated with quadruple therapy, 11/2020 failed Levaquin/amoxicillin Code(s): A04.8 - Other specified bacterial intestinal infections Category: Medical (2) Candidiasis of mouth and esophagus: Code(s): B37.81 - Candidal esophagitis; B37.0 - Candidal stomatitis Category: Medical (3) GERD (gastroesophageal reflux disease): Code(s): K21.9 - Gastro-esophageal reflux disease without esophagitis Category: Medical Plan [place] #Female family member translating per pt request. Pt has been lost to follow up since 2021. She stopped the rif/amox therapy about 5 days in r/t vaginal greg. Rx 14 days diflucan and STOP ATORVASTATIN. She dislikes taking o2o so will switch to pepcid - she fears because her son of ca and was on this. She c/o my liver gets swollen but her liver SÁNCHEZ is not advanced enough for this to be the cause - likely colon gas trapping - rx simethicone. ROV 6 weeks. Medications: New amoxicillin 1,000 mg (2 x 500 mg) PO Q12H 56 caps 0RF 14 days rifabutin 300 mg (2 x 150 mg) PO DAILY 28 caps 0RF 14 days A04.8 - Other specified bacterial intestinal infections fluconazole (Diflucan) 200 mg PO DAILY 14 tabs 0RF 14 days B37.81 - Candidal esophagitis, B37.0 - Candidal stomatitis famotidine (Pepcid) 20 mg PO BID 60 tabs 0RF A04.8 - Other specified bacterial intestinal infections, K21.9 - Gastro-esophageal reflux disease without esophagitis simethicone after meals 180 mg PO QID 120 caps 3RF 30 days Discontinued simethicone Discontinued Reason: Doctor's Order 80 mg PO TID-QID PRN 20 tabs 0RF abdominal distention R14.0 - Abdominal distension (gaseous) omeprazole Discontinued Reason: Doctor's Order 40 mg PO DAILY 90 caps 3RF K21.9 - Gastro-esophageal reflux disease without esophagitis On Hold atorvastatin Hold Comment: Doctor's Order 80 mg PO BEDTIME 90 tabs 3RF E78.00 - Pure hypercholesterolemia, unspecified Coding Level of Care Code Est Pt Level 3 (77469) Diagnoses H. pylori infection A04.8 Candidiasis of mouth and esophagus B37.81; B37.0 GERD (gastroesophageal reflux disease) K21.9
[2024-05-05 13:56] VITALS: BP 136/74; PULSE 75; BMI 35.7
== END 2024-05-05 14:34 | disposition home or self-care (01) ==
PROVIDERS: PCP Internal Medicine; Visit Provider Nurse Practitioner
DX: A04.8 Other specified bacterial intestinal infections (principal); B37.81 Candidal esophagitis; B37.0 Candidal stomatitis; K21.9 Gastro-esophageal reflux disease without esophagitis
CPT/HCPCS: 99213

== ENCOUNTER → 2024-05-05 13:41 | Outpatient (BNVA) | payer OTHER, SELFPAY | PROVIDERS: PCP Internal Medicine; Visit Provider Nurse Practitioner | DX: K21.9 Gastro-esophageal reflux disease without esophagitis (principal); A04.8 Other specified bacterial intestinal infections; B37.81 Candidal esophagitis; B37.0 Candidal stomatitis | CPT/HCPCS: 99212 ==

== ENCOUNTER 2024-06-21 18:09 | Emergency (ER) | payer OTHER, SELFPAY ==
--- NOTE | ~2024-06-21 | XR_ITS ---
EXAMINATION: XR CHEST CLINICAL INFORMATION: Chest pain COMPARISON: 09/26/2022 and selected images from priors TECHNIQUE: 2 views of the chest FINDINGS: Cardiac silhouette appears prominent. There is vascular ectasia. No obvious mass or adenopathy. No pulmonary edema. Stable scarring or atelectasis at the left base. Recent abdominal CT with high attenuation material within the left major fissure of uncertain etiology, possibly postoperative. No consolidation or effusion to suggest pneumonia. No pneumothorax. Postsurgical changes in the right neck possibly related to the thyroid. No mass effect at the thoracic inlet. Nonobstructive gas pattern. No free air. No acute osseous finding. No rib fracture. XR/XR chest 2V IMPRESSION: No acute cardiac pulmonary process detected. Chronic prominence of the cardiac silhouette and vascular ectasia without edema. Chronic linear opacity at the left base with chronic high attenuation material along the left major fissure possibly postsurgical in etiology. Clinical correlation advised.
[2024-06-21 18:28] VITALS: BP 143/71; PULSE 77; RESP 16; TEMP 36.6; O2SAT 96; BMI 36.8
--- NOTE | 2024-06-21 18:29 | ED.CHESTPAIN ---
HPI - Chest Pain General Chief Complaint: General Medical Stated Complaint: Heartburn Time Seen by Provider: 06/21/24 20:32 Source: patient, RN notes reviewed, old records reviewed and correspondence clerk Mode of arrival: ambulatory Limitations: language barrier History of Present Illness ED Provider: [place] HPI narrative: 68-year-old female with past medical history significant for H pylori infection, GERD, chronic abdominal pain, gastritis, candidiasis, coronary artery disease, hyperlipidemia, hypertension presents for evaluation of chest pain. Patient reports that she has had the pain for 1 week in his worse after eating Specifically, the patient reports increased pain with swallowing She describes the pain as a pressure On review of her medical records, she follows with Gastroenterology this facility She last saw Mikaela Kaye my GI on 05/05/2024. At the time, she was treated for refractory H pylori in his due to have follow-up in 6 weeks The patient's 6 week follow-up was scheduled for yesterday but reports that she was called and the appointment was rescheduled by the office The patient reports that she was comfortable at rest but experiences pain while drinking even just water. Related Data Home Medications ?Medication ?Instructions ?Recorded ?Confirmed blood sugar diagnostic (FreeStyle #10 ea 03/05/21 03/28/24 Test strips) alcohol swabs (Alcohol Prep Pads) pad topical DAILY 05/15/21 04/20/24 lancets 28 gauge (FreeStyle #100 ea 11/20/21 03/28/24 Lancets) acetaminophen 650 mg 1,300 mg PO Q8H 10/22/22 04/20/24 tablet,extended release (Arthritis Pain Reliever) cholecalciferol (vitamin D3) 50 50 mcg PO DAILY 02/29/24 04/20/24 mcg (2,000 unit) capsule Previous Rx's ?Medication ?Instructions ?Recorded atorvastatin 80 mg tablet 80 mg PO BEDTIME #90 tabs 09/01/23 docusate sodium 100 mg capsule 100 mg PO DAILY PRN constipation 09/24/23 (Colace) #30 caps dicyclomine 20 mg tablet 20 mg PO TID PRN abdominal pain 10/21/23 #20 tabs amoxicillin 500 mg capsule 1,000 mg (2 x 500 mg) PO Q12H 14 05/05/24 days #56 caps famotidine 20 mg tablet (Pepcid) 20 mg PO BID #60 tabs 05/05/24 fluconazole 200 mg tablet 200 mg PO DAILY 14 days #14 tabs 05/05/24 (Diflucan) rifabutin 150 mg capsule 300 mg (2 x 150 mg) PO DAILY 14 05/05/24 days #28 caps simethicone 180 mg capsule 180 mg PO QID 30 days #120 caps 05/05/24 amlodipine 5 mg tablet 5 mg PO DAILY #90 tabs 05/27/24 calcium carbonate 1,000 1 tab PO QID PRN indigestion #20 06/21/24 mg-simethicone 60 mg chewable tabs tablet (Maalox Advanced) Allergies Allergy/AdvReac Type Severity Reaction Status Date / Time No Known Allergies Allergy Mild N/A Verified 06/21/24 18:29 Review of Systems Constitutional: Constitutional: Denies anorexia, Denies body ache(s), Denies chills and Denies fever(s) Eyes: Eyes: Denies blurry vision ENT: Denies vertigo Cardiovascular: Cardiovascular: Reports chest pain, Reports epigastric discomfort and Denies dyspnea Respiratory: Respiratory: Denies cough and Denies dyspnea Gastrointestinal: Gastrointestinal: Denies abdominal pain, Denies nausea and Denies vomiting Genitourinary: Genitourinary: Denies dysuria Musculoskeletal: Musculoskeletal: Denies back pain Integumentary/Breasts: Skin/Breast: Denies rash Neurologic: Denies vertigo PMFSH Past Medical History Medical History Muscular aches Hospital discharge follow-up Costovertebral angle tenderness Dyslipidemia Mild recurrent major depression Chest pain Multinodular thyroid Hyperparathyroidism Vitamin D deficiency Hypercalcemia Surgical History History of parathyroidectomy History of cardiac catheterization Hx of colonoscopy History of hysterectomy Hx of endoscopy Family History Family History Father Prostate cancer Mother HTN (hypertension) Asthma Heart disease Son Stomach cancer Social History Social History Household Members: Spouse Housing: House Alcohol intake: never Patient Tobacco Use Status: Former Tobacco user Smoked in Last 30 Days: No e-Cigarette/Vaping Use: Never Used Second Hand Smoke Exposure: No Use of substances other than those prescribed or required for medical reasons: No Advance Directives: No Advance Directives Information Provided: No Do you have a plan to hurt others: No Plan service: No Current occupational status: disabled Cognitive needs: No Hearing needs: No Vision needs: No Physical Exam Vital Signs: Vital Signs: Last Vital Signs Temp 97.3 F 06/21/24 22:00 Pulse 67 06/21/24 22:00 Resp 12 06/21/24 22:00 BP 140/70 H 06/21/24 22:00 Pulse Ox 95 06/21/24 22:00 O2 Del Method Room Air 06/21/24 22:00 BMI result Body Mass Index 36.8 Const: General: healthy appearing, comfortable, no acute distress, alert and awake Nutritional Appearance: well nourished Orientation/consciousness: patient oriented x3 HEENT: Head: Yes normocephalic and Yes atraumatic Eyes: Eyelids: Yes eyelids normal Conjunctivae: conjunctivae normal Sclerae: sclerae normal Corneas: corneas normal Pupils: Equal, round and reactive pupils present EOM: EOMs intact bilaterally Neck: Neck: Yes full ROM Chest: Chest palpation & inspection: normal inspection of the chest, normal palpation of entire chest wall and no crepitus Resp: Effort & Inspection: normal respiratory effort, able to speak in complete sentences, no audible wheezes and not labored Auscultation: clear to auscultation bilaterally Cardio: Rate: regular rate Rhythm: regular rhythm GI: Inspection: No distended Palpation (GI): Soft to palpation, not firm, nontender, no guarding and not rigid Skin: General skin exam: elasticity normal Neuro: General: patient oriented x3 Cranial nerves: Yes Equal, round and reactive pupils present and Yes Bilaterally intact EOM present Cognition (Neuro): normal cognition Course Course Course Narrative: This is a Rapid Medical Examination (RME) performed by Ankur Lees PA-C in triage. Full HPI, ROS, assessment and treatment plan per primary provider in the Main ED. 68-year-old Hungarian-speaking female with history of CAD status post cardiac catheterization, HLD, history of H pylori, history of esophageal candidiasis, gastritis presents to the ER for evaluation of squeezing right-sided chest pain for the last 1 week that is worse with lying down, swallowing. No associated abdominal pain, nausea or vomiting. No shortness a breath. No improvement with meds for gas pain. Follows with GI here. No pain like this in the past. Plan: EKG, chest x-ray, lab workup Medications Administered Discontinued Medications Generic Name Dose Route Start Last Admin Trade Name Dayanna PRN Reason Stop Dose Admin Al Hydroxide/Mg Hydroxide 30 ml 06/21/24 20:54 06/21/24 21:20 Magnesium Hydrox/Alum Hydrox 30 Ml Oral.Susp PO 06/21/24 20:55 30 ml ONCE ONE Administration Lidocaine HCl 15 ml 06/21/24 20:54 06/21/24 21:20 Lidocaine Hcl Viscous 2 % 15 Ml Solution MUCOUS MEM 06/21/24 20:55 15 ml ONCE ONE Administration Ondansetron HCl 4 mg 06/21/24 20:54 06/21/24 21:20 Ondansetron Odt 4 Mg Tab.Rapdis TRANSLINGU 06/21/24 20:55 4 mg ONCE ONE Administration Medical Decision Making Medical Decision Making [facility] Narrative: 68-year-old female with past medical history as documented above presents for evaluation of right chest pain is worse with swallowing. The patient has a long history of GI issues including H pylori, candidiasis, chronic gastritis. She was just recently treated for H pylori. The patient's medical workup is unremarkable, her hematology all within normal limits, chemistries shows total bilirubin of 1.2, which is actually decreased from March of this year. Electrolytes are within normal limits, troponin is less than 2.7 which effectively rules out ACS as she has had 1 week of pain. I had a very low suspicion for cardiac disease regardless. A chest x-ray shows no obvious cause of her chest pain. The patient's EKG has no acute changes, the patient has a history of anterior lateral T-wave inversions which are unchanged. Lead 3 has slightly increased T-wave inversions over last EKG was over 2 years ago. Differential Diagnosis Differential Diagnoses: The differential diagnosis associated with the presentation includes Chest pain GERD Gastritis Abdominal pain Indigestion Hiatal hernia Esophageal candidiasis ACS Lab Data [facility] Lab Attestation statement: I reviewed the patient's lab results. Please see medical decision making above 06/21/24 18:44 06/21/24 18:44 Labs: Lab Results 06/21/24 Range/Units 18:44 WBC 7.3 (4.8-10.8) X10*3/uL RBC 4.84 (4.20-5.50) X10*6/uL Hgb 13.9 (12.0-16.0) g/dl Hct 40.6 (37.0-47.0) % MCV 83.9 (80.0-98.0) fL MCH 28.7 (27.0-33.0) pg MCHC 34.2 (31.0-35.0) g/dl RDW 13.9 (11.0-16.0) % Plt Count 227 (160-400) X10*3/uL MPV 10.1 (9.4-12.3) fL Immature Gran % (Auto) 0.3 (0.0-0.4) % Neut % (Auto) 63.6 (45-73) % Lymph % (Auto) 29.1 (20-40) % [place] % (Auto) 5.5 (2-11) % Eos % (Auto) 1.1 (0-4) % Baso % (Auto) 0.4 (0-2) % Lymph # (Auto) 2.1 (1.2-4.9) X10*3/uL [place] # (Auto) 0.4 (0.1-1.2) X10*3/uL Eos # (Auto) 0.1 (0.0-0.4) X10*3/uL Baso # (Auto) 0.0 (0.0-0.2) X10*3/uL Abs Immat Gran (auto) 0.02 (0.00-0.03) X10*3/uL Absolute Neuts (auto) 4.7 (2.0-8.3) x10*3/uL Absolute Nucleated RBC 0.000 (0.0-0.012) X10*3/uL Nucleated RBC % (auto) 0.0 (0.0-0.2) /100WBC Sodium 141 (135-145) mmol/L Potassium 4.4 (3.3-5.1) mmol/L Chloride 106 (96-108) mmol/L Carbon Dioxide 25 (22-29) mmol/L Anion Gap 14 (12-20) BUN 10 (9-16) mg/dL Creatinine 0.86 (0.5-1.4) mg/dL Estim Creat Clear Calc 59.0 Estimated GFR > 60 Random Glucose 111 (60-115) mg/dL Calcium 9.9 (8.4-10.2) mg/dL Magnesium 2.1 (1.6-2.6) mg/dL Total Bilirubin 1.2 H (0.0-1.0) mg/dL Direct Bilirubin 0.3 (0.0-0.5) mg/dL AST 23 (5-31) U/L ALT 26 (0-31) U/L Alkaline Phosphatase 98 (39-117) U/L Troponin I High Sens < 2.7 (<3.5-17.0) ng/L Total Protein 7.4 (6.5-8.0) g/dL Albumin 4.2 (3.5-5.0) g/dL Lipase 12 (8-78) U/L Independent Interpretation I performed an independent interpretation of an: EKG and Plain X-Ray Interpretation: Agree with Radiology interpretation Radiology Impression Discussion of test interpretation with radiology: I have reviewed the radiologist's reading. Radiologist Impression: XR/XR chest 2V IMPRESSION: No acute cardiac pulmonary process detected. Chronic prominence of the cardiac silhouette and vascular ectasia without edema. Chronic linear opacity at the left base with chronic high attenuation material along the left major fissure possibly postsurgical in etiology. Clinical correlation advised. Discharge Plan Discharge Clinical Impression: Chest pain Patient Disposition: Home, Self-Care Instructions: Chest Pain (ED) Additional Instructions: Your workup in the ER today was reassuring. I strongly recommend that you call your GI doctor tomorrow morning to schedule follow-up. You may benefit from seeing them again Take Maalox as needed for breakthrough pain especially related to eating Take all your other medications as prescribed Prescriptions: New Maalox Advanced 1,000-60 mg tablet,chewable 1 tab PO QID PRN (Reason: indigestion) Qty: 20 0RF No Action atorvastatin 80 mg tablet 80 mg PO BEDTIME Qty: 90 3RF Hold Instructions: Doctor's Order amlodipine 5 mg tablet 5 mg PO DAILY Qty: 90 4RF dicyclomine 20 mg tablet 20 mg PO TID PRN (Reason: abdominal pain) Qty: 20 0RF acetaminophen [Arthritis Pain Reliever] 650 mg tablet extended release 1,300 mg PO Q8H docusate sodium [Colace] 100 mg capsule 100 mg PO DAILY PRN (Reason: constipation) Qty: 30 0RF alcohol swabs [Alcohol Prep Pads] Pads, Medicated topical DAILY (DME) FreeStyle Test Strip See Rx Instructions .ROUTE .MEDSUPPLY Qty: 10 Rx Instructions: As directed (DME) lancets [FreeStyle Lancets] 28 gauge misc See Rx Instructions topical BID Qty: 100 Rx Instructions: As directed cholecalciferol (vitamin D3) 50 mcg (2,000 unit) capsule 50 mcg PO DAILY amoxicillin 500 mg capsule 1,000 mg PO Q12H 14 Days Qty: 56 0RF rifabutin 150 mg capsule 300 mg PO DAILY 14 Days Qty: 28 0RF fluconazole [Diflucan] 200 mg tablet 200 mg PO DAILY 14 Days Qty: 14 0RF famotidine [Pepcid] 20 mg tablet 20 mg PO BID Qty: 60 0RF simethicone 180 mg capsule 180 mg PO QID 30 Days Qty: 120 3RF Rx Instructions: after meals Referrals: Mikaela Kaye, ANP-C [Nurse Practitioner] - (chronic abdominal pain, due for f/u) Print Language: Hungarian
--- NOTE | 2024-06-21 18:32 | ECG_ITS ---
Test Reason : chest pain Blood Pressure : / mmHG Vent. Rate : 080 BPM Atrial Rate : 080 BPM P-R Int : 136 ms QRS Dur : 092 ms QT Int : 416 ms P-R-T Axes : 035 -03 007 degrees QTc Int : 479 ms Normal sinus rhythm Minimal voltage criteria for LVH, may be normal variant ( R in aVL ) ST & T wave abnormality, consider anterolateral ischemia Prolonged QT Abnormal ECG When compared with ECG of 23-JUL-2022 12:37, Inverted T waves have replaced nonspecific T wave abnormality in Inferior leads T inversion anterolateral leads Referred By: Barbara Lees Electronically Signed By:DALIA FREDERICK
[2024-06-21 18:47] LABS: MANUAL DIFF FLAG NO
[2024-06-21 18:48] LABS: Basophils Percent Auto 0.4 % (0-2); Eosinophils Absolute Auto 0.1 X10*3/uL (0.0-0.4); Eosinophils Percent Auto 1.1 % (0-4); Hematocrit 40.6 % (37.0-47.0); Hemoglobin 13.9 g/dl (12.0-16.0); Imm Gran Abs Auto 0.02 X10*3/uL (0.00-0.03); Imm Gran Pct Auto 0.3 % (0.0-0.4); Lymphocytes Absolute Auto 2.1 X10*3/uL (1.2-4.9); Lymphocytes Percent Auto 29.1 % (20-40); Mean Corpuscular HGB Conc 34.2 g/dl (31.0-35.0); Mean Corpuscular Hemoglobin 28.7 pg (27.0-33.0); Mean Corpuscular Volume 83.9 fL (80.0-98.0); Mean Platelet Volume 10.1 fL (9.4-12.3); Monocytes Absolute Auto 0.4 X10*3/uL (0.1-1.2); Monocytes Percent Auto 5.5 % (2-11); Neutrophils Absolute Auto 4.7 x10*3/uL (2.0-8.3); Neutrophils Percent Auto 63.6 % (45-73); Platelet Count 227 X10*3/uL (160-400); Red Blood Count 4.84 X10*6/uL (4.20-5.50); Red Cell Distribution Width 13.9 % (11.0-16.0); White Blood Count 7.3 X10*3/uL (4.8-10.8)
[2024-06-21 19:02] LABS: Alanine Aminotransferase 26 U/L (0-31); Albumin Level 4.2 g/dL (3.5-5.0); Alkaline Phosphatase 98 U/L (39-117); Anion Gap 14 (12-20); Aspartate Amino Transferase 23 U/L (5-31); Bilirubin Direct 0.3 mg/dL (0.0-0.5); Bilirubin Total 1.2 mg/dL (0.0-1.0); Blood Urea Nitrogen 10 mg/dL (9-16); Calcium 9.9 mg/dL (8.4-10.2); Carbon Dioxide 25 mmol/L (22-29); Chloride 106 mmol/L (96-108); Estimated Glomerular Filt Rate > 60; Glucose Random 111 mg/dL (60-115); Lipase 12 U/L (8-78); Magnesium 2.1 mg/dL (1.6-2.6); Potassium 4.4 mmol/L (3.3-5.1); Sodium 141 mmol/L (135-145); Total Protein 7.4 g/dL (6.5-8.0)
[2024-06-21 19:10] LABS: Troponin-I High Sensitivity < 2.7 ng/L (<3.5-17.0)
[2024-06-21] MEDS: Lidocaine HCl Viscous 2 % 15 ML SOLUTION MUCOUS MEM (21:20)
[2024-06-21] MEDS: Magnesium Hydrox/Alum Hydrox 30 ML ORAL.SUSP PO (21:20)
[2024-06-21] MEDS: Ondansetron ODT 4 MG TAB.RAPDIS TRANSLINGU (21:20)
--- NOTE | 2024-06-21 21:34 | PC.NURSE ---
this rn assumed care of pt, pt mostly botswanan speaking, pt a&ox4, respirations even and unlabored. pt reporting onset of right sided chest burning x1 week. pt denies n/v/d. pt medicated per jan, tolerated well.
[2024-06-21 22:00] VITALS: BP 140/70; PULSE 67; RESP 12; TEMP 36.3; O2SAT 95
[2024-06-21 23:26] VITALS: BP 142/69; PULSE 72; RESP 16; TEMP 37.2; O2SAT 95
== END 2024-06-21 23:27 | disposition home or self-care (01) ==
PROVIDERS: Physician Assistant; Emergency Provider Emergency Medicine; PCP Internal Medicine
DX: R07.9 Chest pain, unspecified (principal); I10 Essential (primary) hypertension; E78.00 Pure hypercholesterolemia, unspecified; Z79.02 Long term (current) use of antithrombotics/antiplatelets
CPT/HCPCS: 36415; 71046; 80048; 80076; 83690; 83735; 84484; 85025; 93005; 99284

== ENCOUNTER → 2024-06-21 18:32 | Outpatient (BNV) | payer OTHER, SELFPAY | PROVIDERS: Emergency Provider Emergency Medicine; PCP Internal Medicine; Visit Provider Internal Medicine | DX: R94.31 Abnormal electrocardiogram [ECG] [EKG] (principal) | CPT/HCPCS: 93010 ==

== ENCOUNTER 2024-07-01 11:20 | Outpatient (AMB) | payer OTHER, SELFPAY ==
[2024-07-01 11:25] VITALS: BP 126/68; PULSE 74; RESP 16; O2SAT 96; BMI 36.4
--- NOTE | 2024-07-01 11:25 | A.OFFPC_ITS ---
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 She was admitted at [facility] on 06/21/24 for chest pains and discharged home on the same day in stable condition. Pt was told she has GERD. She is currently taking Pepcid daily with no relief. She has an upcoming Appointment with GI in August 2024. She tried Omeprazole in the past but did not work. Pt is Obese and wondering if she can be referred for Nutrition consult. [facility] Medical History Muscular aches Hospital discharge follow-up Costovertebral angle tenderness Dyslipidemia Mild recurrent major depression Chest pain Multinodular thyroid Hyperparathyroidism Vitamin D deficiency Hypercalcemia Surgical History History of parathyroidectomy History of cardiac catheterization Hx of colonoscopy History of hysterectomy Hx of endoscopy Family History Father Prostate cancer Mother HTN (hypertension) Asthma Heart disease Son Stomach cancer Social History Household Members: Spouse Housing: House Alcohol intake: never Patient Tobacco Use Status: Former Tobacco user e-Cigarette/Vaping Use: Never Used Second Hand Smoke Exposure: No service: No Current occupational status: disabled Cognitive needs: No Hearing needs: No Vision needs: No Female Reproductive History Menstrual Age of Menarche: 9 Questionnaire Thrive Questionnaire Date Thrive assessed: 03/28/24 NEGIN-7 AMB Questionnaire NEGIN-7 Date NEGIN - 7 assessed: 03/28/24 Source: Developed by Drs. Dalton Abraham, Orquidea Tobias, Austin Yanez and colleagues, with an educational ethan from [employer]. Review of Systems Const All systems reviewed & are unremarkable except as noted in HPI and below Physical exam (Primary Care) Vital Signs: Last Vital Signs Pulse 74 07/01/24 11:25 Resp 16 07/01/24 11:25 BP 126/68 07/01/24 11:25 Pulse Ox 96 07/01/24 11:25 Oxygen Delivery Method Room Air 07/01/24 11:25 BMI result Body Mass Index 36.4 Tobacco/Smoking Status: Tobacco use Status Tobacco use date assessed 03/28/24 07/01/24 11:27 Patient Tobacco Use Status Former Tobacco user 07/01/24 11:27 e-Cigarette/Vaping Use Never Used 07/01/24 11:27 Thrive Assessment: Date of Thrive Assessment Date Thrive assessed 03/28/24 07/01/24 11:27 Const General: cooperative and no acute distress Nutritional Appearance: obese centrally obese Orientation/consciousness: patient oriented x3 Resp Effort & Inspection: normal respiratory effort and able to speak in complete sentences Auscultation: clear to auscultation bilaterally, no crackles, no rales, no rhonchi and no wheezes Cardio Heart sounds: S1 normal heart sound present and S2 normal heart sound present GI Inspection: Yes normal to inspection and Yes obesity Palpation (GI): Soft to palpation, not firm, Tenderness to palpation present (GI) in the epigastrum, no guarding, not rigid and No hepatosplenomegaly present Auscultation: normal bowel sounds Rectal Exam - Female: deferred Skin General skin exam: no rashes or lesions noted Neuro General: patient oriented x3, gait normal and moves all extremities Psych Speech and movement: Normal speech and movement present Vital Signs: Last Vital Signs Pulse 74 07/01/24 11:25 Resp 16 07/01/24 11:25 BP 126/68 07/01/24 11:25 Pulse Ox 96 07/01/24 11:25 Oxygen Delivery Method Room Air 07/01/24 11:25 BMI result Body Mass Index 36.4 Const General: cooperative and no acute distress Nutritional Appearance: obese centrally obese Orientation/consciousness: patient oriented x3 Resp Effort & Inspection: normal respiratory effort and able to speak in complete sentences Auscultation: clear to auscultation bilaterally, no crackles, no rales, no rhonchi and no wheezes Cardio Heart sounds: S1 normal heart sound present and S2 normal heart sound present GI Inspection: Yes normal to inspection and Yes obesity Palpation (GI): Soft to palpation, not firm, Tenderness to palpation present (GI) in the epigastrum, no guarding, not rigid and No hepatosplenomegaly present Auscultation: normal bowel sounds Rectal Exam - Female: deferred Skin General skin exam: no rashes or lesions noted Neuro General: patient oriented x3, gait normal and moves all extremities Psych Speech and movement: Normal speech and movement present Assessment and Plan Assessment & Plan (1) Chest pain due to gastrointestinal reflux disease: Code(s): K21.9 - Gastro-esophageal reflux disease without esophagitis; R07.9 - Chest pain, unspecified Plan: Most likely not Cardiac related at this time. Currently takes Pepcid Pt willing to try Lifestyle changes. (2) Obesity: Code(s): E66.9 - Obesity, unspecified Qualifiers: Obesity classification: unspecified obesity classification Obesity type: due to excess calories Serious obesity comorbidity presence: without serious comorbidity Qualified Code(s): E66.09 - Other obesity due to excess calories Plan: Placed Referral for Cafe Operator Orders: Referrals Launderette Attendant Nutrition Referral E66.09 - Other obesity due to excess calories Coding Level of Care Code Est Pt Level 4 (20645) Diagnoses Chest pain due to gastrointestinal reflux disease K21.9; R07.9 Obesity due to excess calories without serious comorbidity, unspecified classification E66.09 Obesity classification: unspecified obesity classification Obesity type: due to excess calories Serious obesity comorbidity presence: without serious comorbidity Time Spent (min) 20 Comment Spent on reviewing Hospital notes and Patient education
== END 2024-07-01 11:50 | disposition home or self-care (01) ==
PROVIDERS: PCP Internal Medicine; Visit Provider Nurse Practitioner Family
DX: K21.9 Gastro-esophageal reflux disease without esophagitis (principal); R07.9 Chest pain, unspecified; E66.09 Other obesity due to excess calories; Z68.36 Body mass index [BMI] 36.0-36.9, adult
CPT/HCPCS: 99214

== ENCOUNTER 2024-08-23 15:41 | Outpatient (AMB) | payer OTHER, SELFPAY ==
[2024-08-23 15:45] VITALS: BP 154/83; PULSE 78; BMI 35.9
--- NOTE | 2024-08-23 15:45 | MHC.OFFVIS ---
Vital Signs 08/23/24 15:45 Height 5 ft Weight 183 lb 13.848 oz BMI 35.9 BP 154/83 H Blood Pressure Location Lt brachial Position Sitting Pulse 78 Intake Visit Reasons: ED follow up Intake Note: Aysha presents to in office follow up of GERD. CC: The patient was seen in the ER on 06/21 with c/o chest pain with swallowing. Patient reports that when she eats she feels like a ball on her stomach and a burning sensation. She also reports RLQ abdominal pain sometimes. Filling Hauler Required: Yes Filling Hauler Name: daughter Accompanied by: Daughter Allergies No Known Allergies Allergy (Mild, Verified 10/24/24 15:11) N/A HPI HPI ED follow up: Details: Assessment & Plan (1) H. pylori infection: Comment: 03/2021 treated with quadruple therapy, 11/2020 failed Levaquin/amoxicillin Code(s): A04.8 - Other specified bacterial intestinal infections Category: Medical (2) Candidiasis of mouth and esophagus: Code(s): B37.81 - Candidal esophagitis; B37.0 - Candidal stomatitis Category: Medical (3) GERD (gastroesophageal reflux disease): Code(s): K21.9 - Gastro-esophageal reflux disease without esophagitis Category: Medical Plan Gambian #Female family member translating per pt request. Pt has been lost to follow up since 2021. She stopped the rif/amox therapy about 5 days in r/t vaginal greg. Rx 14 days diflucan and STOP ATORVASTATIN. She dislikes taking o2o so will switch to pepcid - she fears because her son of ca and was on this. She c/o my liver gets swollen but her liver SÁNCHEZ is not advanced enough for this to be the cause - likely colon gas trapping - rx simethicone. ROV 6 weeks. Medications: New amoxicillin 1,000 mg (2 x 500 mg) PO Q12H 56 caps 0RF 14 days rifabutin 300 mg (2 x 150 mg) PO DAILY 28 caps 0RF 14 days A04.8 - Other specified bacterial intestinal infections fluconazole (Diflucan) 200 mg PO DAILY 14 tabs 0RF 14 days B37.81 - Candidal esophagitis, B37.0 - Candidal stomatitis famotidine (Pepcid) 20 mg PO BID 60 tabs 0RF A04.8 - Other specified bacterial intestinal infections, K21.9 - Gastro-esophageal reflux disease without esophagitis simethicone after meals 180 mg PO QID 120 caps 3RF 30 days Discontinued simethicone Discontinued Reason: Doctor's Order 80 mg PO TID-QID PRN 20 tabs 0RF abdominal distention R14.0 - Abdominal distension (gaseous) omeprazole Discontinued Reason: Doctor's Order 40 mg PO DAILY 90 caps 3RF K21.9 - Gastro-esophageal reflux disease without esophagitis On Hold atorvastatin Hold Comment: Doctor's Order 80 mg PO BEDTIME 90 tabs 3RF E78.00 - Pure hypercholesterolemia, unspecified TODAYS VISIT Gambian #dtr translates per pt request. She completed the abx, but she is having burning and a ball in the epigastrum. This is different that the problem she had prior to the abx. I am uncertain if this is just a different presentation of the H pylori or whether the antibiotics have simply upset her stomach. We will get the H pylori breath test and proceed from there. Return office visit in 6 weeks [facility] Medical History Helicobacter pylori stool test positive Physical exam Unstable angina Vaginal discharge Oral greg Candidal skin infection Chest pain Abdominal pain Abdominal bloating Candidiasis of mouth and esophagus Adult general medical exam Screening for colon cancer Right upper quadrant abdominal pain Hospital discharge follow-up Muscular aches Costovertebral angle tenderness Dyslipidemia Mild recurrent major depression Chest pain Multinodular thyroid Hyperparathyroidism Vitamin D deficiency Hypercalcemia Surgical History (Updated 10/24/24 @ 16:57 by Luz Maria Gaffney, ROVING TECHNICIAN-C) History of cardiac catheterization History of parathyroidectomy Hx of colonoscopy History of hysterectomy Hx of endoscopy Family History Father Prostate cancer Mother HTN (hypertension) Asthma Heart disease Son Stomach cancer Social History Household Members: Spouse Housing: House Alcohol intake: never Patient Tobacco Use Status: Former Tobacco user e-Cigarette/Vaping Use: Never Used Second Hand Smoke Exposure: No service: No Current occupational status: disabled Cognitive needs: No Hearing needs: No Vision needs: No Female Reproductive History Menstrual Age of Menarche: 9 Review of Systems Const Denies fatigue, Denies fever(s), Denies night sweats, Denies poor appetite and Denies weight loss ENT Reports Normal hearing present, Denies dental pain, Denies dysphagia, Denies hearing loss, Denies mouth pain, Denies odynophagia, Denies throat swelling, Denies tongue swelling and Reports other (Dentition adequate) Card Reports no additional complaints Resp Reports no additional complaints GI Details: Reports abdominal pain, Denies melena, Denies bloating, Denies hematochezia, Denies constipation, Denies GI cramping, Denies dysphagia, Denies excessive flatus, Denies early satiety, Reports heartburn, Denies diarrhea, Denies nausea, Denies odynophagia, Denies vomiting and Denies hematemesis Skin/Breast Denies pruritus, Denies lesions, Denies rash and Denies jaundice Neuro Reports Normal hearing present and Denies Abnormal speech present Endo Denies fatigue Aller/Immun Denies throat swelling and Denies tongue swelling Physical Exam Vital Signs: Last Vital Signs Pulse 78 08/23/24 15:45 BP 154/83 H 08/23/24 15:45 BMI result Body Mass Index 35.9 Const General: cooperative, no acute distress, well developed and well groomed Nutritional Appearance: well nourished and obese Orientation/consciousness: oriented to person, oriented to place and oriented to time Limitations: language barrier HEENT Head: Yes normocephalic and Yes atraumatic Eyes General: appearance normal, both eyes and all related structures Pupils: Equal, round and reactive pupils present Neck Neck: Yes normal visual inspection and Yes no lymphadenopathy Thyroid: Thyroid normal Resp Effort & Inspection: normal respiratory effort and able to speak in complete sentences Auscultation: clear to auscultation bilaterally Cardio Rate: regular rate Rhythm: regular rhythm Heart sounds: Normal, physiologic split S2 sound present Peripheral pulses: radial pulses present and posterior tibial pulses present GI Inspection: No distended, Yes Abdominal panniculus present and Yes obesity Palpation (GI): Soft to palpation, Tenderness to palpation present (GI) in the epigastrum, no guarding, not rigid and No hepatosplenomegaly present Percussion: Yes normal to percussion Auscultation: normal bowel sounds Rectal Exam - Female: deferred Skin General skin exam: no rashes or lesions noted, turgor normal, skin not dry, no jaundice, No spider nevi and no striae Rashes: no rashes Nails: normal Neuro General: oriented to person, oriented to place and oriented to time Cranial nerves: Yes Equal, round and reactive pupils present and Yes Normal hearing present Speech: No Abnormal speech present Extrem General: Yes normal to inspection, No clubbing, No cyanosis and No edema Psych Appearance: grossly normal and well kempt Mental Status: mental status grossly normal Speech and movement: Normal speech and movement present Affect: normal affect Attitude: cooperative Thought process: Normal thought process present and not confabulating Thought content: Normal thought content present Insight: Limited insight present (Psych) Judgement: Limited judgement present (Psych) Assessment & Plan Assessment & Plan (1) H. pylori infection: Comment: 03/2021 treated with quadruple therapy, 11/2020 failed Levaquin/amoxicillin, failed amox/clarithromycin, failed rifabuten/amox Code(s): A04.8 - Other specified bacterial intestinal infections Category: Medical (2) Epigastric pain: Code(s): R10.13 - Epigastric pain Category: Medical (3) GERD (gastroesophageal reflux disease): Code(s): K21.9 - Gastro-esophageal reflux disease without esophagitis Category: Medical Plan Gambian #dtr translates per pt request. She completed the abx, but she is having burning and a ball in the epigastrum. This is different that the problem she had prior to the abx. I am uncertain if this is just a different presentation of the H pylori or whether the antibiotics have simply upset her stomach. We will get the H pylori breath test and proceed from there. Return office visit in 6 weeks Orders: Orders H Pylori Breath Test 08/23/24 A04.8 - Other specified bacterial intestinal infections Medications: New famotidine (Pepcid) 40 mg PO BEDTIME 30 tabs 6RF K21.9 - Gastro-esophageal reflux disease without esophagitis, R10.13 - Epigastric pain Discontinued famotidine Discontinued Reason: Doctor's Order 20 mg PO BID 60 tabs 0RF A04.8 - Other specified bacterial intestinal infections, K21.9 - Gastro-esophageal reflux disease without esophagitis Coding Level of Care Code Est Pt Level 3 (41298) Diagnoses H. pylori infection A04.8 Epigastric pain R10.13 GERD (gastroesophageal reflux disease) K21.9
== END 2024-08-23 16:30 | disposition home or self-care (01) ==
LOC: HO.HGI 15:41
PROVIDERS: PCP Internal Medicine; Visit Provider Nurse Practitioner
DX: A04.8 Other specified bacterial intestinal infections (principal); R10.13 Epigastric pain; K21.9 Gastro-esophageal reflux disease without esophagitis
CPT/HCPCS: 99213

== ENCOUNTER 2024-08-23 15:41 | Outpatient (REF) | payer OTHER, SELFPAY ==
[2024-08-24 15:14] LABS: H Pylori Breath Test Positive (Negative)
== END 2024-08-23 15:42 | disposition home or self-care (01) ==
LOC: HO.LNP 15:41
PROVIDERS: PCP Internal Medicine; Visit Provider Nurse Practitioner
DX: A04.8 Other specified bacterial intestinal infections (principal); R10.13 Epigastric pain; K21.9 Gastro-esophageal reflux disease without esophagitis
CPT/HCPCS: 83013; 99212

== ENCOUNTER 2024-10-03 12:46 | Outpatient (AMB) | payer OTHER, SELFPAY ==
--- NOTE | 2024-10-03 12:56 | MHC.PC.OV ---
Vital Signs 10/03/24 12:57 Height 5 ft Weight 183 lb BMI 35.7 BP 140/98 H Blood Pressure Location Lt brachial Position Sitting Intake Visit Reasons: annual exam Intake Note: Patient here for an annual physical exam Cardiac Cath Lab Radiology Technologist Required: No Accompanied by: Daughter Allergies No Known Allergies Allergy (Mild, Verified 10/03/24 13:20) N/A Medication List - Last Reconciled 10/03/24 by Sakshi Prakash MD acetaminophen ER (Arthritis Pain Reliever) 1,300 mg PO Q8H alcohol swabs (Alcohol Prep Pads) pad topical DAILY amlodipine 5 mg PO DAILY atorvastatin 80 mg PO BEDTIME blood sugar diagnostic (FreeStyle Test strips) As directed calcium carbonate-simethicone 1,000-60 mg (Maalox Advanced) 1 tab PO QID PRN cholecalciferol (vitamin D3) 50 mcg PO DAILY docusate sodium (Colace) 100 mg PO DAILY PRN famotidine (Pepcid) 40 mg PO BEDTIME lancets (FreeStyle Lancets) As directed nystatin 1 appl topical DAILY PRN 2 weeks simethicone 180 mg PO QID 30 days solifenacin 10 mg PO DAILY Tobacco use date assessed: 03/28/24 Fall risk assessment: No Falls in past year Last assessed Fall Risk: 10/03/24 Dental Screening Dental Screen Date: 10/03/24 Did you have a dental visit in the last 12 months?: No Did you have a dental problem in the last 6 months where you did not have access to dental care?: No Was dental information given to patient?: Patient has dentist HPI HPI Comments History of Present Illness Details The patient is a 69-year-old female presenting with an annual physical examination. She has a known history of essential hypertension treated with amlodipine 5mg. She also manages hyperlipidemia using atorvastatin 80mg. Her gastroesophageal reflux disease is managed with famotidine, along with occasional use of simethicone for gas. Constipation is managed as needed with Docusate. She underwent a parathyroidectomy in January of the current year. In 2021, she had a cardiac catheterization, and a colonoscopy was performed back in 2008. Her other surgeries include a hysterectomy and a past endoscopy. The last mammography and bone density scan were performed last year, with the next bone scan due in 2024. Notably, she was previously diagnosed with Helicobacter pylori infection, for which she underwent treatment twice. However, full eradication has not been achieved. Her last TDAP vaccination was recorded in 2018, with the next one due in 2026. For pneumococcal vaccination, she has declined it at this visit. She maintains a routine follow-up with gastroenterology due to gastrointestinal complications related to H. pylori, scheduled for October. - Last mammography performed in 2022. - Bone densitometry scan conducted in 2022, next due in 2024. - Scheduled for gastroenterology consultation in October for H. pylori management. - TDAP vaccination administered in 2016, next due in 2026. - Declined pneumococcal vaccination. . [facility] Medical History (Updated 10/03/24 @ 14:05 by Sakshi Prakash MD) Unstable angina Vaginal discharge Oral greg Candidal skin infection Chest pain Abdominal pain Abdominal bloating Candidiasis of mouth and esophagus Adult general medical exam Screening for colon cancer Right upper quadrant abdominal pain Hospital discharge follow-up Muscular aches Costovertebral angle tenderness Dyslipidemia Mild recurrent major depression Chest pain Multinodular thyroid Hyperparathyroidism Vitamin D deficiency Hypercalcemia Surgical History History of cardiac catheterization History of parathyroidectomy Hx of colonoscopy History of hysterectomy Hx of endoscopy Family History Father Prostate cancer Mother HTN (hypertension) Asthma Heart disease Son Stomach cancer Social History Household Members: Spouse Housing: House Alcohol intake: never Patient Tobacco Use Status: Former Tobacco user e-Cigarette/Vaping Use: Never Used Second Hand Smoke Exposure: No service: No Current occupational status: disabled Cognitive needs: No Hearing needs: No Vision needs: No Female Reproductive History Menstrual Age of Menarche: 9 Questionnaire PHQ-9 Over the last 2 weeks, how often have you been bothered by any of the following problems? 1. Little interest or pleasure in doing things: several days 2. Feeling down, depressed, or hopeless: several days 3. Trouble falling or staying asleep, or sleeping too much: more than half the days 4. Feeling tired or having little energy: not at all 5. Poor appetite or overeating: not at all 6. Feeling bad about yourself - or that you are a failure or have let yourself or your family down: not at all 7. Trouble concentrating on things, such as reading the newspaper or watching television: not at all 8. Moving or speaking so slowly that other people could have noticed. Or the opposite - being so fidgety or restless that you have been moving around a lot more than usual: not at all 9. Thoughts that you would be better off or of hurting yourself in some way: not at all Total score: 4 Depression Screening Interpretation: Positive Depression Screening Follow-up: Existing condition and Follow-up Visit Requested Depression Screening Done: Yes 81323 - PHQ-9 Billing: Yes Source: Developed by Drs. Dalton Abraham, Orquidea Tobias, Austin Yanez and colleagues, with an educational ethan from [employer]. Thrive Questionnaire Date Thrive assessed: 03/28/24 I am a: Patient What is your living situation today?: I have a steady place to live Within the past 12 months, did the food you bought not last and you didn't have the money to get more?: Sometimes True Within the past 12 months, did you worry whether your food would run out before you got money to buy more?: Sometimes True Do you have trouble paying for medicines?: No Do you have trouble getting transportation to medical appointments?: No Do you have trouble paying your heating and electricity bill?: No Do you have trouble taking care of your child, family member or friend?: No Do you have trouble with day-to-day activities such as bathing, preparing meals, shopping, managing finances, etc.?: Yes Are you currently unemployed and looking for a job?: I choose not to answer this question Are you interested in more education?: I choose not to answer this question Please select the resources that you would like help with: Housing/Half-Way, Food and Utilities Currently or been in a relationship where the following occur: No concerns reported THRIVE Score: 2 AUDIT C Alcohol Use Questionnaire (AUDIT-C) 1. How often do you have a drink containing alcohol?: Never Total Score: 0 Score Reviewed/Action Taken: No NEGIN-7 AMB Questionnaire NEGIN-7 Date NEGIN - 7 assessed: 03/28/24 Feeling nervous, anxious, or on edge: 2 = More than half the days Not being able to stop or control worryin = More than half the days Worrying too much about different things: 2 = More than half the days Trouble relaxin = Several days Being so restless that it is hard to sit still: 1 = Several days Becoming easily annoyed or irritable: 1 = Several days Feeling afraid as if something awful might happen: 1 = Several days Total NEGIN-7 score (0-4 normal; 5-9 mild; 10-14 moderate; 15-21 severe): 10 Source: Developed by Drs. Dalton Abraham, Orquidea Tobias, Austin Yanez and colleagues, with an educational ethan from [employer]. Review of Systems Const All systems reviewed & are unremarkable except as noted in HPI and below Card Denies chest pain at rest, Denies chest pain with activity, Denies edema, Denies irregular heart rhythm, Denies claudication, Denies dyspnea, Denies dyspnea on exertion, Denies orthopnea, Denies paroxysmal nocturnal dyspnea and Denies slow heart rate Resp Denies cough, Denies dyspnea and Denies dyspnea on exertion Neuro Denies behavioral changes and Denies lack of coordination Psych Denies behavioral changes Physical exam (Primary Care) Vital Signs: Last Vital Signs BP 140/98 H 10/03/24 12:57 BMI result Body Mass Index 35.7 BMI Assessment/Plan discussion: High BMI High, discussed plan: lifestyle, weight reduction, dietary and physical activity Tobacco/Smoking Status: Tobacco use Status Tobacco use date assessed 03/28/24 10/03/24 13:00 Patient Tobacco Use Status Former Tobacco user 10/03/24 13:00 e-Cigarette/Vaping Use Never Used 10/03/24 13:00 PHQ-9: PHQ-9 Score PHQ-9: Total score 4 10/03/24 13:23 Depression Screening Interpretation: Positive Depression Screening Follow-up: Existing condition and Follow-up Visit Requested Thrive Assessment: Date of Thrive Assessment Date Thrive assessed 03/28/24 10/03/24 13:00 Currently or been in a relationship where the following occur: No concerns reported [facility] Head: Yes normal to inspection, Yes normocephalic and Yes atraumatic Ears: external ears normal Eyes General: appearance normal, both eyes and all related structures Eyelids: Yes eyelids normal Conjunctivae: conjunctivae normal Neck Neck: Yes normal visual inspection and Yes supple Resp Effort & Inspection: normal respiratory effort Auscultation: clear to auscultation bilaterally Cardio Jugular venous distension: no JVD Rate: regular rate Rhythm: regular rhythm Heart sounds: S1 normal heart sound present and S2 normal heart sound present GI Inspection: Yes normal to inspection Palpation (GI): Soft to palpation and nontender Auscultation: normal bowel sounds Skin General skin exam: no rashes or lesions noted Neuro General: no focal motor deficits Extrem General: Yes full ROM Psych Appearance: grossly normal Office Procedures Flu Questionnaire Does the patient have a severe egg allergy?: No Immunizations Fluarix Triv [id number] (PF) 45 mcg (15 mcg x 3)/0.5 mL IM syringe Performing Provider: Sakshi Prakash MD [facility] [place] [facility] Documented (not given) by: TIFFANIE Snider on 10/03/24 13:04 Reason Not Given: Patient Refused Coding Level of Care Code Est Pt Level 3 (01871) Est Pt Prev Care >65y(45451) Diagnoses Physical exam Z00.00 Helicobacter pylori stool test positive A04.8 Additional Codes PHQ-9 - 06454 - PHQ-9 Billing: Yes ([id number]) Time Spent (min) 30 Assessment & Plan Assessment & Plan (1) Physical exam: Code(s): Z00.00 - Encounter for general adult medical examination without abnormal findings Category: Medical (2) Helicobacter pylori stool test positive: Code(s): A04.8 - Other specified bacterial intestinal infections Category: Medical Plan 1. - Gastroesophageal Reflux Disease: - Constipation: Continue usage of Docusate as necessary. - Positive Helicobacter pylori infection: Plan for gastroenterological evaluation in October. - Vaccinations: Reinforce TDAP administration in 2026, and revisit the pneumococcal vaccination discussion in subsequent visits. - Muscle weakness: Monitor symptoms corresponding to numbness in limbs and consider further investigation if persistence occurs. Patient was informed and verbally consented to the use of an ambient scribe for clinic note documentation during this visit. Regarding Helicobacter pylori management, we discussed the challenges faced with past treatment regimens. The patient's discomfort with prior medications was noted, and plans are in place for further evaluation by gastroenterology. I reiterated the importance of follow-up and reassessment to optimize treatment outcomes. I discussed vaccination timelines, emphasizing the preventative benefits. While the patient declined the pneumococcal vaccination today, we shall revisit the conversation at a later date to reassess her preferences and needs. Orders: Orders Magnesium Today R25.2 - Cramp and spasm Influenza [id number] Immunization Today Z23 - Encounter for immunization Lipid Panel Today E78.5 - Hyperlipidemia, unspecified Comprehensive Fisher. Panel Fast Today R25.2 - Cramp and spasm Referrals Gastroenterology Referral A04.8 - Other specified bacterial intestinal infections Patient Instructions: - Continue current medications as prescribed for hypertension, hyperlipidemia, and GERD. - Attend the gastroenterology appointment in October. - Follow up with routine health maintenance schedules as outlined, including mammogram and bone density scans. - Engage in regular physical activity as tolerated, considering current musculoskeletal symptoms. - Maintain hydration and balanced nutrition to manage constipation. - Schedule and attend future vaccinations as due, considering discussion on pneumococcal vaccination.
[2024-10-03 12:57] VITALS: BP 140/98; BMI 35.7
== END 2024-10-03 13:36 | disposition home or self-care (01) ==
PROVIDERS: PCP Internal Medicine; Visit Provider Internal Medicine
DX: Z00.00 Encounter for general adult medical examination without abnormal findings (principal); A04.8 Other specified bacterial intestinal infections

== ENCOUNTER → 2024-10-03 12:46 | Outpatient (BNVA) | payer OTHER, SELFPAY | PROVIDERS: PCP Internal Medicine; Visit Provider Internal Medicine | DX: Z00.00 Encounter for general adult medical examination without abnormal findings (principal); A04.8 Other specified bacterial intestinal infections | CPT/HCPCS: 96127; 99397 ==

== ENCOUNTER 2024-10-24 14:46 | Outpatient (AMB) | payer OTHER, SELFPAY ==
--- OUTSIDE RECORDS SUMMARY | 2024-10-24 14:48 | XMS_ITS ---
Author Organization [facility], Address [address] [place] [address] Care Team Providers Care Mixing Tumbler Operator Name Role Phone Lanny Guerra Unavailable [phone] ALLERGIES, ADVERSE REACTIONS, ALERTS None MEDICATIONS Medication Code Code System Start Date Stop Date Route Dosage Directions Fill Instructions AMLODIPINE TAB 5MG RxNorm ATORVASTATIN TAB 80MG RxNorm PROBLEMS Problem Name Code Code System Start Date End Date Stat us Other hyperlipidemia 440385155 [facility] Active Essential (primary) hypertension 26685349 [facility] Active Unspecified abdominal pain 76695630 [facility] 10/21/2023 Active ENCOUNTERS Encounter Diagnosis Code Code System Date Stat us Unspecified abdominal pain 77679129 [facility] Active IMMUNIZATIONS * None VITAL SIGNS Code Code System Vitals Name Date Value and Un its 8462-4 [facility] Blood Pressure-Diastolic 10/21/2023 84 mmHg 8480-6 [facility] Blood Pressure-Systolic 10/21/2023 1 35 mmHg 8867-4 [facility] Heart Rate 10/21/2023 60 /min 9279-1 [facility] Respiratory Rate 10/21/2023 18 /min 8310-5 [facility] Body Temperature 10/21/2023 96.9 F 00607-4 [facility] Oxygen Saturation 10/21/2023 97 % SOCIAL HISTORY * None PROCEDURES * None MEDICAL EQUIPMENT * Patient has no history of implantable devices ASSESSMENT * None TREATMENT PLAN No Treatment Plan Items Lab Tests None GOALS * None HEALTH CONCERNS * No Health Concerns FUNCTIONAL AND COGNITIVE STATUS * None CONSULTATION NOTES * Luz Maria Bonds - 10/21/2023 ED TransferReferred To: [address] [address]C: F: Schedule: Completed Comments: Patient with exace rbation of abdominal pain, significant tenderness in all 4 quadrants at this time. Mode of transport is Privately Owned VehicleStability Status is stableOrdered 10/21/2023 01:57 PM by Eugenio Khan Jr MDLast edited 11/05/2023 04:46 PM by Luz Maria Huangally Signedby Eugenio Khan Jr MD on 10/21/2023 01:57 PM DISCHARGE SUMMARY NOTES * None HISTORY AND PHYSICAL NOTES * None IMAGING NOTES * None LABORATORY REPORT NARRATIVE NOTES * None PATHOLOGY REPORT NARRATIVE NOTES * None PROGRESS NOTES * None
[2024-10-24 15:09] VITALS: BP 140/82; PULSE 74; BMI 35.8
--- NOTE | 2024-10-24 15:09 | A.OFFVIS_ITS ---
Vital Signs 10/24/24 15:09 Height 5 ft Weight 183 lb 6.793 oz BMI 35.8 BP 140/82 H Blood Pressure Location Lt brachial Position Sitting Pulse 74 Pulse Source Monitor Intake Visit Reasons: 6 mth f/up Escrow Agent Required: No Field Service Rep: Field Service Rep Present Allergies No Known Allergies Allergy (Mild, Verified 10/24/24 15:11) N/A Medication List - Last Reconciled 10/24/24 by YOLANDE Pina acetaminophen ER (Arthritis Pain Reliever) 1,300 mg PO Q8H alcohol swabs (Alcohol Prep Pads) pad topical DAILY amlodipine 5 mg PO DAILY atorvastatin 80 mg PO BEDTIME bismuth subsalicylate (Bismuth) 2 tabs PO QID 42 days blood sugar diagnostic (FreeStyle Test strips) As directed calcium carbonate-simethicone 1,000-60 mg (Maalox Advanced) 1 tab PO QID PRN cholecalciferol (vitamin D3) 50 mcg PO DAILY docusate sodium (Colace) 100 mg PO DAILY PRN famotidine (Pepcid) 40 mg PO BEDTIME lancets (FreeStyle Lancets) As directed nystatin 1 appl topical DAILY PRN 2 weeks pantoprazole (Protonix) 40 mg PO BID 28 days simethicone 180 mg PO QID 30 days solifenacin 10 mg PO DAILY sucralfate (Carafate) 2 grams (2 x 1 gram) PO QNOON HPI HPI 6 mth f/up: Details: Aysha is a 69-year-old female with past medical history of hypertension, hyperlipidemia, impaired fasting glucose, GERD, abnormal EKG, nonobstructive coronary artery disease, who presents for follow-up and reports right-sided chest discomfort. Today she states that she has been getting a sharp pain in her right chest that can occur randomly and at times travel to her right arm. Her symptoms are not brought on by physical activity. She has no epigastric discomfort and believes that her reflux is under control. She reports some shortness of breath with exertional activities. No shortness of breath at rest, PND, orthopnea or edema. No palpitations, lightheadedness, presyncope, syncope, falls. She did not take her medications today and some days she forgets them altogether. Her daughter is present and helping with Slovak translation. [facility] Medical History Helicobacter pylori stool test positive Physical exam Unstable angina Vaginal discharge Oral greg Candidal skin infection Chest pain Abdominal pain Abdominal bloating Candidiasis of mouth and esophagus Adult general medical exam Screening for colon cancer Right upper quadrant abdominal pain Hospital discharge follow-up Muscular aches Costovertebral angle tenderness Dyslipidemia Mild recurrent major depression Chest pain Multinodular thyroid Hyperparathyroidism Vitamin D deficiency Hypercalcemia Surgical History (Updated 10/24/24 @ 16:57 by Luz Maria Gaffney, JASPER-C) History of cardiac catheterization History of parathyroidectomy Hx of colonoscopy History of hysterectomy Hx of endoscopy Family History Father Prostate cancer Mother HTN (hypertension) Asthma Heart disease Son Stomach cancer Social History Household Members: Spouse Housing: House Alcohol intake: never Patient Tobacco Use Status: Former Tobacco user e-Cigarette/Vaping Use: Never Used Second Hand Smoke Exposure: No service: No Current occupational status: disabled Cognitive needs: No Hearing needs: No Vision needs: No Female Reproductive History Menstrual Age of Menarche: 9 Review of Systems Const All systems reviewed & are unremarkable except as noted in HPI and below ENT Denies dizziness Card Reports chest pain (right sided, random), Denies chest pain at rest, Denies chest pain with activity, Denies rapid heart rate, Denies pedal edema, Denies edema, Denies leg edema, Denies lightheadedness, Denies palpitations, Denies dyspnea, Reports dyspnea on exertion and Denies orthopnea Resp Denies cough, Denies dyspnea and Reports dyspnea on exertion GI Denies hematochezia and Denies change in stool character Musc Denies abnormal gait, Denies limited range of motion, Denies muscle cramps, Denies muscle weakness, Denies numbness, Denies radiating pain into limb, Denies stiffness and Denies tingling Neuro Denies abnormal gait, Denies dizziness, Denies numbness and Denies tingling Endo Denies palpitations Physical Exam Vital Signs: Last Vital Signs Pulse 74 10/24/24 15:09 BP 140/82 H 10/24/24 15:09 BMI result Body Mass Index 35.8 Const General: cooperative, healthy appearing, comfortable and no acute distress Orientation/consciousness: patient oriented x3 Neck Neck: Yes normal visual inspection and Yes no JVD Resp Effort & Inspection: normal respiratory effort Auscultation: clear to auscultation bilaterally, no crackles, no rales, no rhonchi and no wheezes Cardio Jugular venous distension: no JVD Rate: regular rate Rhythm: regular rhythm Heart sounds: S1 normal heart sound present, S2 normal heart sound present, no murmurs and no rubs Neuro General: patient oriented x3 Extrem General: Yes normal to inspection and No no pedal edema Psych Appearance: grossly normal Mental Status: mental status grossly normal Speech and movement: Normal speech and movement present Office Procedures EKG Details: Today, read by me, sinus rhythm, nonspecific T-wave abnormality, lead 3, V1 through V 4, rate 74, QTC 463 milliseconds [id number], Complete Assessment & Plan Assessment & Plan (1) Chest pain: Code(s): R07.9 - Chest pain, unspecified Category: Medical Plan: Atypical sounding right-sided chest discomfort. She has prior reports of chest discomfort that sounded more like GERD. She did undergo a cardiac catheterization on 10/16/2022 which showed nonobstructive coronary artery disease. Her EKG from today does show T-wave inversions in the anterior leads which is unchanged from prior EKGs. She denies having chest discomfort brought on by exertion. She does have shortness of breath with exertion which she feels is newer for her. Will check an echocardiogram to assess EF and wall motion. If there is a new wall motion abnormality then further testing will be needed. Will check with her GI provider to see if she can start on aspirin 81 mg daily. She is on atorvastatin, high-dose and amlodipine 5 mg daily. In addition her list also includes Pepcid and Protonix. Importance of med compliance reviewed with her. Cardiology follow-up 6 months, sooner if needed or if test results warrant sooner visit. (2) History of cardiac catheterization: Comment: 10/2022 [facility], left main normal, lad 1st diagonal 40% stenosis, mid LAD 40% stenosis, left circumflex normal, RCA proximal ectasia. Code(s): Z98.890 - Other specified postprocedural states Category: Surgical Plan: As above (3) CAD (coronary artery disease): Code(s): I25.10 - Atherosclerotic heart disease of [place] coronary artery without angina pectoris Category: Medical Plan: Nonobstructive coronary artery disease. This diagnosis was reviewed with her. Continue risk factor modification (4) HTN (hypertension), benign: Code(s): I10 - Essential (primary) hypertension Category: Medical Plan: Blood pressure mildly elevated today at 140/82. She did not take her medications today. She tells me she skips them on some days. The importance of strict daily compliance reviewed. (5) High cholesterol: Code(s): E78.00 - Pure hypercholesterolemia, unspecified Category: Medical Plan: [place] LDL goal less than 70 in patient with CAD. She is due for updated lipid profile however admits to noncompliance with meds. Once she has been more consistent with her medication use lipid profile should be checked. Plan Time spent on chart review, documentation, interviewed assessment Orders: Orders CA echo transthoracic complete Today I25.10 - Atherosclerotic heart disease of [place] coronary artery without angina pectoris, R07.9 - Chest pain, unspecified Coding Level of Care Code Est Pt Level 4 (89812) Complex EM visit Add On G2211 Diagnoses Chest pain R07.9 History of cardiac catheterization Z98.890 CAD (coronary artery disease) I25.10 HTN (hypertension), benign I10 High cholesterol E78.00 CPT Codes EKG - CPT: [id number], Complete ([id number]) Time Spent (min) 30
== END 2024-10-24 15:57 | disposition home or self-care (01) ==
PROVIDERS: PCP Internal Medicine; Visit Provider Nurse Practitioner Family
DX: R07.9 Chest pain, unspecified (principal); Z98.890 Other specified postprocedural states; I25.10 Atherosclerotic heart disease of native coronary artery without angina pectoris; I10 Essential (primary) hypertension; E78.00 Pure hypercholesterolemia, unspecified
CPT/HCPCS: 93010; 99214; G2211

== ENCOUNTER → 2024-10-24 14:46 | Outpatient (BNVA) | payer OTHER, SELFPAY | PROVIDERS: PCP Internal Medicine; Visit Provider Nurse Practitioner Family | DX: I10 Essential (primary) hypertension (principal); I25.10 Atherosclerotic heart disease of native coronary artery without angina pectoris; R07.9 Chest pain, unspecified; E78.5 Hyperlipidemia, unspecified; E78.00 Pure hypercholesterolemia, unspecified; Z98.890 Other specified postprocedural states | CPT/HCPCS: 93005; 99212 ==

== ENCOUNTER → 2024-11-21 09:57 | Outpatient (REF) | payer OTHER, SELFPAY ==
--- NOTE | 2024-11-21 10:00 | CA_ITS ---
Transthoracic Echocardiogram Patient (Last, First, Middle): Aysha Lloyd, Gender: Female Date of : 1955 Age: 69 Procedure Date: 11/21/2024 Procedure Type: Transthoracic Echocardiogram Location: OP Height: 152.4 cm Weight: 83.01 kg BSA: 1.80 m2 Heart Rate: bpm BP: 140 / 82 mmHg Vice Provost: PIERRE Referring MD: Luz Maria Gaffney CAVALRY OFFICERByron Symptoms: I25.10 - Atherosclerotic heart disease of [place] coronary artery without... Study Quality: Adequate ECG Rhythm: Sinus Conclusions: - The left ventricular systolic function is normal. The calculated ejection fraction is 61% by biplane method. - No obvious valvular pathology seen on this study. - There is a small loculated pericardial effusion overlying the left ventricle. Findings Left Ventricle Normal left ventricular cavity size. There is mildly increased left ventricular wall thickness. The left ventricular systolic function is normal. The calculated ejection fraction is 61% by biplane method. There is no evidence of regional wall motion abnormalities. Diastolic function is normal for age. Right Ventricle Normal right ventricular cavity size. There is normal right ventricular systolic function. Atria Both atria are normal in size. Aortic Valve There is a normal trileaflet aortic valve. There is no aortic valve stenosis. There is no aortic valve regurgitation. Mitral Valve The mitral valve appears normal. There is trace mitral valve regurgitation. There is no mitral valve stenosis. Pulmonic Valve The pulmonic valve is likely normal. Tricuspid Valve There is trace tricuspid valve regurgitation. There is no evidence of pulmonary hypertension. Great Vessels The asc aorta is normal in size. Small plaque is seen in the sino tubular ridge. Venous The inferior vena cava is normal in size and collapses greater than 50% with inspiration. Pericardium/Pleural There is a small loculated pericardial effusion overlying the left ventricle. Prior Study Comparison No significant change compared to prior study dated: 04/03/2020. Recommendations, Care & Conclusions No obvious valvular pathology seen on this study. Measurements 2D Linear Measurements IVSd: 1.25 0.6-0.9/0.6-1.0 cm LVIDd: 4.26 3.9-5.3/4.2-5.9 cm LVIDd Index: 2.37 2.4-3.2/2.2-3.1 cm/m2 LVIDs: 2.51 2.0-3.6 cm LVPWd: 1.06 0.7-1.1 cm LA Diam: 3.60 2.7-3.8/3.0-4.0 cm LAIDs Index: 2.00 1.5-2.3 cm/m2 LV Mass: 214.54 67-162/88-224 g LV Mass Index: 119.19 43-95/49-115 g/m2 LVOT Diam: 2.00 3.0+(-)1.3 cm 2D Systolic Function EF 4C: 64.50 >55% EF 2C: 57.60 >55% EF BiP: 60.80 >55% Mitral Valve MV Pk E: 0.60 MV PK A: 0.75 MV Decel Time: 289.00 E/A: 0.80 E'Lateral: 8.49 E'Medial: 5.66 E/E' Med: 10.60 E/E' Lat: 7.10 PHT: 85.00 MVA PHT: 2.59 Decel [place]: 2.08 Aortic Valve AoV Pk Mitul: 1.13 AoV Mn Mitul: 0.76 AoV VTI: 0.25 AoV Pk Grad: 5.00 Aov Mn Grad: 3.00 HELGA Cont.VTI: 2.96 LVOT LVOT Pk Mitul: 1.03 LVOT Mn Mitul: 0.64 LVOT VTI: 0.23 LVOT Pk Grad: 4.00 LVOT Mn Grad: 2.00 LVOT Diam: 2.00 LVOT Area: 3.14 Diastolic Function MV Pk E: 0.60 MV Pk A: 0.75 E/A: 0.80 E'Medial: 5.66 E/E' Med: 10.60 E' Laterial: 8.49 E/E' Lat: 7.10 Right Ventricle TAPSE (mm): 20.00 TVS' Mitul: 7.51 Tricuspid Valve TR Pk Mitul: 2.24 TR Pk Grad: 20.00 RA Press: 3.00 RVSP: 23.00 Great Vessels Aorta Sinus of Valsalva: 3.48 2.0-3.[address] [place]: 2.21 1.7-3.4 cm Ao Asc: 3.60 2.1-3.4 cm Updated in Other Vendor System with Status of Final Kye Givens MD electronically signed on 11/21/2024 2:59:26 PM with status of Final
== END ==
LOC: HO.CARD 09:57
PROVIDERS: PCP Internal Medicine; Visit Provider Nurse Practitioner Family
DX: R07.9 Chest pain, unspecified (principal); I25.10 Atherosclerotic heart disease of native coronary artery without angina pectoris
CPT/HCPCS: 93306

== ENCOUNTER → 2024-11-21 10:00 | Outpatient (BNV) | payer OTHER, SELFPAY | PROVIDERS: PCP Internal Medicine; Visit Provider Internal Medicine | DX: I31.39 Other pericardial effusion (noninflammatory) (principal); I25.10 Atherosclerotic heart disease of native coronary artery without angina pectoris | CPT/HCPCS: 93306 ==

== ENCOUNTER → 2025-02-20 11:01 | Outpatient (BNVA) | payer OTHER, SELFPAY | PROVIDERS: PCP Internal Medicine; Visit Provider Internal Medicine | DX: R35.89 Other polyuria (principal); R10.9 Unspecified abdominal pain; E78.00 Pure hypercholesterolemia, unspecified; F33.0 Major depressive disorder, recurrent, mild; R73.02 Impaired glucose tolerance (oral); K21.9 Gastro-esophageal reflux disease without esophagitis; K59.04 Chronic idiopathic constipation; R31.29 Other microscopic hematuria; E78.5 Hyperlipidemia, unspecified | CPT/HCPCS: 96127; 99212 ==

== ENCOUNTER → 2025-02-20 11:01 | Outpatient (AMB) | payer OTHER, SELFPAY ==
[2025-02-20 11:05] VITALS: BP 136/82; BMI 36.5
--- NOTE | 2025-02-20 11:05 | A.OFFPC_ITS ---
Vital Signs 02/20/25 11:05 Height 5 ft Weight 187 lb BMI 36.5 BP 136/82 Blood Pressure Location Lt brachial Position Sitting Intake Visit Reasons: bp Intake Note: Patient here for a follow up BP Drawing In Hand Required: No Accompanied by: Daughter Allergies No Known Allergies Allergy (Mild, Verified 02/20/25 11:29) N/A Medication List - Last Reconciled 02/20/25 by Sakshi Prakash MD acetaminophen ER (Arthritis Pain Reliever) 1,300 mg PO Q8H alcohol swabs (Alcohol Prep Pads) pad topical DAILY amlodipine 5 mg PO DAILY aspirin (Enteric Coated Aspirin) 81 mg PO DAILY atorvastatin 80 mg PO BEDTIME bismuth subsalicylate (Bismuth) 2 tabs PO QID 42 days blood sugar diagnostic (FreeStyle Test strips) As directed calcium carbonate-simethicone 1,000-60 mg (Maalox Advanced) 1 tab PO QID PRN cholecalciferol (vitamin D3) 50 mcg PO DAILY docusate sodium (Colace) 100 mg PO DAILY PRN famotidine (Pepcid) 40 mg PO BEDTIME lancets (FreeStyle Lancets) As directed nystatin 1 appl topical DAILY PRN 2 weeks pantoprazole 80 mg (2 x 40 mg) PO BID simethicone 180 mg PO QID 30 days solifenacin 10 mg PO DAILY sucralfate (Carafate) 2 grams (2 x 1 gram) PO QNOON Tobacco use date assessed: 02/20/25 Fall risk assessment: No Falls in past year Last assessed Fall Risk: 02/20/25 Dental Screening Dental Screen Date: 02/20/25 Did you have a dental visit in the last 12 months?: No Did you have a dental problem in the last 6 months where you did not have access to dental care?: No Was dental information given to patient?: Patient has dentist HPI HPI Comments History of Present Illness Details The patient is a 69-year-old female presenting with right flank pain, particularly in the lower back area. This pain relates to a history of suspected kidney stones, although there is no current report of hematuria. The patient also mentions increased thirst and polyuria, suggesting potential diabetes mellitus, with previously noted elevated blood glucose levels. Her chronic conditions include essential hypertension, managed with amlodipine and aspirin, with reported effective control. She also has hyperlipidemia controlled by atorvastatin. GERD is managed by a regimen of Carafate, pantoprazole, solifenazine, and simeticone, with improvements noted in acid reflux symptoms. Constipation stable with medications. Additionally, she reports mild depression, scoring a 6 on the PHQ-9 scale, although she is currently in counseling. Impaired glucose tolerance will be monitor. [facility] Medical History (Updated 02/20/25 @ 11:39 by Sakshi Prakash MD) Helicobacter pylori stool test positive Physical exam Unstable angina Vaginal discharge Oral greg Candidal skin infection Chest pain Abdominal pain Abdominal bloating Candidiasis of mouth and esophagus Adult general medical exam Screening for colon cancer Right upper quadrant abdominal pain Hospital discharge follow-up Muscular aches Costovertebral angle tenderness Dyslipidemia Mild recurrent major depression Chest pain Multinodular thyroid Hyperparathyroidism Vitamin D deficiency Hypercalcemia Surgical History History of cardiac catheterization History of parathyroidectomy Hx of colonoscopy History of hysterectomy Hx of endoscopy Family History Father Prostate cancer Mother HTN (hypertension) Asthma Heart disease Son Stomach cancer Social History Household Members: Spouse Housing: House Alcohol intake: never Patient Tobacco Use Status: Former Tobacco user e-Cigarette/Vaping Use: Never Used Second Hand Smoke Exposure: No service: No Current occupational status: disabled Cognitive needs: No Hearing needs: No Vision needs: No Female Reproductive History Menstrual Age of Menarche: 9 Questionnaire PHQ-9 Over the last 2 weeks, how often have you been bothered by any of the following problems? 1. Little interest or pleasure in doing things: several days 2. Feeling down, depressed, or hopeless: several days 3. Trouble falling or staying asleep, or sleeping too much: several days 4. Feeling tired or having little energy: several days 5. Poor appetite or overeating: several days 6. Feeling bad about yourself - or that you are a failure or have let yourself or your family down: not at all 7. Trouble concentrating on things, such as reading the newspaper or watching television: several days 8. Moving or speaking so slowly that other people could have noticed. Or the opposite - being so fidgety or restless that you have been moving around a lot more than usual: not at all 9. Thoughts that you would be better off or of hurting yourself in some way: not at all Total score: 6 Depression Screening Interpretation: Positive Depression Screening Follow-up: Existing condition, Community Mental Health Worker F/U and Follow-up Visit Requested Depression Screening Done: Yes 10170 - PHQ-9 Billing: Yes Source: Developed by Drs. Dalton Abraham, Orquidea Tobias, Austin Yanez and colleagues, with an educational ethan from [employer]. Thrive Questionnaire Date Thrive assessed: 02/20/25 I am a: Patient What is your living situation today?: I have a steady place to live Within the past 12 months, did the food you bought not last and you didn't have the money to get more?: Never true Within the past 12 months, did you worry whether your food would run out before you got money to buy more?: Never true Do you have trouble paying for medicines?: No Do you have trouble getting transportation to medical appointments?: No Do you have trouble paying your heating and electricity bill?: No Do you have trouble taking care of your child, family member or friend?: No Do you have trouble with day-to-day activities such as bathing, preparing meals, shopping, managing finances, etc.?: No Are you currently unemployed and looking for a job?: No Are you interested in more education?: No Please select the resources that you would like help with: None Currently or been in a relationship where the following occur: No concerns reported THRIVE Score: 0 AUDIT C Alcohol Use Questionnaire (AUDIT-C) 1. How often do you have a drink containing alcohol?: Never Total Score: 0 Score Reviewed/Action Taken: No NEGIN-7 AMB Questionnaire NEGIN-7 Date NEGIN - 7 assessed: 02/20/25 Feeling nervous, anxious, or on edge: 1 = Several days Not being able to stop or control worryin = Not at all Worrying too much about different things: 1 = Several days Trouble relaxin = Not at all Being so restless that it is hard to sit still: 0 = Not at all Becoming easily annoyed or irritable: 1 = Several days Feeling afraid as if something awful might happen: 0 = Not at all Total NEGIN-7 score (0-4 normal; 5-9 mild; 10-14 moderate; 15-21 severe): 3 Source: Developed by Drs. Dalton Abraham, Orquidea Tobias, Austin Yanez and colleagues, with an educational ethan from [employer]. NEGIN-7 Assessment Billing NEGIN-7 Assessment Tool: NEGIN-7 Assessment 50696 Review of Systems Const All systems reviewed & are unremarkable except as noted in HPI and below Card Denies chest pain at rest, Denies chest pain with activity, Denies edema, Denies irregular heart rhythm, Denies claudication, Denies dyspnea, Denies dyspnea on exertion, Denies orthopnea, Denies paroxysmal nocturnal dyspnea and Denies slow heart rate Resp Denies cough, Denies dyspnea and Denies dyspnea on exertion GI Denies abdominal pain, Denies change in bowel habits, Denies excessive flatus, Denies nausea and Denies vomiting Denies urinary incontinence, Denies urinary hesitancy and Denies urinary urgency Musc Denies abnormal gait, Denies atrophy, Denies deformity and Denies limited range of motion Skin/Breast Denies bleeding lesions, Denies changing lesions and Denies rash Neuro Denies abnormal gait and Denies lack of coordination Physical exam (Primary Care) Vital Signs: Last Vital Signs BP 136/82 02/20/25 11:05 BMI result Body Mass Index 36.5 Tobacco/Smoking Status: Tobacco use Status Tobacco use date assessed 02/20/25 02/20/25 11:09 Patient Tobacco Use Status Former Tobacco user 02/20/25 11:09 e-Cigarette/Vaping Use Never Used 02/20/25 11:09 PHQ-9: PHQ-9 Score PHQ-9: Total score 6 02/20/25 11:14 Depression Screening Interpretation: Positive Depression Screening Follow-up: Existing condition, Community Mental Health Worker F/U and Follow-up Visit Requested Thrive Assessment: Date of Thrive Assessment Date Thrive assessed 10/03/24 02/20/25 11:24 Currently or been in a relationship where the following occur: No concerns reported Resp Effort & Inspection: normal respiratory effort Auscultation: clear to auscultation bilaterally Cardio Jugular venous distension: no JVD Rate: regular rate Rhythm: regular rhythm Heart sounds: S1 normal heart sound present and S2 normal heart sound present Extrem General: Yes full ROM Coding Level of Care Code Est Pt Level 4 (58787) Complex EM visit Add On G2211 Diagnoses Right flank pain R10.9 Pure hypercholesterolemia E78.00 Mild recurrent major depression F33.0 Impaired glucose tolerance R73.02 GERD (gastroesophageal reflux disease) K21.9 Chronic idiopathic constipation K59.04 Additional Codes PHQ-9 - 60525 - PHQ-9 Billing: Yes ([id number]) NEGIN-7 Assessment Billing - NEGIN-7 Assessment Tool: NEGIN-7 Assessment 13930 ([id number]) Time Spent (min) 22 Assessment & Plan Assessment & Plan (1) Right flank pain: Code(s): R10.9 - Unspecified abdominal pain Category: Medical (2) Pure hypercholesterolemia: Code(s): E78.00 - Pure hypercholesterolemia, unspecified Category: Medical (3) Mild recurrent major depression: Code(s): F33.0 - Major depressive disorder, recurrent, mild Category: Medical (4) Impaired glucose tolerance: Code(s): R73.02 - Impaired glucose tolerance (oral) Category: Medical (5) GERD (gastroesophageal reflux disease): Code(s): K21.9 - Gastro-esophageal reflux disease without esophagitis Category: Medical (6) Chronic idiopathic constipation: Code(s): K59.04 - Chronic idiopathic constipation Category: Medical Plan The patient should undergo laboratory tests to evaluate liver and kidney function, and an ultrasound will be performed to investigate renal pain. Continued management of essential hypertension with amlodipine and aspirin, and hyperlipidemia with atorvastatin, is advised. Her GERD treatment with pantoprazole and Pepcid is to be maintained. Blood glucose levels will be checked to confirm suspected diabetes mellitus. Her mild depression requires ongoing counseling. All current medications should continue as prescribed, monitoring for any changes in symptoms. Patient was informed and verbally consented to the use of an ambient scribe for clinic note documentation during this visit. We discussed the potential concerns regarding renal pain, with plans for further evaluation through an ultrasound. The necessity of laboratory tests to clarify potential kidney stone presence was explained. For her GERD, the effectiveness of current medications and their continuation was discussed. Good control of her hypertension and hyperlipidemia was recognized. We reviewed the indication for repeat glucose testing due to elevated past levels and suspected diabetes. Counseling for mild depression was suggested to continue. The patient was informed about the importance of monitoring symptoms and the scheduled follow-up in four months with possible earlier intervention if test results indicate further action is needed. Orders: Orders Comprehensive [place]. Panel Fast 4 Months R73.02 - Impaired glucose tolerance (oral) US renal BI Today R10.9 - Unspecified abdominal pain, R31.29 - Other microscopic hematuria Lipid Panel 4 Months E78.5 - Hyperlipidemia, unspecified Patient Instructions: - Complete the laboratory tests for liver and kidney function. - Schedule and complete the renal ultrasound as advised. - Continue all current medications as prescribed. - Attend counseling sessions regularly for depression. - Monitor and report any significant changes in symptoms or overall health. - Schedule a follow-up appointment in four months, earlier if necessary.
--- OUTSIDE RECORDS SUMMARY | 2025-02-20 13:01 | XMS_ITS | Encounter Summary ---
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 Name Role Phone Earl Mazariegos MD Primary Care Provider [phone] Reason for Visit * Reason Onset Date Comments medication 01/25/2025 Encounter Details Date Type Department Care Team (Late st Contact Info) Description 01/25/2025 Telephone Walk-In Clinic - [facility] [address], [place] [phone] John Muse PA [address] [place] [address] medication Social History Tobacco Use Types Packs/Day Years Used Date Smoking Tobacco: Never Smokeless Tobacco: Never Alcohol Use Standard Drinks/Week Comments No 0 (1 standard drink = 0.6 oz pur e alcohol) Comments No Sex and Gender Information Value Date Recorded Sex Assigned at Female 01/12/2025 6:10 PM EST Legal Sex Female 2:27 AM EST Gender Identity Female 01/12/2025 6:10 PM EST Sexual Orientation Straight 01/12/2025 6: 10 PM EST documented as of this encounter Ordered Prescriptions Prescription Sig Dispense Quantity Refills Last Filled Start Date End Date clotrimazole (MYCELEX) 10 mg fuad Take 1 tablet (10 mg total) by mouth 5 (five) times a day for 14 days. Allow tablet to dissolve slowly on the tongue. 70 Fuad 01/25/2025 documented in this encounter Progress Notes * Griselda Melgar MA - 01/25/2025 12:23 PM EDT Spoke to pt and informed of medication resent * ANDREY Del Rosario - 01/25/2025 12:15 PM EDT [facility] - [place], [place] - [address] Reordered * Harriett Newton - 01/25/2025 11:41 AM EDT Pt saw Charanjit on 01/18/25, states she hasn't receive the prescription from the pharmacy yet, that may need to be resent again, Please call her back at [phone]. documented in this encounter Plan of Treatment Upcoming Encounters Date Type Department Care Team (Late st Contact Info) Description 04/10/2025 1:30 PM EDT Office Visit Obstetrics & Gynecology - [facility] [address] [place] [address] Ellyn Berrios, [place] [address] [place] [address] documented as of this encounter Visit Diagnoses Not on filedocumented in this encounter Discontinued Medications Medication Sig Discontinue Reason Start Date End Da te clotrimazole (MYCELEX) 10 mg fuad Take 1 tablet (10 mg total) by mouth 5 (five) times a day for 14 days. Allow tablet to dissolve slowly on the tongue. Reorder 01/18/2025 01/25/2025 documented as of this encounter Care Teams Car Retarder Operator Relationship Specialty Start Date End Date Earl Mazariegos MD [address] [place] [address] PCP - General Internal Medicine 10/03/14 documented as of this encounter
--- OUTSIDE RECORDS SUMMARY | 2025-02-20 13:01 | XMS_ITS | Clinical Summary ---
Author Organization 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 05/02/20 22 Active calcium carbonate-vit D3-min 600 mg-10 mcg (400 unit) tablet Take 1 Tablet by mouth 2 times daily. 04/30/20 22 Active amLODIPine (NORVASC) 10 mg tablet Take 1 Tablet by mouth daily. 04/28/20 22 Active pravastatin (PRAVACHOL) 20 mg tablet Take 1 Tablet by mouth daily for 180 days. 04/28/20 22 Active psyllium (METAMUCIL) 3.4 gram packet Take 1 Packet by mouth daily. 04/28/20 22 Active cyclobenzaprin e (FLEXERIL) 5 mg tablet Take 1 Tablet by mouth 3 times daily as needed for Muscle spasms. 04/28/20 22 Active omeprazole (PriLOSEC) [address] capsule Take 1 Capsule by mouth daily. 04/28/20 22 Active acetaminophen (TYLENOL) 500 mg capsule Take 2 Caps by mouth 3 times daily as needed for Other (pain). 02/06/20 16 Active solifenacin (VESICARE) 10 mg tablet Take 1 tablet (10 mg total) by mouth 1 (one) time each day. Swallow tablet whole; do not crush, chew, or split. 30 tablet 5 12/05/19 25 01/27/2 026 Active cholecalcifero l (VITAMIN D-3) 50 mcg (2,000 unit) capsule TAKE 1 CAPSULE BY MOUTH EVERY DAY 30 capsule 10 02/16/20 25 Active clobetasoL (TEMOVATE) 0.05 % ointment Apply to area twice weekly 02/15/20 24 025 cholecalcifero l (VITAMIN D-3) 50 mcg (2,000 unit) capsule Take 1 Tablet by mouth daily. 02/15/20 24 025 Discontinued meclizine (ANTIVERT) 12.5 mg tablet Take 1 tablet (12.5 mg total) by mouth 3 (three) times a day if needed for dizziness for up to 10 days. 30 tablet 01/13/20 25 025 clotrimazole (MYCELEX) 10 mg fuad Take 1 tablet (10 mg total) by mouth 5 (five) times a day for 14 days. Allow tablet to dissolve slowly on the tongue. 70 Fuad 01/19/20 25 025 Discontinued(Re order) clotrimazole (MYCELEX) 10 mg fuad Take 1 tablet (10 mg total) by mouth 5 (five) times a day for 14 days. Allow tablet to dissolve slowly on the tongue. 70 Fuad 01/26/20 25 025 Active Problems Problem Noted Date Diagnosed Date Sebaceous cyst 03/29/2018 Overview (10/05/2024): Last Assessment & Plan: Counseled pt this is not concerning and may enlarge and get smaller over time. No need for intervention as is asymptomatic. Follow up with G surg as planned. Upper back pain, chronic 03/22/2018 Varicose vein of leg 03/22/2018 Opacity of lung on imaging study 07/03/2016 Overview (10/05/2024): seen on Abd CT in [place], in fissure, stable over a year, Microscopic hematuria 05/04/2015 Lichen sclerosus 12/29/2014 Lung nodule 12/29/2014 Overview (10/05/2024): Wedge resection left lower lung 2008, non necrotizing granuloma consistent with chronic inflammation, no further ARITA needed Osteopenia 12/29/2014 Vitamin D deficiency 12/29/2014 Arthritis 10/20/2014 Depression, major, in remission ([facility] V24) Hyperlipidemia 10/20/2014 Urinary incontinence in female 10/20/2014 Encounters Date Type Department Care Team Description 02/20/2025 1:00 PM EDT Office Visit General Surgery - [place] [address] [facility] [address] [place] [address] Sidney Arauz MD Arrived 01/25/2025 Telephone Walk-In Clinic - [address] [id number] John Muse PA medication 01/18/2025 1:00 PM EDT Office Visit Walk-In Clinic - [address] [id number] John Muse PA Oral thrush (Primary Dx) 01/12/2025 5:42 PM EST - 01/12/2025 8:45 PM EST Emergency [facility] Emergency [address] [place] [address] Rik Spencer MD Dizziness (Primary Dx); Vertigo; Acute chest pain Discharge Disposition: Home or Self Care 12/05/2024 1:15 PM EST Office Visit Obstetrics & Gynecology - [address] [address] Ellyn Berrios CNM Lichen sclerosus (Primary Dx); Urinary incontinence in female from Last 3 Months Immunizations Name Administration Dates Next Due Influenza Quadravalent, MDCK , 0.5ml, with preservative (Flucelvax) 6mo and older 08/19/2017 Moderna SARS-CoV-2 COVID-19, mRNA, LNP-S, preservative free 03/10/2021,03/10/2021 Tdap Tetanus diptheria acell ular pertussis (Boostrix; Adacel) 7yo and older 08/19/2017 Surgical History Surgery Date Site/Laterality Comments OTHER SURGICAL HISTORY PROCEDURE: [place] TOTAL ABDOMINAL HYSTERECT W/WO RMVL TUBE OVARY BLADDER SUSPENSION PROCEDURE: HISTORICAL BLADDER SUSPENSION COLONOSCOPY 05/17/2009 PROCEDURE: HISTORICAL COLONOSCOPY; COMMENT: Dr. Alanna Pickens at [facility]; negative screening examination with suboptimal prep. COLONOSCOPY 08/17/2017 PROCEDURE: HISTORICAL COLONOSCOPY; COMMENT: normal BREAST BIOPSY 06/2017 Right PROCEDURE: BX BREAST; PERC NEEDLE CORE W/IMAG GUID; COMMENT: b9 Medical History Medical History Date Comments Vitamin D deficiency 12/29/2014 DX:Vitamin D deficiency Osteopenia 12/29/2014 DX:Osteopenia Lichen sclerosus 12/29/2014 DX:Lichen scler osus Lung nodule 12/29/2014 DX:Lung nodule; COMMENT: Wedge resection, non necrotizing granuloma consistent with chronic inflammation, no further ARITA needed HTN (hypertension) DX:HTN (hyper tension) Mixed hyperlipidemia DX:Mixed hy perlipidemia Fatty liver DX:Fatty liver Obesity DX:Obesity Diverticulosis DX:Diverticulosi s Family History Medical History Relation Name Comments Prostate cancer Father Breast cancer Neg Hx Colon cancer Neg Hx Relation Name Status Comments Father Social History Tobacco Use Types Packs/Day Years Used Date Smoking Tobacco: Never Smokeless Tobacco: Never Tobacco Cessation:Counseling Given: Not Answered Alcohol Use Standard Drinks/Week Comments No 0 (1 standard drink = 0.6 oz pur e alcohol) Comments No Sex and Gender Information Value Date Recorded Sex Assigned at Female 01/12/2025 6:10 PM EST Legal Sex Female 2:27 AM EST Gender Identity Female 01/12/2025 6:10 PM EST Sexual Orientation Straight 01/12/2025 6: 10 PM EST Obstetrics History Para Term AB IAB SAB Ectopic Multiple Livin g Live Births 11 11 11 11 Date Outcome GA Total Labor Labor/2nd/3rd Weight Sex Type Anes PTL Berenice A1 A5 Name Clin Term Living Term Living Term Living Term Living Term Living Term Living Term Living Term Living Term Living Term Living Term Living Last Filed Vital Signs Vital Sign Reading Time Taken Comments Blood Pressure 148/86 01/18/2025 1:13 PM EDT Pulse 78 01/18/2025 1:13 PM EDT Temperature 36.4 ??C (97.6 ??F) 01/18/2025 1:13 PM ED T Respiratory Rate 20 01/12/2025 8:15 PM EST Oxygen Saturation 96% 01/18/2025 1:13 PM EDT Inhaled Oxygen Concentration - - Weight 83.5 kg (184 lb) 01/12/2025 5:55 PM EST Height 152.4 cm (5') 02/20/2025 12:56 PM EDT Body Mass Index 35.94 01/12/2025 5:55 PM EST Plan of Treatment Upcoming Encounters Date Type Department Care Team (Late st Contact Info) Description 04/10/2025 1:30 PM EDT Office Visit Obstetrics & Gynecology - [facility] [address] [place] [address] Ellyn Berrios CNM [address] [place] [address] Health Maintenance Due Date Last Done Comments Diabetes: Annual Foot Exam 1965 Diabetes: Annual Retina Eye Exam 1965 Pneumococcal Vaccine: 50+ Years (1 of 1 - PCV) 2003 Zoster Vaccines (1 of 2) 2003 Hepatitis B Vaccines (2 of 3 - 19+ 3-dose series) 01/02/2020 12/05/2019 Depression Screening 10/12/2022 Falls Risk Assessment 10/12/2022 Medicare Annual Wellness Visit 10/12/2022 Social Influencers of Health Screening 10/12/2022 Breast Cancer Screening 09/19/2023 09/19/20, 01/22/2019, 01/07/2018 COVID-19 Vaccine ( season) 2024 05/20/2021, 03/29/2021, 03/10/2021, Additional history exists Colorectal Cancer Screening: Colonoscopy 08/17/2024 08/17/2017 Diabetes: Annual Urine Albumin-Creatinine Ratio (uACR) 12/05/2024 Diabetes: Blood Sugar Control Test (HGBA1C) 12/05/2024 05/15/2022, 10/17/2019 Influenza Vaccine (Season Ended) 2025 08/17/2020, 08/19/2017, 07/23/2012 Diabetes: Annual GFR (Glomerular Filtration Rate) 01/12/2026 01/12/2025, 02/26/2023, 05/15/2022 Hypertension/CHF/CAD Annual BMP Blood Test 01/12/2026 01/12/2025, 02/26/2023, 05/15/2022 Cholesterol Screening (Lipid Panel) 05/15/2027 05/15/2022, 10/17/2019, 10/17/2019 DTaP,Tdap,and Td Vaccines (3 - Td or Tdap) 08/19/2027 08/19/2017, 07/23/2012 RSV Immunization Adult Patients (1 - 1-dose 75+ series) 2028 Osteoporosis Screening (Bone Density Screening) 04/30/2032 04/30/2022 Hepatitis C Screening Completed 05/01/2022 HIB Vaccines Aged Out No longer eligi ble based on patient's age to complete this topic HPV Vaccines Aged Out No longer eligi ble based on patient's age to complete this topic Hepatitis A Vaccines Aged Out No long er eligible based on patient's age to complete this topic IPV Vaccines Aged Out No longer eligi ble based on patient's age to complete this topic MMR Vaccines Aged Out No longer eligi ble based on patient's age to complete this topic Meningococcal ACWY Vaccine Aged Out N o longer eligible based on patient's age to complete this topic Meningococcal B Vaccine Aged Out No l onger eligible based on patient's age to complete this topic RSV Immunization Patients Under 20 months Aged Out No longer eligible based on patient's age to complete this topic Varicella Vaccines Aged Out No longer eligible based on patient's age to complete this topic Procedures Procedure Name Priority Date/Time Associated Diagnosis Comments POC RAPID STREP A Routine 01/18/2025 7:3 5 PM EDT Oral thrush POC RAPID [id number], MOLECULAR Routine 01/18/2025 7:35 PM EDT Oral thrush ECG ANNOTATED 01/13/2025 TROPONIN I HIGH SENSITIVITY STAT 01/12/2025 7:44 PM EST ECG 12-LEAD STAT 01/12/2025 7:39 PM EST XR CHEST 2 VIEWS STAT 01/12/2025 6:36 PM EST ECG 12-LEAD STAT 01/12/2025 6:05 PM EST CBC WITH AUTO DIFFERENTIAL STAT 01/12/2025 5:54 PM EST B-TYPE NATRIURETIC PEPTIDE STAT 01/12/2025 5:54 PM EST MAGNESIUM STAT 01/12/2025 5:54 PM EST LIPASE STAT 01/12/2025 5:54 PM EST COMPREHENSIVE METABOLIC PANEL STAT 01/12/2025 5:54 PM EST CBC AND DIFFERENTIAL STAT 01/12/2025 5:54 PM EST TROPONIN I HIGH SENSITIVITY STAT 01/12/2025 5:54 PM EST HEMOGLOBIN A1C Routine 05/15/2022 LIPID PANEL Routine 05/15/2022 HEPATITIS C SCREENING Routine 05/01/2022 DXA BONE DENSITY STUDY 1+ SITS AXIAL SKEL Routine 04/30/2022 2:51 PM EDT Encounter for general adult medical examination without abnormal findings Essential (primary) hypertension Mixed hyperlipidemia Obesity, unspecified SCR MAMMO BI INCL CAD Routine 01/22/2019 9:53 AM EDT Encounter for screening mammogram for malignant neoplasm of breast COLONOSCOPY Routine 08/17/2017 from Last 3 Months or Most Recently Relevant to Health Maintenance Results * Poc Rapid [id number], MOLECULAR (01/18/2025 7:35 PM EDT) COVID-19/SARS- COV-2 Rapid POC Negative Negative Internal Control Pass Yes Yes Swab Nasopharyngeal structure / Unknown 01/18/2025 7:35 PM EDT us John BALDERAS POINT OF CARE TEST ENTER/E DIT ORDERABLES Final Result * POC rapid strep A manually resulted (01/18/2025 7:35 PM EDT) [facility] Rapid Strep A Screen POC Negative Negative Internal Control Pass Yes Yes Swab Structure of anterior portion of neck / Unknown 01/18/2025 7:35 PM EDT John BALDERAS POINT OF CARE TEST ENTER/E DIT ORDERABLES Final Result * ECG-Annotated (01/13/2025) Provider Onbase MD ECG ORDERABLES Final Result * Troponin I high sensitivity (01/12/2025 7:44 PM EST) Only the most recent of2 resultswithin the time period is included. [facility] High Sensitivity Troponin I 7 <=54 ng/L LAB CHEMISTRY METHOD 01/12/2025 8:52 PM EST [facility] Blood Venous blood specimen / Unknown Venipuncture / Unknown 01/12/2025 7:44 PM EST 01/12/2025 8:23 PM EST Narrative [facility] - 01/12/2025 8:52 PM EST High levels of biotin in samples may falsely decrease hsTroponin values. ??Use caution when interpreting hsTroponin results in patients taking biotin who exhibit renal impairment (eGFR <60) or in patients taking more than 20 mg/day of biotin. Rik Spencer MD LAB BLOOD ORDERABLES Danna l Result [facility] [address] [place] [address], * ECG 12 lead (01/12/2025 7:39 PM EST) Only the most recent of2 resultswithin the time period is included. [facility] Ventricular Rate ECG 77 BPM GEMUSE Atrial Rate 77 BPM GEMUSE P-R Interval 134 ms GEMUSE QRS Duration 94 ms GEMUSE Q-T Interval 416 ms GEMUSE QTc 470 ms GEMUSE P Wave [place] 24 degrees GEMUSE R [place] 10 degrees GEMUSE T [place] 17 degrees GEMUSE ECG Interpretation Normal sinus rhythm RSR' or QR pattern in V1 suggests right ventricular conduction delay Nonspecific T wave abnormality Abnormal ECG When compared with ECG of 12-JAN-2025 18:05, (unconfirmed) No significant change was found Confirmed by Cata RAMIREZ YUFENG ([id number]) on 01/12/2025 8:46:29 PM GEMUSE 01/12/2025 7:39 PM EST 01/12/2025 8:46 PM EST us Rik Spencer MD ECG ORDERABLES Final Res ult GEMUSE * XR Chest 2 Views (01/12/2025 6:36 PM EST) Anatomical Region Laterality Modality Body Radiographic Netta ging 01/13/2025 8:17 AM EST Impressions 01/13/2025 8:18 AM EST No acute findings. -------- FINAL REPORT -------- Dictated By: Boy Galindo Dictated Date: 01/13/2025 08:17 ET Assigned Physician: Boy Galindo Reviewed and Electronically Signed By: Boy Galindo Signed Date: 01/13/2025 08:18 ET Workstation ID: [id number] Transcribed By: Self Edit Transcribed Date: 01/13/2025 08:17 ET Narrative 01/13/2025 8:18 AM EST PROCEDURE: PA and lateral radiographs of the chest. HISTORY: chest pain. COMPARISON: 10/01/2022. FINDINGS: Lungs are clear. ??No pleural effusion, pulmonary edema, or pneumothorax. ??Atherosclerotic calcification of the aorta. ??Mild cardiomegaly. ??Bones are demineralized. ??Mild degenerative changes of the spine and shoulders. Procedure Note Boy Galindo MD - 01/13/2025 PROCEDURE: PA and lateral radiographs of the chest. HISTORY: chest pain. COMPARISON: 10/01/2022. FINDINGS: Lungs are clear. No pleural effusion, pulmonary edema, or pneumothorax.Atherosclerotic calcification of the aorta. Mild cardiomegaly. Bones aredemineralized. Mild degenerative changes of the spine and shoulders. IMPRESSION: No acute findings. -------- FINAL REPORT -------- Dictated By: Boy Galindo Dictated Date: 01/13/2025 08:17 ET Assigned Physician: Boy Galindo Reviewed and Electronically Signed By: Boy Galindo Signed Date: 01/13/2025 08:18 ET Workstation ID: [id number] Transcribed By: Self Edit Transcribed Date: 01/13/2025 08:17 ET Rik Spencer MD IMG XR PROCEDURES Final R esult * CBC auto differential (01/12/2025 5:54 PM EST) WBC 7.3 4.8 - 10.8 K/mcL LAB HEMETOLOGY METHOD 01/12/2025 6:07 PM [facility] RBC 4.80 3.80 - 4.80 M/mcL LAB HEMETOLOGY METHOD 01/12/2025 6:07 PM [facility] Hemoglobin 13.7 11.5 - 16.0 g/dL LAB HEMETOLOGY METHOD 01/12/2025 6:07 PM [facility] Hematocrit 40.4 35.0 - 47.0 % LAB HEMETOLOGY METHOD 01/12/2025 6:07 PM [facility] MCV 85.1 79.0 - 98.0 FL LAB HEMETOLOGY METHOD 01/12/2025 6:07 PM [facility] MCH 28.8 27.0 - 32.0 pcg LAB HEMETOLOGY METHOD 01/12/2025 6:07 PM [facility] MCHC 33.9 32.0 - 37.0 g/dL LAB HEMETOLOGY METHOD 01/12/2025 6:07 PM [facility] RDW 14.1 11.0 - 15.0 % LAB HEMETOLOGY METHOD 01/12/2025 6:07 PM [facility] Platelets 230 130 - 400 K/mcL LAB HEMETOLOGY METHOD 01/12/2025 6:07 PM [facility] MPV 10.0 7.0 - 11.0 FL LAB HEMETOLOGY METHOD 01/12/2025 6:07 PM [facility] NRBC 0.0 <1.0 % LAB HEMETOLOGY METHOD 01/12/2025 6:07 PM [facility] NRBC Absolute 0.00 <0.10 K/mcL LAB HEMETOLOGY METHOD 01/12/2025 6:07 PM [facility] Neutrophils Relative 53.7 % LAB HEMETOLOGY METHOD 01/12/2025 6:07 PM [facility] Lymphocytes Relative 38.1 % LAB HEMETOLOGY METHOD 01/12/2025 6:07 PM [facility] Monocytes Relative 6.6 % LAB HEMETOLOGY METHOD 01/12/2025 6:07 PM [facility] Eosinophils Relative 1.0 % LAB HEMETOLOGY METHOD 01/12/2025 6:07 PM [facility] Basophils Relative 0.3 % LAB HEMETOLOGY METHOD 01/12/2025 6:07 PM [facility] Immature Granulocytes Relative 0.3 % LAB HEMETOLOGY METHOD 01/12/2025 6:07 PM [facility] Neutrophils Absolute 3.90 1.50 - 7.00 K/mcL LAB HEMETOLOGY METHOD 01/12/2025 6:07 PM [facility] Lymphocytes Absolute 2.76 1.00 - 5.00 K/mcL LAB HEMETOLOGY METHOD 01/12/2025 6:07 PM [facility] Monocytes Absolute 0.48 0.20 - 1.00 K/mcL LAB HEMETOLOGY METHOD 01/12/2025 6:07 PM EST [facility] Eosinophils Absolute 0.07 0.00 - 0.50 K/[facility] LAB HEMETOLOGY METHOD 01/12/2025 6:07 PM EST [facility] Basophils Absolute 0.02 0.00 - 0.20 K/[facility] LAB HEMETOLOGY METHOD 01/12/2025 6:07 PM EST [facility] Immature Granulocytes Absolute 0.02 0.00 - 0.03 K/[facility] LAB HEMETOLOGY METHOD 01/12/2025 6:07 PM [facility] Blood Venous blood specimen / Unknown Venipuncture / Unknown 01/12/2025 5:54 PM EST 01/12/2025 6:00 PM EST Rik Spencer MD LAB BLOOD ORDERABLES Danna l Result [facility] [address] [place] [address], [place] [phone] * B-type natriuretic peptide (01/12/2025 5:54 PM EST) [facility] BNP 20 <=100 pcg/mL LAB CHEMISTRY METHOD 01/12/2025 6:38 PM EST [facility] Blood Venous blood specimen / Unknown Venipuncture / Unknown 01/12/2025 5:54 PM EST 01/12/2025 6:00 PM EST us Rik Spencer MD LAB BLOOD ORDERABLES Danna l Result [facility] [address] [place] [address], [place] [phone] * Magnesium (01/12/2025 5:54 PM EST) Magnesium 2.5 1.9 - 2.6 mg/dL LAB CHEMISTRY METHOD 01/12/2025 6:50 PM EST [facility] Comment:Hemolysis present Blood Venous blood specimen / Unknown Venipuncture / Unknown 01/12/2025 5:54 PM EST 01/12/2025 6:00 PM EST us Rik Spencer MD LAB BLOOD ORDERABLES Danna l Result Performing Organization Address City/[facility]/ZIP Co de Phone Number [facility] [address] [place] [address], [place] [phone] * Lipase (01/12/2025 5:54 PM EST) [facility] Lipase 33 13 - 75 unit/L LAB CHEMISTRY METHOD 01/12/2025 6:29 PM EST [facility] Blood Venous blood specimen / Unknown Venipuncture / Unknown 01/12/2025 5:54 PM EST 01/12/2025 6:00 PM EST us Rik Spencer MD LAB BLOOD ORDERABLES Danna l Result Performing Organization Address [facility]/ZIP Co de Phone Number [facility] [address] [place] [address], [place] [phone] * (ABNORMAL) Comprehensive metabolic panel (01/12/2025 5:54 PM EST) [facility] Sodium 137 133 - 145 mmol/L LAB CHEMISTRY METHOD 01/12/2025 6:50 PM [facility] Potassium 4.2 3.5 - 5.5 mmol/L LAB CHEMISTRY METHOD 01/12/2025 6:50 PM EST [facility] Comment:Hemolysis present Chloride 105 96 - 110 mmol/L LAB CHEMISTRY METHOD 01/12/2025 6:50 PM EST [facility] CO2 26 21 - 32 mmol/L LAB CHEMISTRY METHOD 01/12/2025 6:50 PM [facility] Anion Gap 6 3 - 11 LAB CHEMISTRY METHOD 01/12/2025 6:50 PM [facility] Glucose 94 70 - 100 mg/dL LAB CHEMISTRY METHOD 01/12/2025 6:50 PM [facility] BUN 14 5 - 25 mg/dL LAB CHEMISTRY METHOD 01/12/2025 6:50 PM [facility] Creatinine 0.84 0.50 - 1.10 mg/dL LAB CHEMISTRY METHOD 01/12/2025 6:50 PM [facility] eGFR 74 >=60 mL/min/1. 73m2 LAB CHEMISTRY METHOD 01/12/2025 6:50 PM [facility] Comment:Calculation based on the??Chronic Kidney Disease Epidemiology Collaboration (CKD-EPI) equation refit??without adjustment for race. BUN/Creatinine Ratio 16.7 LAB CHEMISTRY METHOD 01/12/2025 6:50 PM [facility] Calcium 9.5 8.5 - 10.5 mg/dL LAB CHEMISTRY METHOD 01/12/2025 6:50 PM [facility] AST (SGOT) 45(H) 10 - 42 unit/L LAB CHEMISTRY METHOD 01/12/2025 6:50 PM [facility] Comment:Hemolysis present ALT (SGPT) 51 10 - 60 unit/L LAB CHEMISTRY METHOD 01/12/2025 6:50 PM [facility] Alkaline Phosphatase 96 42 - 121 unit/L LAB CHEMISTRY METHOD 01/12/2025 6:50 PM [facility] Total Protein 7.2 6.0 - 8.0 g/dL LAB CHEMISTRY METHOD 01/12/2025 6:50 PM [facility] Albumin 3.7 3.2 - 5.0 g/dL LAB CHEMISTRY METHOD 01/12/2025 6:50 PM [facility] Total Bilirubin 1.1 0.0 - 1.4 mg/dL LAB CHEMISTRY METHOD 01/12/2025 6:50 PM EST [facility] Blood Venous blood specimen / Unknown Venipuncture / Unknown 01/12/2025 5:54 PM EST 01/12/2025 6:00 PM EST Rik Spencer MD LAB BLOOD ORDERABLES Danna l Result [facility] [address] [place] [address], * Hemoglobin A1c (05/15/2022) Hemoglobin A1C 6.5 <=6.5 % Blood Venous blood specimen / Unknown Historical Provider LAB BLOOD ORDERABLES Danna l Result * (ABNORMAL) Lipid panel (05/15/2022) LDL/HDL Ratio 4 0 - 4 Triglycerides 129 0 - 150 mg/dL Cholesterol 173 0 - 200 mg/dL HDL 40 >=40 mg/dL LDL Cholesterol 108(A) 0 - 100 mg/dL Blood Venous blood specimen / Unknown Historical Provider LAB BLOOD ORDERABLES Danna l Result * Hepatitis C Screening (05/01/2022) Pathologist [facility] Hepatitis C Screening Abstracted Historical Provider HEALTH MAINTENANCE Final Result * DXA BONE DENSITY STUDY 1+ SITS AXIAL SKEL (04/30/2022 2:51 PM EDT) Anatomical Region Laterality Modality Bone Densitometr y 04/28/2022 3:04 PM EDT Narrative 04/30/2022 5:42 PM EDT BONE DENSITY ? Lumbar Spine T-score is -1.8 ?? (SD relative to 20-29 y/o adult) Z-score is +0.2 ??(SD relative to age matched peers) This is consistent with osteopenia by criteria defined by the WHO. Left Hip T-score is -1.6 Z-score is +0.2 This is consistent with osteopenia by criteria defined by the WHO. Comparison exam(s):None Confidence level is +/-95%. Impression: Based on the World Health Organization criteria, Aysha Lloyd should be classified as having osteopenia. This patient has a 9% risk of major osteoporotic fracture and a 1.1% risk of hip fracture over the next 10 years. (World Health Organization Fracture Risk Assessment) [facility] Department of Internal Medicine recommends using National Osteoporosis Foundation (NOF) guidelines in treatment decisions related to osteoporosis. NOF guidelines suggest considering treatment for postmenopausal women and men aged 50 or older presenting with the following: History of hip or vertebral fracture. T-score less than or equal to -2.5 (DXA) at the femoral neck, total hip, or spine, after appropriate evaluation to exclude secondary causes. Low bone mass (T-score between -1.0 and -2.5 at the femoral neck or spine) AND a 10-year probability of a hip fracture greater than or equal to 3% OR a 10-year probability of a major osteoporosis-related fracture greater than or equal to 20% based on the [place]-adapted WHO algorithm Please note that all treatment decisions require clinical judgment and consideration of individual patient factors, including patient preferences, co-morbidities, previous drug use, risk factors not captured in the FRAX model (e.g., frailty, falls, vitamin D deficiency, increased bone turnover, interval significant decline in bone density) and possible under- or over-estimation of fracture risk by FRAX. Procedure Note Gabbie Way MD - 10/28/2022 BONE DENSITY Lumbar Spine T-score is -1.8 (SD relative to 20-29 y/o adult) Z-score is +0.2 (SD relative to age matched peers) This is consistent with osteopenia by criteria defined by the WHO. Left Hip T-score is -1.6 Z-score is +0.2 This is consistent with osteopenia by criteria defined by the WHO. Comparison exam(s):None Confidence level is +/-95%. Impression: Based on the World Health Organization criteria, Aysha Lloyd should beclassified as having osteopenia. This patient has a 9% risk of majorosteoporotic fracture and a 1.1% risk of hip fracture over the next 10years. (World Health Organization Fracture Risk Assessment) [facility] Department of Internal Medicine recommendsusing National Osteoporosis Foundation (NOF) guidelines in treatmentdecisions related to osteoporosis. NOF guidelines suggest consideringtreatment for postmenopausal women and men aged 50 or older presentingwith the following: History of hip or vertebral fracture. T-score less than or equal to -2.5 (DXA) at the femoral neck, total hip,or spine, after appropriate evaluation to exclude secondary causes. Low bone mass (T-score between -1.0 and -2.5 at the femoral neck or spine)AND a 10-year probability of a hip fracture greater than or equal to 3% ORa 10-year probability of a major osteoporosis-related fracture greaterthan or equal to 20% based on the [place]-adapted WHO algorithm Please note that all treatment decisions require clinical judgment andconsideration of individual patient factors, including patientpreferences, co-morbidities, previous drug use, risk factors not capturedin the FRAX model (e.g., frailty, falls, vitamin D deficiency, increasedbone turnover, interval significant decline in bone density) and possibleunder- or over-estimation of fracture risk by FRAX. Vj Tracy MD IMG DXA PROCEDURES Final Re sult * SCR MAMMO BI INCL CAD (01/22/2019 9:53 AM EDT) Anatomical Region Laterality Modality Radiographic Netta ging 01/07/2018 11:1 8 AM EST Narrative 01/24/2019 1:32 PM EDT This is a summary report. The complete report is available in the patient's medical record. If you cannot access the medical record, please contact the sending organization for a detailed fax or copy. Full field digital screening mammography, reviewed with CAD and compared to previous. The breast tissue is heterogeneously dense, limiting sensitivity. No suspicious mass, architectural distortion or suspicious calcifications are identified. IMPRESSION: : Dense breast tissue, limiting the sensitivity of mammography. No mammographic evidence of malignancy. BIRADS 1-Negative; N. 5 year breast cancer risk assessment 0.9 % Lifetime breast cancer risk assessment 3.7 % Breast cancer risk category Low (<15%) Procedure Note Bebe Owens MD - 10/28/2022 This is a summary report. The complete report is available in thepatient's medical record. If you cannot access the medical record, pleasecontact the sending organization for a detailed fax or copy. Full field digital screening mammography, reviewed with CAD and comparedto previous. The breast tissue is heterogeneously dense, limitingsensitivity. No suspicious mass, architectural distortion or suspiciouscalcifications are identified. IMPRESSION: : Dense breast tissue, limiting the sensitivity of mammography. Nomammographic evidence of malignancy. BIRADS 1-Negative; N. 5 year breast cancer risk assessment 0.9 % Lifetime breast cancer risk assessment 3.7 % Breast cancer risk category Low (<15%) Abelardo Richard MD IMG XR PROCEDURES Final Result * Colonoscopy (08/17/2017) Colonoscopy No interpretation , Abstracted Anatomical Region Laterality Modality Other Historical Provider HEALTH MAINTENANCE Final Result from Last 3 Months or Most Recently Relevant to Health Maintenance Insurance [facility] MEDICARE Member Subscriber Plan / Payer (Ef fective 2024-Present) Name:Aysha Lloyd Relation to Subscriber:Self Name:Aysha Lloyd Payer ID:[id number] Group ID:[id number] Type:Not on file Address: [place] [address] [address] [id number] Care Teams Diamond Wheel Molder Relationship Specialty Start Date End Date Earl Mazariegos MD [address] [place] [address] PCP - General Internal Medicine 10/03/14
--- OUTSIDE RECORDS SUMMARY | 2025-02-20 13:02 | XMS_ITS | Data Portability ---
Author Organization [email or web address] [facility], [facility] Address [address] [place] [phone] Care Team Providers Care Electronic Component Processor Name Role Phone HIM CCA OTHER SEBASTIAN GRECO Primary Care Provider Assessment Encounter Date Assessment Date Assessment LastModified by Organization Details LastModified Time 01/13/2025 01/13/2025 I provided real -time medical direction via phone for this encounter, and was available for additional phone based assistance as needed. I have reviewed and agree with the Assessment and Plan as documented by the Nurse Consultant. We discussed the diagnostic uncertainty of home visits and the risk associated with this. In this case the patient and I felt this to be an acceptable and reasonable amount of risk given the benefit of avoiding an ED visit given that she was seen in the ED yesterday. Expressed concern for the headache while normotensive and explained we cannot do a further neuro eval here and she might need imaging if she develops any worsening of symptoms.. The patient and her daughter verbalized understanding and they were given the opportunity to ask questions. 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 Lab glucose, fingerstick , blood 2024 025 [email or web address] [facility], [address] [place] [address], [id number] 14:09:23 rapid SARS CoV 2 Ag, QL IA, respiratory specimen 2024 025 [email or web address] 0 [facility], [address] [place] [address], [id number] 14:09:23 rapid flu (A+B) 2024 025 [email or web address] 0 [facility], [address] [place] [address], [phone] 14:09:24 Referral None recorded. Procedures None recorded. Surgeries None recorded. Imaging None recorded. Medication Orders acetaminoph en 500 mg tablet 2024 025 [email or web address] 0 [facility], [address] [place] [address], [id number], 14:09:23 meclizine 25 mg tablet 2024 025 [email or web address] 0 [facility], [address] [place] [address], [id number], 14:09:23 Patient TargetsNo targets recorded. Patient InstructionsNo instructions recorded. Reason for Referral None Reported. Results Created Date Observation Date Name Description Value Unit Range Abnormal Flag Note LastModifiedBy Organization Detail LastModifiedTime 01/14/2001/13/2025 rapid flu (A+B) Flu negati ve Not Available [facility] ed [address] [place] [address], [phone] 01/13/2025 14:09:07 01/14/2001/13/2025 rapid SARS CoV 2 Ag, QL IA, respi rator y speci men rapid SARS CoV 2 Ag, QL IA, respiratory specimen negati ve Not Available [facility] ed [address] [place] [address], [phone] 01/13/2025 14:09:07 01/14/2001/13/2025 gluco se, jaydon rstic k, blood Blood Glucose: mg/dl 292 Not Available [address], [phone] 01/13/2025 14:08:01 Result Notes None recorded. Medical Equipment None Reported. Allergies Allergen ID Allergen Name Allergen Category Reaction Reaction Severity Criticality Documentation Date Start Date Code Code System Note Provider Name and Address Organization Details Recorded Time 25492 amoxicill in medicatio n Not available Not available Not available 01/13/2025 723 RxNorm Not Available [facility] - production 12:34:47 Medications Name Sig Start Date Stop Date Status Note LastModified by Organization Details LastModified Time amoxicillin 500 mg capsule active Not Available Not Available N ot Available atorvastatin 80 mg tablet active Not Available Not Available No t Available simethicone 180 mg capsule active Not Available Not Available N ot Available clarithromycin 500 mg tablet active Not Available Not Availabl e Not Available fluconazole 200 mg tablet active Not Available Not Available No t Available sucralfate 1 gram tablet active Not Available Not Available Not Available famotidine 40 mg tablet active Not Available Not Available Not Available metronidazole 500 mg tablet active Not Available Not Available No t Available amlodipine 5 mg tablet active Not Available Not Available Not Available omeprazole 40 mg capsule,delayed release active Not Available Not Available Not Available aspirin 81 mg tablet,delayed release active Not Available Not Available Not Available famotidine 20 mg tablet active Not Available Not Available Not Available rifampin 150 mg capsule active Not Available Not Available Not Available pantoprazole 40 mg tablet,delayed release active Not Available Not Available Not Available nystatin 100,000 unit/gram topical cream active Not Available Not Available Not Available clotrimazole-beta methasone 1 %-0.05 % topical cream active Not Available Not Available Not Available clobetasol 0.05 % topical ointment active Not Available Not Avail able Not Available levofloxacin 750 mg tablet active Not Available Not Available No t Available scopolamine 1 mg over 3 days transdermal patch active Not Available Not Avai lable Not Available Stomach Relief 262 mg tablet active Not Available Not Availabl e Not Available solifenacin 10 mg tablet active Not Available Not Available Not Available cholecalciferol (vitamin D3) 50 mcg (2,000 unit) capsule active Not Available Not Available Not Available sodium,potassium, mag sulfates 17.5 gram-3.13 gram-1.6 gram oral soln active Not Available Not Available No t Available Vitals Date Recorded Heart rate Oxygen saturation Oxygen saturation in Arterial blood by Pulse oximetry Body temperature Respiratory rate Body weight Body height Systolic blood pressure Diastolic blood pressure Provider Name and Address Organization Details Last Updated DateTime 81 /min 95 % 95 % 98.7 [degF] 16 /min 48204.1 12 g 152.4 cm 138 mm[Hg] 76 mm[Hg] Not Available [facility] - production 13:59:31 Social History None recorded. Functional Status None recorded. Mental Status None recorded. Family History Nothing Reported. Medical History No medical history recorded. Gynecological HistoryNo gynecological history recorded. Obstetrics History GPAL:G 0 P 0 0 0 0 Past Encounters Encounter ID Performer Location Encounter Start Date Encounter Closed Date Diagnosis/Indication Diagnosis SNOMED-CT Code Diagnosis ICD10 Code Diagnosis Note [id number] Homa Hargrove MD [facility] - [facility] [address] [place] [address] 01/13/2025 13:59:20 01/13/2025 20:53:55 Dizziness 152816190 R42 tylenol-do se given for headache has 500 mg advised may have 3 g/24 hrs maximum-Pa tient is mildly hyperglyce roe-blood sugar was 94 in the ER yesterdayM vaughn has meclizine so we will give a dose now until she can get her prescripti on tomorrow. Health Concerns Section Related Observation LastModified by Organization Detai ls LastModified Time None Recorded Concern Status LastModified by Organization Details LastModified Time None Recorded Advance Directives Directive None Recorded Payers Encounter Date Sequence Insurance Name Policy Number Policy Jones Covered Member ID Jones Member ID Guarantor Name 01/13/2025 1 [facility] - DOS ON OR AFTER 2023 - DUAL ELIGIBLE - LONGTERM OPTIONS AND ONE CARE (MEDICARE REPLACEMENT/ADV ANTAGE - HMO) Aysha Lloyd [id number] Aysha Lloyd Notes Date Note Type Note Provider Name and Address Organization Details Recorded Time 01/13/2025 text/html [facility] Nurse Triage Notes (Tonya Ruffin): Reason For Request: PT went to ER yesterday for high blood pressure>SOB, tiredness today> Patient Reports: Shortness of breath with exertionDenies: Increased work of breathing/labored ? with or without fever Unable to speak in full sentences without distress Discoloration of skin -cyanosis Needs to sleep sitting up, can? t catch breath Shortness of breath in setting of confusion Cough, fever greater than 2 days Lower extremity swelling History of asthma, increased use of inhaler COPD Sputum increase Cough Pain with inspiration Chief Complaints: High Blood Pressure, Breathing ProblemsPMH: Hyperlipidemia, Hypertension, Diabetes Mellitus Type 2PMH Reviewed at 01/13/2025:34Allergies Reviewed at 01/13/2025:34Comments: [employer] verified the name//address and phone number.Pt went to the ER and was not given her anything for her BP. Pt was given a scopolamine patch and was found to have vertigo. She is having sob and fatigued. She is having dizziness when she gets up. BP 137/ 83 today, yesterday 169/118. She is sob when talking but not severely. No exp wheeze. No h/o asthma/ COPD. She has no cough/fever/chills . No chest pain. She denies any nausea or vomiting. She has DM > had her check while on the call 242 , she does not have any ISS or PO medication for diabetesEducation provided on the response time, and the Patient was advised to monitor reported s/s and seek emergency treatment if needed Nurse Consultant Organization Information for Pierre Quispe Legal Name: [employer].?Address: [address] [place] [address], [facility] Director: Lobito Jansen [facility] No.: [id number] Nurse Consultant POC Test Results from [facility] Rapid influenza antigen (13:48:29)Flu: -Attachments uploaded as part of this test result can be found under Documents section. Rapid COVID antigen (13:48:30)COVID: - .................. .................. .................. .................. .................. .................. .................. ............... Nurse Consultant Note From Pierre Quispe: EZ makes pt contact. She is sitting on her sofa in the living room of her small and well-kept apartment. She is conscious and alert and watching [facility] upon approach and smiling. She is not in acute distress. No ashen or kruger color is noted, no stridor or sonorous respirations are heard, and she is not bleeding anywhere. No acute neuro symptoms are observed. Daughter is on scene to assist w/ pmHx and translation. Pt endorses just feeling tired and I get a little dizzy when I stand up. She was in the ED yesterday w/ high blood pressure, chest pain, and dizziness. Labs were drawn and an EKG was obtained, and pt was dx w/ vertigo, prescribed meclizine and given a scopolamine patch and sent home. She is currently denying cp, n/v, sore throat, cough, sob abd pain. She says she is having some mild diarrhea, but thinks it is related to the abx she is taking for her H pylori. Pt is also c/o gale today that starts at the back of her head on the R side and wraps over the top to above her R eye. She has been noticing blurry vision for a few weeks, but has not noticed any one-sided weakness, confusion, or slurred speech. Pt consents to evaluation and tx today. [facility] obtains pt consent, vital signs, and pt is assessed. Physical exam is unremarkable. Cranial nerve assessment and CPSS is performed. Cranial nerves are grossly intact, CMS is equal bilateral and intact, and CPSS is negative. [facility] contacts [facility] and discusses the above. [facility] orders 12.5mg meclizine and 1G Tylenol PO and recommends pt contact her eye doctor as well as her PCP and instructs pt to call [facility] back if she is not feeling better tomorrow. [facility] informs pt of red flags and daughter and pt verbalize their understanding. [facility] administers PO medications as ordered, cutting one 25mg tablet of meclizine in half. [facility] is clear. Report completed by ERIK Quispe [id number]. [facility] [place] Orders: glucose, fingerstick, blood: Performed rapid SARS CoV 2 Ag, QL IA, respiratory specimen: Performed rapid flu (A+B): Performed [facility] Medication Orders: acetaminophen 500 mg tablet: Administered meclizine 25 mg tablet: Administered .................. .................. .................. .................. .................. .................. .................. ............... [facility] Consulted: Homa Hargrove .................. .................. .................. .................. .................. .................. .................. ............... Disposition: Fulfilled SEGMD: As above-patient complains of headache but has not taken anything for it. She does have blurry vision in both eyes for weeks no diplopia is not worse today. ER notes from [facility] from yesterday reviewed: CBC WNL-Chem normal except for SGOT of 45, BNP normal, troponin negative-EKG is described as no acute findings/ unchanged from prior. CXR was negative. Despite his complaints of hypertension chest pain and dizziness no brain imaging was done. She was diagnosed with vertigo given a Transderm scopolamine patch and 12.5 mg of meclizine. She was given a prescription for the meclizine but she does not have it yet her pharmacy is delivering it tomorrow. She has recently started on Flagyl and Biaxin 3 days ago for H. pylori. She denies melena or hematochezia. Her blood sugar was 240 earlier today. She denies any chest pain today any palpitations., Any focal numbness weakness or speech changes. PMH on record review HTN, diverticular disease, HPL fatty liver, lichen sclerosis, obesity and vitamin D deficiency Homa Hargrove MD [address] [place] [address],[address], [place], [phone], [employer] 01/13/2025 19:29:37 OBGyn Episode No OBEpisode recorded.
--- OUTSIDE RECORDS SUMMARY | 2025-02-20 13:02 | XMS_ITS | Encounter Summary ---
Author Organization [facility] Address [address] [place] [phone] Care Team Providers Care Lozenge Maker Name Role Phone Earl Mazariegos MD Primary Care Provider [phone] Reason for Visit * Reason Comments Cyst Scalp cyst Encounter Details Date Type Department Care Team ([facility] Contact Info) Description 02/20/2025 1:00 PM EDT Office Visit General Surgery [facility] [address] [phone] Sidney Arauz MD 175 [facility] [address] [place] [address] Arrived Social History Tobacco Use Types Packs/Day Years [...] PM EST documented as of this encounter Last Filed Vital Signs Vital Sign Reading Time Taken Comments Blood Pressure - - Pulse - - Temperature - - Respiratory Rate - - Oxygen Saturation - - Inhaled Oxygen Concentration - - Weight - - Height 152.4 cm (5') 02/20/2025 12:56 PM EDT Body Mass Index - - documented in this encounter Plan of Treatment Upcoming Encounters Date Type Department Care Team ([facility] Contact Info) Description 04/10/2025 1:30 PM EDT Office Visit Obstetrics & Gynecology - [facility] [address] [place] [address] Ellyn Berrios CNM [address] [place] [address] documented as of this encounter Visit Diagnoses Not on filedocumented in this encounter Care Teams Lozenge Maker Relationship Specialty Start Date End Date Earl Mazariegos MD [address] [place] [address] PCP - General Internal Medicine 10/03/14 documented as of this encounter
== END ==
PROVIDERS: PCP Internal Medicine; Visit Provider Internal Medicine
DX: R10.9 Unspecified abdominal pain (principal); E78.00 Pure hypercholesterolemia, unspecified; F33.0 Major depressive disorder, recurrent, mild; R73.02 Impaired glucose tolerance (oral); K21.9 Gastro-esophageal reflux disease without esophagitis; K59.04 Chronic idiopathic constipation

== ENCOUNTER 2025-03-22 15:12 | Outpatient (REF) | payer OTHER, SELFPAY ==
--- NOTE | ~2025-03-22 | US_ITS ---
EXAMINATION: US KIDNEY BILATERAL HISTORY: R10.9 - RIGHT FLANK PAIN; MICROSCOPIC HEMATURIA TECHNIQUE: Real-time grayscale ultrasound imaging of the kidneys was performed and images were reviewed. COMPARISON: Comparison is made with the prior examination dated 11/13/2022. Correlation is also made with a CT of the abdomen with contrast dated 02/26/2023. FINDINGS: Right kidney: The right kidney measures 10.7 x 4.4 x 4.3 cm. Renal parenchymal echotexture and thickness are normal. There are no masses. There is no hydronephrosis or renal calculi. Left Kidney: The left kidney measures 11.1 x 4.8 x 4.2 cm. Renal parenchymal echotexture and thickness are normal. There is a hypertrophied column of Ahsan. Again seen is a 7 mm echogenic focus at the upper pole of the kidney consistent with an angiomyolipoma. There is no hydronephrosis or renal calculi. 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 Otherwise unremarkable renal ultrasound. Electronically signed by: Dalton Galindo MD 03/23/2025 07:04 AM EDT
== END 2025-03-22 15:13 | disposition home or self-care (01) ==
LOC: HO.US 15:12
PROVIDERS: PCP Internal Medicine; Visit Provider Internal Medicine
DX: R10.9 Unspecified abdominal pain (principal); R31.29 Other microscopic hematuria
CPT/HCPCS: 76775

== ENCOUNTER → 2025-03-22 15:13 | Outpatient (BNV) | payer OTHER, SELFPAY | PROVIDERS: PCP Internal Medicine; Visit Provider Radiology Diagnostic Radiology | DX: D17.71 Benign lipomatous neoplasm of kidney (principal) | CPT/HCPCS: 76775 ==

== ENCOUNTER 2025-04-11 13:22 | Outpatient (REF) | payer OTHER, SELFPAY ==
--- OUTSIDE RECORDS SUMMARY | 2025-04-11 14:55 | XMS_ITS | Encounter Summary ---
Author Organization [facility] Address [address] [place] [address] Care Team Providers Care Dining Room Attendant Cafeteria Name Role Phone Earl Mazariegos MD Primary Care Provider [phone] Reason for Referral * Imaging (Routine) - Pending Review Specialty Diagnoses / Procedures Referred By Jessie multani Referred To Contact Radiology Diagnoses Encounter for gynecological examination without abnormal finding Procedures US Pelvis Non OB Complete w Transvaginal Ellyn Berrios CNM [address] [place] [address] Phone: tel: fax: [address] [address] Phone: tel: Referral ID Status Reason Start Date Expiration Date V isits Requested Visits Authorized [id number] Pending Review 04/10/2025 04/10/2026 1 1 Reason for Visit * Reason Comments Annual Exam Encounter Details Date Type Department Care Team (Latest Contact Info) Description 04/10/2025 1:30 PM EDT Office Visit Obstetrics & Gynecology - [address] [address] Ellyn Berrios CNM [address] [place] [address] Encounter for gynecological examination without abnormal finding (Primary Dx); Vitamin D deficiency; History of total hysterectomy; Class 2 severe obesity due to excess calories with serious comorbidity and body mass index (BMI) of 37.0 to 37.9 in adult (CMS/HCC V24, [facility] V28) Social History Tobacco Use Types Packs/Day Years [...] Sign Reading Time Taken Comments Blood Pressure 134/80 04/10/2025 1:33 PM EDT Pulse 96 04/10/2025 1:33 PM EDT Temperature - - Respiratory Rate - - Oxygen Saturation - - Inhaled Oxygen Concentration - - Weight 86.2 kg (190 lb) 04/10/2025 1:33 PM EDT Height 152.4 cm (5') 04/10/2025 1:33 PM EDT Body Mass Index 37.11 04/10/2025 1:33 PM EDT documented in this encounter Progress Notes * Ellyn Berrios, CAMILLE - 04/10/2025 1:30 PM EDT .OSubjective Patient ID: Aysha Lloyd is a 69 y.o. female. Chief Complaint Patient presents with Annual Exam Pt here for her annual [employer] exam She is c/o breast and pelvic pain for 1 1/2 weeks. H/O hysterectomy and diverticulosis Colonoscopy is scheduled for 08/2025 Mammogram 2023 normal and annual is schedule for tomorrow with [facility] Gynecologic Exam The patient's primary symptoms include pelvic pain. The patient's pertinent negatives include no vaginal bleeding or vaginal discharge. This is a new problem. The current episode started 1 to 4 weeksago. The problem occurs constantly. The problem has been unchanged. The problem affects both sides. Associated symptoms include constipation and diarrhea. The symptoms are aggravated by eating. She has tried nothing for the symptoms. She is not sexually active. She uses hysterectomy for contraception. A provider reviewed the following portions of the patient's chart in this encounter and updated as appropriate: Sections Reviewed Obstetric, Custom, Tobacco, Alcohol, Drug Use, Sexual Activity, Medical, Surgical, Family Review of Systems Constitutional: Negative. Respiratory: Negative. Gastrointestinal: Positive for constipation and diarrhea. Endocrine: Negative. Genitourinary: Positive for pelvic pain. Negative for vaginal discharge. Musculoskeletal: Negative. Breast: Positive for breast pain. Allergic/Immunologic: Negative. Neurological: Negative. Hematological: Negative. Psychiatric/Behavioral: Negative. Objective Physical Exam Constitutional: Appearance: Normal appearance. Genitourinary: Urethral meatus normal. No lesions in the vagina. Right Labia: No rash, lesions or skin changes. Left Labia: No lesions, skin changes or rash. No vaginal erythema. Right Adnexa: no mass present. Left Adnexa: no mass present. Cervix is absent. Uterus is absent. Rectum: No rectal mass or external hemorrhoid. Breasts: Breasts are symmetrical. Breasts are soft. Right: Tenderness present. No mass. Left: Tenderness present. No mass. Cardiovascular: Rate and Rhythm: Normal rate. Pulmonary: Effort: Pulmonary effort is normal. Abdominal: Palpations: Abdomen is soft. There is no mass. Tenderness: There is no abdominal tenderness. Musculoskeletal: General: Normal range of motion. Lymphadenopathy: Upper Body: Right upper body: No axillary adenopathy. Left upper body: No axillary adenopathy. Neurological: General: No focal deficit present. Mental Status: She is alert. Skin: General: Skin is warm and dry. Psychiatric: Mood and Affect: Mood normal. Assessment/Plan Encounter for gynecological examination without abnormal finding (Primary) - US Pelvis Non OB Complete w Transvaginal; Future - Wet prep, genital - Trichomonas vaginalis antigen PLAN: During the visit, the following areas of concern were addressed: Regular exercise Healthy lifestyle Breast self-examination on a regular basis Menopausal/perimenopausal signs and symptoms, including non-prescription strategies for management Regular gynecologic examinations and frequency of Pap smears Osteoporosis risk assessment and importance of calcium and vitamin D from dietary sources or supplementation Screening strategies for colon cancer after age 50 Importance of yearly mammography after age 40 (earlier if first-degree relative with breast cancer at a younger age) Family and personal history of cancer reviewed. Based on this evaluation, neither BR CA nor Hernandez testing are indicated. the patient is overweight. Approaches towards weight loss are discussed, including burning more calories than one takes in by frequent, small meals, portion control, avoiding eating before bedtime, regular exercise with an emphasis on duration rather than intensity and strength training exercise documented in this encounter Plan of Treatment Upcoming Encounters Date Type Department Care Team (Late st Contact Info) Description 04/14/2025 10:00 AM EDT Clinical Support General Surgery [facility] [address] [place] [address] Scheduled Orders Name Type Priority Associated Diagnoses Orde r Schedule US Pelvis Non OB Complete w Transvaginal Imaging Routine Encounter for gynecological examination without abnormal finding Expected: 04/10/2025, Expires: 04/10/2026 documented as of this encounter Procedures Procedure Name Priority Date/Time Associated Diagnosis Comments TRICHOMONAS VAGINALIS ANTIGEN Routine 04/10/2025 3:31 PM EDT Encounter for gynecological examination without abnormal finding WET PREP, GENITAL Routine 04/10/2025 3:3 1 PM EDT Encounter for gynecological examination without abnormal finding documented in this encounter Results * Trichomonas vaginalis antigen (04/10/2025 3:31 PM EDT) Trichomonas vaginalis Negative Negative 04/10/2025 9:07 PM EDT [facility] Swab Vaginal structure / Unknown Non-blood Collection / Unknown 04/10/2025 3:31 PM EDT 04/10/2025 4:10 PM EDT us Ellyn Berrios CNM [facility] Final Result [facility] [address] [place] [address], * Wet prep, genital (04/10/2025 3:31 PM EDT) Clue Cells, Wet Prep Negative Negative 04/10/2025 8:51 PM EDT [facility] Yeast, Wet Prep Negative Negative 04/10/2025 8:51 PM EDT [facility] Trichomonas, Wet Prep Indeterminate Negative 04/10/2025 8:51 PM EDT [facility] Comment:Refer to Trichomonas antigen. Swab Vaginal structure / Unknown Non-blood Collection / Unknown 04/10/2025 3:31 PM EDT 04/10/2025 4:10 PM EDT us Ellyn GASTON LAB MICROBIOLOGY - GENERAL MARY KAY WAN Final Result [facility] [address] [place] [address], documented in this encounter Visit Diagnoses Diagnosis Encounter for gynecological examination without abnormal finding- Primary Vitamin D deficiency History of total hysterectomy Class 2 severe obesity due to excess calories with serious comorbidity and body mass index (BMI) of 37.0 to 37.9 in adult (CMS/HCC V24, [facility] V28) documented in this encounter Care Teams Dining Room Attendant Cafeteria Relationship Specialty Start Date End Date Earl Mazariegos MD [address] [place] [address] PCP - General Internal Medicine 10/03/14 documented as of this encounter
== END 2025-04-11 13:23 | disposition home or self-care (01) ==
LOC: HO.MAMMO 13:22
PROVIDERS: PCP Internal Medicine; Visit Provider Internal Medicine
DX: Z12.31 Encounter for screening mammogram for malignant neoplasm of breast (principal)
CPT/HCPCS: 77063; 77067

== ENCOUNTER → 2025-04-11 13:45 | Outpatient (BNV) | payer OTHER, SELFPAY | PROVIDERS: PCP Internal Medicine; Visit Provider Internal Medicine | DX: Z12.31 Encounter for screening mammogram for malignant neoplasm of breast (principal) | CPT/HCPCS: 77063; 77067 ==

== ENCOUNTER 2025-04-24 09:47 | Outpatient (AMB) | payer OTHER, SELFPAY ==
[2025-04-24 09:58] VITALS: BP 130/82; PULSE 78; BMI 37.0
--- NOTE | 2025-04-24 09:58 | MHC.OFFVIS ---
Vital Signs 04/24/25 09:58 Height 5 ft Weight 189 lb 9.561 oz BMI 37.0 BP 130/82 Blood Pressure Location Lt brachial Position Sitting Pulse 78 Pulse Source Pulse Oximeter Intake Visit Reasons: 6 mth f/up Computer Technology Instructor Required: No Allergies Amoxicillin Allergy (Severe, Uncoded 04/24/25 10:07) Itching Medication List - Last Reconciled 04/24/25 by YOLANDE Pina acetaminophen ER (Arthritis Pain Reliever) 1,300 mg PO Q8H [adjustable bed rail As directed] alcohol swabs (Alcohol Prep Pads) 1 pad topical DAILY amlodipine 5 mg PO DAILY aspirin (Enteric Coated Aspirin) 81 mg PO DAILY atorvastatin 80 mg PO BEDTIME [bed stool As directed] bismuth subsalicylate (Bismuth) 2 tabs PO QID 42 days blood sugar diagnostic (FreeStyle Test strips) As directed once daily calcium carbonate-simethicone 1,000-60 mg (Maalox Advanced) 1 tab PO QID PRN cholecalciferol (vitamin D3) 50 mcg PO DAILY docusate sodium (Colace) 100 mg PO DAILY PRN famotidine (Pepcid) 40 mg PO BEDTIME lancets (FreeStyle Lancets) As directed once daily meclizine 12.5 mg PO TID nystatin 1 appl topical DAILY PRN 2 weeks omeprazole 40 mg PO BID pantoprazole 80 mg (2 x 40 mg) PO BID simethicone 180 mg PO QID 30 days solifenacin 10 mg PO DAILY sucralfate (Carafate) 2 grams (2 x 1 gram) PO QNOON HPI HPI 6 mth f/up: Details: Aysha is a 69-year-old female with past medical history of hypertension, hyperlipidemia, impaired fasting glucose, GERD, abnormal EKG, nonobstructive coronary artery disease, who was seen in the [facility] Emergency room 3 days ago with chest discomfort. She ruled out for ACS and now presents for follow-up. Today she states that she has been getting sharp discomfort in her chest that is causing much concern. She will get it with physical activity and at rest. She also notices some discomfort when she takes a deep breath at times but is unclear if it is the same pain. She has some shortness of breath with activity as well and states this symptom is unchanged recently. She has no epigastric discomfort and believes that her reflux is under control. No shortness of breath at rest, PND, orthopnea or edema. No palpitations, lightheadedness, presyncope, syncope, falls. She has been taking meds as directed. Her daughter is present and helping with Albanian translation. [facility] Medical History Helicobacter pylori stool test positive Physical exam Unstable angina Vaginal discharge Oral greg Candidal skin infection Chest pain Abdominal pain Abdominal bloating Candidiasis of mouth and esophagus Adult general medical exam Screening for colon cancer Right upper quadrant abdominal pain Hospital discharge follow-up Muscular aches Costovertebral angle tenderness Dyslipidemia Mild recurrent major depression Chest pain Multinodular thyroid Hyperparathyroidism Vitamin D deficiency Hypercalcemia Surgical History History of cardiac catheterization History of parathyroidectomy Hx of colonoscopy History of hysterectomy Hx of endoscopy Family History Father Prostate cancer Mother HTN (hypertension) Asthma Heart disease Son Stomach cancer Social History Household Members: Spouse Housing: House Alcohol intake: never Patient Tobacco Use Status: Former Tobacco user e-Cigarette/Vaping Use: Never Used Second Hand Smoke Exposure: No service: No Current occupational status: disabled Cognitive needs: No Hearing needs: No Vision needs: No Female Reproductive History Menstrual Age of Menarche: 9 Review of Systems Const All systems reviewed & are unremarkable except as noted in HPI and below ENT Denies dizziness Card Details: some discomfort at times with deep breath Reports chest pain, Reports chest pain at rest, Reports chest pain with activity, Denies rapid heart rate, Denies pedal edema, Denies edema, Denies leg edema, Denies lightheadedness, Denies palpitations, Denies dyspnea, Denies dyspnea on exertion and Denies orthopnea Resp Denies cough, Denies dyspnea and Denies dyspnea on exertion GI Denies hematochezia and Denies change in stool character Musc Denies abnormal gait, Denies limited range of motion, Denies muscle cramps, Denies muscle weakness, Denies numbness, Denies radiating pain into limb, Denies stiffness and Denies tingling Neuro Denies abnormal gait, Denies dizziness, Denies numbness and Denies tingling Endo Denies palpitations Physical Exam Vital Signs: BMI result Body Mass Index 37.0 Const General: cooperative, healthy appearing, comfortable and no acute distress Orientation/consciousness: patient oriented x3 Neck Neck: Yes normal visual inspection Resp Effort & Inspection: normal respiratory effort Auscultation: clear to auscultation bilaterally, no crackles, no rales, no rhonchi and no wheezes Cardio Rate: regular rate Rhythm: regular rhythm Heart sounds: S1 normal heart sound present, S2 normal heart sound present, no gallops, no murmurs and no rubs Peripheral pulses: Peripheral pulses 2+ throughout Neuro General: patient oriented x3 Extrem General: Yes normal to inspection, No no pedal edema and No calf tenderness Psych Appearance: grossly normal Mental Status: mental status grossly normal Speech and movement: Normal speech and movement present Assessment & Plan Assessment & Plan (1) Chest pain: Code(s): R07.9 - Chest pain, unspecified Category: Medical Plan: Atypical sounding chest discomfort however occurring more frequently and with shortness of breath at times. She was evaluated in the [facility] Emergency room for her symptom on 04/22/2025. She ruled out for ACS. She does have multiple cardiac risk factors including hypertension, hyperlipidemia, diabetes and obesity. She has known nonobstructive coronary artery disease with cardiac catheterization on 10/16/2022 which showing nonobstructive coronary artery disease. Her EKG from today does show incomplete right bundle branch block with T-wave inversions in the anterior leads which is not new. An echocardiogram from 11/21/2024 showed EF 61%, no regional wall motion abnormalities, small loculated pericardial effusion. At this time will order a pharmacological nuclear stress test to evaluate for ischemia. Will have her continue on amlodipine. Continue aspirin and atorvastatin. Emergency care if needed for symptoms. Cardiology follow-up 6-8 weeks, sooner if needed.. (2) History of cardiac catheterization: Comment: 10/2022 [facility], left main normal, lad 1st diagonal 40% stenosis, mid LAD 40% stenosis, left circumflex normal, RCA proximal ectasia. Code(s): Z98.890 - Other specified postprocedural states Category: Surgical Plan: As above (3) CAD (coronary artery disease): Code(s): I25.10 - Atherosclerotic heart disease of [place] coronary artery without angina pectoris Category: Medical Plan: Nonobstructive coronary artery disease. Current symptoms sound atypical. Nuclear stress test pending. (4) HTN (hypertension), benign: Code(s): I10 - Essential (primary) hypertension Category: Medical Plan: Blood pressure goal less than 130/80. Well controlled at present. On last visit she told me she skips her medications on some days. The importance of strict daily compliance reviewed. (5) High cholesterol: Code(s): E78.00 - Pure hypercholesterolemia, unspecified Category: Medical Plan: Soldier LDL goal less than 70 in patient with CAD. Labs done 11/21/2024 showed LDL 113. Will add Zetia 10 mg daily. Continue high-dose atorvastatin. Plan In our discussion, I explained the possibility of increasing coronary blockage as the potential cause for the patient's chest discomfort. To assess this, I recommended a pharmacological stress test to evaluate the heart's responses without physical exertion. We discussed the non-invasiveness of the stress test, emphasizing the capability of the procedure to remain effective without her needing to walk on a treadmill. I reassured the patient about the presence of medical staff during the scan to manage potential anxiety. Her current cholesterol management with atorvastatin doesn't optimally control LDL levels; consequently, I advised adding Zetia. We conferred about leveraging local community resources for immediate mobility support and obtaining necessary referrals through her primary physician for new equipment, ensuring all aspects of care are adequately addressed. Orders: Orders CA lexiscan stress w alfredo Today I25.10 - Atherosclerotic heart disease of [place] coronary artery without angina pectoris, R07.9 - Chest pain, unspecified NM cardiolite stress test Today I25.10 - Atherosclerotic heart disease of [place] coronary artery without angina pectoris, R07.9 - Chest pain, unspecified Medications: New ezetimibe (Zetia) 10 mg PO DAILY 30 tabs 5RF Patient Instructions: - Attend the scheduled pharmacological stress test when called. - Begin taking Zetia in addition to atorvastatin for cholesterol management. - Consult her primary physician for a mobility aid referral. - Visit the local [facility] for temporary use of mobility equipment. - Discuss any worsening of symptoms or new concerns promptly. - Maintain adherence to current cardiac medications and lifestyle modifications as discussed. Patient was informed and verbally consented to the use of an ambient scribe for clinic note documentation during this visit. Visit time spent on chart review, interview, assessment, orders, documentation. Coding Level of Care Code Est Pt Level 4 (90695) Complex EM visit Add On G2211 Diagnoses Chest pain R07.9 History of cardiac catheterization Z98.890 CAD (coronary artery disease) I25.10 HTN (hypertension), benign I10 High cholesterol E78.00 Time Spent (min) 28
--- OUTSIDE RECORDS SUMMARY | 2025-04-24 10:43 | XMS_ITS | Continuity of Care Document ---
Author Name Noble Caldera Address [address] [place] [id number] Organization Unknown Address [address] [place] [address] Medications No known medications Problems No known problems
== END 2025-04-24 10:33 | disposition home or self-care (01) ==
LOC: HO.HCS 09:48
PROVIDERS: PCP Internal Medicine; Visit Provider Nurse Practitioner Family
DX: R07.9 Chest pain, unspecified (principal); Z98.890 Other specified postprocedural states; I25.10 Atherosclerotic heart disease of native coronary artery without angina pectoris; I10 Essential (primary) hypertension; E78.00 Pure hypercholesterolemia, unspecified
CPT/HCPCS: 99214; G2211

== ENCOUNTER → 2025-04-24 09:47 | Outpatient (BNVA) | payer OTHER, SELFPAY | PROVIDERS: PCP Internal Medicine; Visit Provider Nurse Practitioner Family | DX: E11.9 Type 2 diabetes mellitus without complications (principal); I45.10 Unspecified right bundle-branch block; I87.2 Venous insufficiency (chronic) (peripheral); E78.00 Pure hypercholesterolemia, unspecified; F33.0 Major depressive disorder, recurrent, mild; K21.9 Gastro-esophageal reflux disease without esophagitis; I10 Essential (primary) hypertension; Z13.31 Encounter for screening for depression; R07.9 Chest pain, unspecified; I25.10 Atherosclerotic heart disease of native coronary artery without angina pectoris; Z79.899 Other long term (current) drug therapy; Z98.890 Other specified postprocedural states | CPT/HCPCS: 96127; 99212 ==

== ENCOUNTER 2025-04-24 16:07 | Outpatient (AMB) | payer OTHER, SELFPAY ==
--- NOTE | 2025-04-24 16:12 | A.OFFPC_ITS ---
Vital Signs 04/24/25 16:13 Height 5 ft Weight 190 lb BMI 37.1 BP 128/80 Blood Pressure Location Lt brachial Position Sitting Intake Visit [place]asons[place] [facility] [place] Pelvic/Chest pain Interactive Producer Required: No Accompanied by: Son Allergies Amoxicillin Allergy (Severe, Uncoded 04/24/25 16:30) Itching Medication List - Last Reconciled 04/24/25 by Sakshi Prakash MD acetaminophen ER (Arthritis Pain Reliever) 1,300 mg PO Q8H [adjustable bed rail As directed] alcohol swabs (Alcohol Prep Pads) 1 pad topical DAILY amlodipine 5 mg PO DAILY aspirin (Enteric Coated Aspirin) 81 mg PO DAILY atorvastatin 80 mg PO BEDTIME [bed stool As directed] bismuth subsalicylate (Bismuth) 2 tabs PO QID 42 days blood sugar diagnostic (FreeStyle Test strips) As directed once daily calcium carbonate-simethicone 1,000-60 mg (Maalox Advanced) 1 tab PO QID PRN cholecalciferol (vitamin D3) 50 mcg PO DAILY docusate sodium (Colace) 100 mg PO DAILY PRN ezetimibe (Zetia) 10 mg PO DAILY famotidine (Pepcid) 40 mg PO BEDTIME lancets (FreeStyle Lancets) As directed once daily meclizine 12.5 mg PO TID nystatin 1 appl topical DAILY PRN 2 weeks omeprazole 40 mg PO BID pantoprazole 80 mg (2 x 40 mg) PO BID simethicone 180 mg PO QID 30 days solifenacin 10 mg PO DAILY sucralfate (Carafate) 2 grams (2 x 1 gram) PO QNOON Tobacco use date assessed: 02/20/25 Fall risk assessment: No Falls in past year Last assessed Fall Risk: 04/24/25 Dental Screening Dental Screen Date: 02/20/25 HPI HPI Comments History of Present Illness0 Details The patient is a 69-year-old female presenting for hospital discharge follow-up from [facility] with discharge date 04/21/2025 with chest pain and follow -up on cardiac health. She underwent an echocardiogram in November, which showed an ejection fraction of 61%, but changes were noted in the EKG, including a right bundle branch block. The patient experiences chest pain, prompting further evaluation to rule out ischemia. She has diabetes mellitus type 2 and last A1c was about a month ago and it was around 7.2%. She does not want to start medication but I will start her on metformin at least once a day. The patient has a known allergy to amoxicillin, which causes a rash. Her current medications include Tylenol, amlodipine 5 mg for hypertension, baby aspirin, atorvastatin 80 mg for hyperlipidemia, calcium, Maalox, vitamin D, Colace for constipation, and ezetimibe 10 mg. She also takes omeprazole for gastroesophageal reflux disease, preferring it over pantoprazole due to its effectiveness. GERD stable with PPIs. Labs will be order and her LDL goal should be less than 70. The patient reports feeling tired and experiences pelvic pain that affects her ability to walk. She has a history of venous insufficiency, with previous swelling in both feet and a bone protrusion noted by a milling planer operator two years ago. The patient did not follow up with the milling planer operator due to dissatisfaction with the previous consultation. Recent laboratory tests indicated elevated blood glucose levels, and the patient was advised on the potential risks of uncontrolled hyperglycemia, including cardiovascular and renal complications. [facility] Medical History (Updated 04/24/25 @ 16:41 by Sakshi Prakash MD) Helicobacter pylori stool test positive Physical exam Unstable angina Vaginal discharge Oral greg Candidal skin infection Chest pain Abdominal pain Abdominal bloating Candidiasis of mouth and esophagus Adult general medical exam Screening for colon cancer Right upper quadrant abdominal pain Hospital discharge follow-up Muscular aches Costovertebral angle tenderness Dyslipidemia Mild recurrent major depression Chest pain Multinodular thyroid Hyperparathyroidism Vitamin D deficiency Hypercalcemia Surgical History History of cardiac catheterization History of parathyroidectomy Hx of colonoscopy History of hysterectomy Hx of endoscopy Family History Father Prostate cancer Mother HTN (hypertension) Asthma Heart disease Son Stomach cancer Social History Household Members: Spouse Housing: House Alcohol intake: never Patient Tobacco Use Status: Former Tobacco user e-Cigarette/Vaping Use: Never Used Second Hand Smoke Exposure: No service: No Current occupational status: disabled Cognitive needs: No Hearing needs: No Vision needs: No Female Reproductive History Menstrual Age of Menarche: 9 Questionnaire PHQ-9 Over the last 2 weeks, how often have you been bothered by any of the following problems? 1. Little interest or pleasure in doing things: not at all 2. Feeling down, depressed, or hopeless: not at all 3. Trouble falling or staying asleep, or sleeping too much: not at all 4. Feeling tired or having little energy: several days 5. Poor appetite or overeating: several days 6. Feeling bad about yourself - or that you are a failure or have let yourself or your family down: not at all 7. Trouble concentrating on things, such as reading the newspaper or watching television: not at all 8. Moving or speaking so slowly that other people could have noticed. Or the opposite - being so fidgety or restless that you have been moving around a lot more than usual: not at all 9. Thoughts that you would be better off or of hurting yourself in some way: not at all Total score: 2 Depression Screening Interpretation: Negative Depression Screening Done: Yes 58904 - PHQ-9 Billing: Yes Source: Developed by Drs. Dalton Abraham, Orquidea Tobias, Austin Yanez and colleagues, with an educational ethan from [employer]. Thrive Questionnaire Date Thrive assessed: 04/24/25 I am a: Patient What is your living situation today?: I have a steady place to live Within the past 12 months, did the food you bought not last and you didn't have the money to get more?: I choose not to answer this question Within the past 12 months, did you worry whether your food would run out before you got money to buy more?: I choose not to answer this question Do you have trouble paying for medicines?: No Do you have trouble getting transportation to medical appointments?: No Do you have trouble paying your heating and electricity bill?: No Do you have trouble taking care of your child, family member or friend?: No Do you have trouble with day-to-day activities such as bathing, preparing meals, shopping, managing finances, etc.?: No Are you currently unemployed and looking for a job?: I choose not to answer this question Are you interested in more education?: No Please select the resources that you would like help with: None Currently or been in a relationship where the following occur: I choose not to answer THRIVE Score: 0 AUDIT C Alcohol Use Questionnaire (AUDIT-C) 1. How often do you have a drink containing alcohol?: Never Total Score: 0 NEGIN-7 AMB Questionnaire NEGIN-7 Date NEGIN - 7 assessed: 02/20/25 Feeling nervous, anxious, or on edge: 1 = Several days Not being able to stop or control worryin = Not at all Worrying too much about different things: 0 = Not at all Trouble relaxin = Several days Being so restless that it is hard to sit still: 0 = Not at all Becoming easily annoyed or irritable: 0 = Not at all Feeling afraid as if something awful might happen: 0 = Not at all Total NEGIN-7 score (0-4 normal; 5-9 mild; 10-14 moderate; 15-21 severe): 2 Source: Developed by Drs. Dalton Abraham, Orquidea Tobias, Austin Yanez and colleagues, with an educational ethan from [employer]. NEGIN-7 Assessment Billing NEGIN-7 Assessment Tool: NEGIN-7 Assessment 79913 Review of Systems Const All systems reviewed & are unremarkable except as noted in HPI and below Card Denies chest pain at rest, Denies chest pain with activity, Denies edema, Denies irregular heart rhythm, Denies claudication, Denies dyspnea, Denies dyspnea on exertion, Denies orthopnea, Denies paroxysmal nocturnal dyspnea and Denies slow heart rate Resp Denies cough, Denies dyspnea and Denies dyspnea on exertion GI Denies abdominal pain, Denies change in bowel habits, Denies excessive flatus, Denies nausea and Denies vomiting Denies urinary incontinence, Denies urinary hesitancy and Denies urinary urgency Musc Denies atrophy, Denies deformity and Denies limited range of motion Physical exam (Primary Care) Vital Signs: Last Vital Signs BP 128/80 04/24/25 16:13 BMI result Body Mass Index 37.1 BMI Assessment/Plan discussion: High BMI High, discussed plan: lifestyle, weight reduction, dietary and physical activity Tobacco/Smoking Status: Tobacco use Status Tobacco use date assessed 02/20/25 04/24/25 16:18 Patient Tobacco Use Status Former Tobacco user 04/24/25 16:18 Tobacco use type 04/24/25 16:18 e-Cigarette/Vaping Use Never Used 04/24/25 16:18 PHQ-9: PHQ-9 Score PHQ-9: Total score 2 04/24/25 16:18 Depression Screening Interpretation: Negative Thrive Assessment: Date of Thrive Assessment Date Thrive assessed 04/24/25 04/24/25 16:18 Currently or been in a relationship where the following occur: I choose not to answer Resp Effort & Inspection: normal respiratory effort Auscultation: clear to auscultation bilaterally Cardio Jugular venous distension: no JVD Rate: regular rate Rhythm: regular rhythm Heart sounds: S1 normal heart sound present and S2 normal heart sound present Extrem General: Yes full ROM Coding Level of Care Code Est Pt Level 4 (01066) Complex EM visit Add On G2211 Diagnoses Diabetes mellitus E11.9 Venous (peripheral) insufficiency I87.2 Pure hypercholesterolemia E78.00 Mild recurrent major depression F33.0 GERD (gastroesophageal reflux disease) K21.9 HTN (hypertension), benign I10 Additional Codes PHQ-9 - 15615 - PHQ-9 Billing: Yes ([id number]) NEGIN-7 Assessment Billing - NEGIN-7 Assessment Tool: NEGIN-7 Assessment 36411 ([id number]) Time Spent (min) 23 Assessment & Plan Assessment & Plan (1) Diabetes mellitus: Code(s): E11.9 - Type 2 diabetes mellitus without complications Category: Medical (2) Venous (peripheral) insufficiency: Code(s): I87.2 - Venous insufficiency (chronic) (peripheral) Category: Medical (3) Pure hypercholesterolemia: Code(s): E78.00 - Pure hypercholesterolemia, unspecified Category: Medical (4) Mild recurrent major depression: Code(s): F33.0 - Major depressive disorder, recurrent, mild Category: Medical (5) GERD (gastroesophageal reflux disease): Code(s): K21.9 - Gastro-esophageal reflux disease without esophagitis Category: Medical (6) HTN (hypertension), benign: Code(s): I10 - Essential (primary) hypertension Category: Medical Plan The patient will undergo a stress test to further evaluate the chest pain and rule out cardiac ischemia, given the presence of a right bundle branch block and changes in the EKG. Management of hypertension and hyperlipidemia will continue with current medications, including amlodipine and atorvastatin. The patient is advised to monitor blood glucose levels regularly, and a medication may be initiated to manage elevated glucose levels to prevent complications such as cardiovascular and renal issues. The patient is encouraged to follow up with a vascular specialist for evaluation of venous insufficiency, given the history of swelling and discomfort in the lower extremities. A follow-up appointment is scheduled for July to reassess cholesterol and glucose levels. Patient was informed and verbally consented to the use of an ambient scribe for clinic note documentation during this visit. I discussed with the patient the need for a stress test to evaluate her chest pain and the potential cardiac ischemia due to the right bundle branch block. We reviewed her current medication regimen for hypertension and hyperlipidemia, emphasizing the importance of adherence to prevent complications. I explained the risks associated with elevated blood glucose levels and the potential need for medication to manage it. I recommended a follow-up with a vascular specialist for her venous insufficiency and scheduled a follow-up appointment in July to monitor her cholesterol and glucose levels. Orders: Orders Lipid Panel Today E78.5 - Hyperlipidemia, unspecified Microalbumin, Random (w Creat) Today R80.9 - Proteinuria, unspecified Vitamin D 25-OH Total Today E55.9 - Vitamin D deficiency, unspecified Comprehensive Harriet. Panel Fast Today E11.9 - Type 2 diabetes mellitus without complications Referrals Vascular Surgery Referral I87.2 - Venous insufficiency (chronic) (peripheral) Medications: New metformin 500 mg PO DAILY 90 days 90 tabs 1RF E11.9 - Type 2 diabetes mellitus without complications
[2025-04-24 16:13] VITALS: BP 128/80; BMI 37.1
== END 2025-04-24 16:42 | disposition home or self-care (01) ==
LOC: HO.HMCH 16:08
PROVIDERS: PCP Internal Medicine; Visit Provider Internal Medicine
DX: E11.9 Type 2 diabetes mellitus without complications (principal); I87.2 Venous insufficiency (chronic) (peripheral); E78.00 Pure hypercholesterolemia, unspecified; F33.0 Major depressive disorder, recurrent, mild; K21.9 Gastro-esophageal reflux disease without esophagitis; I10 Essential (primary) hypertension

== ENCOUNTER 2025-04-27 14:40 | Outpatient (AMB) | payer OTHER, SELFPAY ==
--- NOTE | 2025-04-27 14:43 | MHC.OFFVIS ---
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 Pt states she has inflammation in her feet worse with ambulation. 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 Complaints include pain, intermittent swelling of lower extremities, cramping, fatigue, and heaviness of the lower extremities. It has been affecting their daily activities including walking, standing, and physical activity. It is noted in both legs. She is a diabetic on oral medications, unknown on her last A1C. She is not a smoker. She states mostly the bottom of her feet swell and hurt, particularly after walking/standing. Patient denies any previous venous surgery or injections. Patient denies any history of DVT/ PE. Patient denies any history of phlebitis. Trial of compression includes - elevation, which helps They now present for vascular evaluation regarding their varicose veins. [facility], [facility] Medical History Helicobacter pylori stool test positive Physical exam Unstable angina Vaginal discharge Oral greg Candidal skin infection Chest pain Abdominal pain Abdominal bloating Candidiasis of mouth and esophagus Adult general medical exam Screening for colon cancer Right upper quadrant abdominal pain Hospital discharge follow-up Muscular aches Costovertebral angle tenderness Dyslipidemia Mild recurrent major depression Chest pain Multinodular thyroid Hyperparathyroidism Vitamin D deficiency Hypercalcemia Surgical History History of cardiac catheterization History of parathyroidectomy Hx of colonoscopy History of hysterectomy Hx of endoscopy Family History Father Prostate cancer Mother HTN (hypertension) Asthma Heart disease Son Stomach cancer Social History Household Members: Spouse Housing: House Alcohol intake: never Patient Tobacco Use Status: Former Tobacco user e-Cigarette/Vaping Use: Never Used Second Hand Smoke Exposure: No service: No Current occupational status: disabled Cognitive needs: No Hearing needs: No Vision needs: No Female Reproductive History Menstrual Age of Menarche: 9 Review of Systems Const Reports as per HPI and Denies weakness ENT Reports Normal hearing present and Denies dizziness Card Reports as per HPI, Denies chest pain, Denies chest pain at rest, Denies chest pain with activity, Denies dyspnea and Denies dyspnea on exertion Resp Reports as per HPI, Denies cough, Denies dyspnea and Denies dyspnea on exertion GI Reports as per HPI, Denies abdominal pain, Denies nausea and Denies vomiting Musc Denies numbness Skin/Breast Reports as per HPI, Denies erythema and Denies wounds Neuro Reports Normal hearing present, Denies dizziness, Denies numbness, Denies Sensory deficit (Neuro) and Denies weakness Psych Reports no additional complaints Endo Reports no additional complaints Physical Exam Vital Signs: BMI result Body Mass Index 37.1 Const General: healthy appearing and no acute distress Orientation/consciousness: patient oriented x3 HEENT Head: Yes normal to inspection Ears: hearing grossly normal bilaterally Mouth: Normal oral and palatal mucosa present Resp Effort & Inspection: normal respiratory effort and able to speak in complete sentences Auscultation: clear to auscultation bilaterally Cardio Jugular venous distension: no JVD Rate: regular rate Rhythm: regular rhythm Heart sounds: S1 normal heart sound present and S2 normal heart sound present Bruits: no abdominal aortic bruits, no carotid bruits, no femoral bruits and no renal bruits Peripheral pulses: Peripheral pulses 2+ throughout GI Inspection: Yes normal to inspection Palpation (GI): No Abdominal aortic bruit present Skin General skin exam: no rashes or lesions noted Wounds: no wounds Hair: normal Neuro General: patient oriented x3 Cranial nerves: Yes Normal hearing present Cognition (Neuro): normal cognition Gait exam (Neuro): Normal gait present Motor exam (neuro): 5/5 motor strength present throughout Sensory Exam: No Sensory deficit (Neuro) Extrem Other: Bilateral lower extremities: trace peripheral edema noted. No wounds or injuries noted. Telangiectasia noted around the right ankle, not painful to palpation. Feet warm to the touch. No discoloration noted. Palpable DP pulse. CEAP: C - 3 E - primary A - superficial P - reflux General: Yes normal to inspection, Yes full ROM, Yes capillary refill normal and Yes normal gait Assessment & Plan Assessment & Plan (1) Varicose veins of both lower extremities with inflammation: Code(s): I83.11 - Varicose veins of right lower extremity with inflammation; I83.12 - Varicose veins of left lower extremity with inflammation Category: Medical Plan: Asyha is presenting today on a referral from her PCP for concerns of bilateral lower extremity swelling and pain. In short, the patient has evidence of venous insufficiency. I have discussed the pathophysiology with the patient. In addition I have provided informational material regarding venous disease to the patient. We have discussed conservative measures including compression, elevation, and exercise. We were unable to provide her with a handout, due to it being in Monegasque only. I have taken the liberty of ordering venous insufficiency testing with the patient. They will follow up with me after testing. The patient had an opportunity to ask questions regarding the treatment plan. All questions were answered. Imaging studies, laboratory studies and physical exam results were discussed and reviewed in detail. No major barriers to understanding were identified. The patient expressed understanding and agreement with the above treatment plan. The patient is aware they should contact our office by phone for worsening of the current condition or the appearance of new symptoms. Thank you for allowing me to participate in the vascular care of this patient. If you have any questions or concerns regarding the treatment for the above condition please do not hesitate to contact me. The office telephone contact is [phone]. This note is constructed using voice recognition software. While every effort has been made to ensure accuracy, heavy truck mechanic errors may have been included. Thank you for allowing me to participate in the care of your patient. Yours sincerely, ANDREY Mcneil Orders: Orders US venous duplex LE BI 1 Week I83.11 - Varicose veins of right lower extremity with inflammation, I83.12 - Varicose veins of left lower extremity with inflammation Coding Level of Care Code New Pt Level 4 (57916) Diagnoses Varicose veins of both lower extremities with inflammation I83.11; I83.12
[2025-04-27 14:44] VITALS: BMI 37.1
== END 2025-04-27 15:15 | disposition home or self-care (01) ==
LOC: HO.HVS 14:41
PROVIDERS: PCP Internal Medicine; Visit Provider Physician Assistant Surgical
DX: I83.11 Varicose veins of right lower extremity with inflammation (principal); I83.12 Varicose veins of left lower extremity with inflammation
CPT/HCPCS: 99204

== ENCOUNTER → 2025-04-27 14:40 | Outpatient (BNVA) | payer OTHER, SELFPAY | PROVIDERS: PCP Internal Medicine; Visit Provider Physician Assistant Surgical | DX: I83.11 Varicose veins of right lower extremity with inflammation (principal); I83.12 Varicose veins of left lower extremity with inflammation | CPT/HCPCS: 99202 ==

== ENCOUNTER → 2025-08-01 10:11 | Outpatient (REF) | payer OTHER, SELFPAY ==
--- NOTE | ~2025-08-01 | NM_ITS ---
Lexiscan Myocardial perfusion study Indication: Abnormal EKG, coronary artery disease Technique: The patient was brought in for a Lexiscan perfusion study on 08/01/2025 and was injected 0.4 mg of Lexiscan intravenously. Within a minute of this injection 30 mCi of sestamibi was given intravenously. Images were obtained using the SPECT gamma camera interlaced with the gating device. Images were obtained in supine position. Resting perfusion study was performed on 08/08/2025. Patient was administered 30 mCi of sestamibi intravenously at rest. Images were then obtained in supine position. Total DLP 80 mGy-cm. Images were processed with the software and compared side to side in short axis, horizontal long axis and vertical long axis views. Findings: Raw aquisition reviewed. The stress perfusion study showed no significant perfusion abnormality. Both uncorrected as well as CT attenuation corrected images were reviewed. The gated study shows normal LV systolic function with calculated LVEF of > 70%. LV cavity is normal in size. The gated study shows normal wall thickening and contraction of segments. Resting study shows no significant perfusion abnormality. Gating at rest reveals normal wall motion with ejection fraction at 70%. The findings are consistent with no clear reversible or fixed perfusion abnormality. NM/NM cardiolite stress test Impression: 1. Myocardial perfusion imaging study shows normal myocardial perfusion. 2. Gated LVEF is > 70% during stress and 70% during rest. 3. Transient ischemic dilatation not present. EKG component of the test reported separately. Electronically signed by: Kye Givens MD 08/09/2025 10:51 AM EDT
--- NOTE | 2025-08-01 10:16 | CA_ITS ---
Acquisition Time: 2025-08-01 10:21:20 Total Exercise Time: 00:02:00 Test Indications: Abnormal ECG CAD Medications: SEE H&P Protocol: LEXISCAN Max HR: 118 BPM 79% of Pred: 149 BPM Max BP: 146/82 mmHG Max Work Load: 1.0 METS Pharmacological stress test with Lexiscan while pt swings her legs in the chair, with reports of SOB, headache and nausea, with isolated PVCs, with normotensive response to injection. Nondiagnostic EKG for ischemia. In recovery, pt treated with IVP Aminophylline 75 mg to reverse Lexiscan after which pt slowly feeling back to baseline. Nuclear images pending. Test reviewed with Dr. Romero. Referred By: Luz Maria Gaffney Electronically Signed By: Tim Sofia
== END ==
LOC: HO.CARD 10:11
PROVIDERS: PCP Internal Medicine; Visit Provider Nurse Practitioner Family
DX: I25.10 Atherosclerotic heart disease of native coronary artery without angina pectoris (principal); R07.9 Chest pain, unspecified; R94.31 Abnormal electrocardiogram [ECG] [EKG]
CPT/HCPCS: 78452; 93017; A9500; J0280; J2785

== ENCOUNTER → 2025-08-01 10:16 | Outpatient (BNV) | payer OTHER, SELFPAY | PROVIDERS: PCP Internal Medicine | DX: R06.02 Shortness of breath (principal); I49.3 Ventricular premature depolarization | CPT/HCPCS: 78452; 93016; 93018 ==

== ENCOUNTER 2025-08-03 13:40 | Outpatient (AMB) | payer OTHER, SELFPAY ==
[2025-08-03 13:46] VITALS: BP 134/72; PULSE 82; RESP 18; TEMP 36.3; O2SAT 95; BMI 35.9
--- NOTE | 2025-08-03 13:46 | MHC.PC.OV ---
Vital Signs 08/03/25 13:46 Height 5 ft Weight 184 lb BMI 35.9 BP 134/72 Blood Pressure Location Lt brachial Position Sitting Respiration 18 Pulse 82 Pulse Source Pulse Oximeter Temp 97.3 F Temp Source Temporal Artery Scan Pulse Oximetry (%) 95 Oxygen Delivery Method Room Air Intake Visit Reasons: follow up Devulcanizer Head Required: No Accompanied by: Self / Same As Patient Allergies Amoxicillin Allergy (Severe, Uncoded 08/03/25 14:11) Itching Medication List - Last Reconciled 08/03/25 by Sakshi Prakash MD acetaminophen ER (Arthritis Pain Reliever) 1,300 mg PO Q8H [adjustable bed rail As directed] alcohol swabs (Alcohol Prep Pads) 1 pad topical DAILY amlodipine 5 mg PO DAILY aspirin (Enteric Coated Aspirin) 81 mg PO DAILY atorvastatin 80 mg PO BEDTIME [bed stool As directed] bismuth subsalicylate (Bismuth) 2 tabs PO QID 42 days blood sugar diagnostic (FreeStyle Test strips) As directed once daily calcium carbonate-simethicone 1,000-60 mg (Maalox Advanced) 1 tab PO QID PRN cholecalciferol (vitamin D3) 50 mcg PO DAILY disposable gloves As directed docusate sodium (Colace) 100 mg PO DAILY PRN ezetimibe (Zetia) 10 mg PO DAILY famotidine (Pepcid) 40 mg PO BEDTIME incontinence pad, liner, disp (Certainty Liners pads) As directed lancets (FreeStyle Lancets) As directed once daily meclizine 12.5 mg PO TID metformin 500 mg PO DAILY 90 days nystatin 1 appl topical DAILY PRN 2 weeks omeprazole 40 mg PO BID pantoprazole 80 mg (2 x 40 mg) PO BID pen needle, diabetic (Easy Comfort Pen [place]) As directed- 5 units daily at bedtime simethicone 180 mg PO QID 30 days solifenacin 10 mg PO DAILY sucralfate (Carafate) 2 grams (2 x 1 gram) PO QNOON walker As directed walker (Ultra-Light Rollator misc) As directed [Wipes As directed] Tobacco use date assessed: 08/03/25 Fall risk assessment: No Falls in past year Last assessed Fall Risk: 08/03/25 Dental Screening Dental Screen Date: 08/03/25 Did you have a dental visit in the last 12 months?: No Did you have a dental problem in the last 6 months where you did not have access to dental care?: No Was dental information given to patient?: No HPI HPI Comments History of Present Illness Details The patient is a 69-year-old female presenting with the management of chronic conditions including diabetes mellitus and hypertension, as well as preventative care measures such as vaccination. The patient has a history of hypertension, currently managed with amlodipine and aspirin therapy. Her blood pressure reading during the visit was 134/72 mmHg, indicating controlled hypertension. The patient also has a diagnosis of diabetes mellitus, for which she is prescribed metformin and insulin therapy. Her recent A1c level was 9.1%, suggesting suboptimal glycemic control. She was previously hospitalized due to elevated blood glucose levels. Hyperlipidemia is another chronic condition being managed with atorvastatin. Her LDL cholesterol was noted to be 113 mg/dL, which requires further management adjustments. The patient experiences gastroesophageal reflux disease, managed with omeprazole. She reports constipation, for which she uses docusate, and urinary incontinence, managed with incontinence pads. The patient has sleep apnea, which is part of her medical history. [facility] Medical History (Updated 08/03/25 @ 19:28 by Sakshi Prakash MD) Helicobacter pylori stool test positive Physical exam Unstable angina Vaginal discharge Oral greg Candidal skin infection Chest pain Abdominal pain Abdominal bloating Candidiasis of mouth and esophagus Adult general medical exam Screening for colon cancer Right upper quadrant abdominal pain Hospital discharge follow-up Muscular aches Costovertebral angle tenderness Dyslipidemia Mild recurrent major depression Chest pain Multinodular thyroid Hyperparathyroidism Vitamin D deficiency Hypercalcemia Surgical History History of cardiac catheterization History of parathyroidectomy Hx of colonoscopy History of hysterectomy Hx of endoscopy Family History Father Prostate cancer Mother HTN (hypertension) Asthma Heart disease Son Stomach cancer Social History Household Members: Spouse Housing: House Alcohol intake: never Patient Tobacco Use Status: Former Tobacco user e-Cigarette/Vaping Use: Never Used Second Hand Smoke Exposure: No service: No Current occupational status: disabled Cognitive needs: No Hearing needs: No Vision needs: No Female Reproductive History Menstrual Age of Menarche: 9 Questionnaire Thrive Questionnaire Date Thrive assessed: 04/24/25 I am a: Patient What is your living situation today?: I have a steady place to live Within the past 12 months, did the food you bought not last and you didn't have the money to get more?: I choose not to answer this question Within the past 12 months, did you worry whether your food would run out before you got money to buy more?: I choose not to answer this question Do you have trouble paying for medicines?: No Do you have trouble getting transportation to medical appointments?: No Do you have trouble paying your heating and electricity bill?: No Do you have trouble taking care of your child, family member or friend?: No Do you have trouble with day-to-day activities such as bathing, preparing meals, shopping, managing finances, etc.?: No Are you currently unemployed and looking for a job?: I choose not to answer this question Are you interested in more education?: No Please select the resources that you would like help with: None Currently or been in a relationship where the following occur: I choose not to answer THRIVE Score: 0 NEGIN-7 AMB Questionnaire NEGIN-7 Date NEGIN - 7 assessed: 02/20/25 Source: Developed by Drs. Dalton Abraham, Orquidea Tobias, Austin Yanez and colleagues, with an educational ethan from [employer] Review of Systems Const All systems reviewed & are unremarkable except as noted in HPI and below Card Denies chest pain at rest, Denies chest pain with activity, Denies edema, Denies irregular heart rhythm, Denies claudication, Denies dyspnea, Denies dyspnea on exertion, Denies orthopnea, Denies paroxysmal nocturnal dyspnea and Denies slow heart rate Resp Denies cough, Denies dyspnea and Denies dyspnea on exertion Physical exam (Primary Care) Vital Signs: Last Vital Signs Temp 97.3 F 08/03/25 13:46 Pulse 82 08/03/25 13:46 Resp 18 08/03/25 13:46 BP 134/72 08/03/25 13:46 Pulse Ox 95 08/03/25 13:46 Oxygen Delivery Method Room Air 08/03/25 13:46 BMI result Body Mass Index 35.9 BMI Assessment/Plan discussion: High BMI High, discussed plan: lifestyle, weight reduction, dietary and physical activity Tobacco/Smoking Status: Tobacco use Status Tobacco use date assessed 08/03/25 08/03/25 13:56 Patient Tobacco Use Status Former Tobacco user 08/03/25 13:56 Tobacco use type 04/25/25 12:17 e-Cigarette/Vaping Use Never Used 08/03/25 13:56 Thrive Assessment: Date of Thrive Assessment Date Thrive assessed 04/24/25 08/03/25 13:56 Currently or been in a relationship where the following occur: I choose not to answer Resp Effort & Inspection: normal respiratory effort Auscultation: clear to auscultation bilaterally Cardio Jugular venous distension: no JVD Rate: regular rate Rhythm: regular rhythm Heart sounds: S1 normal heart sound present and S2 normal heart sound present Extrem General: Yes full ROM Results AMB Hemoglobin A1c AMB Hemoglobin A1c 9.1 % Last Edit by TIFFANIE Leyva on 08/03/25 14:49 Immunizations pneumoc 20-isacc conj-dip cr(PF) 0.5 mL IM syringe Performing Provider: Sakshi Prakash MD Performing Location: [facility] [place] [facility] Administered by: TIFFANIE Leyva on 08/03/25 14:32 Dose Route Admin Location Dispensed Lot Number Expiration Date [facility] Machinist Class B 0.5 mL IM Left Deltoid 0.5 mL [id number] 07/10/26 [employer] Total Dispensed Waste 0.5 mL 0 % VIS Given Date VIS Provided VIS Publication Date 08/03/25 Single Vaccine 25 Eligibility Eligibility Date Funding Source Not [facility] Eligible 08/03/25 Private Results Reviewed Results Reviewed: Laboratory Last Values Hgb A1c (Clinic) 9.1 % (4.0-6.0) H 08/03/25 14:48 Coding Level of Care Code Est Pt Level 4 (70970) Complex EM visit Add On G2211 Diagnoses HTN (hypertension), benign I10 Pure hypercholesterolemia E78.00 Diabetes mellitus E11.9 GERD (gastroesophageal reflux disease) K21.9 Chronic idiopathic constipation K59.04 Urinary incontinence R32 Time Spent (min) 24 Assessment & Plan Assessment & Plan (1) HTN (hypertension), benign: Code(s): I10 - Essential (primary) hypertension Category: Medical (2) Pure hypercholesterolemia: Code(s): E78.00 - Pure hypercholesterolemia, unspecified Category: Medical (3) Diabetes mellitus: Code(s): E11.9 - Type 2 diabetes mellitus without complications Category: Medical (4) GERD (gastroesophageal reflux disease): Code(s): K21.9 - Gastro-esophageal reflux disease without esophagitis Category: Medical (5) Chronic idiopathic constipation: Code(s): K59.04 - Chronic idiopathic constipation Category: Medical (6) Urinary incontinence: Code(s): R32 - Unspecified urinary incontinence Category: Medical Plan Plan Patient was informed and verbally consented to the use of an ambient scribe for clinic note documentation during this visit. 1. Hypertension The patient's hypertension is currently managed with amlodipine and aspirin therapy, with a blood pressure reading of 134/72 mmHg indicating controlled levels. 2. Diabetes Mellitus The patient's diabetes mellitus management includes metformin and insulin therapy, with a recent A1c level of 9.1% indicating the need for improved glycemic control. The insulin dosage is being adjusted to better manage blood glucose levels. 3. Hyperlipidemia The patient's hyperlipidemia is managed with atorvastatin, and adjustments may be needed as the LDL cholesterol level is 113 mg/dL. 4. Gastroesophageal Reflux Disease The patient is managing gastroesophageal reflux disease with omeprazole therapy. 5. Constipation The patient uses docusate to manage constipation symptoms. 6. Urinary Incontinence The patient manages urinary incontinence with the use of incontinence pads. 7. Sleep Apnea The patient has a history of sleep apnea, which is part of her ongoing medical management. 8. Preventative Care: Pneumonia Vaccination The patient is advised to receive a pneumonia vaccination as part of her preventative care measures. Orders: Orders Lipid Panel Today E78.5 - Hyperlipidemia, unspecified Microalbumin, Random (w Creat) Today R80.9 - Proteinuria, unspecified Comprehensive [place]. Panel Fast Today I10 - Essential (primary) hypertension AMB Hemoglobin A1c Today Z13.9 - Encounter for screening, unspecified Vitamin D 25-OH Total Today E55.9 - Vitamin D deficiency, unspecified Vitamin B12 and Folate Today E53.8 - Deficiency of other specified B group vitamins Pneumococcal 20 Immunization Today Z23 - Encounter for immunization Medications: New insulin glargine (Lantus Solostar U-100 Insulin) 10 units (0.1 mL) subcut QPM 9 mL 1RF 90 days E11.9 - Type 2 diabetes mellitus without complications pen needle, diabetic (Comfort EZ Pen [place]) As directed 100 ea 0RF E11.9 - Type 2 diabetes mellitus without complications Refilled incontinence pad, liner, disp (Certainty Liners pads) As directed 48 ea 11RF N39.41 - Urge incontinence, R32 - Unspecified urinary incontinence [Wipes] As directed 2 ea 11RF N39.41 - Urge incontinence, R32 - Unspecified urinary incontinence disposable gloves As directed 200 ea 11RF R32 - Unspecified urinary incontinence
--- OUTSIDE RECORDS SUMMARY | 2025-08-03 18:12 | XMS_ITS | Continuity of Care Document ---
Author Name Noble Caldera Address [address] [place] [id number] Organization Unknown Address [address] [place] [address] Medications No known medications Problems No known problems
--- OUTSIDE RECORDS SUMMARY | 2025-08-03 18:12 | XMS_ITS | Encounter Summary ---
Author Organization Formerly [facility] Address [address] [place] [address] Encounters * CPT with Noble Caldera at [facility] on 2025-04-21 { reasonForRequest : Patient has pelvic pain more towards the left side. ,&quot ;patientReports : , denies :[ Sharp focal or diffuse abdominal pain & quot;, Vomiting blood/coffee ground material , Bloating, jaundice new onset with pain , Nausea and vomiting greater than 2 hours with abdominal pain , Tearing pain that radiates to back , Food Impaction ], chiefComplaints : Abdominal Pain, Chest Pain , pmh : Hyperlipidemia, Hypertension, Diabetes Mellitus Type 2&q uot;, allergies : Amoxicillin , otherAllergies :null, painAssessm ent : , visitOutcome : , additionalComments : 69 y.o female complains of Abdominal Pain, Chest Pain\nPatient's daughter calling reporting patient co mplaining of pelvic pain for \ a while\ , worse on the L side today. Yesterday patient was unable to walk due to the pain, patient states she can walk more then yesterday, but states still painful to ambulate. Daughter reports patient saw her OBGYN approx one week ago and she placed a referral to urology but patient has not received a phone call to schedule an appointment yet. Patient re ports urination at baseline, but states diarrhea for approx one week. Patient denies any nausea or vomiting today, denies fever or chills. At end of call, patient reporting chest pain in the middle of her chest, starting yesterday, describes pain as intermittent in nature. Patient reports she had fluid around her heart a few months ago, but denies hx of myocardial infarction. Given reported chestpain, I recommended patient go to the ER for further evaluation, [facility] declines [facility]. I provided information on the mobile health provider response time and advised the patient and/or caregiver to monitor reported signs and symptoms. I discussed the warning signs of when to seek emergency care -Nova Mcgovern RN } [facility] makes pt contact. She is seated on the sofa in the living room of her small apartment. She is conscious and alert and smiling upon [facility] approach. No ashen or kruger color is noted, no stridor or sonorous respirations are present, and she is not bleeding anywhere. No facial droop or one-sided weakness are observed. Granddaughter is on scene to provide translation and hx, as pt speaks limited Turkish. Pt is endorsing LLQ pain and back pain when walking, she says started this morning. She is alsoc/o an intermittent squeezing cp that began yesterday afternoon. She says the pain comes on for a couple minutes and then goes away. It does not radiate anywhere. Pt has hx offluid around her heart w/ no other hx of cardiac issues, including [place]. She had an appointment w/ her dry cleaning attendant this past Thursday and was sent home w/ no concerning findings. Pt endorses some soft stool, which has been going on for some time. She says her abdominal pain she has had for a long time, but today it is very painful and is making it hard to walk to the point she is using her cane. Sheis denying any watery, black, or bloody stools. She has not been vomiting and had a mild bought of nausea this morning that has subsided and not returned. Pt also denies fevers/chills, gale, confusion,one-sided weakness. She still has her gall bladder, does not drink alcohol, and has had a complete hysterectomy. CP increases slightly w/ deep inspiration. [facility] obtains vital signs and pt is assessed. Head is atraumatic and normocephalic. Sclera are clear and pt tracks w/ her eyes. Neck is supple and trachea is midline. No evidence of JVD is present and she is not using accessory muscles to breathe. Lung sounds are clear to auscultation bilaterally. Abdomen is soft, but tender to palpation in the LLQ, mainly in the groin. Pt also tender suprapubic. No peripheral edema is noted and no peripheral cyanosis. CMS is intact in all four extremities. Pt moves her extremities in a smooth and coordinated manner, and she answers all questions and follows all commands. A 12-lead EKG is performed and pt provides urine sample for UA. UA is unremarkable for infection. EKG shows an incomplete conduction delay and T wave inversion in leads III, V1-V3. [facility] [place] [facility] [place] the above. [facility] [place] concerned w/ EKG results and pt's c/o LLQ pain and recommends pt seek further care at the ED. [facility] [place] w/ pt and granddaughter about his concerns and pt is amendable to ED evaluation. She chooses to go POV w/ family, who is happy to take her. [facility] administers 81mg ASA X4 tablets PO to pt and instructs her to chew and swallow. [facility] also gives pt her EKG from the visit to take to the ED. Pt and family thank [facility] for coming. [facility] is clear. Report completed by ERIK Quispe [id number]. IV_(FLUIDS_AND/OR_MEDICATION), MEDICATION_IM, ORAL_MEDICATION, EKG, POC_FLU_STREP, COVID_TEST Written by Noble Caldera on 2025-04-21
--- OUTSIDE RECORDS SUMMARY | 2025-08-03 18:13 | XMS_ITS | Clinical Summary ---
Author Organization [facility] Address [address] [place] [address] Phone Care Team Providers Care Shear Setter Name Role Phone Earl Mazariegos MD Primary Care Provider [phone] Allergies Active Allergy Reactions Criticality Noted Date Comments Penicillin G 12/05/2024 Medications cyanocobalamin (VITAMIN B-12) 1,000 mcg tablet Take 1 Tablet by mouth daily. 2 Active calcium carbonate-vit D3-min 600 mg-10 mcg (400 unit) tablet Take 1 Tablet by mouth 2 times daily. 2 Active amLODIPine (NORVASC) 10 mg tablet Take 1 Tablet by mouth daily. 2 Active pravastatin (PRAVACHOL) 20 mg tablet Take 1 Tablet by mouth daily for 180 days. 2 Active psyllium (METAMUCIL) 3.4 gram packet Take 1 Packet by mouth daily. 2 Active cyclobenzaprine (FLEXERIL) 5 mg tablet Take 1 Tablet by mouth 3 times daily as needed for Muscle spasms. 2 Active omeprazole (PriLOSEC) [address] capsule Take 1 Capsule by mouth daily. 2 Active acetaminophen (TYLENOL) 500 mg capsule Take 2 Caps by mouth 3 times daily as needed for Other (pain). 6 Active solifenacin (VESICARE) 10 mg tablet Take 1 tablet (10 mg total) by mouth 1 (one) time each day. Swallow tablet whole; do not crush, chew, or split. 30 tablet 5 5 12/05/19 26 Active cholecalciferol (VITAMIN D-3) 50 mcg (2,000 unit) capsule TAKE 1 CAPSULE BY MOUTH EVERY DAY 30 capsule 10 5 Active amoxicillin (AMOXIL) 500 mg capsule Active aspirin 81 mg EC tablet Active atorvastatin (LIPITOR) 80 mg tablet 3 Active bismuth subsalicylate 262 mg tablet Active blood sugar diagnostic (FreeStyle Lite Strips) test strip 5 Active clarithromycin (BIAXIN) 500 mg tablet Active clotrimazole-betam ethasone (LOTRISONE) 1-0.05 % cream Active famotidine (PEPCID) 40 mg tablet Active Comfort Touch Plus Safety Lanc 30 gauge misc 5 Active levoFLOXacin (LEVAQUIN) 750 mg tablet Active nystatin (MYCOSTATIN) cream A ctive pantoprazole (PROTONIX) 40 mg EC tablet Active rifAMPin (RIFADIN) 150 mg capsule Activ e scopolamine (TRANSDERM-SCOP) 1 mg over 3 days patch 3 day Active simethicone (MYLICON,GAS-X) 180 mg capsule Activ e sodium,potassium,m ag sulfates (SUPREP) 17.5-3.13-1.6 gram recon soln bowel prep kit oral solution Active sucralfate (CARAFATE) 1 gram tablet Active Alcohol Prep Pads pads, medicated 5 Active Active Problems Problem Noted Date Diagnosed Date Anxiety 04/05/2025 Postmenopausal bleeding 04/05/2025 Severe obesity ([facility]/HCC V24, CMS/HCC V28) 2024 Stress incontinence in female 04/05/2025 Dizziness 10/22/2022 Foot pain 10/22/2022 Hyperparathyroidism ([facility]/HCC V24) 10/22/2022 Type 2 diabetes mellitus (CMS/HCC V24, [facility] V 28) 10/22/2022 Abnormal LFTs (liver function tests) 10/17/2019 Overview (04/05/2025): 08/20/2019 INDICATION/CLINICAL QUESTION: Follow-Up; HCC surveillance. IMPRESSION: Echogenic liver. No definite masses are seen. 03/05/2019 RESULT: MRI Abdomen W+W/O Contrast CLINICAL INDICATION: Subcentimeter abnormality seen left lobe of liver on ultrasound examination 01/27/2019.. IMPRESSION: 1. Fatty liver. 2. Solitary left lobe abnormality seen measuring 4 mm and corresponding with the finding on ultrasound. MRI characteristics shown to be a cyst of no significance. 3. No focal worrisome abnormality seen. 01/27/2019 INDICATION/CLINICAL QUESTION: Abnormal LFTs. Patient age 63 years. COMPARISON: 10/20/2018 IMPRESSION: Diffusely echogenic liver with mild surface nodularity, suggesting cirrhosis. There is a 6 mm hypoechoic lesion in the left liver lobe, new since prior study, of indeterminate etiology. Recommend MRI liver mass protocol with and without contrast for further characterization. HTN (hypertension) 10/17/2019 Osteoarthritis of back 10/17/2019 Overview (04/05/2025): Thoracic Spine 3 Views 01/10/2019 IMPRESSION: No fracture or subluxation. Trace lower thoracic levoscoliosis versus positioning artifact/paraspinal muscle spasm. Small endplate osteophytes from the T7-T9 levels. Remote surgery in the lower left hemithorax Sebaceous cyst 03/29/2018 Overview (10/05/2024): Last Assessment [...] 12/29/2014 Arthritis 10/20/2014 Depression, major, in remission (CMS/HCC V24) Hyperlipidemia 10/20/2014 Urinary incontinence in female 10/20/2014 Lichen sclerosus of female genitalia 10/20/2013 Knee pain 12/06/2012 Lateral epicondylitis 12/06/2012 Medial epicondylitis of right elbow 12/06/2012 Strain of trapezius muscle 08/27/2012 Dyslipidemia 05/11/2012 Mixed anxiety and depressive disorder 05/11/2012 History of total hysterectomy 11/09/1995 Immunizations Name Administration Dates Next Due Hepatitis B (Mmltanw-H-Usdgo , Recombivax HB-Adult) 19yo and older 12/05/2019 Influenza Quadravalent, 0.5ml (Fluad) 65yo and o lder 08/17/2020 Influenza Quadravalent, MDCK , 0.5ml, with preservative (Flucelvax) 6mo and older 08/19/2017 Influenza Split 07/23/2012 Moderna SARS-CoV-2 COVID-19, mRNA, LNP-S, preservative free 03/10/2021,03/10/2021 Tdap Tetanus diptheria acell ular pertussis (Boostrix; Adacel) 7yo and older 08/19/2017,07/23/2012 Surgical History Surgery Date Site/Laterality Comments OTHER SURGICAL HISTORY PROCEDURE: NE TOTAL ABDOMINAL HYSTERECT W/WO RMVL TUBE OVARY BLADDER SUSPENSION PROCEDURE: HISTORICAL BLADDER SUSPENSION COLONOSCOPY 05/17/2009 PROCEDURE: HISTORICAL COLONOSCOPY; COMMENT: Dr[facility] Alanna Pick[facility] at [facility]; negative screening examination with suboptimal prep. [...] SAB Ectopic Multiple Livin g Live Births Date Outcome GA Total Labor Labor/2nd/3rd Weight Sex Type Anes PTL Berenice A1 A5 Name Clin Term Living Term Living Term Living Term Living Term Living Term Living Term Living Term Living Term Living Term Living Term Living Last Filed Vital Signs Vital Sign Reading Time Taken Comments Blood Pressure 134/80 04/10/2025 1:33 PM EDT Pulse 96 04/10/2025 1:33 PM EDT Temperature 36.4 C (97.5 F) 03/31/2025 9:56 AM EDT Respiratory Rate 20 01/12/2025 8:15 PM EST Oxygen Saturation 96% 01/18/2025 1:13 PM EDT Inhaled Oxygen Concentration - - Weight 86.2 kg (190 lb) 04/10/2025 1:33 PM EDT Height 152.4 cm (5') 04/10/2025 1:33 PM EDT Body Mass Index 37.11 04/10/2025 1:33 PM EDT Plan of Treatment Health Maintenance Due Date Last Done Comments Diabetes: Annual Foot Exam 1963 Diabetes: Annual Retina Eye Exam 1963 Pneumococcal Vaccine: 50+ Years (1 of 2 - PCV) 1972 Zoster Vaccines (1 of 2) 2003 RSV Immunization Adult Patients (1 - Risk 60-74 years 1-dose series) 2013 Hepatitis B Vaccines (2 of 3 - 19+ 3-dose series) 01/02/2020 12/05/2019 Falls Risk Assessment 10/12/2022 Medicare Annual Wellness Visit 10/12/2022 Social Influencers of Health Screening 10/12/2022 Breast Cancer Screening 09/19/2023 09/19/20 21, 01/22/2019, 01/07/2018 Colorectal Cancer Screening: Colonoscopy 08/17/2024 08/17/2017 Depression Screening 11/09/2024 Diabetes: Annual Urine Albumin-Creatinine Ratio (uACR) 12/05/2024 Diabetes: Blood Sugar Control Test (HGBA1C) 12/05/2024 05/15/2022, 10/17/2019 COVID-19 Vaccine ( season) 2025 05/20/2021, 03/29/2021, 03/10/2021, Additional history exists Influenza Vaccine (#1) 2025 , 08/19/2017, 07/23/2012 Diabetes: Annual GFR (Glomerular Filtration Rate) 01/12/2026 01/12/2025, 02/26/2023, 05/15/2022 Hypertension/CHF/CAD Annual BMP Blood Test 01/12/2026 01/12/2025, 02/26/2023, 05/15/2022 Cholesterol Screening (Lipid Panel) 05/15/2027 05/15/2022, 10/17/2019, 10/17/2019 DTaP,Tdap,and Td Vaccines (3 - Td or Tdap) 08/19/2027 08/19/2017, 07/23/2012 Osteoporosis Screening (Bone Density Screening) 04/30/2032 04/30/2022 [...] Procedure Name Priority Date/Time Associated Diagnosis Comments COMPREHENSIVE METABOLIC PANEL STAT 01/12/2025 5:54 PM EST HEMOGLOBIN A1C [...] Recently Relevant to Health Maintenance Results * (ABNORMAL) Comprehensive metabolic panel (01/12/2025 5:54 PM EST) Sodium 137 133 - 145 mmol/L LAB CHEMISTRY METHOD 01/12/2025 6:50 PM [facility] Potassium 4.2 3.5 - 5.5 mmol/L LAB CHEMISTRY METHOD 01/12/2025 6:50 PM [facility] Comment:Hemolysis present Chloride 105 96 - 110 mmol/L LAB CHEMISTRY METHOD 01/12/2025 6:50 PM [facility] CO2 26 21 - 32 mmol/L LAB CHEMISTRY METHOD 01/12/2025 6:50 PM [facility] Anion Gap 6 3 - 11 LAB CHEMISTRY METHOD 01/12/2025 6:50 PM [facility] Glucose 94 70 - 100 mg/dL LAB CHEMISTRY METHOD 01/12/2025 6:50 PM [facility] BUN 14 5 - 25 mg/dL LAB CHEMISTRY METHOD 01/12/2025 6:50 PM [facility] Creatinine 0.84 0.50 - 1.10 mg/dL LAB CHEMISTRY METHOD 01/12/2025 6:50 PM [facility] eGFR 74 >=60 mL/min/1. 73m2 LAB CHEMISTRY METHOD 01/12/2025 6:50 PM [facility] Comment:Calculation based on the Chronic Kidney Disease Epidemiology Collaboration (CKD-EPI) equation refit without adjustment for race. BUN/Creatinine Ratio 16.7 LAB CHEMISTRY METHOD 01/12/2025 6:50 PM [facility] Calcium 9.5 8.5 - 10.5 mg/dL LAB CHEMISTRY METHOD 01/12/2025 6:50 PM [facility] AST (SGOT) 45(H) 10 - 42 unit/L LAB CHEMISTRY METHOD 01/12/2025 6:50 PM [facility] Comment:Hemolysis present ALT (SGPT) 51 10 - 60 unit/L LAB CHEMISTRY METHOD 01/12/2025 6:50 PM [facility] Alkaline Phosphatase 96 42 - 121 unit/L LAB CHEMISTRY METHOD 01/12/2025 6:50 PM [facility] Total Protein 7.2 6.0 - 8.0 g/dL LAB CHEMISTRY METHOD 01/12/2025 6:50 PM [facility] Albumin 3.7 3.2 - 5.0 g/dL LAB CHEMISTRY METHOD 01/12/2025 6:50 PM [facility] Total Bilirubin 1.1 0.0 - 1.4 mg/dL LAB CHEMISTRY METHOD 01/12/2025 6:50 PM [facility] Blood Venous blood specimen / Unknown Venipuncture / Unknown 01/12/2025 5:54 PM EST 01/12/2025 6:00 PM EST us Rik Spencer MD LAB BLOOD ORDERABLES Danna pereyra Result [facility] [address] [place] [address], * Hemoglobin A1c (05/15/2022) Pathologist [facility] Hemoglobin A1C 6.5 <=6.5 % Blood Venous blood specimen / Unknown Result [facility] Provider LAB BLOOD ORDERABLES Danna l Result * (ABNORMAL) Lipid panel (05/15/2022) [facility] LDL/HDL Ratio 4 0 - 4 Triglycerides 129 0 - 150 mg/dL Cholesterol 173 0 - 200 mg/dL HDL 40 >=40 mg/dL LDL Cholesterol 108(A) 0 - 100 mg/dL Blood Venous blood specimen / Unknown Result [facility] Provider LAB BLOOD ORDERABLES Danna l Result * Hepatitis C Screening (05/01/2022) [facility] Hepatitis C Screening Abstracted Result [facility] Provider HEALTH MAINTENANCE Final Result * DXA BONE DENSITY STUDY 1+ SITS AXIAL SKEL (04/30/2022 2:51 PM EDT) Anatomical Region Laterality Modality Bone Densitometr y 04/28/2022 3:04 PM EDT Narrative 04/30/2022 5:42 PM EDT BONE DENSITY Lumbar Spine T-score is -1.8 [...] (World Health Organization Fracture Risk Assessment) [facility] Department of Internal Medicine recommends using National [...] (World Health Organization Fracture Risk Assessment) [facility] Department of Internal Medicine recommendsusing National Osteoporosis [...] or over-estimation of fracture risk by FRAX. us Vj Tracy MD IMG DXA PROCEDURES Final [...] % Breast cancer risk category Low (<15%) us Abelardo Richard MD IMG XR PROCEDURES Final Result * Colonoscopy (08/17/2017) Colonoscopy No interpretation , Abstracted Anatomical Region Laterality Modality Other us Historical Provider HEALTH MAINTENANCE Final Result from Last 3 Months or Most Recently Relevant to Health Maintenance Insurance [address] [place] [address] [facility] MEDIC[facility] Member Subscriber Plan / Payer (Ef fective 2024-Present) Name:Aysha Lloyd Relation to Subscriber:Self Name:Ana Lloydana Payer ID:[id number] Group ID:[id number] Type:Not on file Address: [place] [address] [address] [id number] Care Teams Shear Setter Relationship Specialty Start Date End Date Earl Mazariegos MD [address] [place] [address] PCP - General Internal Medicine 10/03/14
== END 2025-08-03 14:35 | disposition home or self-care (01) ==
LOC: HO.HMCH 13:41
PROVIDERS: PCP Internal Medicine; Visit Provider Internal Medicine
DX: I10 Essential (primary) hypertension (principal); E78.00 Pure hypercholesterolemia, unspecified; E11.9 Type 2 diabetes mellitus without complications; K21.9 Gastro-esophageal reflux disease without esophagitis; K59.04 Chronic idiopathic constipation; R32 Unspecified urinary incontinence; Z23 Encounter for immunization; Z13.9 Encounter for screening, unspecified

== ENCOUNTER → 2025-08-03 13:40 | Outpatient (BNVA) | payer OTHER, SELFPAY | PROVIDERS: PCP Internal Medicine; Visit Provider Internal Medicine | DX: I10 Essential (primary) hypertension (principal); Z23 Encounter for immunization; E78.00 Pure hypercholesterolemia, unspecified; E11.9 Type 2 diabetes mellitus without complications; K21.9 Gastro-esophageal reflux disease without esophagitis; K59.04 Chronic idiopathic constipation; R32 Unspecified urinary incontinence; G47.30 Sleep apnea, unspecified; Z79.4 Long term (current) use of insulin; Z79.82 Long term (current) use of aspirin; Z79.84 Long term (current) use of oral hypoglycemic drugs; Z79.899 Other long term (current) drug therapy | CPT/HCPCS: 83036; 90471; 90677; 99212 ==

== ENCOUNTER 2025-09-11 14:45 | Outpatient (AMB) | payer OTHER, SELFPAY ==
--- NOTE | 2025-09-11 15:21 | MHC.OFFVIS ---
Vital Signs 09/11/25 15:22 Height 5 ft Weight 183 lb 6.793 oz BMI 35.8 BP 120/72 Blood Pressure Location Lt brachial Position Sitting Pulse 75 Pulse Source Pulse Oximeter Intake Visit Reasons: Follow up after Testing Manager Support Services Required: Yes Manager Support Services Services: Manager Support Services Offered & Declined Accompanied by: Daughter Allergies Amoxicillin Allergy (Severe, Uncoded 08/03/25 14:11) Itching Medication List - Last Reconciled 09/11/25 by YOLANDE Pina acetaminophen ER (Arthritis Pain Reliever) 1,300 mg PO Q8H [adjustable bed rail As directed] alcohol swabs (Alcohol Prep Pads) 1 pad topical DAILY amlodipine 5 mg PO DAILY aspirin (Enteric Coated Aspirin) 81 mg PO DAILY atorvastatin 80 mg PO BEDTIME [bed stool As directed] blood sugar diagnostic (FreeStyle Test strips) As directed once daily cholecalciferol (vitamin D3) 50 mcg PO DAILY disposable gloves As directed ezetimibe (Zetia) 10 mg PO DAILY incontinence pad, liner, disp (Certainty Liners pads) As directed lancets (FreeStyle Lancets) As directed once daily nystatin 1 appl topical DAILY PRN 2 weeks pen needle, diabetic (Easy Comfort Pen [place]) As directed- 5 units daily at bedtime pen needle, diabetic (Comfort EZ Pen [place]) As directed walker As directed walker (Ultra-Light Rollator misc) As directed [Wipes As directed] HPI HPI Follow up after Testing: Details: Aysha is a 70-year-old female with past medical history of hypertension, hyperlipidemia, impaired fasting glucose, GERD, abnormal EKG, nonobstructive coronary artery disease, atypical chest discomfort who recently had a normal nuclear stress test and now presents for follow-up. Today she states that she still gets sharp pains in her anterior chest. She does admit it is tender at times to palpation. The episodes can have at rest or with movement. Her chest discomfort is not clearly brought on by stair climbing. She lives on the 5th floor and usually takes the elevator but at times does the stairs which she says she tolerates well. She has some shortness of breath with activity which is not new. She has no epigastric discomfort and believes that her reflux is under control. No shortness of breath at rest, PND, orthopnea or edema. No palpitations, lightheadedness, presyncope, syncope, falls. She has been taking meds as directed. Her daughter is present and helping with Persian translation. [facility] Medical History Helicobacter pylori stool test positive Physical exam Unstable angina Vaginal discharge Oral greg Candidal skin infection Chest pain Abdominal pain Abdominal bloating Candidiasis of mouth and esophagus Adult general medical exam Screening for colon cancer Right upper quadrant abdominal pain Hospital discharge follow-up Muscular aches Costovertebral angle tenderness Dyslipidemia Mild recurrent major depression Chest pain Multinodular thyroid Hyperparathyroidism Vitamin D deficiency Hypercalcemia Surgical History History of cardiac catheterization History of parathyroidectomy Hx of colonoscopy History of hysterectomy Hx of endoscopy Family History Father Prostate cancer Mother HTN (hypertension) Asthma Heart disease Son Stomach cancer Social History Household Members: Spouse Housing: House Alcohol intake: never Patient Tobacco Use Status: Former Tobacco user e-Cigarette/Vaping Use: Never Used Second Hand Smoke Exposure: No service: No Current occupational status: disabled Cognitive needs: No Hearing needs: No Vision needs: No Female Reproductive History Menstrual Age of Menarche: 9 Review of Systems Const All systems reviewed & are unremarkable except as noted in HPI and below Denies daytime sleepiness, Denies difficulty sleeping, Denies snoring, Denies stops breathing during sleep and Denies weakness Card Reports chest pain, Reports chest pain at rest, Denies rapid heart rate, Denies irregular heart rhythm, Denies claudication, Denies leg edema, Denies lightheadedness, Denies palpitations, Denies dyspnea, Denies dyspnea on exertion, Denies orthopnea, Denies paroxysmal nocturnal dyspnea and Denies slow heart rate Resp Denies cough, Denies dyspnea, Denies dyspnea on exertion and Denies snoring GI Reports no additional complaints, Denies hematochezia, Denies change in stool character and Denies dyspepsia Musc Denies abnormal gait, Denies muscle weakness and Denies numbness Neuro Denies abnormal gait, Denies numbness and Denies weakness Endo Denies palpitations Physical Exam Vital Signs: Last Vital Signs Pulse 75 09/11/25 15:22 BP 120/72 09/11/25 15:22 BMI result Body Mass Index 35.8 Const General: cooperative, healthy appearing, comfortable and no acute distress Orientation/consciousness: patient oriented x3 Neck Neck: Yes normal visual inspection and Yes no JVD Resp Effort & Inspection: normal respiratory effort Auscultation: clear to auscultation bilaterally, no crackles, no rales, no rhonchi and no wheezes Cardio Rate: regular rate Rhythm: regular rhythm Heart sounds: S1 normal heart sound present, S2 normal heart sound present, no gallops, no murmurs and no rubs Neuro General: patient oriented x3 Extrem General: Yes normal to inspection, No no pedal edema and No calf tenderness Psych Appearance: grossly normal Mental Status: mental status grossly normal Speech and movement: Normal speech and movement present Assessment & Plan Assessment & Plan (1) Chest pain: Code(s): R07.9 - Chest pain, unspecified Category: Medical Plan: Atypical sounding chest discomfort however occurring more frequently in recent months. She was evaluated in the [facility] Emergency room for her symptom on 04/22/2025. She ruled out for ACS. She does have multiple cardiac risk factors including hypertension, hyperlipidemia, diabetes and obesity. She has known nonobstructive coronary artery disease with cardiac catheterization on 10/16/2022 which showing nonobstructive coronary artery disease. Her EKG from last visit showed incomplete right bundle branch block with T-wave inversions in the anterior leads which is not new. An echocardiogram from 11/21/2024 showed EF 61%, no regional wall motion abnormalities, small loculated pericardial effusion. Pharmacological nuclear stress test done on 08/01/2025 showing normal myocardial perfusion imaging. Results reviewed with her. Her discomfort is most likely musculoskeletal in nature. Signs and symptoms of angina reviewed with her. Continue on amlodipine. Continue aspirin and atorvastatin. Emergency care if needed for symptoms. Cardiology follow-up 4 months, sooner if needed.. (2) History of cardiac catheterization: Comment: 10/2022 [facility], left main normal, lad 1st diagonal 40% stenosis, mid LAD 40% stenosis, left circumflex normal, RCA proximal ectasia. Code(s): Z98.890 - Other specified postprocedural states Category: Surgical Plan: As above (3) CAD (coronary artery disease): Code(s): I25.10 - Atherosclerotic heart disease of [place] coronary artery without angina pectoris Category: Medical Plan: Nonobstructive coronary artery disease with normal nuclear stress test. Current symptoms sound atypical as present with palpation. (4) HTN (hypertension), benign: Code(s): I10 - Essential (primary) hypertension Category: Medical Plan: Blood pressure goal less than 130/80. Well controlled at present. No med changes made. (5) High cholesterol: Code(s): E78.00 - Pure hypercholesterolemia, unspecified Category: Medical Plan: [place] LDL goal less than 70 in patient with CAD. Labs done 11/21/2024 showed LDL 113. On last visit added Zetia 10 mg daily. Continue high-dose atorvastatin. She is due for labs, orders are in place. Plan Time spent on chart review, documentation, interview and assessment Coding Level of Care Code Est Pt Level 3 (03220) Complex EM visit Add On G2211 Diagnoses Chest pain R07.9 History of cardiac catheterization Z98.890 CAD (coronary artery disease) I25.10 HTN (hypertension), benign I10 High cholesterol E78.00 Time Spent (min) 24
[2025-09-11 15:22] VITALS: BP 120/72; PULSE 75; BMI 35.8
== END 2025-09-11 16:06 | disposition home or self-care (01) ==
LOC: HO.HCS 14:46
PROVIDERS: PCP Internal Medicine; Visit Provider Nurse Practitioner Family
DX: R07.9 Chest pain, unspecified (principal); Z98.890 Other specified postprocedural states; I25.10 Atherosclerotic heart disease of native coronary artery without angina pectoris; I10 Essential (primary) hypertension; E78.00 Pure hypercholesterolemia, unspecified
CPT/HCPCS: 99213; G2211

== ENCOUNTER → 2025-09-11 14:45 | Outpatient (BNVA) | payer OTHER, SELFPAY | PROVIDERS: PCP Internal Medicine; Visit Provider Nurse Practitioner Family | DX: R07.9 Chest pain, unspecified (principal); I25.10 Atherosclerotic heart disease of native coronary artery without angina pectoris; I10 Essential (primary) hypertension; E78.00 Pure hypercholesterolemia, unspecified; Z98.890 Other specified postprocedural states | CPT/HCPCS: 99212 ==

== ENCOUNTER 2025-10-09 12:43 | Outpatient (AMB) | payer OTHER, SELFPAY ==
[2025-10-09 12:49] VITALS: BP 138/70; PULSE 71; RESP 18; O2SAT 98; BMI 36.1
--- NOTE | 2025-10-09 12:49 | A.OFFPC_ITS ---
Vital Signs 10/09/25 12:49 Height 5 ft Weight 185 lb BMI 36.1 BP 138/70 Blood Pressure Location Lt brachial Position Sitting Respiration 18 Pulse 71 Pulse Source Pulse Oximeter Temp Source Temporal Artery Scan Pulse Oximetry (%) 98 Oxygen Delivery Method Room Air Intake Visit Reasons: Annual Exam- A1C Emergency Room Nurse Required: No Accompanied by: Self / Same As Patient Allergies Amoxicillin Allergy (Severe, Uncoded 10/09/25 13:11) Itching Medication List - Last Reconciled 10/09/25 by Sakshi Prakash MD acetaminophen ER (Arthritis Pain Reliever) 1,300 mg PO Q8H [adjustable bed rail As directed] alcohol swabs (Alcohol Prep Pads) 1 pad topical DAILY amlodipine 5 mg PO DAILY aspirin (Enteric Coated Aspirin) 81 mg PO DAILY atorvastatin 80 mg PO BEDTIME [bed stool As directed] blood sugar diagnostic (FreeStyle Test strips) As directed once daily cholecalciferol (vitamin D3) 50 mcg PO DAILY disposable gloves As directed ezetimibe (Zetia) 10 mg PO DAILY incontinence pad, liner, disp (Certainty Liners pads) As directed lancets (FreeStyle Lancets) As directed once daily nystatin 1 appl topical DAILY PRN 2 weeks pen needle, diabetic (Easy Comfort Pen [place]) As directed- 5 units daily at bedtime pen needle, diabetic (Comfort EZ Pen [place]) As directed walker As directed walker (Ultra-Light Rollator misc) As directed [Wipes As directed] Tobacco use date assessed: 10/09/25 Fall risk assessment: No Falls in past year Last assessed Fall Risk: 10/09/25 Dental Screening Dental Screen Date: 10/09/25 Did you have a dental visit in the last 12 months?: No Did you have a dental problem in the last 6 months where you did not have access to dental care?: No Was dental information given to patient?: Patient has dentist HPI HPI Comments History of Present Illness Details The patient is a 70 year old individual presenting for her physical exam accompanied by daughter. She complains of muscle spasm and has been given a muscle relaxer in the past for this matter. I will prescribe cyclobenzaprine which she is aware that can cause sleepiness. She complains of right-sided back pain and bilateral knee pain and will benefit from using a recliner. The patient reports having high blood pressure readings at home, with one recent measurement of 179/104 mmHg, and has visited the emergency department for elevated pressures in the past, though current in-office readings are normal. The patient currently takes amlodipine 5 mg. I will increase it to 10 mg. Patient aware that amlodipine can cause leg edema. For diabetes management, the patient's last A1c in September was 8.6, which was an improvement from a higher value in July. The patient reports being prescribed Lantus injections at a dose of 5 units but stopped using them due to being sent the incorrect needles and has never used metformin. I will increase Lantus to 10 units. A1c goal is equal or less than 7%. Last diabetic eye exam was about a year ago and she already has an appointment. Past medical history is significant for a cardiac catheterization in 2021, a parathyroidectomy last year, as well as a prior hysterectomy, colonoscopy, and endoscopy. Current medications include Tylenol as needed, aspirin 81 mg, ezetimibe 10 mg, atorvastatin 80 mg for cholesterol, and vitamin D. The patient reports an allergy to amoxicillin, which causes pruritus. Family history is notable for a father who of prostate cancer and a mother with hypertension and asthma. The patient has a son with a history of a left- sided tumor. The patient has a remote history of smoking but quit many years ago and does not drink alcohol. The patient is due for a bone densitometry scan, as the last one was in 2022. An order for a bone densitometry will be placed. The patient's other screenings are up to date. Colonoscopy done this year was normal. Mammogram done this year was normal. PCV 20 and Tdap vaccine up-to-date. Patient declines flu vaccine today. [facility] Medical History (Updated 10/09/25 @ 13:43 by Sakshi Prakash MD) Physical exam Helicobacter pylori stool test positive Unstable angina Vaginal discharge Oral greg Candidal skin infection Chest pain Abdominal pain Abdominal bloating Candidiasis of mouth and esophagus Adult general medical exam Screening for colon cancer Right upper quadrant abdominal pain Hospital discharge follow-up Muscular aches Costovertebral angle tenderness Dyslipidemia Mild recurrent major depression Chest pain Multinodular thyroid Hyperparathyroidism Vitamin D deficiency Hypercalcemia Surgical History History of cardiac catheterization History of parathyroidectomy Hx of colonoscopy History of hysterectomy Hx of endoscopy Family History Father Prostate cancer Mother HTN (hypertension) Asthma Heart disease Son Stomach cancer Social History Household Members: Spouse Housing: House Alcohol intake: never Patient Tobacco Use Status: Former Tobacco user e-Cigarette/Vaping Use: Never Used Second Hand Smoke Exposure: No service: No Current occupational status: disabled Cognitive needs: No Hearing needs: No Vision needs: No Female Reproductive History Menstrual Age of Menarche: 9 Questionnaire Thrive Questionnaire Date Thrive assessed: 10/09/25 I am a: Patient What is your living situation today?: I have a steady place to live Within the past 12 months, did the food you bought not last and you didn't have the money to get more?: I choose not to answer this question Within the past 12 months, did you worry whether your food would run out before you got money to buy more?: I choose not to answer this question Do you have trouble paying for medicines?: No Do you have trouble getting transportation to medical appointments?: No Do you have trouble paying your heating and electricity bill?: No Do you have trouble taking care of your child, family member or friend?: No Do you have trouble with day-to-day activities such as bathing, preparing meals, shopping, managing finances, etc.?: No Are you currently unemployed and looking for a job?: I choose not to answer this question Are you interested in more education?: No Please select the resources that you would like help with: None Currently or been in a relationship where the following occur: I choose not to answer THRIVE Score: 0 NEGIN-7 AMB Questionnaire NEGIN-7 Date NEGIN - 7 assessed: 02/20/25 Source: Developed by Drs. Dalton Abraham, Orquidea Tobias, Austin Yanez and colleagues, with an educational ethan from [employer]. Review of Systems Const All systems reviewed & are unremarkable except as noted in HPI and below Card Denies chest pain at rest, Denies chest pain with activity, Denies edema, Denies irregular heart rhythm, Denies claudication, Denies dyspnea, Denies dyspnea on exertion, Denies orthopnea, Denies paroxysmal nocturnal dyspnea and Denies slow heart rate Resp Denies cough, Denies dyspnea and Denies dyspnea on exertion GI Denies abdominal pain, Denies change in bowel habits, Denies excessive flatus, Denies nausea and Denies vomiting Denies urinary incontinence, Denies urinary hesitancy and Denies urinary urgency Physical exam (Primary Care) Vital Signs: Last Vital Signs Pulse 71 10/09/25 12:49 Resp 18 10/09/25 12:49 BP 138/70 10/09/25 12:49 Pulse Ox 98 10/09/25 12:49 Oxygen Delivery Method Room Air 10/09/25 12:49 BMI result Body Mass Index 36.1 Tobacco/Smoking Status: Tobacco use Status Tobacco use date assessed 10/09/25 10/09/25 12:51 Patient Tobacco Use Status Former Tobacco user 10/09/25 12:51 Tobacco use type 04/25/25 12:17 e-Cigarette/Vaping Use Never Used 10/09/25 12:51 Thrive Assessment: Date of Thrive Assessment Date Thrive assessed 10/09/25 10/09/25 12:51 Currently or been in a relationship where the following occur: I choose not to answer [facility] Head: Yes normal to inspection, Yes normocephalic and Yes atraumatic Ears: external ears normal Eyes General: appearance normal, both eyes and all related structures Eyelids: Yes eyelids normal Conjunctivae: conjunctivae normal Neck Neck: Yes normal visual inspection and Yes supple Resp Effort & Inspection: normal respiratory effort Auscultation: clear to auscultation bilaterally Cardio Jugular venous distension: no JVD Rate: regular rate Rhythm: regular rhythm Heart sounds: S1 normal heart sound present and S2 normal heart sound present GI Inspection: Yes normal to inspection Palpation (GI): Soft to palpation and nontender Auscultation: normal bowel sounds Skin General skin exam: no rashes or lesions noted Neuro General: no focal motor deficits Extrem General: Yes full ROM Psych Appearance: grossly normal Coding Level of Care Code Est Pt Level 3 (66168) Est Pt Prev Care >65y(86267) Diagnoses Physical exam Z00.00 Right-sided back pain M54.9 Diabetes mellitus E11.9 Time Spent (min) 35 Assessment & Plan Assessment & Plan (1) Physical exam: Code(s): Z00.00 - Encounter for general adult medical examination without abnormal findings Category: Medical (2) Right-sided back pain: Code(s): M54.9 - Dorsalgia, unspecified Category: Medical (3) Diabetes mellitus: Code(s): E11.9 - Type 2 diabetes mellitus without complications Category: Medical Plan Plan 1. Physical exam Continue yearly mammograms. DEXA scan to be repeated this year and then every 2 years. Continue diabetic eye exam yearly. 2. Essential Hypertension Blood pressure is noted to be controlled in the office but the patient reports significantly elevated readings at home, as high as 179/104 mmHg. To address this, the dose of amlodipine will be increased from 5 mg to 10 mg daily. 3. Type 2 Diabetes Mellitus The patient's A1c of 8.6 from September indicates suboptimal glycemic control, though it is an improvement from July. The patient was previously on 5 units of Lantus but has not been using it. The plan is to restart Lantus and increase the dose to 10 units daily. A prescription for pen needles will be sent to the pharmacy. Labs including glucose, renal function, and liver function will be ordered. 4. Hyperlipidemia The patient is on atorvastatin 80 mg and ezetimibe 10 mg for management. Continue current medications and order labs to monitor cholesterol levels. 5. Myalgia The patient reports muscle pain that was previously relieved by a muscle relaxant. A prescription for cyclobenzaprine will be sent to the pharmacy. Orders: Orders Vitamin D 25-OH Total Today E55.9 - Vitamin D deficiency, unspecified Lipid Panel Today E11.9 - Type 2 diabetes mellitus without complications, E78.5 - Hyperlipidemia, unspecified Microalbumin, Random (w Creat) Today E11.9 - Type 2 diabetes mellitus without complications, R80.9 - Proteinuria, unspecified Comprehensive [place]. Panel Fast Today E11.9 - Type 2 diabetes mellitus without complications Complete Blood Count Auto Diff Today D64.9 - Anemia, unspecified IRON PROFILE Today D64.9 - Anemia, unspecified Magnesium Today R25.2 - Cramp and spasm XR DEXA axial skeleton Today Z78.0 - Asymptomatic menopausal state Medications: New insulin glargine (Lantus Solostar U-100 Insulin) 10 units (0.1 mL) subcut QPM 9 mL 1RF 90 days cyclobenzaprine 5 mg PO BEDTIME PRN 30 tabs 0RF muscle spasm 30 days [recliner] As directed 1 ea 0RF M54.9 - Dorsalgia, unspecified pen needle, diabetic (Comfort EZ Pen [place]) Use 1 pen needle once a day 50 ea 6RF E11.9 - Type 2 diabetes mellitus without complications amlodipine 10 mg PO DAILY 90 tabs 1RF 90 days Discontinued amlodipine Discontinued Reason: Patient Completed Course 5 mg PO DAILY 90 tabs 4RF I10 - Essential (primary) hypertension
--- OUTSIDE RECORDS SUMMARY | 2025-10-09 16:20 | XMS_ITS | Clinical Summary ---
Author Organization [facility] Address [address] [place] [address] Phone Care Team Providers Care [employer] Name Role Phone Physician, Pcp Unknown Primary Care Provider Isa vailable Allergies Active Allergy Reactions Criticality Noted Date [...] Anxiety 04/05/2025 Postmenopausal bleeding 04/05/2025 Severe obesity ([facility]/HCC V24, CMS/HCC V28) 2024 Stress incontinence in female 04/05/2025 Dizziness 10/22/2022 Foot pain 10/22/2022 Hyperparathyroidism ([facility]/HCC V24) 10/22/2022 Type 2 diabetes mellitus (CMS/HCC V24, [facility] V 28) 10/22/2022 Abnormal LFTs [...] disorder 05/11/2012 History of total hysterectomy 11/09/1995 Encounters Date Type Department Care Team Description 08/11/2025 7:14 PM EDT - 08/11/2025 11:02 PM EDT Emergency [facility] Emergency [address] [place] [address] Primary hypertension (Primary Dx) Discharge Disposition: Home or Self Care from Last 3 Months Immunizations Immunization Administration Dates Next Due Hepatitis B (Qwpoksl-C-Gkokn , Recombivax HB-Adult) 19yo and older 12/05/2019 Influenza Quadravalent, 0.5ml (Fluad) 65yo and o lder 08/17/2020 Influenza Quadravalent, MDCK , 0.5ml, with preservative (Flucelvax) 6mo and older 08/19/2017 Influenza Split 07/23/2012 Moderna SARS-CoV-2 COVID-19, mRNA, LNP-S, preservative free 03/10/2021,03/10/2021 Tdap Tetanus diptheria acell ular pertussis (Boostrix; Adacel) 7yo and older 08/19/2017,07/23/2012 Surgical History Surgery Date Site/Laterality Comments OTHER SURGICAL HISTORY PROCEDURE: RI TOTAL ABDOMINAL HYSTERECT W/WO RMVL TUBE OVARY BLADDER SUSPENSION PROCEDURE: HISTORICAL BLADDER SUSPENSION COLONOSCOPY 05/17/2009 PROCEDURE: HISTORICAL COLONOSCOPY; COMMENT: Dr. Alanna Pickens at [facility]; negative screening examination with suboptimal [...] Live Births Date Outcome GA Total Labor Labor//3rd Weight Sex Type Anes PTL Berenice A1 A5 Name Clin Term Living Term Living Term Living Term Living Term Living Term Living Term Living Term Living Term Living Term Living Term Living Last Filed Vital Signs Vital Sign Reading Time Taken Comments Blood Pressure 168/88 08/11/2025 8:57 PM EDT Pulse 74 08/11/2025 8:57 PM EDT Temperature 36.5 C (97.7 F) 08/11/2025 8:57 PM EDT Respiratory Rate 14 08/11/2025 8:57 PM EDT Oxygen Saturation 97% 08/11/2025 8:57 PM EDT Inhaled Oxygen Concentration - - Weight 83.5 kg (184 lb) 08/11/2025 4:55 PM EDT Height 152.4 cm (5') 08/11/2025 4:55 PM EDT Body Mass Index 35.94 08/11/2025 4:55 PM EDT Plan of Treatment Health Maintenance Due Date Last Done Comments Diabetes: Annual Foot Exam 1963 Diabetes: Annual Retina Eye Exam 1963 Pneumococcal Vaccine: 50+ Years (1 of 2 - PCV) 1972 RSV Immunization Adult Patients (1 - Risk 50-74 years 1-dose series) 2003 Zoster Vaccines (1 of 2) 2003 Hepatitis B Vaccines (2 of 3 - 19+ 3-dose series) 01/02/2020 12/05/2019 Falls Risk Assessment 10/12/2022 Medicare Annual Wellness Visit 10/12/2022 Social Influencers of Health Screening 10/12/2022 Breast Cancer Screening 09/19/2023 09/19/20, 01/22/2019, 01/07/2018 Colorectal Cancer Screening: Colonoscopy 08/17/2024 08/17/2017 Depression Screening 11/09/2024 Diabetes: Annual Urine Albumin-Creatinine Ratio (uACR) 12/05/2024 Diabetes: Blood Sugar Control Test (HGBA1C) 12/05/2024 05/15/2022, 10/17/2019 COVID-19 Vaccine ( season) 2025 05/20/2021, 03/29/2021, 03/10/2021, Additional history exists Influenza Vaccine (#1) 2025 , 08/19/2017, 07/23/2012 Diabetes: Annual GFR (Glomerular Filtration Rate) 08/11/2026 08/11/2025, 01/12/2025, 02/26/2023, Additional history exists Hypertension/CHF/CAD Annual BMP Blood Test 08/11/2026 08/11/2025, 01/12/2025, 02/26/2023, Additional history exists Cholesterol Screening (Lipid Panel) 05/15/2027 05/15/2022, 10/17/2019, [...] Procedure Name Priority Date/Time Associated Diagnosis Comments ECG ANNOTATED 08/12/2025 XR CHEST 1 VIEW STAT 08/11/2025 9:38 PM EDT XR SHOULDER 1 VIEW LEFT STAT 08/11/2025 9:38 PM EDT TROPONIN I HIGH SENSITIVITY STAT 08/11/2025 9:28 PM EDT CBC WITH AUTO DIFFERENTIAL STAT 08/11/2025 7:59 PM EDT CBC AND DIFFERENTIAL STAT 08/11/2025 7:59 PM EDT COMPREHENSIVE METABOLIC PANEL STAT 08/11/2025 7:59 PM EDT ECG 12-LEAD STAT 08/11/2025 5:21 PM EDT HEMOGLOBIN A1C Routine 05/15/2022 LIPID PANEL Routine [...] Recently Relevant to Health Maintenance Results * ECG-Annotated (08/12/2025) us Provider Onbase MD ECG ORDERABLES Final Result * XR Chest 1 View (08/11/2025 9:38 PM EDT) Anatomical Region Laterality Modality Body Radiographic Netta ging 08/12/2025 8:35 AM EDT Impressions 08/12/2025 8:35 AM EDT FINDINGS/IMPRESSION: Normal heart size and pulmonary vascularity. Lungs are clear and costophrenic angles are sharp. No acute osseous abnormality. -------- FINAL REPORT -------- Dictated By: Ava Griffiths Dictated Date: 08/12/2025 08:35 ET Assigned Physician: Ava Griffiths Reviewed and Electronically Signed By: Ava Griffiths Signed Date: 08/12/2025 08:35 ET Workstation ID: [id number] Transcribed By: Self Edit Transcribed Date: 08/12/2025 08:35 ET Narrative 08/12/2025 8:35 AM EDT XR CHEST 1 VIEW INDICATION: headache and fatigue TECHNIQUE: XR CHEST 1 VIEW COMPARISON: No priors available. Procedure Note Ava Griffiths MD - 08/12/2025 XR CHEST 1 VIEW INDICATION: headache and fatigue TECHNIQUE: XR CHEST 1 VIEW COMPARISON: No priors available. IMPRESSION: FINDINGS/IMPRESSION: Normal heart size and pulmonary vascularity. Lungsare clear and costophrenic angles are sharp. No acute osseousabnormality. -------- FINAL REPORT -------- Dictated By: Ava Griffiths Dictated Date: 08/12/2025 08:35 ET Assigned Physician: Ava Griffiths Reviewed and Electronically Signed By: Ava Griffiths Signed Date: 08/12/2025 08:35 ET Workstation ID: [id number] Transcribed By: Self Edit Transcribed Date: 08/12/2025 08:35 ET us Renea BALDERAS IMG XR PROCEDURES Final Resu lt * XR Shoulder 1 View Left (08/11/2025 9:38 PM EDT) Anatomical Region Laterality Modality Upper Extremities, Shoulder Left Radi ographic Imaging 08/12/2025 8:36 AM EDT Impressions 08/12/2025 8:36 AM EDT FINDINGS/IMPRESSION: Single AP view of the shoulder demonstrating degenerative changes. No acute fracture or dislocation on this single view. -------- FINAL REPORT -------- Dictated By: Ava Griffiths Dictated Date: 08/12/2025 08:36 ET Assigned Physician: Ava Griffiths Reviewed and Electronically Signed By: Ava Griffiths Signed Date: 08/12/2025 08:36 ET Workstation ID: [id number] Transcribed By: Self Edit Transcribed Date: 08/12/2025 08:36 ET Narrative 08/12/2025 8:36 AM EDT XR SHOULDER 1 VIEW LEFT INDICATION: pain TECHNIQUE: XR SHOULDER 1 VIEW LEFT COMPARISON: No priors available. Procedure Note Ava Griffiths MD - 08/12/2025 XR SHOULDER 1 VIEW LEFT INDICATION: pain TECHNIQUE: XR SHOULDER 1 VIEW LEFT COMPARISON: No priors available. IMPRESSION: FINDINGS/IMPRESSION: Single AP view of the shoulder demonstratingdegenerative changes. No acute fracture or dislocation on this singleview. -------- FINAL REPORT -------- Dictated By: Ava Griffiths Dictated Date: 08/12/2025 08:36 ET Assigned Physician: Ava Griffiths Reviewed and Electronically Signed By: Ava Griffiths Signed Date: 08/12/2025 08:36 ET Workstation ID: [id number] Transcribed By: Self Edit Transcribed Date: 08/12/2025 08:36 ET Renea BALDERAS IMG XR PROCEDURES Final Resu lt * Troponin I high sensitivity (08/11/2025 9:28 PM EDT) Pathologist [facility] High Sensitivity Troponin I 7 <=54 ng/L LAB CHEMISTRY METHOD 08/11/2025 10:44 PM EDT [facility] Blood Venous blood specimen / Unknown Venipuncture / Unknown 08/11/2025 9:28 PM EDT 08/11/2025 10:11 PM EDT Narrative [facility] - 08/11/2025 10:44 PM EDT High levels of biotin in samples may falsely decrease hsTroponin values. Use caution when interpreting hsTroponin results in patients taking biotin who exhibit renal impairment (eGFR <60) or in patients taking more than 20 mg/day of biotin. Renea BALDERAS LAB BLOOD ORDERABLES Final R esult [facility] [address] [place] [address], * (ABNORMAL) CBC auto differential (08/11/2025 7:59 PM EDT) [facility] WBC 6.7 4.8 - 10.8 K/mcL LAB HEMETOLOGY METHOD 08/11/2025 9:05 PM EDT [facility] RBC 5.00(H) 3.80 - 4.80 M/mcL LAB [facility] Hemoglobin 14.1 11.5 - 16.0 g/dL LAB HEMETOLOGY METHOD 08/11/2025 9:05 PM EDT [facility] Hematocrit 42.6 35.0 - 47.0 % LAB HEMETOLOGY METHOD 08/11/2025 9:05 PM EDT [facility] MCV 85.4 79.0 - 98.0 FL LAB [facility]EMETOLOGY [facility] MCH 28.3 27.0 - 32.0 pcg LAB HEMETOLOGY METHOD [facility] MCHC 33.1 32.0 - 37.0 g/dL LAB HEMETOLOGY METHOD [facility] RDW 13.3 11.0 - 15.0 % LAB HEMETOLOGY METHOD 08/11/2025 9:05 PM [facility] Platelets 245 130 - 400 K/mcL LAB HEMETOLOGY METHOD 08/11/2025 9:05 PM [facility] MPV 10.2 7.0 - 11.0 FL LAB HEMETOLOGY METHOD 08/11/2025 9:05 PM [facility] NRBC 0.0 <1.0 % LAB HEMETOLOGY METHOD 08/11/2025 9:05 PM [facility] NRBC Absolute 0.00 <0.10 K/mcL LAB HEMETOLOGY METHOD 08/11/2025 9:05 PM [facility] Neutrophils Relative 48.9 % LAB HEMETOLOGY METHOD 08/11/2025 9:05 PM [facility] Comment:This is an appended report. These results have been appended to a previously preliminary verified report. Lymphocytes Relative 44.3 % LAB HEMETOLOGY METHOD 08/11/2025 9:05 PM [facility] Comment:This is an appended report. These results have been appended to a previously preliminary verified report. Monocytes Relative 4.8 % LAB HEMETOLOGY METHOD 08/11/2025 9:05 PM [facility] Comment:This is an appended report. These results have been appended to a previously preliminary verified report. Eosinophils Relative 1.0 % LAB HEMETOLOGY METHOD 08/11/2025 9:05 PM [facility] Comment:This is an appended report. These results have been appended to a previously preliminary verified report. Basophils Relative 0.7 % LAB HEMETOLOGY METHOD 08/11/2025 9:05 PM [facility] Comment:This is an appended report. These results have been appended to a previously preliminary verified report. Immature Granulocytes Relative 0.3 % LAB HEMETOLOGY METHOD 08/11/2025 9:05 PM [facility] Comment:This is an appended report. These results have been appended to a previously preliminary verified report. Neutrophils Absolute 3.27 1.50 - 7.00 K/mcL LAB HEMETOLOGY METHOD 08/11/2025 9:05 PM EDT [facility] Comment:This is an appended report. These results have been appended to a previously preliminary verified report. Lymphocytes Absolute 2.97 1.00 - 5.00 K/[facility] LAB HEMETOLOGY METHOD 08/11/2025 9:05 PM EDT [facility] Comment:This is an appended report. These results have been appended to a previously preliminary verified report. Monocytes Absolute 0.32 0.20 - 1.00 K/[facility] LAB HEMETOLOGY METHOD 08/11/2025 9:05 PM EDT [facility] Comment:This is an appended report. These results have been appended to a previously preliminary verified report. Eosinophils Absolute 0.07 0.00 - 0.50 K/[facility] LAB HEMETOLOGY METHOD 08/11/2025 9:05 PM EDT [facility] Comment:This is an appended report. These results have been appended to a previously preliminary verified report. Basophils Absolute 0.05 0.00 - 0.20 K/[facility] LAB HEMETOLOGY METHOD 08/11/2025 9:05 PM EDT [facility] Comment:This is an appended report. These results have been appended to a previously preliminary verified report. Immature Granulocytes Absolute 0.02 0.00 - 0.03 K/[facility] LAB HEMETOLOGY METHOD 08/11/2025 9:05 PM EDT [facility] Comment:This is an appended report. These results have been appended to a previously preliminary verified report. Blood Venous blood specimen / Unknown Venipuncture / Unknown 08/11/2025 7:59 PM EDT 08/11/2025 8:06 PM EDT Renea BALDERAS LAB BLOOD ORDERABLES Final R esult [facility] [address] [place] [address], * (ABNORMAL) Comprehensive metabolic panel (08/11/2025 7:59 PM EDT) Sodium 141 133 - 145 mmol/L LAB CHEMISTRY METHOD 08/11/2025 8:34 PM [facility] Potassium 4.3 3.5 - 5.5 mmol/L LAB CHEMISTRY METHOD 08/11/2025 8:34 PM [facility] Chloride 107 96 - 110 mmol/L LAB CHEMISTRY METHOD 08/11/2025 8:34 PM [facility] CO2 29 21 - 32 mmol/L LAB CHEMISTRY METHOD 08/11/2025 8:34 PM [facility] Anion Gap 5 3 - 11 LAB CHEMISTRY METHOD 08/11/2025 8:34 PM [facility] Glucose 124(H) 70 - 100 mg/dL LAB CHEMISTRY METHOD 08/11/2025 8:34 PM [facility] BUN 7 5 - 25 mg/dL LAB CHEMISTRY METHOD 08/11/2025 8:34 PM [facility] Creatinine 0.78 0.50 - 1.10 mg/dL LAB CHEMISTRY METHOD 08/11/2025 8:34 PM [facility] eGFR 81 >=60 mL/min/1. 73m2 LAB CHEMISTRY METHOD 08/11/2025 8:34 PM [facility] Comment:Calculation based on the Chronic Kidney Disease Epidemiology Collaboration (CKD-EPI) equation refit without adjustment for race. BUN/Creatinine Ratio 9.0 LAB CHEMISTRY METHOD 08/11/2025 8:34 PM [facility] Calcium 9.7 8.5 - 10.5 mg/dL LAB CHEMISTRY METHOD 08/11/2025 8:34 PM [facility] AST (SGOT) 31 10 - 42 unit/L LAB CHEMISTRY METHOD 08/11/2025 8:34 PM [facility] ALT (SGPT) 43 10 - 60 unit/L LAB CHEMISTRY METHOD 08/11/2025 8:34 PM EDT [facility] Alkaline Phosphatase 89 42 - 121 unit/L LAB CHEMISTRY METHOD 08/11/2025 8:34 PM EDT [facility] Total Protein 7.0 6.0 - 8.0 g/dL LAB CHEMISTRY METHOD 08/11/2025 8:34 PM EDT [facility] Albumin 3.9 3.2 - 5.0 g/dL LAB CHEMISTRY METHOD 08/11/2025 8:34 PM EDT [facility] Total Bilirubin 1.3 0.0 - 1.4 mg/dL LAB CHEMISTRY METHOD 08/11/2025 8:34 PM EDT [facility] Blood Venous blood specimen / Unknown Venipuncture / Unknown 08/11/2025 7:59 PM EDT 08/11/2025 8:06 PM EDT Renea BALDERAS LAB BLOOD ORDERABLES Final R esult [facility] [address] [place] [address], * ECG 12 lead (08/11/2025 5:21 PM EDT) Ventricular Rate ECG 70 BPM GEMUSE Atrial Rate 70 BPM GEMUSE P-R Interval 140 ms GEMUSE QRS Duration 96 ms GEMUSE Q-T Interval 422 ms GEMUSE QTc 455 ms GEMUSE P Wave [place] 31 degrees GEMUSE R [place] 2 degrees GEMUSE T [place] 20 degrees GEMUSE ECG Interpretation Normal sinus rhythm Minimal voltage criteria for LVH, may be normal variant ( R in aVL ) Inferior infarct , age undetermined Abnormal ECG When compared with ECG of 12-JAN-2025 19:39, No significant change was found Confirmed by KENTON AYERS ([id number]) on 08/12/2025 11:14:54 AM GEMUSE 08/11/2025 5:21 PM EDT 08/12/2025 11:14 AM EDT Result [facility] Guzman Brown MD ECG ORDERABLES Final Res ult GEMUSE * Hemoglobin A1c (05/15/2022) Hemoglobin A1C 6.5 <=6.5 % Blood Venous blood specimen / Unknown Result [facility] Historical Provider LAB BLOOD ORDERABLES Danna l Result * (ABNORMAL) Lipid panel (05/15/2022) LDL/HDL Ratio 4 0 - 4 Triglycerides 129 0 - 150 mg/dL Cholesterol 173 0 - 200 mg/dL HDL 40 >=40 mg/dL LDL Cholesterol 108(A) 0 - 100 mg/dL Blood Venous blood specimen / Unknown Result [facility] Provider LAB BLOOD ORDERABLES Danna l Result * Hepatitis C Screening (05/01/2022) Hepatitis C Screening Abstracted Result [facility] Provider HEALTH MAINTENANCE Final Result * [...] (World Health Organization Fracture Risk Assessment) [facility] Department of Internal Medicine recommends using National [...] (World Health Organization Fracture Risk Assessment) [facility] Department of Internal Medicine recommendsusing National Osteoporosis [...] Most Recently Relevant to Health Maintenance Insurance [facility]IC[facility] Member Subscriber Plan / Payer (Ef fective 2024-Present) Name:Aysha Lloyd Relation to Subscriber:Self Name:Aysha Lloyd Payer ID:[id number] Group ID:[id number] Type:Not on file Address: [facility] [address] [id number] Care Teams [employer] Relationship Specialty Start Date End Date Physician, Pcp Unknown PCP - General 08/11/25
== END 2025-10-09 13:28 | disposition home or self-care (01) ==
LOC: HO.HMCH 12:44
PROVIDERS: PCP Internal Medicine; Visit Provider Internal Medicine
DX: Z00.00 Encounter for general adult medical examination without abnormal findings (principal); M54.9 Dorsalgia, unspecified; E11.9 Type 2 diabetes mellitus without complications

== ENCOUNTER → 2025-10-09 12:43 | Outpatient (BNVA) | payer OTHER, SELFPAY | PROVIDERS: PCP Internal Medicine; Visit Provider Internal Medicine | DX: Z00.00 Encounter for general adult medical examination without abnormal findings (principal); R03.0 Elevated blood-pressure reading, without diagnosis of hypertension; E11.9 Type 2 diabetes mellitus without complications; M54.9 Dorsalgia, unspecified; E78.5 Hyperlipidemia, unspecified; M79.18 Myalgia, other site; Z79.4 Long term (current) use of insulin | CPT/HCPCS: 99212; 99397 ==